=== PATIENT | female | born 1950 | race Caucasian/White ===

== ENCOUNTER 2020-03-17 10:26 | Outpatient (REF) | payer MEDICARE, OTHER, SELFPAY ==
[2020-03-17 11:21] LABS: Alanine Aminotransferase 45 U/L (0-31); Albumin Level 4.2 g/dL (3.5-5.0); Alkaline Phosphatase 81 U/L (39-117); Anion Gap 13 (12-20); Aspartate Amino Transferase 30 U/L (5-31); Bilirubin Total 0.6 mg/dL (0.0-1.0); Blood Urea Nitrogen 15 mg/dL (9-16); Calcium 9.2 mg/dL (8.4-10.2); Carbon Dioxide 28 mmol/L (22-29); Chloride 101 mmol/L (96-108); Cholesterol 160 mg/dL; Estimated Glomerular Filt Rate > 60; Glucose Fasting 143 mg/dL (60-99); HDL Cholesterol 52 mg/dL; LDL Cholesterol Calculated 80 mg/dl; Potassium 4.7 mmol/l (3.3-5.1); Sodium 137 mmol/L (135-145); Triglycerides 144 mg/dL
[2020-03-17 11:27] LABS: Estimated Average Glucose 163 mg/dL; Hemoglobin A1c % 7.3 %
[2020-03-17 11:41] LABS: Free T4 (Free Thyroxine) 1.23 ng/dL (0.71-1.85); Thyroid Stimulating Hormone 5.15 uIU/mL (0.32-4.0)
[2020-03-17 12:59] LABS: Microalbumin Urine < 5.0 mg/L
== END 2020-03-17 10:27 | disposition home or self-care (01) ==
LOC: HO.LAB 10:26
PROVIDERS: Absent Provider Internal Medicine Cardiovascular Disease; PCP Internal Medicine; Visit Provider Internal Medicine
DX: I10 Essential (primary) hypertension (principal); I51.7 Cardiomegaly; E78.5 Hyperlipidemia, unspecified; Z79.899 Other long term (current) drug therapy; E11.69 Type 2 diabetes mellitus with other specified complication; E78.2 Mixed hyperlipidemia; J45.21 Mild intermittent asthma with (acute) exacerbation; E89.0 Postprocedural hypothyroidism
CPT/HCPCS: 80053; 80061; 82043; 83036; 84439; 84443; 93005; 99212

== ENCOUNTER 2020-03-25 14:20 | Outpatient (REF) | payer MEDICARE, OTHER, SELFPAY | END 2020-03-25 14:21 | disposition home or self-care (01) | LOC: HO.LAB 14:20 | PROVIDERS: Visit Provider Nurse Practitioner Family | DX: Z20.828 Contact with and (suspected) exposure to other viral communicable diseases (principal) | CPT/HCPCS: U0003 ==

== ENCOUNTER 2020-03-25 14:23 | Outpatient (REF) | payer MEDICARE, OTHER, SELFPAY ==
--- NOTE | 2020-03-25 14:29 | XR_ITS ---
EXAMINATION: XR CHEST CLINICAL INFORMATION: Cough COMPARISON: July 10, 2018 and June 16, 2018 TECHNIQUE: 2 views of the chest were obtained. FINDINGS: No significant abnormality is noted involving the heart, lungs, mediastinum, bony thorax or soft tissues. XR/XR chest 2V IMPRESSION: No acute disease.
== END 2020-03-25 14:24 | disposition home or self-care (01) ==
LOC: HO.HMGCX 14:23
PROVIDERS: PCP Internal Medicine; Visit Provider Nurse Practitioner Family
DX: R05 Cough (principal); Z20.828 Contact with and (suspected) exposure to other viral communicable diseases
CPT/HCPCS: 71046; U0003

== ENCOUNTER 2020-05-11 13:11 | Outpatient (REF) | payer MEDICARE, OTHER, SELFPAY ==
[2020-05-11 13:47] LABS: MANUAL DIFF FLAG NO
[2020-05-11 13:50] LABS: Basophils Absolute Auto 0.2 X10*3/uL (0.0-0.2); Basophils Percent Auto 2.2 % (0-2); Eosinophils Absolute Auto 1.3 X10*3/uL (0.0-0.4); Eosinophils Percent Auto 13.4 % (0-4); Hematocrit 41.8 % (37-47); Hemoglobin 13.8 g/dl (12.0-16.0); Imm Gran Abs Auto 0.02 X10*3/uL (0.00-0.03); Imm Gran Pct Auto 0.2 % (0.0-0.4); Lymphocytes Absolute Auto 3.1 X10*3/uL (1.2-4.9); Lymphocytes Percent Auto 33.2 % (20-40); Mean Corpuscular Hemoglobin 29.4 pg (27.0-33.0); Mean Corpuscular Volume 89.1 fL (80-98); Mean Platelet Volume 10.1 fL (9.4-12.3); Monocytes Absolute Auto 0.9 X10*3/uL (0.1-1.2); Monocytes Percent Auto 9.5 % (2-11); Neutrophils Absolute Auto 3.9 X10*3/uL (2.0-8.3); Neutrophils Percent Auto 41.5 % (45-73); Platelet Count 389 X10*3/uL (160-400); Red Blood Count 4.69 X10*6/uL (4.20-5.50); Red Cell Distribution Width 12.6 % (11.0-16.0); White Blood Count 9.4 X10*3/uL (4.8-10.8)
[2020-05-11 14:12] LABS: D Dimer 2952 NG/ML
[2020-05-11 14:18] LABS: Anion Gap 13 (12-20); Blood Urea Nitrogen 14 mg/dL (9-16); Calcium 9.4 mg/dL (8.4-10.2); Carbon Dioxide 29 mmol/L (22-29); Chloride 105 mmol/L (96-108); Estimated Glomerular Filt Rate > 60; Glucose Random 92 mg/dL (60-115); Potassium 4.3 mmol/L (3.3-5.1); Sodium 143 mmol/L (135-145)
[2020-05-11 14:24] LABS: B Type Natriuretic Peptide 56 pg/mL (<100)
[2020-05-11 16:56] LABS: Influenza A PCR NEGATIVE (Negative); Influenza B PCR NEGATIVE (Negative); Resp Syncy Virus RNA Qual PCR NEGATIVE (Negative); SARS COV2 PCR INHOUSE NEGATIVE (Negative)
== END 2020-05-11 13:12 | disposition home or self-care (01) ==
LOC: HO.HMGCLDS 13:11
PROVIDERS: Visit Provider Nurse Practitioner Family
DX: R05 Cough (principal); Z20.822 Contact with and (suspected) exposure to COVID-19
CPT/HCPCS: 0241U; 36415; 80048; 83880; 85025; 85379

== ENCOUNTER 2020-05-12 15:44 | Outpatient (REF) | payer MEDICARE, OTHER, SELFPAY ==
--- NOTE | 2020-05-12 15:50 | CT_ITS ---
EXAMINATION: CT ANGIOGRAM OF THE CHEST WITH AND WITHOUT CONTRAST (CT PULMONARY ANGIOGRAM FOR PE) CLINICAL INFORMATION: Reason for Exam R79.89 - Other specified abnormal findings of blood chemistry. COMPARISON: CT chest 07/10/2018. TECHNIQUE: Prior to contrast administration, noncontrast localization images were obtained. Subsequently, multidetector volumetric imaging was performed from the thoracic inlet to below the diaphragms following the administration of 85 mL Omnipaque 350 intravenous contrast. No contrast reaction reported. Sagittal, coronal, and MIP oblique sagittal reformatted images were obtained on the CT workstation, uploaded to PACS, and reviewed. This CT examination was performed using dose optimization techniques as appropriate, variously including the following: *Automated exposure control. *Adjustment of mA and/or kV according to patient size (this includes techniques or standardized protocols for targeted exams where dose is matched to indication/reason for exam; i.e. extremities or head). *Use of iterative reconstruction technique. Total exam dose-length product 178 mGy-cm. FINDINGS: QUALITY OF STUDY/CONTRAST BOLUS: Satisfactory. PULMONARY ARTERIES: Slight heterogeneity opacification of the vasculature. No evidence of convincing filling defects to suggest central or segmental pulmonary emboli. THORACIC AORTA: No aneurysm or dissection. LUNG: Central airway are patent. Atelectasis/scarring in the peripheral inferior lingula. Stable 2 mm nodule right upper lobe image 183 series 6. No new nodules identified. No confluent airspace disease. PLEURA: No pleural effusion or pneumothorax. MEDIASTINUM: Normal heart size. No pericardial effusion. No hilar or mediastinal lymphadenopathy. No evidence of septal bowing or right heart strain. Previously seen thyroid nodules are not included in the [id number]. CHEST WALL/AXILLA: No axillary or internal mammary lymphadenopathy. OSSEOUS STRUCTURES: No acute or suspicious osseous abnormality. UPPER ABDOMEN: Unremarkable. No reflux of contrast into the hepatic veins to suggest elevated right heart pressures. CT/CT angio chest PE protocol IMPRESSION: 1. No evidence of filling defects to suggest central or segmental pulmonary embolus. 2. Stable 2 mm right upper lobe lung nodule. Atelectasis/scarring in the peripheral inferior lingula. No confluent airspace disease. VTE: negative
[2020-05-12] MEDS: iohexoL 350 MG/ML 100 ML INFUS..BTL IV (16:12)
== END 2020-05-12 15:45 | disposition home or self-care (01) ==
LOC: HO.CT 15:44
PROVIDERS: Absent Provider Surgery; PCP Internal Medicine; Visit Provider Nurse Practitioner Family
DX: R79.89 Other specified abnormal findings of blood chemistry (principal); R05 Cough; R06.02 Shortness of breath
CPT/HCPCS: 71275; Q9967

== ENCOUNTER 2020-06-08 14:25 | Outpatient (REF) | payer MEDICARE, OTHER, SELFPAY ==
[2020-06-08 17:01] LABS: Hematocrit 42.5 % (37-47); Hemoglobin 14.2 g/dl (12.0-16.0); Mean Corpuscular HGB Conc 33.4 g/dl (31.0-35.0); Mean Corpuscular Hemoglobin 29.8 pg (27.0-33.0); Mean Corpuscular Volume 89.1 fL (80-98); Mean Platelet Volume 10.6 fL (9.4-12.3); Platelet Count 420 X10*3/uL (160-400); Red Blood Count 4.77 X10*6/uL (4.20-5.50); Red Cell Distribution Width 12.5 % (11.0-16.0); White Blood Count 10.4 X10*3/uL (4.8-10.8)
[2020-06-08 17:11] LABS: Estimated Average Glucose 171 mg/dL; Hemoglobin A1c % 7.6 %
[2020-06-08 17:30] LABS: Creatinine Urine 93.51 mg/dL; Microalbum/Creatinine Ratio Ur 48.1 ug/mg cr
[2020-06-08 17:37] LABS: Alanine Aminotransferase 38 U/L (0-31); Albumin Level 4.4 g/dL (3.5-5.0); Alkaline Phosphatase 78 U/L (39-117); Anion Gap 17 (12-20); Aspartate Amino Transferase 31 U/L (5-31); Bilirubin Total 0.8 mg/dL (0.0-1.0); Blood Urea Nitrogen 13 mg/dL (9-16); Calcium 9.7 mg/dL (8.4-10.2); Carbon Dioxide 24 mmol/L (22-29); Chloride 103 mmol/L (96-108); Cholesterol 155 mg/dL; Estimated Glomerular Filt Rate 56; Glucose Fasting 117 mg/dL (60-99); HDL Cholesterol 52 mg/dL; LDL Cholesterol Calculated 71 mg/dl; Potassium 4.2 mmol/L (3.3-5.1); Sodium 140 mmol/L (135-145); Total Protein 7.1 g/dL (6.5-8.0); Triglycerides 161 mg/dL
[2020-06-08 17:47] LABS: Erythrocyte Sedimentation Rate 25 MM/HR (0-20)
[2020-06-08 18:00] LABS: TSH reflex Free T4 1.99 uIU/mL (0.32-4.0)
[2020-06-10 08:04] LABS: SARS COV2 IgG Negative (Negative)
== END 2020-06-08 14:26 | disposition home or self-care (01) ==
LOC: HO.LAB 14:25
PROVIDERS: PCP Internal Medicine; Visit Provider Hospitalist
DX: E78.5 Hyperlipidemia, unspecified (principal); I11.9 Hypertensive heart disease without heart failure; R05 Cough; E11.9 Type 2 diabetes mellitus without complications; E03.9 Hypothyroidism, unspecified; Z01.84 Encounter for antibody response examination; J45.51 Severe persistent asthma with (acute) exacerbation; R06.02 Shortness of breath; R91.8 Other nonspecific abnormal finding of lung field; D72.10 Eosinophilia, unspecified
CPT/HCPCS: 36415; 80053; 80061; 82043; 82785; 83036; 84443; 85027; 85652; 86003; 86769; 99202

== ENCOUNTER 2020-07-15 09:30 | Outpatient (REF) | payer MEDICARE, OTHER, SELFPAY ==
--- NOTE | 2020-07-15 10:22 | PFT_ITS ---
Forced vital capacity and FEV1 are slightly decreased. FEV1/FVC ratio is normal. [id number] is slightly decreased. MVV normal. After bronchodilator therapy, there is a significant improvement in FEV1 and [id number]. Total lung capacity and residual volume, normal. Diffusion capacity normal. CONCLUSION: Mild obstructive airway disorder with complete reversibility after bronchodilator therapy. This finding is consistent with mild bronchial asthma. Clinical correlation is recommended. MD GULSHAN Zambrano/RESHMA / [id number]
== END 2020-07-15 09:31 | disposition home or self-care (01) ==
LOC: HO.RESP 09:30
PROVIDERS: PCP Internal Medicine; Visit Provider Hospitalist
DX: J45.51 Severe persistent asthma with (acute) exacerbation (principal)
CPT/HCPCS: 94060; 94727; 94729; 99212

== ENCOUNTER 2020-07-16 13:56 | Outpatient (REF) | payer MEDICARE, OTHER, SELFPAY ==
--- NOTE | ~2020-07-16 | US_ITS ---
EXAMINATION: US VENOUS ULTRASOUND WITH DOPPLER LOWER EXTREMITY, RIGHT CLINICAL INFORMATION: Elevated d-dimer. Right lower extremity pain. Assess for occult DVT. COMPARISON: None TECHNIQUE: Ultrasound of the deep veins is performed from the hip to the calf with compression sonography and color and pulse Doppler assessment. Spectral analysis with color-flow imaging is performed. FINDINGS: There is normal venous compression and respiratory variation and augmented flow. The visualized common femoral vein, superficial femoral vein, profunda femoral vein, popliteal vein, and the trifurcation region shows no evidence of deep venous thrombosis. No popliteal fossa cyst. US/US venous duplex LE RT IMPRESSION: No DVT demonstrated in the right lower extremity.
== END 2020-07-16 13:57 | disposition home or self-care (01) ==
LOC: HO.US 13:56
PROVIDERS: PCP Internal Medicine; Visit Provider Hospitalist
DX: M79.601 Pain in right arm (principal); R22.43 Localized swelling, mass and lump, lower limb, bilateral; R79.1 Abnormal coagulation profile
CPT/HCPCS: 93971

== ENCOUNTER 2020-07-30 11:40 | Outpatient (REF) | payer MEDICARE, OTHER, SELFPAY ==
[2020-07-30 14:08] LABS: MANUAL DIFF FLAG NO
[2020-07-30 14:24] LABS: Basophils Absolute Auto 0.1 X10*3/uL (0.0-0.2); Basophils Percent Auto 1.8 % (0-2); Eosinophils Absolute Auto 0.8 X10*3/uL (0.0-0.4); Eosinophils Percent Auto 10.3 % (0-4); Hematocrit 42.4 % (37-47); Hemoglobin 13.8 g/dl (12.0-16.0); Imm Gran Abs Auto 0.02 X10*3/uL (0.00-0.03); Imm Gran Pct Auto 0.3 % (0.0-0.4); Lymphocytes Absolute Auto 2.2 X10*3/uL (1.2-4.9); Lymphocytes Percent Auto 30.3 % (20-40); Mean Corpuscular HGB Conc 32.5 g/dl (31.0-35.0); Mean Corpuscular Hemoglobin 29.5 pg (27.0-33.0); Mean Corpuscular Volume 90.6 fL (80-98); Mean Platelet Volume 10.3 fL (9.4-12.3); Monocytes Absolute Auto 0.7 X10*3/uL (0.1-1.2); Monocytes Percent Auto 9.5 % (2-11); Neutrophils Absolute Auto 3.5 X10*3/uL (2.0-8.3); Neutrophils Percent Auto 47.8 % (45-73); Platelet Count 392 X10*3/uL (160-400); Red Blood Count 4.68 X10*6/uL (4.20-5.50); Red Cell Distribution Width 12.5 % (11.0-16.0); White Blood Count 7.4 X10*3/uL (4.8-10.8)
[2020-07-30 14:36] LABS: B Type Natriuretic Peptide 55 pg/mL (<100)
[2020-07-30 14:39] LABS: D Dimer 2733 NG/ML
[2020-07-30 14:42] LABS: Anion Gap 13 (12-20); Blood Urea Nitrogen 13 mg/dL (9-16); Calcium 9.8 mg/dL (8.4-10.2); Carbon Dioxide 28 mmol/L (22-29); Chloride 104 mmol/L (96-108); Estimated Glomerular Filt Rate > 60; Glucose Random 127 mg/dL (60-115); Potassium 4.5 mmol/L (3.3-5.1); Sodium 140 mmol/L (135-145)
== END 2020-07-30 11:41 | disposition home or self-care (01) ==
LOC: HO.HMGCLDS 11:40
PROVIDERS: Hospitalist; PCP Internal Medicine; Visit Provider Internal Medicine
DX: J45.909 Unspecified asthma, uncomplicated (principal); J45.51 Severe persistent asthma with (acute) exacerbation; R79.89 Other specified abnormal findings of blood chemistry; E11.9 Type 2 diabetes mellitus without complications; I10 Essential (primary) hypertension
CPT/HCPCS: 36415; 80048; 83880; 85025; 85379

== ENCOUNTER 2020-08-19 11:22 | Outpatient (REF) | payer MEDICARE, OTHER, SELFPAY ==
[2020-08-19 13:55] LABS: MANUAL DIFF FLAG NO
[2020-08-19 14:01] LABS: Basophils Absolute Auto 0.1 X10*3/uL (0.0-0.2); Basophils Percent Auto 1.7 % (0-2); Eosinophils Absolute Auto 0.6 X10*3/uL (0.0-0.4); Eosinophils Percent Auto 7.8 % (0-4); Hematocrit 43.1 % (37-47); Hemoglobin 14.3 g/dl (12.0-16.0); Imm Gran Abs Auto 0.02 X10*3/uL (0.00-0.03); Imm Gran Pct Auto 0.3 % (0.0-0.4); Lymphocytes Absolute Auto 2.1 X10*3/uL (1.2-4.9); Mean Corpuscular HGB Conc 33.2 g/dl (31.0-35.0); Mean Corpuscular Hemoglobin 29.7 pg (27.0-33.0); Mean Corpuscular Volume 89.4 fL (80-98); Mean Platelet Volume 10.3 fL (9.4-12.3); Monocytes Absolute Auto 0.6 X10*3/uL (0.1-1.2); Monocytes Percent Auto 7.2 % (2-11); Neutrophils Absolute Auto 4.3 X10*3/uL (2.0-8.3); Platelet Count 391 X10*3/uL (160-400); Red Blood Count 4.82 X10*6/uL (4.20-5.50); Red Cell Distribution Width 12.5 % (11.0-16.0); White Blood Count 7.7 X10*3/uL (4.8-10.8)
[2020-08-19 14:08] LABS: Fibrinogen 615 MG/DL (259-690); Prothrombin Time 11.6 SEC (10.8-13.0)
[2020-08-19 14:19] LABS: D Dimer 3372 NG/ML; Partial Thromboplastin Time 42.4 SEC (24.1-38.0)
[2020-08-19 14:29] LABS: Rheumatoid Factor < 15.0 IU/mL (<15.0)
[2020-08-19 14:54] LABS: Erythrocyte Sedimentation Rate 19 MM/HR (0-20)
[2020-08-20 22:12] LABS: Prot Elec - Alpha1 0.3 g/dL (0.2-0.3); Prot Elec - Alpha2 0.9 g/dL (0.5-0.9); Prot Elec - Beta 1 0.4 g/dL (0.4-0.6); Prot Elec - Beta 2 0.4 g/dL (0.2-0.5); Prot Elec - Gamma 0.9 g/dL (0.8-1.7); Prot Elec - Total Protein 6.9 g/dL (6.1-8.1)
[2020-08-21 18:51] LABS: IgA 235 mg/dL (70-320); IgG 922 mg/dL (600-1540); IgM 115 mg/dL (50-300)
[2020-08-25 18:27] LABS: Cyclic Citrullinated Peptide <16 UNITS
== END 2020-08-19 11:23 | disposition home or self-care (01) ==
LOC: HO.HMGCLDS 11:22
PROVIDERS: Hospitalist; PCP Internal Medicine; Visit Provider Internal Medicine
DX: R06.02 Shortness of breath (principal); R06.2 Wheezing; R79.89 Other specified abnormal findings of blood chemistry; J45.51 Severe persistent asthma with (acute) exacerbation
CPT/HCPCS: 36415; 82784; 84155; 84165; 85025; 85379; 85384; 85610; 85652; 85730; 86140; 86200; 86334; 86431

== ENCOUNTER 2020-08-27 10:58 | Outpatient (REF) | payer MEDICARE, OTHER, SELFPAY ==
[2020-08-27 13:54] LABS: Hematocrit 43.3 % (37-47); Hemoglobin 14.2 g/dl (12.0-16.0); Mean Corpuscular HGB Conc 32.8 g/dl (31.0-35.0); Mean Corpuscular Hemoglobin 29.5 pg (27.0-33.0); Mean Platelet Volume 10.3 fL (9.4-12.3); Platelet Count 401 X10*3/uL (160-400); Red Blood Count 4.81 X10*6/uL (4.20-5.50); Red Cell Distribution Width 12.6 % (11.0-16.0); White Blood Count 8.5 X10*3/uL (4.8-10.8)
[2020-08-27 14:17] LABS: Estimated Average Glucose 151 mg/dL; Hemoglobin A1c % 6.9 %
[2020-08-27 14:24] LABS: Alanine Aminotransferase 37 U/L (0-31); Albumin Level 4.3 g/dL (3.5-5.0); Alkaline Phosphatase 82 U/L (39-117); Anion Gap 14 (12-20); Aspartate Amino Transferase 27 U/L (5-31); Bilirubin Total 0.6 mg/dL (0.0-1.0); Blood Urea Nitrogen 15 mg/dL (9-16); Calcium 9.4 mg/dL (8.4-10.2); Carbon Dioxide 24 mmol/L (22-29); Chloride 105 mmol/L (96-108); Cholesterol 151 mg/dL; Estimated Glomerular Filt Rate > 60; Glucose Fasting 120 mg/dL (60-99); HDL Cholesterol 51 mg/dL; LDL Cholesterol Calculated 72 mg/dl; Potassium 4.4 mmol/L (3.3-5.1); Sodium 139 mmol/L (135-145); Total Protein 6.9 g/dL (6.5-8.0); Triglycerides 142 mg/dL
[2020-08-27 14:25] LABS: Creatinine Urine 41.16 mg/dL; Microalbumin Urine < 5.0 mg/L
[2020-08-27 14:46] LABS: TSH reflex Free T4 0.81 uIU/mL (0.32-4.0)
== END 2020-08-27 10:59 | disposition home or self-care (01) ==
LOC: HO.HMGCLDS 10:58
PROVIDERS: PCP Internal Medicine; Visit Provider Internal Medicine
DX: J45.51 Severe persistent asthma with (acute) exacerbation (principal); D72.10 Eosinophilia, unspecified; E11.9 Type 2 diabetes mellitus without complications; E78.5 Hyperlipidemia, unspecified
CPT/HCPCS: 36415; 80053; 80061; 82043; 83036; 84443; 85027

== ENCOUNTER → 2020-08-31 11:21 | Outpatient (BNVA) | payer MEDICARE, OTHER, SELFPAY | PROVIDERS: PCP Internal Medicine; Visit Provider Hospitalist | DX: J45.40 Moderate persistent asthma, uncomplicated (principal); R91.8 Other nonspecific abnormal finding of lung field | CPT/HCPCS: 99212 ==

== ENCOUNTER 2020-10-09 11:52 | Outpatient (REF) | payer MEDICARE, OTHER, SELFPAY ==
[2020-10-14 21:06] LABS: HPV mRNA E6/E7 Not Detected (Not Detected)
== END 2020-10-09 11:53 | disposition home or self-care (01) ==
LOC: HO.LAB 11:52
PROVIDERS: Visit Provider Internal Medicine
DX: Z01.419 Encounter for gynecological examination (general) (routine) without abnormal findings (principal)
CPT/HCPCS: 87624; 88142

== ENCOUNTER 2020-12-07 09:55 | Outpatient (REF) | payer MEDICARE, OTHER, SELFPAY ==
[2020-12-07 11:45] LABS: Alanine Aminotransferase 34 U/L (0-31); Albumin Level 4.1 g/dL (3.5-5.0); Alkaline Phosphatase 86 U/L (39-117); Anion Gap 15 (12-20); Aspartate Amino Transferase 19 U/L (5-31); Bilirubin Total 0.6 mg/dL (0.0-1.0); Blood Urea Nitrogen 13 mg/dL (9-16); Calcium 9.6 mg/dL (8.4-10.2); Carbon Dioxide 24 mmol/L (22-29); Chloride 105 mmol/L (96-108); Cholesterol 151 mg/dL; Estimated Glomerular Filt Rate > 60; Glucose Fasting 126 mg/dL (60-99); HDL Cholesterol 55 mg/dL; LDL Cholesterol Calculated 72 mg/dl; Potassium 4.1 mmol/L (3.3-5.1); Sodium 140 mmol/L (135-145); Total Protein 6.8 g/dL (6.5-8.0); Triglycerides 123 mg/dL
[2020-12-07 11:57] LABS: TSH reflex Free T4 1.04 uIU/mL (0.32-4.0); Vitamin D 25-OH Total 38.2 ng/mL (>30)
[2020-12-07 12:14] LABS: Estimated Average Glucose 140 mg/dL; Hemoglobin A1c % 6.5 %
== END 2020-12-07 09:56 | disposition home or self-care (01) ==
LOC: HO.HMGCLDS 09:55
PROVIDERS: PCP Internal Medicine; Visit Provider Internal Medicine
DX: E03.9 Hypothyroidism, unspecified (principal); E11.9 Type 2 diabetes mellitus without complications; I10 Essential (primary) hypertension
CPT/HCPCS: 36415; 80053; 80061; 82306; 83036; 84443

== ENCOUNTER 2021-02-01 10:01 | Outpatient (REF) | payer MEDICARE, OTHER, SELFPAY ==
[2021-02-01 10:53] LABS: MANUAL DIFF FLAG NO
[2021-02-01 10:57] LABS: Basophils Absolute Auto 0.1 X10*3/uL (0.0-0.2); Basophils Percent Auto 1.6 % (0-2); Eosinophils Absolute Auto 0.4 X10*3/uL (0.0-0.4); Eosinophils Percent Auto 4.4 % (0-4); Hematocrit 42.4 % (37-47); Hemoglobin 14.1 g/dl (12.0-16.0); Imm Gran Abs Auto 0.02 X10*3/uL (0.00-0.03); Imm Gran Pct Auto 0.2 % (0.0-0.4); Lymphocytes Absolute Auto 2.4 X10*3/uL (1.2-4.9); Lymphocytes Percent Auto 27.9 % (20-40); Mean Corpuscular HGB Conc 33.3 g/dl (31.0-35.0); Mean Corpuscular Hemoglobin 29.2 pg (27.0-33.0); Mean Corpuscular Volume 87.8 fL (80-98); Mean Platelet Volume 9.5 fL (9.4-12.3); Monocytes Absolute Auto 0.9 X10*3/uL (0.1-1.2); Monocytes Percent Auto 9.9 % (2-11); Neutrophils Absolute Auto 4.9 X10*3/uL (2.0-8.3); Platelet Count 368 X10*3/uL (160-400); Red Blood Count 4.83 X10*6/uL (4.20-5.50); Red Cell Distribution Width 13.2 % (11.0-16.0); White Blood Count 8.7 X10*3/uL (4.8-10.8)
[2021-02-01 12:06] LABS: Erythrocyte Sedimentation Rate 16 MM/HR (0-20)
[2021-02-02 13:16] LABS: SARS-COV-2 IgG Spike, Semi-Qnt >20.00 index (<1.00)
[2021-02-02 18:22] LABS: Immunoglobulin E 40 kU/L (<OR=114)
== END 2021-02-01 10:02 | disposition home or self-care (01) ==
LOC: HO.LAB 10:01
PROVIDERS: PCP Internal Medicine; Visit Provider Hospitalist
DX: R91.8 Other nonspecific abnormal finding of lung field (principal); J45.40 Moderate persistent asthma, uncomplicated; Z79.899 Other long term (current) drug therapy; Z87.891 Personal history of nicotine dependence; Z01.84 Encounter for antibody response examination
CPT/HCPCS: 36415; 82785; 85025; 85652; 86769; 99212

== ENCOUNTER 2021-03-12 16:51 | Outpatient (REF) | payer MEDICARE, OTHER, SELFPAY ==
[2021-03-12 17:12] LABS: Hematocrit 44.5 % (37.0-47.0); Hemoglobin 14.7 g/dl (12.0-16.0); Mean Corpuscular Hemoglobin 28.9 pg (27.0-33.0); Mean Corpuscular Volume 87.6 fL (80.0-98.0); Mean Platelet Volume 9.5 fL (9.4-12.3); Platelet Count 416 X10*3/uL (160-400); Red Blood Count 5.08 X10*6/uL (4.20-5.50); Red Cell Distribution Width 13.1 % (11.0-16.0); White Blood Count 8.5 X10*3/uL (4.8-10.8)
[2021-03-12 17:34] LABS: Creatinine Urine 97.52 mg/dL; Microalbum/Creatinine Ratio Ur 22.5 ug/mg cr
[2021-03-12 17:41] LABS: Alanine Aminotransferase 38 U/L (0-31); Albumin Level 4.3 g/dL (3.5-5.0); Alkaline Phosphatase 95 U/L (39-117); Anion Gap 16 (12-20); Aspartate Amino Transferase 23 U/L (5-31); Bilirubin Total 0.5 mg/dL (0.0-1.0); Blood Urea Nitrogen 14 mg/dL (9-16); Calcium 9.9 mg/dL (8.4-10.2); Carbon Dioxide 22 mmol/L (22-29); Chloride 106 mmol/L (96-108); Cholesterol 156 mg/dL; Estimated Average Glucose 140 mg/dL; Estimated Glomerular Filt Rate 54; Glucose Fasting 104 mg/dL (60-99); HDL Cholesterol 56 mg/dL; Hemoglobin A1c % 6.5 %; LDL Cholesterol Calculated 79 mg/dl; Potassium 4.1 mmol/L (3.3-5.1); Sodium 140 mmol/L (135-145); Total Protein 7.3 g/dL (6.5-8.0); Triglycerides 109 mg/dL
== END 2021-03-12 16:52 | disposition home or self-care (01) ==
LOC: HO.LAB 16:51
PROVIDERS: PCP Internal Medicine; Visit Provider Internal Medicine
DX: E11.9 Type 2 diabetes mellitus without complications (principal); I10 Essential (primary) hypertension; E78.5 Hyperlipidemia, unspecified
CPT/HCPCS: 36415; 80053; 80061; 82043; 83036; 85027

== ENCOUNTER 2021-03-25 14:16 | Outpatient (REF) | payer MEDICARE, OTHER, SELFPAY ==
--- NOTE | ~2021-03-25 | MM_ITS ---
EXAMINATION: BONE DENSITOMETRY CLINICAL INDICATION: Asymptomatic menopausal state. COMPARISON: This is the patient's baseline examination. TECHNIQUE: Using a ACE DXA System (software version: 13.1) manufactured by [employer], dual-energy x-ray absorptiometry was performed of the lumbar spine and left hip. The images are of good technical quality. Summary results are attached. FINDINGS: AP SPINE L1-L4: BMD 1.228 g/cm2, Z-score 0.9, T-score 0.4, normal. LEFT FEMUR, NECK: BMD 0.794 g/cm2, Z-score -0.8, T-score -1.8, osteopenia. LEFT FEMUR, TOTAL: BMD 0.886 g/cm2, Z-score -0.4, T-score -1.0, normal. IDENTIFIED RISK FACTORS: Early menopause, secondary osteoporosis. HISTORY OF FRACTURE: None listed. MEDICATIONS: None listed. MM/XR DEXA axial skeleton IMPRESSION: 1. DIAGNOSIS: Osteopenia based on the lowest T-score value of -1.8 in the femoral neck applying World Health Organization criteria. 2. 10-YEAR FRACTURE RISK PREDICTION, FRAX: Major osteoporotic fracture (clinical spine, forearm, hip or shoulder) 9.3%. Hip fracture 1.4%. 3. Treatment Recommendations: NOF guidelines recommend consideration for treatment in postmenopausal women and men age 50 and older presenting with the following: -A hip or vertebral (clinical or morphometric) fracture. -T-score less than or equal to -2.5 at the femoral neck or spine after appropriate evaluation to exclude secondary causes. -Low bone mass at the hip or spine and a 10-year fracture probability by FRAX of greater than or equal to 3% for hip fracture or greater than or equal to 20% for major osteoporotic fracture based on the [place] adapted WHO algorithm. 4. Other Recommendations: All treatment decisions require clinical judgment and consideration of individual patient factors, including patient preferences, comorbidities, previous drug use, risk factors not captured in the FRAX model (e.g. frailty, falls, vitamin D deficiency, increased bone turnover, interval significant decline in bone density) and possible under or overestimation of fracture risk by FRAX. Additional medical evaluation for secondary cause of low bone mineral density may be appropriate. FUTURE SCAN RECOMMENDATION: People with diagnosed cases of osteoporosis or at high risk for fracture should have regular bone mineral density tests. For patients eligible for Medicare, routine testing is allowed once every 2 years. The testing frequency can be increased to one year for patients who have rapidly progressing disease, those who are receiving or discontinuing medical therapy to restore bone mass, or have additional risk factors.
== END 2021-03-25 14:17 | disposition home or self-care (01) ==
LOC: HO.MAMMO 14:16
PROVIDERS: Visit Provider Internal Medicine
DX: Z13.820 Encounter for screening for osteoporosis (principal); M85.80 Other specified disorders of bone density and structure, unspecified site; Z78.0 Asymptomatic menopausal state; Z79.899 Other long term (current) drug therapy
CPT/HCPCS: 77080

== ENCOUNTER 2021-06-15 08:27 | Outpatient (REF) | payer MEDICARE, OTHER, SELFPAY ==
[2021-06-15 09:30] LABS: Estimated Average Glucose 148 mg/dL; Hemoglobin A1c % 6.8 %
[2021-06-15 09:36] LABS: Alanine Aminotransferase 36 U/L (0-31); Alkaline Phosphatase 87 U/L (39-117); Anion Gap 13 (12-20); Aspartate Amino Transferase 23 U/L (5-31); Bilirubin Total 0.6 mg/dL (0.0-1.0); Blood Urea Nitrogen 10 mg/dL (9-16); Calcium 9.6 mg/dL (8.4-10.2); Carbon Dioxide 28 mmol/L (22-29); Chloride 104 mmol/L (96-108); Cholesterol 167 mg/dL; Estimated Glomerular Filt Rate 53; Glucose Fasting 151 mg/dL (60-99); HDL Cholesterol 55 mg/dL; LDL Cholesterol Calculated 86 mg/dl; Potassium 4.2 mmol/L (3.3-5.1); Sodium 141 mmol/L (135-145); Total Protein 6.8 g/dL (6.5-8.0); Triglycerides 133 mg/dL
[2021-06-15 10:01] LABS: TSH reflex Free T4 1.15 uIU/mL (0.32-4.0)
== END 2021-06-15 08:28 | disposition home or self-care (01) ==
LOC: HO.LAB 08:27
PROVIDERS: PCP Internal Medicine; Visit Provider Internal Medicine
DX: E11.9 Type 2 diabetes mellitus without complications (principal); E78.5 Hyperlipidemia, unspecified; E03.9 Hypothyroidism, unspecified; I10 Essential (primary) hypertension
CPT/HCPCS: 36415; 80053; 80061; 83036; 84443

== ENCOUNTER 2021-09-28 10:36 | Outpatient (REF) | payer MEDICARE, OTHER, SELFPAY ==
[2021-09-28 12:44] LABS: Thyroid Stimulating Hormone 1.51 uIU/mL (0.32-4.0)
[2021-09-28 13:37] LABS: Alanine Aminotransferase 32 U/L (0-31); Alkaline Phosphatase 88 U/L (39-117); Anion Gap 13 (12-20); Aspartate Amino Transferase 23 U/L (5-31); Bilirubin Total 0.4 mg/dL (0.0-1.0); Blood Urea Nitrogen 11 mg/dL (9-16); Calcium 8.9 mg/dL (8.4-10.2); Carbon Dioxide 24 mmol/L (22-29); Chloride 107 mmol/L (96-108); Cholesterol 155 mg/dL; Estimated Glomerular Filt Rate > 60; Glucose Fasting 134 mg/dL (60-99); HDL Cholesterol 57 mg/dL; LDL Cholesterol Calculated 78 mg/dl; Potassium 4.3 mmol/L (3.3-5.1); Sodium 140 mmol/L (135-145); Total Protein 6.7 g/dL (6.5-8.0); Triglycerides 104 mg/dL
[2021-09-28 13:47] LABS: Estimated Average Glucose 148 mg/dL; Hemoglobin A1c % 6.8 %
== END 2021-09-28 10:37 | disposition home or self-care (01) ==
LOC: HO.HMGCLDS 10:36
PROVIDERS: PCP Internal Medicine; Visit Provider Internal Medicine
DX: Z00.00 Encounter for general adult medical examination without abnormal findings (principal); E11.9 Type 2 diabetes mellitus without complications; I10 Essential (primary) hypertension; E03.9 Hypothyroidism, unspecified; E78.5 Hyperlipidemia, unspecified
CPT/HCPCS: 36415; 80053; 80061; 83036; 84443

== ENCOUNTER 2021-10-13 12:12 | Outpatient (REF) | payer MEDICARE, OTHER, SELFPAY ==
--- NOTE | ~2021-10-13 | XR_ITS ---
EXAMINATION: XR HAND, RIGHT XR HAND, LEFT XR SHOULDER, LEFT CLINICAL INFORMATION: Pain. COMPARISON: None TECHNIQUE: Three views of each hand. Left shoulder 4 views. FINDINGS: RIGHT HAND: There is loss of the PIP and DIP joint spaces without any periarticular spurring or loose bodies. No abnormal joint effusion is seen. The MCP joint spaces are preserved. LEFT HAND: There is mild loss of the PIP and DIP joint spaces with mild periarticular spurring at the DIP joint of the 2nd digit. No bony erosive changes or soft tissue swelling is seen. The MCP joint spaces are preserved. The visualized intercarpal joints are unremarkable. LEFT SHOULDER: There is mild loss of the left AC joint space with periarticular spurring. No visible acute fracture, dislocation or subluxation is seen. The soft tissues are normal. XR/XR hand RT min 3V IMPRESSION: Mild degenerative changes of the bilateral PIP and DIP joints with periarticular spurring at the DIP joint of the 2nd digit of the left hand. No acute fracture is seen. No visible acute fracture or dislocation of the left shoulder. Mild degenerative changes of the left AC joint.
--- NOTE | ~2021-10-13 | XR_ITS ---
EXAMINATION: XR HAND, RIGHT XR HAND, LEFT XR SHOULDER, LEFT CLINICAL INFORMATION: Pain. COMPARISON: None TECHNIQUE: Three views of each hand. Left shoulder 4 views. FINDINGS: RIGHT HAND: There is loss of the PIP and DIP joint spaces without any periarticular spurring or loose bodies. No abnormal joint effusion is seen. The MCP joint spaces are preserved. LEFT HAND: There is mild loss of the PIP and DIP joint spaces with mild periarticular spurring at the DIP joint of the 2nd digit. No bony erosive changes or soft tissue swelling is seen. The MCP joint spaces are preserved. The visualized intercarpal joints are unremarkable. LEFT SHOULDER: There is mild loss of the left AC joint space with periarticular spurring. No visible acute fracture, dislocation or subluxation is seen. The soft tissues are normal. XR/XR hand LT min 3V IMPRESSION: Mild degenerative changes of the bilateral PIP and DIP joints with periarticular spurring at the DIP joint of the 2nd digit of the left hand. No acute fracture is seen. No visible acute fracture or dislocation of the left shoulder. Mild degenerative changes of the left AC joint.
--- NOTE | ~2021-10-13 | XR_ITS ---
EXAMINATION: XR HAND, RIGHT XR HAND, LEFT XR SHOULDER, LEFT CLINICAL INFORMATION: Pain. COMPARISON: None TECHNIQUE: Three views of each hand. Left shoulder 4 views. FINDINGS: RIGHT HAND: There is loss of the PIP and DIP joint spaces without any periarticular spurring or loose bodies. No abnormal joint effusion is seen. The MCP joint spaces are preserved. LEFT HAND: There is mild loss of the PIP and DIP joint spaces with mild periarticular spurring at the DIP joint of the 2nd digit. No bony erosive changes or soft tissue swelling is seen. The MCP joint spaces are preserved. The visualized intercarpal joints are unremarkable. LEFT SHOULDER: There is mild loss of the left AC joint space with periarticular spurring. No visible acute fracture, dislocation or subluxation is seen. The soft tissues are normal. XR/XR shoulder LT min 2V IMPRESSION: Mild degenerative changes of the bilateral PIP and DIP joints with periarticular spurring at the DIP joint of the 2nd digit of the left hand. No acute fracture is seen. No visible acute fracture or dislocation of the left shoulder. Mild degenerative changes of the left AC joint.
[2021-10-13 14:21] LABS: Rheumatoid Factor < 15.0 IU/mL (<15.0)
[2021-10-13 14:52] LABS: Erythrocyte Sedimentation Rate 20 MM/HR (0-20)
[2021-10-15 14:26] LABS: Anti Nuclear Antibody Screen NEGATIVE (NEGATIVE)
[2021-10-15 14:37] LABS: CRP High Sensitivity 8.8 mg/L
[2021-10-18 18:06] LABS: Cyclic Citrullinated Peptide <16 UNITS
== END 2021-10-13 12:13 | disposition home or self-care (01) ==
LOC: HO.HMGCLDS 12:12
PROVIDERS: PCP Internal Medicine; Visit Provider Internal Medicine
DX: M25.50 Pain in unspecified joint (principal)
CPT/HCPCS: 36415; 73030; 73130; 85652; 86038; 86039; 86141; 86200; 86431

== ENCOUNTER 2021-10-21 11:46 | Outpatient (REF) | payer MEDICARE, OTHER, SELFPAY ==
[2021-10-22 07:11] LABS: HBS Num1 0.91 mIU/mL (0-7.99); HBc Num1 0.09 S/CO (0.00-0.79); HBsAGNum1 0.16 S/CO (0.00-0.99); Hepatitis A Antibody IgM 0.18 Index (0-0.79); Hepatitis B Core Antibody Nonreactive (Nonreactive); Hepatitis B Surface Antigen Negative (Negative); ~HepC Num1 0.13 S/CO (0.00-0.79); ~Hepatitis A Antibody IgM Nonreactive (Nonreactive); ~Hepatitis B Surface Antibody NONREACTIVE (Nonreactive); ~Hepatitis C Antibody Nonreactive (Nonreactive)
[2021-10-24 01:07] LABS: TS Negative Control Passed; TS Panel A 1; TS Panel B 0; TS Positive Control Passed; TSpotTB Negative (Negative)
== END 2021-10-21 11:47 | disposition home or self-care (01) ==
LOC: HO.10HDL 11:46
PROVIDERS: Visit Provider Internal Medicine Rheumatology
DX: L40.50 Arthropathic psoriasis, unspecified (principal); M19.041 Primary osteoarthritis, right hand; M19.042 Primary osteoarthritis, left hand; Z79.899 Other long term (current) drug therapy
CPT/HCPCS: 36415; 86481; 86704; 86706; 86709; 86803; 87340; 99202

== ENCOUNTER 2021-11-19 13:00 | Outpatient (RCR) | payer MEDICARE, OTHER, SELFPAY ==
--- NOTE | 2021-10-20 14:27 | MHC.PT.EP ---
[facility] [place] Office [place] Office [place] Office [address] Nadia Crabtree [address] [phone] F: [phone] F: [phone] F: [phone] F: [phone] Physical Therapy Plan of Care Date of Evaluation: Date of Surgery: n/a Diagnosis: pain in the L shoulder Assessment: Patient is a 71 year old female presenting to PT with complaints of pain in her B shoulder. Pt reports onset of pain began 3 weeks ago due to insidious onset but doctors are checking to see if she has psoriatic arthritis. She presents today with impairments in pain, ROM, strength, posture. Pt's current occupation is retired, with baseline physical activities including reaching, ADLs, sleep. 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 Clinical presentation today is most consistent with signs and sx associated with L shoulder pain with question of autoimmune connection and pt will benefit from skilled PT to address the following problems and impairments noted upon evaluation: pain, ROM, strength, posture. These problems limit the patient with the following functional activities: reaching, ADLs, sleeping. The prescribed treatment plan of care is medically necessary. Co-morbidities of T2DM, HTN, L ventricular hypertrophy were identified and taken into considerations of plan of care. Pt was educated on HEP, role of PT, prognosis, POC. Frequency and Duration: The patient will be seen 2 x week x 4 weeks Short Term Goals: Pt will demonstrate improved shoulder flex and abd by 20 degrees each in 2 weeks. Pt will demonstrate improved shoulder strength B by 1/3 MMT in 2 weeks. Pt will demonstrate improved postural awareness by sitting with biomechanically correct posture without cues throughout session to improve overall postural function in 2 weeks. 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 Pt will demonstrate ability to sleep through the night with disruption < 3 times in 4 weeks for improved QOL. Pt will demonstrate ability to reach with min to no pain in 4 weeks for improved tolerance to ADLs. Treatment Plan: Modalities to reduce pain, spasms and effusion. Manual therapy to restore motion and function. Therapeutic exercise to improve strength and flexibility. Neuromuscular re-education for posture and balance. Therapeutic activities to return to functional activities of daily living. Electronically signed by: Joanne Novak, PT, DPT, ATC Please sign and return to therapist. Thank you for your referral.
--- NOTE | 2021-12-22 12:56 | MHC.PT.DC ---
[facility] [place] Office [place] Office [place] Office [address] Nadia Crabtree [address] [phone] F: [phone] F: [phone] F: [phone] F: [phone] Physical Therapy Discharge Report Diagnosis: pain in the L shoulder Date of Surgery: n/a Date of Evaluation: 10/20/21 Date of Discharge: 12/22/21 Treatments to Date: 5 Cancellations to Date: 3 No Shows to Date: 0 Discharge Status: Discharge Summary: Pt has not been seen in skilled PT in >30 days. Pt to be d/c per our policy. Electronically signed by: Joanne Novak, PT, DPT, ATC Please sign and return to therapist. Thank you for your referral.
== END 2021-12-22 12:56 | disposition home or self-care (01) ==
LOC: HO.PTCHIC 13:00
PROVIDERS: PCP Internal Medicine; Visit Provider Internal Medicine
DX: M25.512 Pain in left shoulder (principal)
CPT/HCPCS: 97110; 97161

== ENCOUNTER → 2021-11-22 14:04 | Outpatient (BNVA) | payer MEDICARE, OTHER, SELFPAY | PROVIDERS: PCP Internal Medicine; Visit Provider Internal Medicine Rheumatology | DX: M19.041 Primary osteoarthritis, right hand (principal); M19.042 Primary osteoarthritis, left hand; R20.0 Anesthesia of skin; L40.50 Arthropathic psoriasis, unspecified; R74.01 Elevation of levels of liver transaminase levels; Z79.899 Other long term (current) drug therapy | CPT/HCPCS: 99212 ==

== ENCOUNTER 2021-12-24 11:04 | Outpatient (REF) | payer MEDICARE, OTHER, SELFPAY ==
[2021-12-24 13:40] LABS: MANUAL DIFF FLAG NO
[2021-12-24 13:44] LABS: Basophils Absolute Auto 0.1 X10*3/uL (0.0-0.2); Basophils Percent Auto 1.2 % (0-2); Eosinophils Absolute Auto 0.3 X10*3/uL (0.0-0.4); Eosinophils Percent Auto 3.1 % (0-4); Hematocrit 41.7 % (37.0-47.0); Hemoglobin 13.9 g/dl (12.0-16.0); Imm Gran Abs Auto 0.02 X10*3/uL (0.00-0.03); Imm Gran Pct Auto 0.2 % (0.0-0.4); Lymphocytes Absolute Auto 1.8 X10*3/uL (1.2-4.9); Lymphocytes Percent Auto 22.4 % (20-40); Mean Corpuscular HGB Conc 33.3 g/dl (31.0-35.0); Mean Corpuscular Hemoglobin 28.9 pg (27.0-33.0); Mean Corpuscular Volume 86.7 fL (80.0-98.0); Mean Platelet Volume 9.5 fL (9.4-12.3); Monocytes Absolute Auto 0.7 X10*3/uL (0.1-1.2); Monocytes Percent Auto 8.2 % (2-11); Neutrophils Absolute Auto 5.3 x10*3/uL (2.0-8.3); Neutrophils Percent Auto 64.9 % (45-73); Platelet Count 504 X10*3/uL (160-400); Red Blood Count 4.81 X10*6/uL (4.20-5.50); Red Cell Distribution Width 12.4 % (11.0-16.0); White Blood Count 8.2 X10*3/uL (4.8-10.8)
[2021-12-24 13:56] LABS: Estimated Average Glucose 137 mg/dL; Hemoglobin A1c % 6.4 %
[2021-12-24 13:58] LABS: Alanine Aminotransferase 31 U/L (0-31); Albumin Level 4.1 g/dL (3.5-5.0); Alkaline Phosphatase 85 U/L (39-117); Anion Gap 17 (12-20); Aspartate Amino Transferase 20 U/L (5-31); Bilirubin Total 0.6 mg/dL (0.0-1.0); Blood Urea Nitrogen 11 mg/dL (9-16); Calcium 9.5 mg/dL (8.4-10.2); Carbon Dioxide 23 mmol/L (22-29); Chloride 104 mmol/L (96-108); Cholesterol 136 mg/dL; Estimated Glomerular Filt Rate > 60; Glucose Fasting 126 mg/dL (60-99); HDL Cholesterol 49 mg/dL; LDL Cholesterol Calculated 70 mg/dl; Potassium 3.8 mmol/L (3.3-5.1); Sodium 140 mmol/L (135-145); Total Protein 6.9 g/dL (6.5-8.0); Triglycerides 87 mg/dL
[2021-12-24 14:16] LABS: TSH reflex Free T4 2.72 uIU/mL (0.32-4.0)
[2021-12-24 14:37] LABS: Microalbum/Creatinine Ratio Ur 52.1 ug/mg cr
== END 2021-12-24 11:05 | disposition home or self-care (01) ==
LOC: HO.10HDL 11:04
PROVIDERS: Visit Provider Internal Medicine
DX: E11.9 Type 2 diabetes mellitus without complications (principal); E78.5 Hyperlipidemia, unspecified; I10 Essential (primary) hypertension; E03.9 Hypothyroidism, unspecified; Z78.0 Asymptomatic menopausal state
CPT/HCPCS: 36415; 80053; 80061; 82043; 83036; 84443; 85025

== ENCOUNTER → 2022-02-08 11:22 | Outpatient (BNVA) | payer MEDICARE, OTHER, SELFPAY | PROVIDERS: PCP Internal Medicine; Visit Provider Internal Medicine Rheumatology | DX: L40.50 Arthropathic psoriasis, unspecified (principal); M19.041 Primary osteoarthritis, right hand; M19.042 Primary osteoarthritis, left hand; R20.0 Anesthesia of skin; M75.82 Other shoulder lesions, left shoulder; Z79.899 Other long term (current) drug therapy | CPT/HCPCS: 99212 ==

== ENCOUNTER → 2022-03-01 08:28 | Outpatient (BNVA) | payer MEDICARE, OTHER, SELFPAY | PROVIDERS: PCP Internal Medicine; Referring Provider Internal Medicine; Visit Provider Internal Medicine Cardiovascular Disease | DX: R94.31 Abnormal electrocardiogram [ECG] [EKG] (principal); I10 Essential (primary) hypertension | CPT/HCPCS: 93005; 99212 ==

== ENCOUNTER → 2022-03-09 08:33 | Outpatient (REF) | payer MEDICARE, OTHER, SELFPAY ==
--- NOTE | 2022-03-09 08:37 | CA_ITS ---
Transthoracic Echocardiogram Patient (Last, First, Middle): Randa Sanabria A Gender: Female Date of : 1950 Age: 71 Procedure Date: 03/09/2022 Procedure Type: Transthoracic Echocardiogram Location: OP Height: 165.1 cm Weight: 102.06 kg BSA: 2.08 m2 Heart Rate: 98 bpm BP: 120 / 80 mmHg Pulverizer Tender: LUIS ANGEL Referring MD: Tom Romero MD Survey Operations Director: Tom Romero MD Symptoms: R94.31 - Abnormal electrocardiogram [ECG] [EKG] Study Quality: Adequate w contrast ECG Rhythm: Sinus Conclusions: - 1. Normal LV systolic function with mild asymmetric septal hypertrophy with impaired relaxation filling pattern 2. Normal cardiac valvular Doppler 3. No gross pericardial effusion Findings Procedure Information Contrast agent, definity, is being given per protocol without apparent complications. Left Ventricle Normal left ventricular size, thickness, and systolic function. The visually estimated ejection fraction is between 60-65%. Spectral Doppler is indicative of an impaired relaxation filling pattern. E/E prime ratio is between 8 and 15 consistent with indeterminate filling pressures. There is mild septal asymmetric hypertrophy. Right Ventricle Normal right ventricular cavity size and systolic function. Atria The left atrium is normal in size. Interatrial shunt cannot be excluded. Aortic Valve There is mild calcification of the aortic valve. There is no aortic valve stenosis. There is no aortic valve regurgitation. Mitral Valve There is mild anterior mitral leaflet thickening. There is trace mitral valve regurgitation. There is no mitral valve stenosis. Pulmonic Valve The pulmonic valve was not well visualized. Tricuspid Valve Likely normal tricuspid valve structure and function. Tricuspid regurgitation envelope is inadequate for calculation of right ventricular systolic pressure. Normal right atrial pressure. Great Vessels All visible segments of the aorta are normal in size. The pulmonary artery was not well visualized. Venous The inferior vena cava is normal in size and collapses greater than 50% with inspiration. Pericardium/Pleural There is no evidence of pericardial effusion. Measurements 2D Linear Measurements IVSd: 1.32 0.6-0.9/0.6-1.0 cm LVIDd: 4.07 3.9-5.3/4.2-5.9 cm LVIDd Index: 1.96 2.4-3.2/2.2-3.1 cm/m2 LVIDs: 2.08 2.0-3.6 cm LVPWd: 0.90 0.7-1.1 cm LA Diam: 3.30 2.7-3.8/3.0-4.0 cm LAIDs Index: 1.59 1.5-2.3 cm/m2 LV Mass: 188.20 67-162/88-224 g LV Mass Index: 90.48 43-95/49-115 g/m2 LVOT Diam: 2.00 3.0+(-)1.3 cm 2D Systolic Function EF 4C: 60.10 >55% EF 2C: 59.60 >55% EF BiP: 59.50 >55% Mitral Valve MV Pk E: 0.70 MV PK A: 1.12 MV Decel Time: 117.00 E/A: 0.60 E'Lateral: 4.46 E'Medial: 6.53 E/E' Med: 10.70 E/E' Lat: 15.70 PHT: 34.00 MVA PHT: 6.47 Decel [place]: 5.97 Aortic Valve AoV Pk : 1.62 AoV Mn : 1.15 AoV VTI: 0.33 AoV Pk Grad: 10.00 Aov Mn Grad: 6.00 JUAN Cont.VTI: 2.47 LVOT LVOT Pk : 1.28 LVOT Mn : 0.82 LVOT VTI: 0.26 LVOT Pk Grad: 7.00 LVOT Mn Grad: 3.00 LVOT Diam: 2.00 LVOT Area: 3.14 Diastolic Function MV Pk E: 0.70 MV Pk A: 1.12 E/A: 0.60 E'Medial: 6.53 E/E' Med: 10.70 E' Laterial: 4.46 E/E' Lat: 15.70 Right Ventricle TAPSE (mm): 28.10 TVS' : 16.00 Tricuspid Valve RA Press: 8.00 Great Vessels Aorta Sinus of Valsalva: 2.70 2.0-3.5 cm Ao Asc: 3.20 2.1-3.4 cm Pulmonary Veins Pulm Vein S/D 1.90 Pulmonary Valve PV Pk : 1.13 Peak PV Grad: 5.00 Updated in Other Vendor System with Status of Final Tom Romero MD electronically signed on 03/09/2022 4:13:14 PM with status of Final
== END ==
LOC: HO.CARD 08:33
PROVIDERS: PCP Internal Medicine; Visit Provider Internal Medicine Cardiovascular Disease
DX: R94.31 Abnormal electrocardiogram [ECG] [EKG] (principal); I10 Essential (primary) hypertension
CPT/HCPCS: 93306; Q9957

== ENCOUNTER → 2022-03-22 09:03 | Outpatient (REF) | payer MEDICARE, OTHER, SELFPAY ==
--- NOTE | ~2022-03-22 | NM_ITS ---
Exercise Myocardial perfusion study Indication: Chest pain to evaluate for myocardial ischemia Technique: The patient was brought in for an exercise perfusion study on 03/22/2022. Patient performed exercise as per Jw protocol and was injected 28 mCi of sestamibi was given intravenously one target HR was achieved. Images were obtained using the SPECT gamma camera interlaced with the gating device. Images were obtained in supine position. Resting perfusion study was performed on 03/24/2022. Patient was administered 28 mCi of sestamibi intravenously at rest. Images were then obtained in supine position. Images obtained with and without CT attenuation. Total DLP 156 mGy-cm. Images were processed with the software and compared side to side in short axis, horizontal long axis and vertical long axis views. Findings: The stress perfusion study showed normal uptake of radiotracer in all segments of LV myocardium both on attenuated as well as non attenuated images. There is suggestion of left ventricle hypertrophy. The gated study shows normal LV systolic function with calculated LVEF of 66%. LV cavity is normal in size. The gated study shows normal systolic wall thickening and contraction of all segments. There is no transient ischemic dilation. Resting study shows no change in perfusion pattern compared to stress perfusion study. Gating at rest reveals normal systolic wall motion with ejection fraction at 68%. The findings are consistent with normal myocardial perfusion. NM/NM catherine perf SPECT rest & str Impression: 1. Normal myocardial perfusion 2. Gated LVEF is 66% 3. Transient ischemic dilatation not present Stress EKG is negative for ischemia
--- NOTE | 2022-03-22 09:09 | CA_ITS ---
Acquisition Time: 2022-03-22 09:25:18 Total Exercise Time: 00:05:01 Test Indications: CP Medications: ALBUTEROL AMLODIPINE ATORVASTATIN CELRECOXIB TRULICITY LEVOTHYROXINE LOSARTAN Protocol: MINAL Max HR: 157 BPM 104% of Pred: 150 BPM Max BP: 182/070 mmHG Max Work Load: 4.6 METS Exercise stress test with exercise 5 min 1 sec of Minal stage 1 ( stage held due to HR 96% MPHR at end of 3 min and mod sob) achieving 104% MPHR, with moderate sob, no chest discomfort, without arrythmia, with normotensive response to exercise, without EKG changes meeting criteria for ischemia. In recovery her breathing and heart rate normalized. Nuclear images pending. Test reviewed with Dr Nguyen Referred By: Tom Romero Overread By: ELKIN WADE
== END ==
LOC: HO.CARD 09:03
PROVIDERS: PCP Internal Medicine; Visit Provider Internal Medicine Cardiovascular Disease
DX: I10 Essential (primary) hypertension (principal); R94.31 Abnormal electrocardiogram [ECG] [EKG]; E11.9 Type 2 diabetes mellitus without complications
CPT/HCPCS: 78452; 93017; A9500; J0280; J2785

== ENCOUNTER 2022-04-14 09:09 | Outpatient (REF) | payer MEDICARE, OTHER, SELFPAY ==
[2022-04-14 10:25] LABS: Estimated Average Glucose 123 mg/dL; Hemoglobin A1c % 5.9 %
[2022-04-14 10:38] LABS: Alanine Aminotransferase 27 U/L (0-31); Alkaline Phosphatase 74 U/L (39-117); Anion Gap 13 (12-20); Aspartate Amino Transferase 21 U/L (5-31); Bilirubin Total 0.7 mg/dL (0.0-1.0); Blood Urea Nitrogen 15 mg/dL (9-16); Calcium 9.3 mg/dL (8.4-10.2); Carbon Dioxide 23 mmol/L (22-29); Chloride 107 mmol/L (96-108); Cholesterol 157 mg/dL; Estimated Glomerular Filt Rate > 60; Glucose Fasting 120 mg/dL (60-99); HDL Cholesterol 61 mg/dL; LDL Cholesterol Calculated 77 mg/dl; Potassium 4.2 mmol/L (3.3-5.1); Sodium 139 mmol/L (135-145); Total Protein 6.4 g/dL (6.5-8.0); Triglycerides 97 mg/dL
[2022-04-14 11:01] LABS: Creatinine Urine 230.73 mg/dL; Microalbum/Creatinine Ratio Ur 9.5 ug/mg cr
[2022-04-14 11:05] LABS: TSH reflex Free T4 0.65 uIU/mL (0.32-4.0)
== END 2022-04-14 09:10 | disposition home or self-care (01) ==
LOC: HO.LAB 09:09
PROVIDERS: PCP Internal Medicine; Visit Provider Internal Medicine
DX: E11.9 Type 2 diabetes mellitus without complications (principal); E78.5 Hyperlipidemia, unspecified; I10 Essential (primary) hypertension
CPT/HCPCS: 36415; 80053; 80061; 82043; 83036; 84443

== ENCOUNTER → 2022-06-15 11:07 | Outpatient (BNVA) | payer MEDICARE, OTHER, SELFPAY | PROVIDERS: PCP Internal Medicine; Visit Provider Internal Medicine Rheumatology | DX: L40.50 Arthropathic psoriasis, unspecified (principal); M19.041 Primary osteoarthritis, right hand; M19.042 Primary osteoarthritis, left hand; Z79.899 Other long term (current) drug therapy | CPT/HCPCS: 36415; 85652; 86140; 99212 ==

== ENCOUNTER 2022-06-15 12:24 | Outpatient (REF) | payer MEDICARE, OTHER, SELFPAY ==
[2022-06-15 14:16] LABS: C Reactive Protein 0.43 mg/dL (< or = 0.50)
[2022-06-15 14:36] LABS: Erythrocyte Sedimentation Rate 16 MM/HR (0-20)
== END 2022-06-15 12:25 | disposition home or self-care (01) ==
LOC: HO.10HDL 12:24
PROVIDERS: Visit Provider Internal Medicine Rheumatology
DX: Z13.89 Encounter for screening for other disorder (principal)
CPT/HCPCS: 36415; 85652; 86140

== ENCOUNTER 2022-10-07 10:32 | Outpatient (REF) | payer MEDICARE, OTHER, SELFPAY ==
[2022-10-07 13:52] LABS: Alanine Aminotransferase 24 U/L (0-31); Albumin Level 3.9 g/dL (3.5-5.0); Alkaline Phosphatase 81 U/L (39-117); Anion Gap 15 (12-20); Aspartate Amino Transferase 19 U/L (5-31); Bilirubin Total 0.7 mg/dL (0.0-1.0); Blood Urea Nitrogen 15 mg/dL (9-16); Calcium 9.4 mg/dL (8.4-10.2); Carbon Dioxide 20 mmol/L (22-29); Chloride 109 mmol/L (96-108); Cholesterol 151 mg/dL; Estimated Glomerular Filt Rate > 60; Glucose Fasting 118 mg/dL (60-99); HDL Cholesterol 58 mg/dL; LDL Cholesterol Calculated 76 mg/dl; Potassium 3.7 mmol/L (3.3-5.1); Sodium 140 mmol/L (135-145); Total Protein 6.9 g/dL (6.5-8.0); Triglycerides 86 mg/dL
[2022-10-07 14:00] LABS: Estimated Average Glucose 120 mg/dL; Hemoglobin A1c % 5.8 %
[2022-10-07 14:10] LABS: TSH reflex Free T4 0.13 uIU/mL (0.32-4.0)
[2022-10-07 14:22] LABS: Creatinine Urine 282.69 mg/dL; Microalbum/Creatinine Ratio Ur 14.8 ug/mg cr
[2022-10-07 14:41] LABS: Free T4 (Free Thyroxine) 1.36 ng/dL (0.71-1.85)
== END 2022-10-07 10:33 | disposition home or self-care (01) ==
LOC: HO.10HDL 10:32
PROVIDERS: Visit Provider Internal Medicine
DX: E03.9 Hypothyroidism, unspecified (principal); E11.9 Type 2 diabetes mellitus without complications; E78.5 Hyperlipidemia, unspecified
CPT/HCPCS: 36415; 80053; 80061; 82043; 83036; 84439; 84443

== ENCOUNTER 2022-10-20 10:22 | Outpatient (AMB) | payer MEDICARE, OTHER, SELFPAY ==
[2022-10-20 10:24] VITALS: BP 126/74; PULSE 94; TEMP 36.3; O2SAT 97; BMI 39.6
--- NOTE | 2022-10-20 10:24 | A.OFFVIS_ITS ---
Intake Vital Signs 10/20/22 10:24 Height 5 ft 5 in Weight 238 lb 1.588 oz BMI 39.6 BP 126/74 Blood Pressure Location Rt brachial Position Sitting Pulse 94 Pulse Source Pulse Oximeter Temp 97.3 F Temp Source Skin Pulse Oximetry (%) 97 Intake Visit Reasons: PSA Intake Note: * Pt seen today for PsA follow up. * Denies new or increased joint pain. * Reports stomach irritation for about 2-3 months, sees PCP next week. * Also reports thinning of skin, bumps herself and bleeds. * Vascular surgery scheduled 11/[address] Jae Major. 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: No Accompanied by: Self / Same As Patient Allergies metformin Allergy (Severe, Verified 10/20/22 10:27) diarrhea, empagliflozin [From Jardiance] Adverse Reaction (Intermediate, Verified 10/20/22 10:27) yeast infection glipizide Adverse Reaction (Intermediate, Verified 10/20/22 10:27) body aches sitagliptin [From Januvia] Adverse Reaction (Intermediate, Verified 10/20/22 10:27) Diarrhea Medication List - Last Reconciled 10/20/22 by Gary Sinha MD amlodipine 2.5 mg PO DAILY apremilast 30 mg PO BID atorvastatin 20 mg PO QPM blood sugar diagnostic (OneTouch Ultra Test strips) test blood sugar once a day blood-glucose meter (OneTouch Ultra2 Meter) As directed celecoxib 200 mg PO BID dulaglutide (Trulicity) 0.75 mg (0.5 mL) subcut QWEEK levothyroxine 125 mcg PO DAILY losartan 100 mg PO DAILY HPI HPI Comments History of Present Illness Details The patient presents for evaluation of her psoriasis and psoriatic arthritis. She remains on Celebrex 200 mg twice a day and apremilast 30 mg twice a day. She has again noted no psoriasis recently. The joint stiffness in her hands has improved over the past few months as well. However in the past few weeks she has been experiencing some loose stools, usually after taking her apremilast. There has been no abdominal pain, hematochezia or melena. She was recently told that her thyroid hormone needed be decreased and that was done in the past week. [facility] Medical History Annual physical exam Asthma Atrophic vaginitis DM type 2 (diabetes mellitus, type 2) Eosinophilia HTN (hypertension) Hyperlipidemia Hypothyroid Limb pain LVH (left ventricular hypertrophy) Obesity Postmenopausal Psoriasis Pulmonary nodules Surgical History History of back surgery History of thyroidectomy (2017) Hx of colonoscopy Family History Father Carotid stenosis Mother CHF (congestive heart failure) Social History Housing: House Alcohol intake: never Patient Tobacco Use Status: Former Tobacco user Years Smoked: 40 years ago e-Cigarette/Vaping Use: Never Used service: No Current occupational status: retired Cognitive needs: No Hearing needs: No Vision needs: Yes Review of Systems Const Details: Negative for appetite change, weight change, fever, chills, malaise and fatigue Eyes Details: Negative for vision change, dry eyes,headaches and dizziness GI Details: Occasional loose stools as noted above. Negative indigestion/heartburn, nausea, abdominal pain, bowel changes, constipation and bloody stool. Skin/Breast Details: Negative for itching, rash, hives, Raynaud's symptoms, sun sensitivity, and skin cancer Endo Details: Negative for polyuria and polydypsia Demetrio/Lymph Details: Negative for excessive bruising or bleeding. Physical Exam Vital Signs: Last Vital Signs Temp 97.3 F 10/20/22 10:24 Pulse 94 10/20/22 10:24 BP 126/74 10/20/22 10:24 Pulse Ox 97 10/20/22 10:24 BMI result Body Mass Index 39.6 APPEARANCE: Patient in no acute distress EYES no redness, pupils equal and reactive to light, eyelids normal ABD: Normal bowel sounds, no organomegaly, masses or tenderness. EXTREMITIES: No edema, no calf tenderness, normal peripheral pulses. SKIN: No inflammatory or neoplastic lesions. Normal color and turgor JOINT EXAM: ?? Cervical Spine:.? Full range of motion without pain; no tenderness. Thoracic Spine:.? No scoliosis.? No tenderness on palpation. Lumbar Spine:.? Alignment normal.? Full range of motion with slight discomfort at the extremes.? No tenderness. Chest Wall:.? No tenderness, swelling, increased warmth or erythema. Hands:.? Right:? There is no swelling or tenderness in the MCP joints.? There is? no flexor tendon tenderness or triggering.? There is slight nontender bony enlargement at the? Thumb IP and 2nd PIP joint.? There is mild swelling and tenderness at the 3rd PIP joint.? She has no thenar atrophy or sensory loss.? Left:? No swelling or tenderness in the MCP joints.? ? There is some slight flexor tendon tenderness at the 2nd and 3rd flexor tendons.? There is? slight tenderness without swelling at the 3rd and 4th PIP but not the other PIP joints.? There is no thenar atrophy or sensory loss.? Wrists:? Right:? no pain with flexion extension at 75 degrees.? Slight dorsal tenderness with no swelling.? Left:? no swelling and mild tenderness.? Mild discomfort with flexion or extension at 75 degrees. ? Elbows:. Normal pain-free range of motion without tenderness, swelling, increased warmth or erythema. Shoulders:? Right:? ? Normal pain-free range of motion with some slight anterior tenderness with no swelling, adenopathy or abductor weakness.? Left:? Mild discomfort with abduction 150 degrees or with extremes of internal or external rotation.? There is minimal anterior tenderness without adenopathy, swelling or weakness.?? Hips:.? Full range of motion without pain. Hip bursa:.? No tenderness. Knees:.?? Right:? Mild discomfort with extremes? of extension.? There is some mild medial tenderness but no anterior or posterior swelling or effusion.? No redness or warmth.? There is some patellofemoral crepitus.? Left:? Normal pain- free range of motion with mild patellofemoral crepitus and some slight medial compartment tenderness but no effusion, soft tissue swelling, increased warmth or erythema.? There is no effusion or crepitation Ankles:.? Normal pain-free range of motion without tenderness, swelling, increased warmth or erythema. Feet:.? Right:? Mild 1st MTP bony enlargement and tenderness across the? 1st MTP joint.? I do not appreciate any? other soft tissue swelling, redness or warmth.? There is no dactylitis.? Left:? There is a bit more 1st MTP bony enlargement in this foot then there is on the right.? There is mild tenderness in the 1st 2 MTP joints.? No soft tissue swelling, dactylitis, redness or warmth. Tender points:? No tenderness to digital palpation at the occiput, trapezius, second rib, lateral epicondyle, knees, greater trochanter and gluteal area bilaterally. ? 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 However she is having some loose stools. This is probably more likely due to the apremilast than the Celebrex. We will check a CBC and inflammatory markers. It is also possible that she is getting loose stools because she was on too much levothyroxine. However I would expect that to gradually subside in the next week or 2. For now we will keep with the same medications. If symptoms continue she should call us and I would probably instructor to see how she would do with reducing the Celebrex and/or the apremilast. Follow-up at 4-5 months seems reasonable. Orders: Orders C Reactive Protein Today L40.50 - Arthropathic psoriasis, unspecified, Z79.899 - Other long term acute care registered nurse (current) drug therapy Complete Blood Count Auto Diff Today L40.50 - Arthropathic psoriasis, unspecified, Z79.899 - Other long term acute care registered nurse (current) drug therapy Erythrocyte Sedimentation Rate Today L40.50 - Arthropathic psoriasis, unspecified, Z79.899 - Other long term acute care registered nurse (current) drug therapy Coding Level of Care Code Est Pt Level 3 (00281) Diagnoses termite technician use of drug Z79.899 Psoriasis L40.9 Hypothyroid E03.9 Psoriatic arthritis L40.50
== END 2022-10-20 11:22 | disposition home or self-care (01) ==
PROVIDERS: PCP Internal Medicine; Visit Provider Internal Medicine Rheumatology
DX: Z79.899 Other long term (current) drug therapy (principal); L40.9 Psoriasis, unspecified; E03.9 Hypothyroidism, unspecified; L40.50 Arthropathic psoriasis, unspecified
CPT/HCPCS: 99213

== ENCOUNTER → 2022-10-20 10:22 | Outpatient (BNVA) | payer MEDICARE, OTHER, SELFPAY | PROVIDERS: PCP Internal Medicine; Visit Provider Internal Medicine Rheumatology ==

== ENCOUNTER 2022-10-20 11:38 | Outpatient (REF) | payer MEDICARE, OTHER, SELFPAY ==
[2022-10-20 13:28] LABS: MANUAL DIFF FLAG NO
[2022-10-20 13:57] LABS: Basophils Absolute Auto 0.2 X10*3/uL (0.0-0.2); Eosinophils Absolute Auto 0.3 X10*3/uL (0.0-0.4); Eosinophils Percent Auto 3.4 % (0-4); Hematocrit 38.7 % (37.0-47.0); Hemoglobin 13.1 g/dl (12.0-16.0); Imm Gran Abs Auto 0.02 X10*3/uL (0.00-0.03); Imm Gran Pct Auto 0.3 % (0.0-0.4); Lymphocytes Absolute Auto 2.3 X10*3/uL (1.2-4.9); Lymphocytes Percent Auto 30.7 % (20-40); Mean Corpuscular HGB Conc 33.9 g/dl (31.0-35.0); Mean Corpuscular Hemoglobin 29.6 pg (27.0-33.0); Mean Corpuscular Volume 87.4 fL (80.0-98.0); Mean Platelet Volume 10.2 fL (9.4-12.3); Monocytes Absolute Auto 0.7 X10*3/uL (0.1-1.2); Monocytes Percent Auto 9.5 % (2-11); Neutrophils Absolute Auto 4.1 x10*3/uL (2.0-8.3); Neutrophils Percent Auto 54.1 % (45-73); Platelet Count 370 X10*3/uL (160-400); Red Blood Count 4.43 X10*6/uL (4.20-5.50); Red Cell Distribution Width 12.3 % (11.0-16.0); White Blood Count 7.6 X10*3/uL (4.8-10.8)
[2022-10-20 13:58] LABS: C Reactive Protein 0.34 mg/dL (< or = 0.50)
[2022-10-20 14:43] LABS: Erythrocyte Sedimentation Rate 18 MM/HR (0-20)
== END 2022-10-20 11:39 | disposition home or self-care (01) ==
LOC: HO.10HDL 11:38
PROVIDERS: Visit Provider Internal Medicine Rheumatology
DX: L40.50 Arthropathic psoriasis, unspecified (principal); E03.9 Hypothyroidism, unspecified; Z79.899 Other long term (current) drug therapy
CPT/HCPCS: 36415; 85025; 85652; 86140; 99212

== ENCOUNTER 2022-10-24 10:34 | Outpatient (AMB) | payer MEDICARE, OTHER, SELFPAY ==
[2022-10-24 10:35] VITALS: BP 130/80; PULSE 78; O2SAT 97; BMI 39.8
--- NOTE | 2022-10-24 10:35 | MHC.PC.OV ---
Vital Signs 10/24/22 10:35 Height 5 ft 5 in Weight 239 lb BMI 39.8 BP 130/80 Blood Pressure Location Lt brachial Position Sitting Pulse 78 Pulse Source Pulse Oximeter Pulse Oximetry (%) 97 Oxygen Delivery Method Room Air Intake Visit Reasons: PE Intake Note: Pt is here today for PE. Allergies metformin Allergy (Severe, Verified 10/24/22 10:36) diarrhea, empagliflozin [From Jardiance] Adverse Reaction (Intermediate, Verified 10/24/22 10:36) yeast infection glipizide Adverse Reaction (Intermediate, Verified 10/24/22 10:36) body aches sitagliptin [From Januvia] Adverse Reaction (Intermediate, Verified 10/24/22 10:36) Diarrhea Medication List - Last Reconciled 10/24/22 by Dania Wright MD amlodipine 2.5 mg PO DAILY apremilast 30 mg PO BID atorvastatin 20 mg PO QPM blood sugar diagnostic (Great TechnologyTouch Ultra Test strips) test blood sugar once a day blood-glucose meter (ContentRealtimeuch Ultra2 Meter) As directed celecoxib 200 mg PO BID dulaglutide (Trulicity) 0.75 mg (0.5 mL) subcut QWEEK levothyroxine 125 mcg PO DAILY losartan 100 mg PO DAILY Tobacco use date assessed: 10/24/22 Fall risk assessment: No Falls in past year Last assessed Fall Risk: 10/24/22 Dental Screening Dental Screen Date: 10/24/22 Did you have a dental visit in the last 12 months?: Yes Did you have a dental problem in the last 6 months where you did not have access to dental care?: No Was dental information given to patient?: Patient has dentist HPI PE HPI Details Pt presents for PE. She will have right lower extremity venous insufficiency surgery next month. [facility] Medical History (Updated 10/24/22 @ 11:27 by Dania Wright MD) Annual physical exam Asthma Atrophic vaginitis DM type 2 (diabetes mellitus, type 2) Eosinophilia HTN (hypertension) Hyperlipidemia Hypothyroid Limb pain LVH (left ventricular hypertrophy) Obesity Postmenopausal Psoriasis Pulmonary nodules Surgical History History of back surgery History of thyroidectomy (2017) Hx of colonoscopy Family History Father Carotid stenosis Mother CHF (congestive heart failure) Social History Housing: House Alcohol intake: never Patient Tobacco Use Status: Former Tobacco user Years Smoked: 40 years ago e-Cigarette/Vaping Use: Never Used service: No Current occupational status: retired Cognitive needs: No Hearing needs: No Vision needs: Yes Questionnaire PHQ-9 Over the last 2 weeks, how often have you been bothered by any of the following problems? 1. Little interest or pleasure in doing things: not at all 2. Feeling down, depressed, or hopeless: not at all 3. Trouble falling or staying asleep, or sleeping too much: not at all 4. Feeling tired or having little energy: not at all 5. Poor appetite or overeating: not at all 6. Feeling bad about yourself - or that you are a failure or have let yourself or your family down: not at all 7. Trouble concentrating on things, such as reading the newspaper or watching television: not at all 8. Moving or speaking so slowly that other people could have noticed. Or the opposite - being so fidgety or restless that you have been moving around a lot more than usual: not at all 9. Thoughts that you would be better off or of hurting yourself in some way: not at all Total score: 0 Depression Screening Interpretation: Negative Source: Developed by Drs. Yoni Pina, Kirti Bernal, Michael Medina and colleagues, with an educational selvin from [employer]. Thrive Questionnaire Date Thrive assessed: 10/24/22 I am a: Patient What is your living situation today?: I have a steady place to live Within the past 12 months, did the food you bought not last and you didn't have the money to get more?: Never true Within the past 12 months, did you worry whether your food would run out before you got money to buy more?: Never true Do you have trouble paying for medicines?: No Do you have trouble getting transportation to medical appointments?: No Do you have trouble paying your heating and electricity bill?: No Do you have trouble taking care of your child, family member or friend?: No Do you have trouble with day-to-day activities such as bathing, preparing meals, shopping, managing finances, etc.?: No Are you currently unemployed and looking for a job?: No Are you interested in more education?: No Please select the resources that you would like help with: None Currently or been in a relationship where the following occur: no concerns reported AUDIT C Alcohol Use Questionnaire (AUDIT-C) 1. How often do you have a drink containing alcohol?: Never 3. How often do you have six or more drinks on one occasion?: Never Total Score: 0 JORDANA-7 AMB Questionnaire JORDANA-7 Date JORDANA - 7 assessed: 10/24/22 Feeling nervous, anxious, or on edge: 0 = Not at all Not being able to stop or control worryin = Not at all Worrying too much about different things: 0 = Not at all Trouble relaxin = Not at all Being so restless that it is hard to sit still: 0 = Not at all Becoming easily annoyed or irritable: 0 = Not at all Feeling afraid as if something awful might happen: 0 = Not at all Total JORDANA-7 score (0-4 normal; 5-9 mild; 10-14 moderate; 15-21 severe): 0 Source: Developed by Drs. Yoni Pina, Kirti Bernal, Michael Medina and colleagues, with an educational selvin from [employer]. Review of Systems Const All systems reviewed & are unremarkable except as noted in HPI and below Reports no additional complaints Eyes Reports no additional complaints ENT Reports no additional complaints Card Reports no additional complaints Physical exam (Primary Care) Vital Signs: Last Vital Signs Pulse 78 10/24/22 10:35 BP 130/80 10/24/22 10:35 Pulse Ox 97 10/24/22 10:35 Oxygen Delivery Method Room Air 10/24/22 10:35 BMI result Body Mass Index 39.8 Tobacco/Smoking Status: Tobacco use Status Tobacco use date assessed 10/24/22 10/24/22 10:41 Patient Tobacco Use Status Former Tobacco user 10/24/22 10:41 e-Cigarette/Vaping Use Never Used 10/24/22 10:41 PHQ-9: PHQ-9 Score PHQ-9: Total score 0 10/24/22 10:41 Depression Screening Interpretation: Negative Thrive Assessment: Date of Thrive Assessment Date Thrive assessed 10/24/22 10/24/22 10:41 Currently or been in a relationship where the following occur: no concerns reported Const General: no acute distress HENMT Head: Yes normal to inspection Ears: hearing grossly normal bilaterally Face and sinus: Yes normal facial exam Throat: Yes posterior oropharynx normal Eyes General: appearance normal, both eyes and all related structures Neck Neck: Yes no lymphadenopathy and Yes supple Resp Effort & Inspection: normal respiratory effort Auscultation: clear to auscultation bilaterally Cardio Rhythm: regular rhythm Heart sounds: S1 normal heart sound present and S2 normal heart sound present GI Inspection: Yes normal to inspection Palpation (GI): Soft to palpation Auscultation: normal bowel sounds Assessment and Plan Assessment & Plan (1) Hypothyroid: Code(s): E03.9 - Hypothyroidism, unspecified Plan: Levothyroxine dose was changed from 137-125 mcg 3 weeks ago. Check TSH in 1 MONTH (2) DM type 2 (diabetes mellitus, type 2): Comment: Intolerant to Jardiance, Januvia, Metformin (diarrhea), Glipizide Code(s): E11.9 - Type 2 diabetes mellitus without complications Plan: A1C IS 5.8 CONTINUE TRULICITY ADA DIET AND REGULAR EXERCISE (3) HTN (hypertension): Code(s): I10 - Essential (primary) hypertension Plan: CONT MEDS (4) Hyperlipidemia: Code(s): E78.5 - Hyperlipidemia, unspecified Plan: CONT STATIN (5) Annual physical exam: Code(s): Z00.00 - Encounter for general adult medical examination without abnormal findings Plan: PATIENT IS UP-TO-DATE WITH THE MAMMOGRAM COLONOSCOPY. WELL-BALANCED DIET REGULAR EXERCISE WEIGHT LOSS DISCUSSED WITH THE PATIENT Orders: Orders TSH reflex Free T4 1 Month E03.9 - Hypothyroidism, unspecified Comprehensive [place]. Panel Fast 6 Months E03.9 - Hypothyroidism, unspecified, E11.9 - Type 2 diabetes mellitus without complications, E78.5 - Hyperlipidemia, unspecified, I10 - Essential (primary) hypertension Hemoglobin A1c 6 Months E03.9 - Hypothyroidism, unspecified, E11.9 - Type 2 diabetes mellitus without complications, E78.5 - Hyperlipidemia, unspecified, I10 - Essential (primary) hypertension TSH reflex Free T4 6 Months E03.9 - Hypothyroidism, unspecified, E11.9 - Type 2 diabetes mellitus without complications, E78.5 - Hyperlipidemia, unspecified, I10 - Essential (primary) hypertension Microalbumin, Random (w Creat) 6 Months E03.9 - Hypothyroidism, unspecified, E11.9 - Type 2 diabetes mellitus without complications, E78.5 - Hyperlipidemia, unspecified, I10 - Essential (primary) hypertension Complete Blood Count Auto Diff 6 Months E03.9 - Hypothyroidism, unspecified, E11.9 - Type 2 diabetes mellitus without complications, E78.5 - Hyperlipidemia, unspecified, I10 - Essential (primary) hypertension Coding Level of Care Code Est Pt Prev Care >65y(15526) Diagnoses Hypothyroid E03.9 DM type 2 (diabetes mellitus, type 2) E11.9 HTN (hypertension) I10 Hyperlipidemia E78.5 Annual physical exam Z00.00
== END 2022-10-24 11:27 | disposition home or self-care (01) ==
PROVIDERS: Visit Provider Internal Medicine
DX: E03.9 Hypothyroidism, unspecified (principal); E11.9 Type 2 diabetes mellitus without complications; I10 Essential (primary) hypertension; E78.5 Hyperlipidemia, unspecified
CPT/HCPCS: 99213

== ENCOUNTER 2022-11-16 13:01 | Outpatient (REF) | payer MEDICARE, OTHER, SELFPAY ==
[2022-11-16 13:24] LABS: MANUAL DIFF FLAG NO
[2022-11-16 13:49] LABS: Basophils Absolute Auto 0.1 X10*3/uL (0.0-0.2); Basophils Percent Auto 1.8 % (0-2); Eosinophils Absolute Auto 0.3 X10*3/uL (0.0-0.4); Eosinophils Percent Auto 4.3 % (0-4); Hematocrit 40.2 % (37.0-47.0); Hemoglobin 13.7 g/dl (12.0-16.0); Imm Gran Abs Auto 0.02 X10*3/uL (0.00-0.03); Imm Gran Pct Auto 0.3 % (0.0-0.4); Lymphocytes Absolute Auto 2.6 X10*3/uL (1.2-4.9); Lymphocytes Percent Auto 32.6 % (20-40); Mean Corpuscular HGB Conc 34.1 g/dl (31.0-35.0); Mean Corpuscular Hemoglobin 29.9 pg (27.0-33.0); Mean Corpuscular Volume 87.8 fL (80.0-98.0); Mean Platelet Volume 9.8 fL (9.4-12.3); Monocytes Absolute Auto 0.8 X10*3/uL (0.1-1.2); Monocytes Percent Auto 10.1 % (2-11); Neutrophils Percent Auto 50.9 % (45-73); Platelet Count 376 X10*3/uL (160-400); Red Blood Count 4.58 X10*6/uL (4.20-5.50); Red Cell Distribution Width 12.4 % (11.0-16.0); White Blood Count 7.9 X10*3/uL (4.8-10.8)
[2022-11-16 14:08] LABS: Estimated Average Glucose 126 mg/dL; Hemoglobin A1C 148.9821 umol/L
[2022-11-16 15:09] LABS: TSH reflex Free T4 0.16 uIU/mL (0.32-4.0)
[2022-11-16 17:14] LABS: Creatinine Urine 32.02 mg/dL; Microalbumin Urine < 5.0 mg/L
[2022-11-16 18:38] LABS: Free T4 (Free Thyroxine) 1.34 ng/dL (0.71-1.85)
== END 2022-11-16 13:02 | disposition home or self-care (01) ==
LOC: HO.LAB 13:01
PROVIDERS: PCP Internal Medicine; Visit Provider Internal Medicine
DX: I10 Essential (primary) hypertension (principal); E03.9 Hypothyroidism, unspecified; E11.9 Type 2 diabetes mellitus without complications; E78.5 Hyperlipidemia, unspecified
CPT/HCPCS: 36415; 82043; 83036; 84439; 84443; 85025

== ENCOUNTER 2022-11-17 10:16 | Outpatient (REF) | payer MEDICARE, OTHER, SELFPAY ==
[2022-11-17 11:26] LABS: Alanine Aminotransferase 29 U/L (0-31); Alkaline Phosphatase 83 U/L (39-117); Anion Gap 13 (12-20); Aspartate Amino Transferase 20 U/L (5-31); Bilirubin Total 0.6 mg/dL (0.0-1.0); Blood Urea Nitrogen 12 mg/dL (9-16); Calcium 9.6 mg/dL (8.4-10.2); Carbon Dioxide 23 mmol/L (22-29); Chloride 109 mmol/L (96-108); Estimated Glomerular Filt Rate 55; Glucose Fasting 124 mg/dL (60-99); Potassium 3.9 mmol/L (3.3-5.1); Sodium 141 mmol/L (135-145); Total Protein 7.1 g/dL (6.5-8.0)
[2022-11-17 11:30] LABS: TSH reflex Free T4 0.24 uIU/mL (0.32-4.0)
== END 2022-11-17 10:17 | disposition home or self-care (01) ==
LOC: HO.10HDL 10:16
PROVIDERS: Visit Provider Internal Medicine
DX: E03.9 Hypothyroidism, unspecified (principal); E11.9 Type 2 diabetes mellitus without complications; I10 Essential (primary) hypertension; E78.5 Hyperlipidemia, unspecified
CPT/HCPCS: 36415; 80053; 84443

== ENCOUNTER 2022-12-16 12:06 | Outpatient (REF) | payer MEDICARE, OTHER, SELFPAY ==
[2022-12-16 14:06] LABS: TSH reflex Free T4 0.63 uIU/mL (0.32-4.0)
== END 2022-12-16 12:07 | disposition home or self-care (01) ==
LOC: HO.10HDL 12:06
PROVIDERS: Visit Provider Internal Medicine
DX: E03.9 Hypothyroidism, unspecified (principal)
CPT/HCPCS: 36415; 84443

== ENCOUNTER 2023-01-24 11:07 | Outpatient (AMB) | payer MEDICARE, OTHER, SELFPAY ==
--- NOTE | 2023-01-24 11:13 | MHC.OFFVIS ---
Intake Vital Signs 01/24/23 11:15 Height 5 ft 5 in Weight 239 lb 13.807 oz BMI 39.9 BP 122/74 Blood Pressure Location Lt brachial Position Sitting Pulse 79 Pulse Source Pulse Oximeter Temp 98 F Temp Source Skin Pulse Oximetry (%) 98 Oxygen Delivery Method Room Air Intake Visit Reasons: psa Intake Note: Patient presents today to follow up on PsA. Dry Man Required: No Accompanied by: Self / Same As Patient Allergies metformin Allergy (Severe, Verified 01/24/23 11:14) diarrhea, empagliflozin [From Jardiance] Adverse Reaction (Intermediate, Verified 01/24/23 11:14) yeast infection glipizide Adverse Reaction (Intermediate, Verified 01/24/23 11:14) body aches sitagliptin [From Januvia] Adverse Reaction (Intermediate, Verified 01/24/23 11:14) Diarrhea Medication List - Last Reconciled 01/24/23 by Gary Sinha MD amlodipine 2.5 mg PO DAILY apremilast 30 mg PO BID atorvastatin 20 mg PO QPM blood sugar diagnostic ([email or web address] Ultra Test strips) test blood sugar once a day blood-glucose meter ([email or web address] Ultra2 Meter) As directed celecoxib 200 mg PO BID dulaglutide (Trulicity) 0.75 mg (0.5 mL) subcut QWEEK levothyroxine 112 mcg PO DAILY losartan 100 mg PO DAILY HPI HPI Comments History of Present Illness Details The patient presents for evaluation of her psoriasis and psoriatic arthritis. She says she feels good with respect to joint pain with her current regimen that includes celecoxib 200 mg twice a day and Otezla 30 mg twice a day. She wonders if she needs to stay on all of these medications for now. There has been no psoriasis noted. She seems to be tolerating the medicines without any GI side effects. She did have some loose stools at her last visit but those subsided once her thyroid dose was adjusted. She is on meds for diabetes with a reasonable glycohemoglobin in the last few months. [facility] Medical History (Updated 10/24/22 @ 11:27 by Dania Wright MD) Postmenopausal Atrophic vaginitis Annual physical exam Psoriasis Limb pain Eosinophilia Pulmonary nodules Asthma Hypothyroid DM type 2 (diabetes mellitus, type 2) HTN (hypertension) LVH (left ventricular hypertrophy) Hyperlipidemia Obesity Surgical History (Updated 01/24/23 @ 11:27 by VALERIA Vargas) History of surgery History of thyroidectomy (2017) Hx of colonoscopy History of back surgery Family History Father Carotid stenosis Mother CHF (congestive heart failure) Social History Housing: House Alcohol intake: never Patient Tobacco Use Status: Former Tobacco user Years Smoked: 40 years ago e-Cigarette/Vaping Use: Never Used service: No Current occupational status: retired Cognitive needs: No Hearing needs: No Vision needs: Yes Review of Systems Const Details: Negative for appetite change, weight change, fever, chills, malaise and fatigue Eyes Details: Negative for vision change, dry eyes,headaches and dizziness ENT Details: Negative for hearing change, tinnitus, oral ulcer, nose bleeds and oral dryness. Card Details: Negative chest pain, edema and syncope Resp Details: Negative for SOB, cough and wheezing GI Details: Negative indigestion/heartburn, nausea, abdominal pain, bowel changes, diarrhea, constipation and bloody stool. Skin/Breast Details: Negative for itching, rash, hives, Raynaud's symptoms, sun sensitivity, and skin cancer Endo Details: Negative for polyuria and polydypsia Demetrio/Lymph Details: Negative for excessive bruising or bleeding. Physical Exam Vital Signs: Last Vital Signs Temp 98 F 01/24/23 11:15 Pulse 79 01/24/23 11:15 BP 122/74 01/24/23 11:15 Pulse Ox 98 01/24/23 11:15 Oxygen Delivery Method Room Air 01/24/23 11:15 BMI result Body Mass Index 39.9 APPEARANCE: Patient in no acute distress EYES no redness, pupils equal and reactive to light, eyelids normal EXTREMITIES: No edema, no calf tenderness, normal peripheral pulses. SKIN: No inflammatory or neoplastic lesions. Normal color and turgor JOINT EXAM: ?? Cervical Spine:.? Full range of motion without pain; no tenderness. Thoracic Spine:.? No scoliosis.? No tenderness on palpation. Lumbar Spine:.? Alignment normal.? Full range of motion with slight discomfort at the extremes.? No tenderness. Chest Wall:.? No tenderness, swelling, increased warmth or erythema. Hands:.? Right:? There is no swelling or tenderness in the MCP joints.? There is? no flexor tendon tenderness or triggering.? There is slight nontender bony enlargement at the thumb IP and 2nd PIP joint.? There is mild thickening without tenderness at the 3rd PIP joint.? She has no thenar atrophy or sensory loss.? Left:? No swelling or tenderness in the MCP joints.? ? There is no flexor tendon tenderness or triggering.? There is? slight bony enlargement without tenderness at the 3rd and 4th PIP joints.? There is no thenar atrophy or sensory loss.? Wrists:? Right:? no pain with flexion extension at 75 degrees.? No dorsal tenderness with no swelling.? Left:? no swelling and no tenderness.? No discomfort with flexion or extension at 75 degrees. ? Elbows:. Normal pain-free range of motion without tenderness, swelling, increased warmth or erythema. Shoulders:? Right:? ? Normal pain-free range of motion with some slight anterior tenderness with no swelling, adenopathy or abductor weakness.? Left:? Slight discomfort at the extremes of normal internal or external rotation.? There is minimal anterior tenderness without adenopathy, swelling or weakness.?? Hips:.? Full range of motion without pain. Hip bursa:.? No tenderness. Knees:.?? Right:? Mild discomfort with extremes? of extension.? There is some mild medial tenderness but no anterior or posterior swelling or effusion.? No redness or warmth.? There is some patellofemoral crepitus.? Left:? Normal pain-free range of motion with mild patellofemoral crepitus and some slight medial compartment tenderness but no effusion, soft tissue swelling, increased warmth or erythema.? There is no effusion or crepitation Ankles:.? Normal pain-free range of motion without tenderness, swelling, increased warmth or erythema. Feet:.? Right:? Mild 1st MTP bony enlargement and tenderness across the? 1st MTP joint.? I do not appreciate any? other soft tissue swelling, redness or warmth.? There is no dactylitis.? Left:? There is a bit more 1st MTP bony enlargement in this foot then there is on the right.? There is mild tenderness in the 1st MTP joint.? No soft tissue swelling, dactylitis, redness or warmth. Tender points:? No tenderness to digital palpation at the occiput, trapezius, second rib, lateral epicondyle, knees, greater trochanter and gluteal area bilaterally. ?? 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 There is a question whether she needs to remain on the celecoxib which she presumably is taking now just for the osteoarthritis symptoms in her hands and feet. She will see if she can cut out the evening dose and just take the celecoxib 200 mg in the morning. She could also take it once a day with a possible 2nd dose later in the day if she is having more symptoms. The blood work looked good so I do not think she is having any side effects right now from the celecoxib. I think she should stay with the Otezla since that has made a big difference in her psoriasis and psoriatic arthritis symptoms. Follow-up in 6 months is reasonable. Coding Level of Care Code Est Pt Level 3 (90018) Diagnoses Psoriasis L40.9 bed bug exterminator use of drug Z79.899 Osteoarthritis of hands, bilateral M19.041; M19.042 Psoriatic arthritis L40.50
[2023-01-24 11:15] VITALS: BP 122/74; PULSE 79; TEMP 36.6; O2SAT 98; BMI 39.9
== END 2023-01-24 12:00 | disposition home or self-care (01) ==
PROVIDERS: PCP Internal Medicine; Visit Provider Internal Medicine Rheumatology
DX: L40.9 Psoriasis, unspecified (principal); Z79.899 Other long term (current) drug therapy; M19.041 Primary osteoarthritis, right hand; M19.042 Primary osteoarthritis, left hand; L40.50 Arthropathic psoriasis, unspecified
CPT/HCPCS: 99213

== ENCOUNTER → 2023-01-24 11:07 | Outpatient (BNVA) | payer MEDICARE, OTHER, SELFPAY | PROVIDERS: PCP Internal Medicine; Visit Provider Internal Medicine Rheumatology | DX: L40.50 Arthropathic psoriasis, unspecified (principal); L40.9 Psoriasis, unspecified; M19.042 Primary osteoarthritis, left hand; M19.041 Primary osteoarthritis, right hand; Z79.899 Other long term (current) drug therapy | CPT/HCPCS: 99212 ==

== ENCOUNTER 2023-02-14 11:57 | Outpatient (REF) | payer MEDICARE, OTHER, SELFPAY ==
[2023-02-14 14:20] LABS: TSH reflex Free T4 1.97 uIU/mL (0.32-4.0)
== END 2023-02-14 11:58 | disposition home or self-care (01) ==
LOC: HO.10HDL 11:57
PROVIDERS: Visit Provider Internal Medicine
DX: E03.9 Hypothyroidism, unspecified (principal)
CPT/HCPCS: 36415; 84443

== ENCOUNTER 2023-03-07 12:12 | Outpatient (AMB) | payer MEDICARE, OTHER, SELFPAY ==
--- NOTE | 2023-03-07 12:30 | A.OFFVIS_ITS ---
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 Required: No Allergies metformin Allergy (Severe, Verified 01/24/23 11:14) diarrhea, empagliflozin [From Jardiance] Adverse Reaction (Intermediate, Verified 01/24/23 11:14) yeast infection glipizide Adverse Reaction (Intermediate, Verified 01/24/23 11:14) body aches sitagliptin [From Januvia] Adverse Reaction (Intermediate, Verified 01/24/23 11:14) Diarrhea Medication List - Last Reconciled 03/07/23 by Tom Romero MD amlodipine 2.5 mg PO DAILY apremilast 30 mg PO BID atorvastatin 20 mg PO QPM blood sugar diagnostic ([employer] Ultra Test strips) test blood sugar once a day blood-glucose meter ([employer] Ultra2 Meter) As directed celecoxib 200 mg PO DAILY dulaglutide (Trulicity) 0.75 mg (0.5 mL) subcut QWEEK levothyroxine 112 mcg PO DAILY losartan 100 mg PO DAILY HPI HPI Comments History of Present Illness Details Randa comes for follow-up. She has been doing well from cardiac perspective. She suffered from psoriasis and psoriatic arthritis last year. Finally doing better on immunomodulator. Denies any cardiac symptoms. No worsening exertional shortness of breath. No orthopnea, PND. No exertional chest pain. No lightheadedness, syncope. No symptoms of palpitations. She has been taking all her medications. [facility] Medical History Postmenopausal Atrophic vaginitis Annual physical exam Psoriasis Limb pain Eosinophilia Pulmonary nodules Asthma Hypothyroid DM type 2 (diabetes mellitus, type 2) HTN (hypertension) LVH (left ventricular hypertrophy) Hyperlipidemia Obesity Surgical History History of surgery History of thyroidectomy (2017) Hx of colonoscopy History of back surgery Family History Father Carotid stenosis Mother CHF (congestive heart failure) Social History Housing: House Alcohol intake: never Patient Tobacco Use Status: Former Tobacco user Years Smoked: 40 years ago e-Cigarette/Vaping Use: Never Used service: No Current occupational status: retired Cognitive needs: No Hearing needs: No Vision needs: Yes Review of Systems Const Denies chills, Denies fatigue, Denies fever(s), Denies frequent falls, Denies weakness, Denies weight gain and Denies weight loss ENT Denies dizziness Card Denies chest pain, Denies leg edema, Denies lightheadedness, Denies palpitations, Denies dyspnea, Denies dyspnea on exertion, Denies orthopnea and Denies other (loss of consciousness) Resp Denies cough, Denies dyspnea and Denies dyspnea on exertion GI Denies hematochezia and Denies change in stool character Musc Denies abnormal gait, Denies muscle weakness, Denies numbness, Denies radiating pain into limb and Denies tingling Neuro Denies abnormal gait, Denies dizziness, Denies frequent falls, Denies numbness, Denies tingling and Denies weakness Endo Denies fatigue and Denies palpitations Physical Exam Vital Signs: Last Vital Signs Pulse 73 03/07/23 12:31 BP 120/74 03/07/23 12:31 BMI result Body Mass Index 40.0 Const General: cooperative, comfortable, no acute distress, alert, awake and well groomed Nutritional Appearance: obese morbidly obese Orientation/consciousness: patient oriented x3 Limitations: no limitations HEENT Head: Yes normal to inspection, Yes normocephalic and Yes atraumatic Eyes General: appearance normal, both eyes and all related structures Neck Neck: Yes trachea midline, Yes supple and Yes no JVD Carotids: no bruits Chest Chest palpation & inspection: normal inspection of the chest Resp Effort & Inspection: normal respiratory effort Auscultation: clear to auscultation bilaterally Cardio Palpation: normal PMI Rate: regular rate Rhythm: abnormal rhythm with ectopic beats Heart sounds: S1 normal heart sound present and S2 normal heart sound present GI Inspection: Yes obesity Auscultation: normal bowel sounds Skin General skin exam: no rashes or lesions noted Neuro General: patient oriented x3 and no focal motor deficits Extrem General: Yes no clubbing, cyanosis or edema Psych Appearance: grossly normal Office Procedures EKG Details: Sinus rhythm with PACs with low-voltage QRS with possible inferior anterior infarct most likely due to body habitus and lead position. The QRS morphology is not changed in the last year. [id number], Complete Assessment & Plan Assessment & Plan (1) HTN (hypertension): Code(s): I10 - Essential (primary) hypertension Plan: Hypertension with hypertensive heart disease other risk factors of diabetes as well as obesity. She has no current concerning symptoms for myocardial ischemia. Advised to call me with any new symptoms. Continue aggressive risk factor modification with aggressive control blood pressure is advised. Blood pressure is currently well optimized. Also a aggressive control of diabetes goal hemoglobin A1c less than 7%. Continue participate in lifestyle modification with regular physical activity and weight loss program. Goal LDL should be less than 70 mg/dL being pursue 3 our office. (2) PAC (premature atrial contraction): Code(s): I49.1 - Atrial premature depolarization Plan: Noted PACs on today's EKG. She has no symptoms related to it. Pathophysiology of PACs were discussed with her. Potential development of atrial fibrillation is known inpatient with PACs. She has had risk given her risk factors of hypertension, diabetes as well as obesity. Discussed with her about avoidance of stimulants. No pharmacotherapy is recommended for the same. Will follow up in the clinic in 1 year's time, sooner p.r.n.. Thank you for allowing me to partake in her care Medications: Changed From celecoxib 200 mg PO BID 60 caps 5RF L40.50 - Arthropathic psoriasis, unspecified, M19.041 - Primary osteoarthritis, right hand, M19.042 - Primary osteoarthritis, left hand To celecoxib 200 mg PO DAILY L40.50 - Arthropathic psoriasis, unspecified, M19.041 - Primary osteoarthritis, right hand, M19.042 - Primary osteoarthritis, left hand Coding Level of Care Code Est Pt Level 4 (21536) Diagnoses HTN (hypertension) I10 PAC (premature atrial contraction) I49.1 CPT Codes EKG - CPT: 84792-[id number], Complete ([id number])
[2023-03-07 12:31] VITALS: BP 120/74; PULSE 73; BMI 40.0
== END 2023-03-07 13:12 | disposition home or self-care (01) ==
PROVIDERS: Visit Provider Internal Medicine Cardiovascular Disease
DX: I10 Essential (primary) hypertension (principal); I49.1 Atrial premature depolarization
CPT/HCPCS: 93010; 99214

== ENCOUNTER → 2023-03-07 12:12 | Outpatient (BNVA) | payer MEDICARE, OTHER, SELFPAY | PROVIDERS: Visit Provider Internal Medicine Cardiovascular Disease | DX: I49.1 Atrial premature depolarization (principal); I11.0 Hypertensive heart disease with heart failure; I50.1 Left ventricular failure, unspecified | CPT/HCPCS: 93005; 99212 ==

== ENCOUNTER 2023-04-26 10:33 | Outpatient (REF) | payer MEDICARE, OTHER, SELFPAY ==
[2023-04-26 10:54] LABS: MANUAL DIFF FLAG NO
[2023-04-26 11:35] LABS: Basophils Absolute Auto 0.1 X10*3/uL (0.0-0.2); Basophils Percent Auto 1.8 % (0-2); Eosinophils Absolute Auto 0.4 X10*3/uL (0.0-0.4); Eosinophils Percent Auto 6.2 % (0-4); Hematocrit 40.2 % (37.0-47.0); Hemoglobin 13.7 g/dl (12.0-16.0); Imm Gran Abs Auto 0.02 X10*3/uL (0.00-0.03); Imm Gran Pct Auto 0.3 % (0.0-0.4); Lymphocytes Percent Auto 28.7 % (20-40); Mean Corpuscular HGB Conc 34.1 g/dl (31.0-35.0); Mean Corpuscular Hemoglobin 29.6 pg (27.0-33.0); Mean Corpuscular Volume 86.8 fL (80.0-98.0); Mean Platelet Volume 9.3 fL (9.4-12.3); Monocytes Absolute Auto 0.7 X10*3/uL (0.1-1.2); Monocytes Percent Auto 9.8 % (2-11); Neutrophils Absolute Auto 3.8 x10*3/uL (2.0-8.3); Neutrophils Percent Auto 53.2 % (45-73); Platelet Count 378 X10*3/uL (160-400); Red Blood Count 4.63 X10*6/uL (4.20-5.50); Red Cell Distribution Width 12.6 % (11.0-16.0); White Blood Count 7.1 X10*3/uL (4.8-10.8)
[2023-04-26 11:42] LABS: Estimated Average Glucose 128 mg/dL; Hemoglobin A1c % 6.1 % (<6.0)
[2023-04-26 12:16] LABS: Microalbum/Creatinine Ratio Ur 11.6 ug/mg cr (<30)
[2023-04-26 12:18] LABS: Alanine Aminotransferase 35 U/L (0-31); Albumin Level 4.1 g/dL (3.5-5.0); Alkaline Phosphatase 84 U/L (39-117); Anion Gap 10 (12-20); Aspartate Amino Transferase 22 U/L (5-31); Bilirubin Total 0.5 mg/dL (0.0-1.0); Blood Urea Nitrogen 11 mg/dL (9-16); Calcium 9.5 mg/dL (8.4-10.2); Carbon Dioxide 28 mmol/L (22-29); Chloride 105 mmol/L (96-108); Cholesterol 153 mg/dL (<200); Estimated Glomerular Filt Rate 59; Glucose Fasting 110 mg/dL (60-99); HDL Cholesterol 60 mg/dL (>40); LDL Cholesterol Calculated 73 mg/dL (<100); Potassium 3.8 mmol/L (3.3-5.1); Sodium 139 mmol/L (135-145); Total Protein 7.1 g/dL (6.5-8.0); Triglycerides 103 mg/dL (<150)
[2023-04-26 12:36] LABS: Vitamin D 25-OH Total 21.4 ng/mL (>30)
== END 2023-04-26 10:34 | disposition home or self-care (01) ==
LOC: HO.LAB 10:33
PROVIDERS: PCP Internal Medicine; Visit Provider Internal Medicine
DX: E03.9 Hypothyroidism, unspecified (principal); E11.9 Type 2 diabetes mellitus without complications; I10 Essential (primary) hypertension; E78.5 Hyperlipidemia, unspecified; E55.9 Vitamin D deficiency, unspecified
CPT/HCPCS: 36415; 80053; 80061; 82043; 82306; 82570; 83036; 84443; 85025

== ENCOUNTER 2023-05-01 11:18 | Outpatient (AMB) | payer MEDICARE, OTHER, SELFPAY ==
[2023-05-01 11:20] VITALS: BP 128/76; PULSE 73; O2SAT 98; BMI 39.8
--- NOTE | 2023-05-01 11:20 | A.OFFPC_ITS ---
Vital Signs 05/01/23 11:20 Height 5 ft 5 in Weight 239 lb BMI 39.8 BP 128/76 Blood Pressure Location Lt brachial Position Sitting Pulse 73 Pulse Source Pulse Oximeter Pulse Oximetry (%) 98 Oxygen Delivery Method Room Air Intake Visit Reasons: 6m follow up Intake Note: Pt is here today for 6 months follow up visit. Allergies metformin Allergy (Severe, Verified 05/01/23 11:26) diarrhea, empagliflozin [From Jardiance] Adverse Reaction (Intermediate, Verified 05/01/23 11:26) yeast infection glipizide Adverse Reaction (Intermediate, Verified 05/01/23 11:26) body aches sitagliptin [From Januvia] Adverse Reaction (Intermediate, Verified 05/01/23 11:26) Diarrhea Medication List - Last Reconciled 05/01/23 by Dania Wright MD albuterol sulfate 90 mcg/actuation 2 puffs inhalation Q6H PRN amlodipine 2.5 mg PO DAILY apremilast 30 mg PO BID atorvastatin 20 mg PO QPM blood sugar diagnostic ([employer] Ultra Test strips) test blood sugar once a day blood-glucose meter ([employer] Ultra2 Meter) As directed celecoxib 200 mg PO DAILY dulaglutide (Trulicity) 1.5 mg (0.5 mL) subcut QWEEK levothyroxine 112 mcg PO DAILY losartan 100 mg PO DAILY Tobacco use date assessed: 05/01/23 Fall risk assessment: No Falls in past year Last assessed Fall Risk: 05/01/23 Dental Screening Dental Screen Date: 05/01/23 Did you have a dental visit in the last 12 months?: Yes Did you have a dental problem in the last 6 months where you did not have access to dental care?: No Was dental information given to patient?: Patient has dentist HPI 6m follow up HPI Details Patient presents for the follow-up of hypertension hyperlipidemia type 2 diabetes. [facility] Medical History Postmenopausal Atrophic vaginitis Annual physical exam Psoriasis Limb pain Eosinophilia Pulmonary nodules Asthma Hypothyroid DM type 2 (diabetes mellitus, type 2) HTN (hypertension) LVH (left ventricular hypertrophy) Hyperlipidemia Obesity Surgical History History of surgery History of thyroidectomy (2016) Hx of colonoscopy History of back surgery Family History Father Carotid stenosis Mother CHF (congestive heart failure) Social History Housing: House Alcohol intake: never Patient Tobacco Use Status: Former Tobacco user Years Smoked: 40 years ago e-Cigarette/Vaping Use: Never Used service: No Current occupational status: retired Cognitive needs: No Hearing needs: No Vision needs: Yes Questionnaire Thrive Questionnaire Date Thrive assessed: 10/24/22 AUDIT C Alcohol Use Questionnaire (AUDIT-C) 1. How often do you have a drink containing alcohol?: Never 3. How often do you have six or more drinks on one occasion?: Never Total Score: 0 JORDANA-7 AMB Questionnaire JORDANA-7 Date JORDANA - 7 assessed: 10/24/22 Feeling nervous, anxious, or on edge: 0 = Not at all Not being able to stop or control worryin = Not at all Worrying too much about different things: 0 = Not at all Trouble relaxin = Not at all Being so restless that it is hard to sit still: 0 = Not at all Becoming easily annoyed or irritable: 0 = Not at all Feeling afraid as if something awful might happen: 0 = Not at all Total JORDANA-7 score (0-4 normal; 5-9 mild; 10-14 moderate; 15-21 severe): 0 Source: Developed by Drs. Yoni Pina, Kirti Bernal, Michael Medina and colleagues, with an educational selvin from [employer]. Review of Systems Const All systems reviewed & are unremarkable except as noted in HPI and below Eyes Reports no additional complaints ENT Reports no additional complaints Card Reports no additional complaints Resp Reports no additional complaints Physical exam (Primary Care) Vital Signs: Last Vital Signs Pulse 73 05/01/23 11:20 BP 128/76 05/01/23 11:20 Pulse Ox 98 05/01/23 11:20 Oxygen Delivery Method Room Air 05/01/23 11:20 BMI result Body Mass Index 39.8 Tobacco/Smoking Status: Tobacco use Status Tobacco use date assessed 05/01/23 05/01/23 11:28 Patient Tobacco Use Status Former Tobacco user 05/01/23 11:20 e-Cigarette/Vaping Use Never Used 05/01/23 11:20 Thrive Assessment: Date of Thrive Assessment Date Thrive assessed 10/24/22 05/01/23 11:20 Const General: no acute distress Resp Effort & Inspection: normal respiratory effort Auscultation: clear to auscultation bilaterally Cardio Rhythm: regular rhythm Heart sounds: S1 normal heart sound present and S2 normal heart sound present GI Inspection: Yes normal to inspection Palpation (GI): Soft to palpation Percussion: Yes normal to percussion Assessment and Plan Assessment & Plan (1) Hypothyroid: Code(s): E03.9 - Hypothyroidism, unspecified Plan: Continue Levothyroxine (2) DM type 2 (diabetes mellitus, type 2): Comment: Intolerant to Jardiance, Januvia, Metformin (diarrhea), Glipizide Code(s): E11.9 - Type 2 diabetes mellitus without complications Plan: A1c is up to 6.1, ADA diet increase exercise weight loss discussed with the patient increase Trulicity to 1.5 mg weekly follow-up in 4 months with a fasting labs before (3) HTN (hypertension): Code(s): I10 - Essential (primary) hypertension Plan: Continue current medications (4) Hyperlipidemia: Code(s): E78.5 - Hyperlipidemia, unspecified Plan: Continue statin Orders: Orders Comprehensive [place]. Panel Fast 4 Months E03.9 - Hypothyroidism, unspecified, E11.9 - Type 2 diabetes mellitus without complications, E78.5 - Hyperlipidemia, unspecified, I10 - Essential (primary) hypertension Hemoglobin A1c 4 Months E03.9 - Hypothyroidism, unspecified, E11.9 - Type 2 diabetes mellitus without complications, E78.5 - Hyperlipidemia, unspecified, I10 - Essential (primary) hypertension Complete Blood Count Auto Diff 4 Months E03.9 - Hypothyroidism, unspecified, E11.9 - Type 2 diabetes mellitus without complications, E78.5 - Hyperlipidemia, unspecified, I10 - Essential (primary) hypertension Lipid Panel 4 Months E03.9 - Hypothyroidism, unspecified, E11.9 - Type 2 diabetes mellitus without complications, E78.5 - Hyperlipidemia, unspecified, I10 - Essential (primary) hypertension Microalbumin 24 hr Urine 4 Months E03.9 - Hypothyroidism, unspecified, E11.9 - Type 2 diabetes mellitus without complications, E78.5 - Hyperlipidemia, unspecified, I10 - Essential (primary) hypertension TSH reflex Free T4 4 Months E03.9 - Hypothyroidism, unspecified, E11.9 - Type 2 diabetes mellitus without complications, E78.5 - Hyperlipidemia, unspecified, I10 - Essential (primary) hypertension Medications: New dulaglutide (Trulicity) 1.5 mg (0.5 mL) subcut QWEEK 6 mL 2RF albuterol sulfate 90 mcg/actuation 2 puffs inhalation Q6H PRN 8.5 grams 3RF shortness of breath or wheezing Discontinued dulaglutide (Trulicity) Discontinued Reason: Change Referral Type 0.75 mg (0.5 mL) subcut QWEEK 6 mL 2RF Coding Level of Care Code Est Pt Level 4 (28599) Diagnoses Hypothyroid E03.9 DM type 2 (diabetes mellitus, type 2) E11.9 HTN (hypertension) I10 Hyperlipidemia E78.5
== END 2023-05-01 12:25 | disposition home or self-care (01) ==
PROVIDERS: PCP Internal Medicine; Visit Provider Internal Medicine
DX: E03.9 Hypothyroidism, unspecified (principal); E11.69 Type 2 diabetes mellitus with other specified complication; I10 Essential (primary) hypertension; E78.5 Hyperlipidemia, unspecified
CPT/HCPCS: 99214

== ENCOUNTER → 2023-05-11 15:32 | Outpatient (BNVA) | payer MEDICARE, OTHER, SELFPAY | PROVIDERS: PCP Internal Medicine; Visit Provider Hospitalist ==

== ENCOUNTER 2023-06-13 12:50 | Outpatient (REF) | payer MEDICARE, OTHER, SELFPAY ==
--- NOTE | ~2023-06-13 | XR_ITS ---
EXAMINATION: XR CHEST CLINICAL INFORMATION: Dyspnea. COMPARISON: CTA chest to 05/30/2020. Chest radiograph 03/25/2020. TECHNIQUE: 2 views of the chest were obtained. FINDINGS: Slightly increased diffuse interstitial prominence. No focal consolidation, pleural effusion or pulmonary edema. Slightly increased platelike opacities projecting over the right mid to lower lung. Stable prominence of the cardiomediastinal silhouette. Thoracic spondylosis. No acute osseous findings. Visualized upper abdomen is within normal limits. XR/XR chest 2V IMPRESSION: 1. Slightly increased interstitial prominence which is nonspecific and could be associated with asthma, bronchitis, reactive airways disease or atypical infections. 2. Increased platelike opacities in the right mid to lower lung, likely subsegmental atelectasis.
== END 2023-06-13 12:51 | disposition home or self-care (01) ==
LOC: HO.XRAY 12:50
PROVIDERS: PCP Internal Medicine; Visit Provider Hospitalist
DX: Z23 Encounter for immunization (principal); R06.00 Dyspnea, unspecified
CPT/HCPCS: 71046; 90471; 90677; 99212

== ENCOUNTER 2023-06-13 12:50 | Outpatient (AMB) | payer MEDICARE, OTHER, SELFPAY ==
[2023-06-13 12:59] VITALS: PULSE 77; O2SAT 96; BMI 39.7
--- NOTE | 2023-06-13 12:59 | A.OFFVIS_ITS ---
Intake Vital Signs 06/13/23 12:59 Height 5 ft 5 in Weight 238 lb 5.115 oz BMI 39.7 Pulse 77 Pulse Source Pulse Oximeter Pulse Oximetry (%) 96 Oxygen Delivery Method Room Air Intake Visit Reasons: Cough Production Cell Leader Required: No Allergies metformin Allergy (Severe, Verified 06/13/23 13:00) diarrhea, empagliflozin [From Jardiance] Adverse Reaction (Intermediate, Verified 06/13/23 13:00) yeast infection glipizide Adverse Reaction (Intermediate, Verified 06/13/23 13:00) body aches sitagliptin [From Januvia] Adverse Reaction (Intermediate, Verified 06/13/23 13:00) Diarrhea HPI HPI Comments History of Present Illness Details The patient is a 72-year-old woman previously healthy until the summer when she started developing some shortness of breath. Subsequent to that she started having worsening cough with productive in nature and also increasing shortness of breath and chest tightness. She has been evaluated multiple times with significant wheezing requiring prednisone. She also required a course of doxycycline more recently. She has been using a nebulizer which belongs to her granddaughter. She feels that the nebulizer treatments have been effective helping her as well. The patient has been getting significant shortness of breath to the point that she has a hard time doing simple activities of daily living. She is very concerned. She has a short-acting beta agonist that she uses as needed multiple times a day with some partial resolution of the symptoms. She states that she does not have known allergies or have been tested for allergies in many years. She does not have any pets at home is not exposed to any mold. 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 In addition to that she did have a elevated D-dimer in the thousands and a CT scan of the chest done pre protocol that was negative for any PE. The patient did not have any significant findings except some small pulmonary nodule. We did do that are being so elevated need to consider underlying exposure to COVID-19 and therefore will go ahead and check her antibiotics. The patient had been tested with PCR swab symptoms were all negative. In the office she was found to have significant wheezing. She was given 2 treatments with DuoNeb with good resolution of the wheezing. The patient has been having a productive cough with brownish sputum. Therefore will treat her again with doxycycline. The patient also was taught how to use a spacer room and 1 was provided for her. She is going to start Symbicort along with a spacer twice a day. Hopeful that does going to be enough in improving her respiratory status and that she will not need prednisone. Currently she is scheduled to undergo her COVID-19 vaccine this Monday. Therefore, she will have her antibiotics checked and will discuss the results and decide how to move for. 07/15/2020 the patient is here for pultiffany corrigan follow-up visit. Overall the patient has been doing okay until recently when she started again wheezing after being outside in a . She had to use her rescue inhaler. Meantime she does continue to use Symbicort. She is wondering about the singular because she does not feel like it is helping much. I did recommend that she can add Zyrtec in the morning and continue singular at nighttime. Explained that the singular is sees steroid sparing agent and may minimize how much steroid she needs to take. In the meantime and concerned about the elevations in the D-dimer. Her CT scan was reassuring without any thromboembolic disease. Although, she does complaint of issues with very close veins and she does have some pain of her right lower extremity. Therefore is reasonable to request a lower extremity Doppler of the right extremity. Patient also should have a recheck D-dimer since is still elevated. In addition to that the patient does have significant eosinophilia stated above. Her allergy testing was not so significant and her IgE level was within normal limits. The patient may be a good candidate for biologic therapy if her symptoms continue to persist requiring additional rescue therapy in additional steroids. I will have a repeat her IgE level next month and also recheck her D-dimer next month prior to the next visit. If the patient has any difficulties prior to that she is to call for an appointment. y 08/31/2020 the patient is here for pultiffany corrigan follow-up visit. Overall she is feeling a lot better. She is responding well to her current respiratory regimen. She continues uses Symbicort 2 puffs twice a day. However, she is getting hoarseness. Usually the end of the day. [id number] severity. She is using a spacer with the Symbicort. She is also using her allergy medication. She did have blood work done by her primary care doctor again still demonstrating that elevation in the D-dimer. Her workup was reassuring with normal lower extremity Dopplers in a normal CT a without any evidence of thrombotic disease. At this time she is thinking about traveling to see her son in [place]. I did encourage to get compression stockings for her trip to minimize risk of DVT. Also she can consider using a baby aspirin. Also to note she has been dealing with any rash. She did follow-up with Dermatology in biopsy proved it to be psoriasis. 02/01/2021 the patient is here for pulmonary follow-up visit. Since we last spoke the patient has been feeling a lot better. Her respiratory status has significantly improved. She still using her respiratory therapy with good effect. During the last visit she did undergo a CT scan of the chest demonstrating stable small pulmonary nodules. No evidence of any blood clots. [place] trip to [place] was canceled due to the fact that her son was sick. However she is going to be going this February. She will take all her respiratory medications with her just in case. in the meantime the patient was diagnosed with psoriasis from her biopsy. Seems like she got the psoriasis right after getting vaccinated for COVID-19. She is not sure that could have precipitated it. In the meantime she is concerned about getting any blisters in view of her significant rash. Therefore I will get blood work to check her allergy levels her eosinophils in the meantime also checking her COVID-19 spike protein titers to see if she can hold off on the booster. 06/13/2023 the patient is here for a pulmonary follow-up visit. The patient overall is feeling better now. Although, several weeks ago she started developing worsening shortness of breath chest tightness and wheezing. She does carry a diagnosis of asthma. She is also taking immunosuppressant therapy because of her psoriatic arthritis. The patient was trying to make an appointment which she could not get an appointment until now. In the meantime she has been using her rescue inhaler on a daily basis. At least now her symptoms have improved. Overall she feels like back to her baseline. Her respiratory exam is reassuring. I do not appreciate any wheezing at this time. We did talk about considering optimizing her maintenance therapy. But, this point I believe that she is fine just with short-acting beta agonist. in nt lower respiratory infection I do believe that she should receive the Prevnar 20. She will receive today before she goes home. in view of her ongoing symptoms of shortness of breath the patient should have a chest x-ray for baseline. If her symptoms worsen she will call for additional recommendations otherwise will follow-up in a year's time. [facility] Medical History (Updated 06/13/23 @ 23:03 by Juan Bergeron MD) Dyspnea Postmenopausal Atrophic vaginitis Annual physical exam Psoriasis Limb pain Eosinophilia Pulmonary nodules Asthma Hypothyroid DM type 2 (diabetes mellitus, type 2) HTN (hypertension) LVH (left ventricular hypertrophy) Hyperlipidemia Obesity Surgical History History of surgery History of thyroidectomy (2017) Hx of colonoscopy History of back surgery Family History Father Carotid stenosis Mother CHF (congestive heart failure) Social History Housing: House Alcohol intake: never Patient Tobacco Use Status: Former Tobacco user Years Smoked: 40 years ago e-Cigarette/Vaping Use: Never Used service: No Current occupational status: retired Cognitive needs: No Hearing needs: No Vision needs: Yes Review of Systems Const Denies night sweats ENT Denies change in voice, Denies lip swelling, Denies mouth pain, Denies nasal congestion, Denies nasal discharge and Denies tongue swelling Card Denies chest pain and Reports dyspnea on exertion Resp Denies chest congestion, Reports cough, Denies hemoptysis, Denies excessive phlegm production, Reports dyspnea on exertion and Reports wheezing GI Denies abdominal pain Musc Reports as per HPI, Reports arthralgias and Reports joint swelling Skin/Breast Reports as per HPI and Reports rash Neuro Denies Neuro-related abnormal movements Psych Denies no additional complaints Demetrio/Lymph Denies easy bleeding and Denies lymphadenopathy Aller/Immun Denies lip swelling, Denies tongue swelling and Reports wheezing Physical Exam Vital Signs: Last Vital Signs Pulse 77 06/13/23 12:59 Pulse Ox 96 06/13/23 12:59 Oxygen Delivery Method Room Air 06/13/23 12:59 BMI result Body Mass Index 39.7 Const General: alert Neck Neck: Yes normal visual inspection, Yes full ROM and Yes no lymphadenopathy Chest Chest palpation & inspection: normal inspection of the chest Resp Auscultation: clear to auscultation bilaterally and no wheezes Cardio Rate: regular rate Rhythm: regular rhythm Heart sounds: S1 normal heart sound present and S2 normal heart sound present GI Palpation (GI): Soft to palpation and nontender Auscultation: normal bowel sounds Immunizations pneumoc 20-nico conj-dip cr(PF) 0.5 mL IM syringe Performing Provider: Juan Bergeron MD Performing Location: [facility] [place] [facility] Administered by: Nicole Quintero LPN on 06/13/23 13:29 Dose Route Admin Location Dispensed Lot Number Expiration Date NDC Safety Person 0.5 mL IM Left Deltoid 0.5 mL [id number] 06/07/24 5219-3592-62 [employer] [facility] [employer] VIS Given Date VIS Provided VIS Publication Date 06/13/23 Single Vaccine 21 Eligibility Eligibility Date Funding Source Not [facility] Eligible 06/13/23 Private Assessment & Plan Assessment & Plan (1) Pulmonary nodules: Comment: 2mm nodule, stable when compared CT 2018 to 2020 Code(s): R91.8 - Other nonspecific abnormal finding of lung field Plan: Decrease Symbicort 1 puff BID with spacer NICKO as needed Continue Singulair, zyrtec as needed F/U 6 months (2) Asthma: Comment: Eosinophilic asthma Code(s): J45.909 - Unspecified asthma, uncomplicated Qualifiers: Asthma complication type: uncomplicated Asthma persistence: persistent Asthma severity: moderate Qualified Code(s): J45.40 - Moderate persistent asthma, uncomplicated (3) Dyspnea: Code(s): R06.00 - Dyspnea, unspecified Qualifiers: Dyspnea type: dyspnea on exertion Qualified Code(s): R06.09 - Other forms of dyspnea Plan CXR stopped Symbicort continue short-acting beta agonist as needed follow-up in 10-12 months Orders: Orders XR chest 2V Today R06.00 - Dyspnea, unspecified Pneumococcal 20 Immunization Today Z23 - Encounter for immunization Medications: Refilled albuterol sulfate 90 mcg/actuation 2 puffs inhalation Q6H PRN 8.5 grams 11RF shortness of breath or wheezing Coding Level of Care Code Est Pt Level 4 (19641) Diagnoses Pulmonary nodules R91.8 Moderate persistent asthma without complication J45.40 Asthma complication type: uncomplicated Asthma persistence: persistent Asthma severity: moderate Dyspnea on exertion R06.09 Dyspnea type: dyspnea on exertion Time Spent (min) 18
== END 2023-06-13 13:25 | disposition home or self-care (01) ==
PROVIDERS: PCP Internal Medicine; Visit Provider Hospitalist
DX: R91.8 Other nonspecific abnormal finding of lung field (principal); J45.40 Moderate persistent asthma, uncomplicated; R06.09 Other forms of dyspnea
CPT/HCPCS: 99214

== ENCOUNTER 2023-07-27 10:40 | Outpatient (AMB) | payer MEDICARE, OTHER, SELFPAY ==
--- NOTE | 2023-07-27 10:45 | A.OFFVIS_ITS ---
Intake Vital Signs 07/27/23 10:46 Height 5 ft 5 in Weight 240 lb 1.334 oz BMI 39.9 BP 152/76 H Blood Pressure Location Rt brachial Position Sitting Pulse 84 Pulse Source Pulse Oximeter Pulse Oximetry (%) 97 Oxygen Delivery Method Room Air Intake Visit Reasons: psa with md Intake Note: Patient last seen by Dr Sinha on 01/24/23 presents today for follow up. States she is doing very well in terms of joint pain, however has red spots on arms which she states are new. Neonatal Icu Coordinator Required: No Accompanied by: Self / Same As Patient Allergies metformin Allergy (Severe, Verified 07/27/23 10:47) diarrhea, empagliflozin [From Jardiance] Adverse Reaction (Intermediate, Verified 07/27/23 10:47) yeast infection glipizide Adverse Reaction (Intermediate, Verified 07/27/23 10:47) body aches sitagliptin [From Januvia] Adverse Reaction (Intermediate, Verified 07/27/23 10:47) Diarrhea Medication List - Last Reconciled 07/27/23 by Shyla Mckinney MD albuterol sulfate 90 mcg/actuation 2 puffs inhalation Q6H PRN amlodipine 2.5 mg PO DAILY apremilast 30 mg PO BID atorvastatin 20 mg PO QPM blood sugar diagnostic (OneTouch Ultra Test strips) test blood sugar once a day blood-glucose meter (Sense PlatformTouch Ultra2 Meter) As directed celecoxib 200 mg PO DAILY dulaglutide (Trulicity) 1.5 mg (0.5 mL) subcut QWEEK levothyroxine 112 mcg PO DAILY losartan 100 mg PO DAILY HPI HPI Comments History of Present Illness Details 72-year-old female with psoriasis and ps oriatic arthritis returns for follow-up. She remains on Otezla 30 mg Twice daily and Celebrex 200 mg daily. States that she is doing quite well in terms of her psoriasis and her inflammatory arthritis. She has 1 small itchy spot on the outer aspect of her right leg. Most recent history by Dr. Sinha: The patient presents for evaluation of her psoriasis and psoriatic arthritis. She says she feels good with respect to joint pain with her current regimen that includes celecoxib 200 mg twice a day and Otezla 30 mg twice a day. She wonders if she needs to stay on all of these medications for now. There has been no psoriasis noted. She seems to be tolerating the medicines without any GI side effects. She did have some loose stools at her last visit but those subsided once her thyroid dose was adjusted. She is on meds for diabetes with a reasonable glycohemoglobin in the last few months. [facility] Medical History Dyspnea Postmenopausal Atrophic vaginitis Annual physical exam Psoriasis Limb pain Eosinophilia Pulmonary nodules Asthma Hypothyroid DM type 2 (diabetes mellitus, type 2) HTN (hypertension) LVH (left ventricular hypertrophy) Hyperlipidemia Obesity Surgical History History of surgery History of thyroidectomy (2017) Hx of colonoscopy History of back surgery Family History Father Carotid stenosis Mother CHF (congestive heart failure) Social History Housing: House Alcohol intake: never Patient Tobacco Use Status: Former Tobacco user Years Smoked: 40 years ago e-Cigarette/Vaping Use: Never Used service: No Current occupational status: retired Cognitive needs: No Hearing needs: No Vision needs: Yes Review of Systems Musc Denies arthralgias and Denies joint swelling Skin/Breast Reports pruritus and Reports lesions Physical Exam Vital Signs: Last Vital Signs Pulse 84 07/27/23 10:46 BP 152/76 H 07/27/23 10:46 Pulse Ox 97 07/27/23 10:46 Oxygen Delivery Method Room Air 07/27/23 10:46 BMI result Body Mass Index 39.9 Const General: cooperative, healthy appearing and comfortable Nutritional Appearance: obese morbidly obese Orientation/consciousness: patient oriented x3 Limitations: no limitations HEENT Head: Yes normocephalic and Yes atraumatic Mouth: moist mucous membranes Resp Effort & Inspection: normal respiratory effort and able to speak in complete sentences Auscultation: clear to auscultation bilaterally Cardio Rate: regular rate Rhythm: regular rhythm Skin Other: A couple of superficial bruises on right forearm Circular psoriasis patch on outer aspect of right leg Neuro General: patient oriented x3 Extrem Other: No active synovitis Normal nailfold capillaroscopy Jamey test 10-13 cm negative PETER test bilaterally Negative straight leg raise test bilaterally Assessment & Plan Assessment & Plan (1) Psoriatic arthritis: Comment: dx 10/2021 Otezla 2021 effective Code(s): L40.50 - Arthropathic psoriasis, unspecified Plan: This is a 72-year-old female with psoriasis and psoriatic arthritis who presents for follow-up. This is her 1st visit with me. She used to follow-up with Dr. Sinha. Doing well overall only 1 psoriasis patch and no active synovitis. Continue with Otezla 30 mg Twice daily Discussed potential side effects of long-term use of NSAIDs. Will reduce Celebrex from 200 mg daily to 100 mg daily and monitor patient Labs today and before next visit in 4 months (2) [facility] use of drug: Code(s): Z79.899 - Other termite control service representative (current) drug therapy Plan: Given long-term use of NSAIDs. Needs periodic lab work (3) Psoriasis: Code(s): L40.9 - Psoriasis, unspecified Plan: Very well controlled with Otezla. Will prescribe clobetasol cream for current psoriasis patch. Plan I spent 30 minutes reviewing patient's chart, evaluating patient, ordering diagnostic workup, counseling patient and documenting in the chart Orders: Orders Complete Blood Count Auto Diff 4 Months L40.50 - Arthropathic psoriasis, unspecified, Z79.899 - Other penitentiary (current) drug therapy C Reactive Protein 4 Months L40.50 - Arthropathic psoriasis, unspecified, Z79.899 - Other penitentiary (current) drug therapy Erythrocyte Sedimentation Rate 4 Months L40.50 - Arthropathic psoriasis, unspecified, Z79.899 - Other termite control service representative (current) drug therapy Comprehensive Met. Panel Today L40.50 - Arthropathic psoriasis, unspecified, Z79.899 - Other penitentiary (current) drug therapy Erythrocyte Sedimentation Rate Today L40.50 - Arthropathic psoriasis, unspecified, Z79.899 - Other termite control service representative (current) drug therapy HLA B27 Today M45.9 - Ankylosing spondylitis of unspecified sites in spine Comprehensive Met. Panel 4 Months L40.50 - Arthropathic psoriasis, unspecified, Z79.899 - Other termite control service representative (current) drug therapy Complete Blood Count Auto Diff Today L40.50 - Arthropathic psoriasis, unspecified, Z79.899 - Other penitentiary (current) drug therapy C Reactive Protein Today L40.50 - Arthropathic psoriasis, unspecified, Z79.899 - Other termite control service representative (current) drug therapy Medications: New celecoxib (Celebrex) 100 mg PO DAILY 90 caps 1RF clobetasol 0.05% 1 appl topical BID PRN 15 grams 1RF psoriasis Refilled apremilast 30 mg PO BID 60 tabs 4RF L40.50 - Arthropathic psoriasis, unspecified Coding Level of Care Code Est Pt Level 4 (70611) Diagnoses Psoriatic arthritis L40.50 [facility] use of drug Z79.899 Psoriasis L40.9
[2023-07-27 10:46] VITALS: BP 152/76; PULSE 84; O2SAT 97; BMI 39.9
== END 2023-07-27 11:11 | disposition home or self-care (01) ==
PROVIDERS: PCP Internal Medicine; Visit Provider Student in an Organized Health Care Education/Training Program
DX: L40.50 Arthropathic psoriasis, unspecified (principal); Z79.899 Other long term (current) drug therapy; L40.9 Psoriasis, unspecified
CPT/HCPCS: 99214

== ENCOUNTER → 2023-07-27 10:40 | Outpatient (BNVA) | payer MEDICARE, OTHER, SELFPAY | PROVIDERS: PCP Internal Medicine; Visit Provider Student in an Organized Health Care Education/Training Program | DX: L40.50 Arthropathic psoriasis, unspecified (principal); L40.9 Psoriasis, unspecified; Z79.899 Other long term (current) drug therapy | CPT/HCPCS: 36415; 80053; 85025; 85652; 86140; 86812; 99212 ==

== ENCOUNTER 2023-07-27 11:21 | Outpatient (REF) | payer MEDICARE, OTHER, SELFPAY ==
[2023-07-27 12:52] LABS: MANUAL DIFF FLAG NO
[2023-07-27 12:58] LABS: Basophils Absolute Auto 0.1 X10*3/uL (0.0-0.2); Basophils Percent Auto 1.5 % (0-2); Eosinophils Absolute Auto 0.2 X10*3/uL (0.0-0.4); Eosinophils Percent Auto 3.3 % (0-4); Hematocrit 38.5 % (37.0-47.0); Hemoglobin 13.4 g/dl (12.0-16.0); Imm Gran Abs Auto 0.02 X10*3/uL (0.00-0.03); Imm Gran Pct Auto 0.3 % (0.0-0.4); Lymphocytes Absolute Auto 2.2 X10*3/uL (1.2-4.9); Lymphocytes Percent Auto 30.1 % (20-40); Mean Corpuscular HGB Conc 34.8 g/dl (31.0-35.0); Mean Corpuscular Hemoglobin 30.5 pg (27.0-33.0); Mean Corpuscular Volume 87.5 fL (80.0-98.0); Mean Platelet Volume 9.7 fL (9.4-12.3); Monocytes Absolute Auto 0.7 X10*3/uL (0.1-1.2); Monocytes Percent Auto 9.6 % (2-11); Neutrophils Percent Auto 55.2 % (45-73); Platelet Count 358 X10*3/uL (160-400); Red Cell Distribution Width 12.6 % (11.0-16.0); White Blood Count 7.2 X10*3/uL (4.8-10.8)
[2023-07-27 13:28] LABS: Alanine Aminotransferase 31 U/L (0-31); Albumin Level 3.9 g/dL (3.5-5.0); Alkaline Phosphatase 80 U/L (39-117); Anion Gap 8 (12-20); Aspartate Amino Transferase 21 U/L (5-31); Bilirubin Total 0.4 mg/dL (0.0-1.0); Blood Urea Nitrogen 14 mg/dL (9-16); C Reactive Protein 0.31 mg/dL (< or = 0.50); Calcium 9.2 mg/dL (8.4-10.2); Carbon Dioxide 27 mmol/L (22-29); Chloride 106 mmol/L (96-108); Estimated Glomerular Filt Rate 59; Glucose Random 125 mg/dL (60-115); Potassium 3.8 mmol/L (3.3-5.1); Sodium 137 mmol/L (135-145); Total Protein 6.7 g/dL (6.5-8.0)
[2023-07-27 13:44] LABS: Erythrocyte Sedimentation Rate 11 MM/HR (0-20)
[2023-08-01 22:14] LABS: HLA B27 Negative (Negative)
== END 2023-07-27 11:22 | disposition home or self-care (01) ==
LOC: HO.10HDL 11:21
PROVIDERS: Visit Provider Student in an Organized Health Care Education/Training Program
DX: Z13.89 Encounter for screening for other disorder (principal)
CPT/HCPCS: 36415; 80053; 85025; 85652; 86140; 86812

== ENCOUNTER 2023-08-23 09:25 | Outpatient (REF) | payer MEDICARE, OTHER, SELFPAY ==
[2023-08-23 10:53] LABS: MANUAL DIFF FLAG NO
[2023-08-23 11:01] LABS: Basophils Absolute Auto 0.2 X10*3/uL (0.0-0.2); Basophils Percent Auto 2.4 % (0-2); Eosinophils Absolute Auto 0.3 X10*3/uL (0.0-0.4); Eosinophils Percent Auto 3.5 % (0-4); Hematocrit 40.5 % (37.0-47.0); Hemoglobin 14.1 g/dl (12.0-16.0); Imm Gran Abs Auto 0.01 X10*3/uL (0.00-0.03); Imm Gran Pct Auto 0.1 % (0.0-0.4); Lymphocytes Absolute Auto 2.6 X10*3/uL (1.2-4.9); Lymphocytes Percent Auto 34.1 % (20-40); Mean Corpuscular HGB Conc 34.8 g/dl (31.0-35.0); Mean Corpuscular Hemoglobin 30.5 pg (27.0-33.0); Mean Corpuscular Volume 87.7 fL (80.0-98.0); Mean Platelet Volume 9.4 fL (9.4-12.3); Monocytes Absolute Auto 0.7 X10*3/uL (0.1-1.2); Monocytes Percent Auto 9.2 % (2-11); Neutrophils Absolute Auto 3.9 x10*3/uL (2.0-8.3); Neutrophils Percent Auto 50.7 % (45-73); Platelet Count 412 X10*3/uL (160-400); Red Blood Count 4.62 X10*6/uL (4.20-5.50); Red Cell Distribution Width 12.7 % (11.0-16.0); White Blood Count 7.6 X10*3/uL (4.8-10.8)
[2023-08-23 11:18] LABS: Estimated Average Glucose 134 mg/dL; Hemoglobin A1c % 6.3 % (<6.0)
[2023-08-23 11:34] LABS: Alanine Aminotransferase 28 U/L (0-31); Alkaline Phosphatase 82 U/L (39-117); Anion Gap 13 (12-20); Aspartate Amino Transferase 18 U/L (5-31); Bilirubin Total 0.5 mg/dL (0.0-1.0); Blood Urea Nitrogen 11 mg/dL (9-16); Calcium 9.2 mg/dL (8.4-10.2); Carbon Dioxide 23 mmol/L (22-29); Chloride 107 mmol/L (96-108); Cholesterol 156 mg/dL (<200); Estimated Glomerular Filt Rate 57; Glucose Fasting 122 mg/dL (60-99); HDL Cholesterol 64 mg/dL (>40); LDL Cholesterol Calculated 70 mg/dL (<100); Sodium 139 mmol/L (135-145); Triglycerides 111 mg/dL (<150)
[2023-08-23 11:51] LABS: TSH reflex Free T4 3.47 uIU/mL (0.32-4.0)
== END 2023-08-23 09:26 | disposition home or self-care (01) ==
LOC: HO.10HDL 09:25
PROVIDERS: Visit Provider Internal Medicine
DX: E03.9 Hypothyroidism, unspecified (principal); E11.9 Type 2 diabetes mellitus without complications; I10 Essential (primary) hypertension; E78.5 Hyperlipidemia, unspecified
CPT/HCPCS: 36415; 80053; 80061; 83036; 84443; 85025

== ENCOUNTER 2023-10-25 11:37 | Outpatient (AMB) | payer MEDICARE, OTHER, SELFPAY ==
--- NOTE | 2023-10-25 11:40 | MHC.PC.OV ---
Vital Signs 10/25/23 11:41 Height 5 ft 5 in Weight 239 lb BMI 39.8 BP 110/64 Blood Pressure Location Lt brachial Position Sitting Pulse 85 Pulse Source Pulse Oximeter Pulse Oximetry (%) 97 Oxygen Delivery Method Room Air Intake Visit Reasons: Annual PE Intake Note: Pt is here today for PE. Allergies metformin Allergy (Severe, Verified 10/25/23 11:52) diarrhea, empagliflozin [From Jardiance] Adverse Reaction (Intermediate, Verified 10/25/23 11:52) yeast infection glipizide Adverse Reaction (Intermediate, Verified 10/25/23 11:52) body aches sitagliptin [From Januvia] Adverse Reaction (Intermediate, Verified 10/25/23 11:52) Diarrhea Medication List - Last Reconciled 10/25/23 by Dania Wright MD albuterol sulfate 90 mcg/actuation 2 puffs inhalation Q6H PRN amlodipine 2.5 mg PO DAILY apremilast 30 mg PO BID atorvastatin 20 mg PO QPM blood sugar diagnostic ([employer] Ultra Test strips) test blood sugar once a day blood-glucose meter ([employer] Ultra2 Meter) As directed dulaglutide (Trulicity) 1.5 mg (0.5 mL) subcut QWEEK levothyroxine 112 mcg PO DAILY losartan 100 mg PO DAILY Tobacco use date assessed: 10/25/23 Fall risk assessment: No Falls in past year Last assessed Fall Risk: 10/25/23 Dental Screening Dental Screen Date: 10/25/23 Did you have a dental visit in the last 12 months?: Yes Did you have a dental problem in the last 6 months where you did not have access to dental care?: No Was dental information given to patient?: Patient has dentist HPI Annual PE HPI Details Pt presents for PE. Pt c/o diarrhea on and off for 4 months worse since started Trulicity. PFSH Medical History Dyspnea Postmenopausal Atrophic vaginitis Annual physical exam Psoriasis Limb pain Eosinophilia Pulmonary nodules Asthma Hypothyroid DM type 2 (diabetes mellitus, type 2) HTN (hypertension) LVH (left ventricular hypertrophy) Hyperlipidemia Obesity Surgical History History of surgery History of thyroidectomy (2017) Hx of colonoscopy History of back surgery Family History Father Carotid stenosis Mother CHF (congestive heart failure) Social History Housing: House Alcohol intake: never Patient Tobacco Use Status: Former Tobacco user Years Smoked: 40 years ago e-Cigarette/Vaping Use: Never Used service: No Current occupational status: retired Cognitive needs: No Hearing needs: No Vision needs: Yes Questionnaire PHQ-9 Over the last 2 weeks, how often have you been bothered by any of the following problems? 1. Little interest or pleasure in doing things: not at all 2. Feeling down, depressed, or hopeless: not at all 3. Trouble falling or staying asleep, or sleeping too much: not at all 4. Feeling tired or having little energy: not at all 5. Poor appetite or overeating: not at all 6. Feeling bad about yourself - or that you are a failure or have let yourself or your family down: not at all 7. Trouble concentrating on things, such as reading the newspaper or watching television: not at all 8. Moving or speaking so slowly that other people could have noticed. Or the opposite - being so fidgety or restless that you have been moving around a lot more than usual: not at all 9. Thoughts that you would be better off or of hurting yourself in some way: not at all Total score: 0 Depression Screening Interpretation: Negative Depression Screening Done: Yes Source: Developed by Drs. Yoni Pina, Kirti Bernal, Mihcael Medina and colleagues, with an educational selvin from [employer]. Thrive Questionnaire Date Thrive assessed: 10/25/23 I am a: Patient What is your living situation today?: I have a steady place to live Within the past 12 months, did the food you bought not last and you didn't have the money to get more?: Never true Within the past 12 months, did you worry whether your food would run out before you got money to buy more?: Never true Do you have trouble paying for medicines?: No Do you have trouble getting transportation to medical appointments?: No Do you have trouble paying your heating and electricity bill?: No Do you have trouble taking care of your child, family member or friend?: No Do you have trouble with day-to-day activities such as bathing, preparing meals, shopping, managing finances, etc.?: No Are you currently unemployed and looking for a job?: No Are you interested in more education?: No Please select the resources that you would like help with: Housing/[facility] Currently or been in a relationship where the following occur: No concerns reported THRIVE Score: 0 AUDIT C Alcohol Use Questionnaire (AUDIT-C) 1. How often do you have a drink containing alcohol?: Never 3. How often do you have six or more drinks on one occasion?: Never Total Score: 0 JORDANA-7 AMB Questionnaire JORDANA-7 Date JORDANA - 7 assessed: 10/25/23 Feeling nervous, anxious, or on edge: 0 = Not at all Not being able to stop or control worryin = Not at all Worrying too much about different things: 0 = Not at all Trouble relaxin = Not at all Being so restless that it is hard to sit still: 0 = Not at all Becoming easily annoyed or irritable: 0 = Not at all Feeling afraid as if something awful might happen: 0 = Not at all Total JORDANA-7 score (0-4 normal; 5-9 mild; 10-14 moderate; 15-21 severe): 0 Source: Developed by Drs. Yoin Pina, Kirti Bernal, Michael Medina and colleagues, with an educational selvin from [employer]. Review of Systems Const All systems reviewed & are unremarkable except as noted in HPI and below Reports no additional complaints Eyes Reports no additional complaints ENT Reports no additional complaints Card Reports no additional complaints Resp Reports no additional complaints GI Reports no additional complaints Reports no additional complaints Physical exam (Primary Care) Vital Signs: Last Vital Signs Pulse 85 10/25/23 11:41 BP 110/64 10/25/23 11:41 Pulse Ox 97 10/25/23 11:41 Oxygen Delivery Method Room Air 10/25/23 11:41 BMI result Body Mass Index 39.8 Tobacco/Smoking Status: Tobacco use Status Tobacco use date assessed 10/25/23 10/25/23 11:55 Patient Tobacco Use Status Former Tobacco user 10/25/23 11:41 e-Cigarette/Vaping Use Never Used 10/25/23 11:41 PHQ-9: PHQ-9 Score PHQ-9: Total score 0 10/25/23 12:18 Depression Screening Interpretation: Negative Thrive Assessment: Date of Thrive Assessment Date Thrive assessed 10/25/23 10/25/23 11:55 Currently or been in a relationship where the following occur: No concerns reported Const General: no acute distress HENMT Head: Yes normal to inspection Face and sinus: Yes normal facial exam Throat: Yes posterior oropharynx normal Eyes General: appearance normal, both eyes and all related structures Neck Neck: Yes supple Resp Effort & Inspection: normal respiratory effort Auscultation: clear to auscultation bilaterally Cardio Rhythm: regular rhythm Heart sounds: S1 normal heart sound present and S2 normal heart sound present GI Inspection: Yes normal to inspection Palpation (GI): Soft to palpation Percussion: Yes normal to percussion Auscultation: normal bowel sounds Assessment and Plan Assessment & Plan (1) DM type 2 (diabetes mellitus, type 2): Comment: Intolerant to Jardiance, Januvia, Metformin (diarrhea), Glipizide Code(s): E11.9 - Type 2 diabetes mellitus without complications Plan: a1c was 6.3, stop Trulicity because of diarrhea, cont ADA diet, exercise, weight loss (2) HTN (hypertension): Code(s): I10 - Essential (primary) hypertension Plan: cont meds (3) Hyperlipidemia: Code(s): E78.5 - Hyperlipidemia, unspecified Plan: cont statin (4) Obesity: Code(s): E66.9 - Obesity, unspecified Plan: weight loss discussed (5) Annual physical exam: Code(s): Z00.00 - Encounter for general adult medical examination without abnormal findings Plan: well balanced diet, regular exercise, weight loss discussed, f/u 6 months Coding Level of Care Code Est Pt Prev Care >65y(57536) Diagnoses DM type 2 (diabetes mellitus, type 2) E11.9 HTN (hypertension) I10 Hyperlipidemia E78.5 Obesity E66.9 Annual physical exam Z00.00
[2023-10-25 11:41] VITALS: BP 110/64; PULSE 85; O2SAT 97; BMI 39.8
== END 2023-10-25 12:29 | disposition home or self-care (01) ==
PROVIDERS: PCP Internal Medicine; Visit Provider Internal Medicine
DX: Z00.00 Encounter for general adult medical examination without abnormal findings (principal); E11.69 Type 2 diabetes mellitus with other specified complication; E66.9 Obesity, unspecified; Z68.39 Body mass index [BMI] 39.0-39.9, adult; I10 Essential (primary) hypertension; E78.5 Hyperlipidemia, unspecified
CPT/HCPCS: 99397

== ENCOUNTER 2023-11-21 10:16 | Outpatient (AMB) | payer MEDICARE, OTHER, SELFPAY ==
--- NOTE | 2023-11-21 10:31 | MHC.OFFVIS ---
Vital Signs 11/21/23 10:39 Height 5 ft 5 in Weight 239 lb 6.752 oz BMI 39.8 BP 120/80 Blood Pressure Location Rt brachial Position Sitting Pulse 78 Pulse Source Pulse Oximeter Pulse Oximetry (%) 98 Oxygen Delivery Method Room Air Intake Visit Reasons: PsA/CM Intake Note: Patient presents for PsA. Allergies metformin Allergy (Severe, Verified 11/21/23 10:35) diarrhea, dulaglutide [From Trulicity] Adverse Reaction (Intermediate, Verified 11/21/23 10:35) Diarrhea empagliflozin [From Jardiance] Adverse Reaction (Intermediate, Verified 11/21/23 10:35) yeast infection glipizide Adverse Reaction (Intermediate, Verified 11/21/23 10:35) body aches sitagliptin [From Januvia] Adverse Reaction (Intermediate, Verified 11/21/23 10:35) Diarrhea Medication List - Last Reconciled 11/21/23 by Shyla Mckinney MD albuterol sulfate 90 mcg/actuation 2 puffs inhalation Q6H PRN amlodipine 2.5 mg PO DAILY apremilast 30 mg PO DAILY atorvastatin 20 mg PO QPM blood sugar diagnostic (OneTouch Ultra Test strips) test blood sugar once a day blood-glucose meter (OneTouch Ultra2 Meter) As directed levothyroxine 112 mcg PO DAILY losartan 100 mg PO DAILY Trulicity (dulaglutide) 1.5 mg (0.5 mL) subcut QWEEK NS HPI Comments Details: 73-year-old female with psoriasis and psoriatic arthritis returns for follow-up. She stated that after her last visit with me 4 months ago she lowered her Celebrex from 200 mg daily to 100 mg daily then she lowered it to 100 mg every other day then stopped it altogether. She also lowered her Otezla to 1 tab daily about a month ago due to diarrhea. She states that she is doing well overall, her skin is clear of psoriasis. Denies any significant joint pain. No complaints today Most recent history by Dr. Sinha: The patient presents for evaluation of her psoriasis and psoriatic arthritis. She says she feels good with respect to joint pain with her current regimen that includes celecoxib 200 mg twice a day and Otezla 30 mg twice a day. She wonders if she needs to stay on all of these medications for now. There has been no psoriasis noted. She seems to be tolerating the medicines without any GI side effects. She did have some loose stools at her last visit but those subsided once her thyroid dose was adjusted. She is on meds for diabetes with a reasonable glycohemoglobin in the last few months. [facility] Medical History Dyspnea Postmenopausal Atrophic vaginitis Annual physical exam Psoriasis Limb pain Eosinophilia Pulmonary nodules Asthma Hypothyroid DM type 2 (diabetes mellitus, type 2) HTN (hypertension) LVH (left ventricular hypertrophy) Hyperlipidemia Obesity Surgical History History of surgery History of thyroidectomy (2017) Hx of colonoscopy History of back surgery Family History Father Carotid stenosis Mother Hypertension Social History Housing: House Alcohol intake: never Patient Tobacco Use Status: Former Tobacco user Years Smoked: 40 years ago e-Cigarette/Vaping Use: Never Used service: No Current occupational status: retired Cognitive needs: No Hearing needs: No Vision needs: Yes Review of Systems Musc Denies arthralgias, Denies joint swelling and Denies stiffness Skin/Breast Reports pruritus and Reports rash Physical Exam Vital Signs: Last Vital Signs Pulse 78 11/21/23 10:39 BP 120/80 11/21/23 10:39 Pulse Ox 98 11/21/23 10:39 Oxygen Delivery Method Room Air 11/21/23 10:39 BMI result Body Mass Index 39.8 Const General: cooperative, healthy appearing and comfortable Nutritional Appearance: obese morbidly obese Orientation/consciousness: patient oriented x3 Limitations: no limitations HEENT Head: Yes normocephalic and Yes atraumatic Mouth: moist mucous membranes Resp Effort & Inspection: normal respiratory effort and able to speak in complete sentences Auscultation: clear to auscultation bilaterally Cardio Rate: regular rate Rhythm: regular rhythm Skin Other: One superficial bruises on right forearm No psoriasis patches noted today Neuro General: patient oriented x3 Extrem Other: No active synovitis Normal nailfold capillaroscopy negative PETER test bilaterally Negative straight leg raise test bilaterally Assessment & Plan Assessment & Plan (1) Psoriatic arthritis: Comment: dx 10/2021 Otmary 2021 effective Code(s): L40.50 - Arthropathic psoriasis, unspecified Category: Medical Plan: This is a 73-year-old female with psoriasis and psoriatic arthritis who presents for follow-up. She self discontinued her Celebrex and lowered her Otezla to 1 tab daily gout worsening of her psoriasis. There is no active psoriatic arthritis on exam Continue Otezla 30 mg daily Labs before next visit in 6 months (2) Psoriasis: Code(s): L40.9 - Psoriasis, unspecified Category: Medical Plan: Very well controlled on Otezla 1 tab daily Plan I spent 24 minutes reviewing patient's chart, evaluating patient, ordering diagnostic workup, counseling patient and documenting in the chart Orders: Orders Comprehensive Met. Panel 6 Months L40.50 - Arthropathic psoriasis, unspecified, L40.9 - Psoriasis, unspecified C Reactive Protein 6 Months L40.50 - Arthropathic psoriasis, unspecified, L40.9 - Psoriasis, unspecified Erythrocyte Sedimentation Rate 6 Months L40.50 - Arthropathic psoriasis, unspecified, L40.9 - Psoriasis, unspecified Complete Blood Count Auto Diff 6 Months L40.50 - Arthropathic psoriasis, unspecified, L40.9 - Psoriasis, unspecified Coding Level of Care Code Est Pt Level 4 (24796) Diagnoses Psoriatic arthritis L40.50 Psoriasis L40.9
[2023-11-21 10:39] VITALS: BP 120/80; PULSE 78; O2SAT 98; BMI 39.8
== END 2023-11-21 10:55 | disposition home or self-care (01) ==
PROVIDERS: PCP Internal Medicine; Visit Provider Student in an Organized Health Care Education/Training Program
DX: L40.50 Arthropathic psoriasis, unspecified (principal); L40.9 Psoriasis, unspecified
CPT/HCPCS: 99214

== ENCOUNTER → 2023-11-21 10:16 | Outpatient (BNVA) | payer MEDICARE, OTHER, SELFPAY | PROVIDERS: PCP Internal Medicine; Visit Provider Student in an Organized Health Care Education/Training Program | DX: L40.50 Arthropathic psoriasis, unspecified (principal); L40.9 Psoriasis, unspecified | CPT/HCPCS: 99212 ==

== ENCOUNTER 2024-02-15 14:20 | Outpatient (REF) | payer MEDICARE, OTHER, SELFPAY ==
[2024-02-15 16:02] LABS: Appearance Urine Clear; Color Urine Yellow; Glucose Urine UA Negative (Negative); Leukocyte Esterase Urine Negative (Negative); Nitrite Urine Negative (Negative); PH 6.5 (5.0-9.0); Specific Gravity - Urine <= 1.005 (1.005-1.025); Urine Blood Negative (Negative); Urine Ketones Negative (Negative); Urine Protein Negative (Neg-Trace)
[2024-02-15 16:04] LABS: Bacteria Urine None Seen (None Seen); Hyaline Casts Urine 0-2 /LPF (0-2); RBC Urine 0-2 /HPF (0-2); Squamous Epithelial Cell Urine 0-2 /HPF (0-2); WBC Urine 0-5 /HPF (0-5)
== END 2024-02-15 14:21 | disposition home or self-care (01) ==
LOC: HO.HMGCLDS 14:20
PROVIDERS: PCP Internal Medicine; Visit Provider Internal Medicine
DX: R30.0 Dysuria (principal)
CPT/HCPCS: 81001; 87086

== ENCOUNTER 2024-02-23 09:49 | Outpatient (AMB) | payer MEDICARE, OTHER, SELFPAY ==
[2024-02-23 09:52] VITALS: BP 128/82; PULSE 90; BMI 40.0
--- NOTE | 2024-02-23 09:52 | MHC.OFFVIS ---
Vital Signs 02/23/24 09:52 Height 5 ft 5 in Weight 240 lb 4.862 oz BMI 40.0 BP 128/82 Blood Pressure Location Lt brachial Position Sitting Pulse 90 Intake Visit Reasons: 1 year fu Intake Note: 1 year follow-up with ekg [employer] Required: No Allergies metformin Allergy (Severe, Verified 11/21/23 10:35) diarrhea, dulaglutide [From Trulicity] Adverse Reaction (Intermediate, Verified 11/21/23 10:35) Diarrhea empagliflozin [From Jardiance] Adverse Reaction (Intermediate, Verified 11/21/23 10:35) yeast infection glipizide Adverse Reaction (Intermediate, Verified 11/21/23 10:35) body aches sitagliptin [From Januvia] Adverse Reaction (Intermediate, Verified 11/21/23 10:35) Diarrhea Medication List - Last Reconciled 02/23/24 by Tom Romero MD albuterol sulfate 90 mcg/actuation 2 puffs inhalation Q6H PRN amlodipine 2.5 mg PO DAILY apremilast (Otezla) 30 mg PO BID atorvastatin 20 mg PO QPM blood sugar diagnostic (OneTouch Ultra Test strips) test blood sugar once a day blood-glucose meter ([facility] Ultra2 Meter) As directed levothyroxine 112 mcg PO DAILY losartan 100 mg PO DAILY Trulicity (dulaglutide) 1.5 mg (0.5 mL) subcut QWEEK NS HPI Comments Details: Randa comes for follow-up. She denies any new cardiac symptoms. She has been still having trouble losing weight. She is currently on Trulicity but has not had much weight losses. She has not tolerated other medications. Diabetes under good control. LDL is well optimized at 70. Blood pressure is well controlled. She is walking without any exertional symptoms of chest pain or shortness of breath. Denies any lightheadedness, syncope. Denies any heart failure symptoms. Taking all her medications. [facility] Medical History Dyspnea Postmenopausal Atrophic vaginitis Annual physical exam Psoriasis Limb pain Eosinophilia Pulmonary nodules Asthma Hypothyroid DM type 2 (diabetes mellitus, type 2) HTN (hypertension) LVH (left ventricular hypertrophy) Hyperlipidemia Obesity Surgical History History of surgery History of thyroidectomy (2017) Hx of colonoscopy History of back surgery Family History Father Carotid stenosis Mother Hypertension Social History Housing: House Alcohol intake: never Patient Tobacco Use Status: Former Tobacco user Years Smoked: 40 years ago e-Cigarette/Vaping Use: Never Used service: No Current occupational status: retired Cognitive needs: No Hearing needs: No Vision needs: Yes Review of Systems Const Denies chills, Denies fatigue, Denies fever(s), Denies frequent falls, Denies weakness, Denies weight gain and Denies weight loss ENT Denies dizziness Card Denies chest pain, Denies leg edema, Denies lightheadedness, Denies palpitations, Denies dyspnea, Denies dyspnea on exertion, Denies orthopnea and Denies other (loss of consciousness) Resp Denies cough, Denies dyspnea and Denies dyspnea on exertion GI Denies hematochezia and Denies change in stool character Musc Denies abnormal gait, Denies muscle weakness, Denies numbness, Denies radiating pain into limb and Denies tingling Neuro Denies abnormal gait, Denies dizziness, Denies frequent falls, Denies numbness, Denies tingling and Denies weakness Endo Denies fatigue and Denies palpitations Physical Exam Vital Signs: Last Vital Signs Pulse 90 02/23/24 09:52 BP 128/82 02/23/24 09:52 BMI result Body Mass Index 40.0 Const General: cooperative, comfortable, no acute distress, alert, awake and well groomed Nutritional Appearance: obese morbidly obese Orientation/consciousness: patient oriented x3 Limitations: no limitations HEENT Head: Yes normal to inspection, Yes normocephalic and Yes atraumatic Eyes General: appearance normal, both eyes and all related structures Neck Neck: Yes trachea midline, Yes supple and Yes no JVD Carotids: no bruits Chest Chest palpation & inspection: normal inspection of the chest Resp Effort & Inspection: normal respiratory effort Auscultation: clear to auscultation bilaterally Cardio Palpation: normal PMI Rate: regular rate Rhythm: abnormal rhythm with ectopic beats Heart sounds: S1 normal heart sound present and S2 normal heart sound present GI Inspection: Yes obesity Auscultation: normal bowel sounds Skin General skin exam: no rashes or lesions noted Neuro General: patient oriented x3 and no focal motor deficits Extrem General: Yes no clubbing, cyanosis or edema Psych Appearance: grossly normal Office Procedures EKG Details: EKG shows normal sinus rhythm with 90 beats per minute with low-voltage QRS with isolated Q in lead 3 as well as poor R-wave progression most likely due to body habitus and lead placement [id number], Complete Assessment & Plan Assessment & Plan (1) HTN (hypertension): Code(s): I10 - Essential (primary) hypertension Category: Medical Plan: Hypertensive heart disease with no signs or symptoms of congestive heart failure. Blood pressure is currently well optimized. Encouraged to continue aggressive blood pressure control and continue current therapy. Her other risk factors are also significant risk factors for vascular disease. He has not been able to tolerate multiple other medications which have significant benefit from cardiovascular perspective including SGLT2 inhibitor and other GLP 1 inhibitor therapy. Recommend to continue aggressively to participate in weight loss program. This is going to be most important for long-term. Continue aggressive lipid modification with goal LDL at goal. Encouraged to maintain activity level which he is currently trying to do. Advised to call me with any new symptoms. (2) PAC (premature atrial contraction): Code(s): I49.1 - Atrial premature depolarization Category: Medical Plan: Prior cardiac arrhythmias with frequent PACs although symptoms have been remaining suppressed. She has no prolonged palpitation irregular heartbeat suggestive of AFib. Continue aggressive risk factor modification including aggressive blood pressure control weight loss which will reduce her risk of developing atrial fibrillation. Discussed with her in details. Avoidance of stimulants was discussed. No other pharmacotherapy is recommended. Follow up in the clinic in 1 year's time, sooner p.r.n.. Thank you for allowing me to partake in her care Coding Level of Care Code Est Pt Level 4 (82954) Complex EM visit Add On G2211 Diagnoses HTN (hypertension) I10 PAC (premature atrial contraction) I49.1 CPT Codes EKG - CPT: 81569-[id number], Complete ([id number])
== END 2024-02-23 10:17 | disposition home or self-care (01) ==
PROVIDERS: PCP Internal Medicine; Visit Provider Internal Medicine Cardiovascular Disease
DX: I10 Essential (primary) hypertension (principal); I49.1 Atrial premature depolarization
CPT/HCPCS: 93010; 99214; G2211

== ENCOUNTER → 2024-02-23 09:49 | Outpatient (BNVA) | payer MEDICARE, OTHER, SELFPAY | PROVIDERS: PCP Internal Medicine; Visit Provider Internal Medicine Cardiovascular Disease | DX: I10 Essential (primary) hypertension (principal); I49.1 Atrial premature depolarization; R94.31 Abnormal electrocardiogram [ECG] [EKG] | CPT/HCPCS: 93005; 99212 ==

== ENCOUNTER 2024-04-15 13:04 | Outpatient (REF) | payer MEDICARE, OTHER, SELFPAY ==
[2024-04-15 14:04] LABS: Basophils Absolute Auto 0.1 X10*3/uL (0.0-0.2); Basophils Percent Auto 1.3 % (0-2); Eosinophils Absolute Auto 0.4 X10*3/uL (0.0-0.4); Eosinophils Percent Auto 3.3 % (0-4); Hematocrit 41.2 % (37.0-47.0); Hemoglobin 13.8 g/dl (12.0-16.0); Imm Gran Abs Auto 0.03 X10*3/uL (0.00-0.03); Imm Gran Pct Auto 0.3 % (0.0-0.4); Lymphocytes Absolute Auto 3.5 X10*3/uL (1.2-4.9); Lymphocytes Percent Auto 33.5 % (20-40); MANUAL DIFF FLAG NO; Mean Corpuscular HGB Conc 33.5 g/dl (31.0-35.0); Mean Corpuscular Hemoglobin 29.7 pg (27.0-33.0); Mean Corpuscular Volume 88.8 fL (80.0-98.0); Mean Platelet Volume 9.6 fL (9.4-12.3); Monocytes Absolute Auto 1.1 X10*3/uL (0.1-1.2); Monocytes Percent Auto 10.9 % (2-11); Neutrophils Absolute Auto 5.3 x10*3/uL (2.0-8.3); Neutrophils Percent Auto 50.7 % (45-73); Platelet Count 394 X10*3/uL (160-400); Red Blood Count 4.64 X10*6/uL (4.20-5.50); Red Cell Distribution Width 12.8 % (11.0-16.0); White Blood Count 10.5 X10*3/uL (4.8-10.8)
[2024-04-15 14:33] LABS: Estimated Average Glucose 137 mg/dL; Hemoglobin A1C 167.7343 umol/L; Hemoglobin A1c % 6.4 % (<6.0); Total Hemoglobin (HGBA1C) 3616.5695 umol/L
[2024-04-15 14:39] LABS: Erythrocyte Sedimentation Rate 14 MM/HR (0-20)
[2024-04-15 15:14] LABS: Creatinine Urine 48.37 mg/dL; Microalbum/Creatinine Ratio Ur 24.8 ug/mg cr (<30)
[2024-04-15 17:31] LABS: Anion Gap 16 (12-20)
[2024-04-15 18:14] LABS: Alanine Aminotransferase 41 U/L (0-31); Alkaline Phosphatase 75 U/L (39-117); Aspartate Amino Transferase 50 U/L (5-31); Bilirubin Total 0.4 mg/dL (0.0-1.0); Blood Urea Nitrogen 12 mg/dL (9-16); Calcium 9.4 mg/dL (8.4-10.2); Carbon Dioxide 20 mmol/L (22-29); Chloride 107 mmol/L (96-108); Cholesterol 162 mg/dL (<200); Estimated Glomerular Filt Rate > 60; Glucose Fasting 71 mg/dL (60-99); HDL Cholesterol 62 mg/dL (>40); LDL Cholesterol Calculated 72 mg/dL (<100); Potassium 4.1 mmol/L (3.3-5.1); Sodium 139 mmol/L (135-145); TSH reflex Free T4 1.84 uIU/mL (0.32-4.0); Total Protein 7.7 g/dL (6.5-8.0); Triglycerides 141 mg/dL (<150)
[2024-04-15 19:01] LABS: C Reactive Protein 0.39 mg/dL (< or = 0.50)
== END 2024-04-15 13:05 | disposition home or self-care (01) ==
LOC: HO.LAB 13:04
PROVIDERS: PCP Internal Medicine; Referring Provider Student in an Organized Health Care Education/Training Program; Visit Provider Internal Medicine
DX: Z00.00 Encounter for general adult medical examination without abnormal findings (principal); L40.9 Psoriasis, unspecified; L40.50 Arthropathic psoriasis, unspecified; E78.5 Hyperlipidemia, unspecified; I10 Essential (primary) hypertension; E11.9 Type 2 diabetes mellitus without complications
CPT/HCPCS: 36415; 80053; 80061; 82043; 82570; 83036; 84443; 85025; 85652; 86140

== ENCOUNTER 2024-04-18 14:32 | Outpatient (AMB) | payer MEDICARE, OTHER, SELFPAY ==
[2024-04-18 14:36] VITALS: BP 170/80; PULSE 100; BMI 40.5
--- NOTE | 2024-04-18 14:36 | A.OFFVIS_ITS ---
Vital Signs 04/18/24 14:36 Height 5 ft 5 in Weight 243 lb 2.718 oz BMI 40.5 BP 170/80 H Blood Pressure Location Rt brachial Position Sitting Pulse 100 Pulse Source Pulse Oximeter Intake Visit Reasons: PsA Intake Note: Patient last seen by Doctor Shyla Mckinney on 11/21/23. Presents today for PsA follow up and test results. [employer] Required: No Accompanied by: Self / Same As Patient Allergies metformin Allergy (Severe, Verified 04/18/24 14:41) diarrhea, dulaglutide [From Trulicity] Adverse Reaction (Intermediate, Verified 04/18/24 14:41) Diarrhea empagliflozin [From Jardiance] Adverse Reaction (Intermediate, Verified 04/18/24 14:41) yeast infection glipizide Adverse Reaction (Intermediate, Verified 04/18/24 14:41) body aches sitagliptin [From Januvia] Adverse Reaction (Intermediate, Verified 04/18/24 14:41) Diarrhea Medication List - Last Reconciled 04/18/24 by Shyla Mckinney MD albuterol sulfate 90 mcg/actuation 2 puffs inhalation Q6H PRN amlodipine 2.5 mg PO DAILY apremilast (Otezla) 30 mg PO BID atorvastatin 20 mg PO QPM blood sugar diagnostic (OneTouch Ultra Test strips) test blood sugar once a day blood-glucose meter (OneTouch Ultra2 Meter) As directed levothyroxine 112 mcg PO DAILY losartan 100 mg PO DAILY Trulicity (dulaglutide) 1.5 mg (0.5 mL) subcut QWEEK NS HPI Comments Details: 73-year-old female with psoriasis and psoriatic arthritis returns for follow-up. She states that she is doing quite well overall. She remains on Otezla 30 mg daily. Denies any joint pain, swelling or stiffness. She has weaned herself off of the Celebrex. She states that she has very rare psoriasis patches. She received a letter from her insurance company stating that they would not cover Otezla anymore. She is quite concerned about it Most recent history by Dr. Sinha: The patient presents for evaluation of her psoriasis and psoriatic arthritis. She says she feels good with respect to joint pain with her current regimen that includes celecoxib 200 mg twice a day and Otezla 30 mg twice a day. She wonders if she needs to stay on all of these medications for now. There has been no psoriasis noted. She seems to be tolerating the medicines without any GI side effects. She did have some loose stools at her last visit but those subsided once her thyroid dose was adjusted. She is on meds for diabetes with a reasonable glycohemoglobin in the last few months. [facility] Medical History Dyspnea Postmenopausal Atrophic vaginitis Annual physical exam Psoriasis Limb pain Eosinophilia Pulmonary nodules Asthma Hypothyroid DM type 2 (diabetes mellitus, type 2) HTN (hypertension) LVH (left ventricular hypertrophy) Hyperlipidemia Obesity Surgical History History of surgery History of thyroidectomy (2017) Hx of colonoscopy History of back surgery Family History Father Carotid stenosis Mother Hypertension Social History Housing: House Alcohol intake: never Patient Tobacco Use Status: Former Tobacco user Years Smoked: 40 years ago e-Cigarette/Vaping Use: Never Used service: No Current occupational status: retired Cognitive needs: No Hearing needs: No Vision needs: Yes Review of Systems Musc Denies arthralgias, Denies joint swelling and Denies stiffness Skin/Breast Denies rash Physical Exam Vital Signs: Last Vital Signs Pulse 100 04/18/24 14:36 BP 170/80 H 04/18/24 14:36 BMI result Body Mass Index 40.5 Const General: cooperative, healthy appearing and comfortable Nutritional Appearance: obese morbidly obese Orientation/consciousness: patient oriented x3 Limitations: no limitations HEENT Head: Yes normocephalic and Yes atraumatic Mouth: moist mucous membranes Resp Effort & Inspection: normal respiratory effort and able to speak in complete sentences Skin Other: No psoriasis patches noted today Neuro General: patient oriented x3 Extrem Other: No active synovitis Normal nailfold capillaroscopy Results Reviewed Results Reviewed: Laboratory Tests 04/15/24 13:08 AST 50 H ALT 41 H Assessment & Plan Assessment & Plan (1) Psoriatic arthritis: Comment: dx 10/2021 Otezla 2021 effective Code(s): L40.50 - Arthropathic psoriasis, unspecified Category: Medical Plan: This is a 73-year-old female with psoriasis and psoriatic arthritis who presents for follow-up. She remains on Otezla 30 mg daily. Patient has done substantially well on Otezla. She has weaned herself off of the Celebrex. She states that she received a letter from her insurance company that Otezla would not be covered. I do not have this letter. Patient has done very well on Otezla. It has substantially improved her psoriatic arthritis and psoriasis. This is the best DMARDs for her. CsDMARDs such as methotrexate, leflunomide and sulfasalazine are contraindicated due to her elevated liver enzymes. Biologic DMARDs such as TNF inhibitors including Humira and adalimumab bio similars, including Enbrel, Cimzia, Simponi are all relatively contraindicated due to higher risk of infection especially in this 73-year-old lady with morbid obesity, diabetes mellitus and asthma all which add to her risk of infection SADE inhibitors such as Rinvoq, Xeljanz, autoimmune all carry a black box warning of increased risk of cardiovascular events. This patient is at relatively high risk due to the above-mentioned comorbidities The same applies for interleukin 17 inhibitors such as Taltz and Cosentyx, as well as Il 23 nd IL 12/ 23 inhibitors such as Skyrizi, Tremfya, Stelara In short, patient should stay on Otezla, it is an effective and safe medication for her Labs before next visit in 6 months (2) Psoriasis: Code(s): L40.9 - Psoriasis, unspecified Category: Medical Plan: Very well controlled on Otezla 1 tab daily Plan I spent 24 minutes reviewing patient's chart, evaluating patient, ordering diagnostic workup, counseling patient and documenting in the chart Coding Level of Care Code Est Pt Level 4 (07983) Complex EM visit Add On G2211 Diagnoses Psoriatic arthritis L40.50 Psoriasis L40.9
--- OUTSIDE RECORDS SUMMARY | 2024-04-18 16:37 | XMS_ITS | Continuity of Care Document ---
Author Organization [facility] Address [address] [place] [address] Phone Care Team Providers Care It Applications Analyst Name Role Phone Jae VAN FACS RVT [...] E&M Established 15 Mins Wei Altman Vein Jew MD WRIGHT, [address] [place] [address] Dr [address], [id number], [place] tel:[phone] CV[facility] - [facility] Chronic venous hypertension (idiopathic) with other complications of bilateral lower extremity Oct-3 [address] Jae Thomas. [address] [place] [address], [place], [address], [place]. tel:[phone] Referring Provider: Dania Wright MD S, [address] [place] [address], [place], [address]. tel:[phone] [facility] For [facility] MD WRIGHT, [address] [place] [address] Dr [address], [id number], [place] tel:[phone] [facility] Encntr for f/u exam aft trtmt for cond oth than malig neoplmVaricos e veins of left lower extremities with pain Sep- 3 Jae Thomas. [address] [place] [address], [place], [address], [place]. tel:[phone] Referring Provider: Dania Wright MD S, [address] [place] [address], [place], [address]. tel:[phone] Wei Altman Vein Jew MD WRIGHT, [address] [place] [address] [address], [id number], [place] tel:[phone] CVR - [facility] Varicose veins of left lower extremity with inflammation Sep- 3 Jae Thomas. [address], [place] [address], [place], [address], [place]. tel:[phone] Referring Provider: Dania Wright MD S, [address] [place] [address], [place], [address]. tel:[phone] [facility], [address] [place] [address] Dr [address], [id number], [place] tel:[phone] [facility] - [place] [facility] Encntr for f/u exam aft trtmt for cond oth than malig neoplmVaricos e veins of right lower extremities with pain 3 Jae VAN FACS T BALBIR Thomas. [address] [address], [place], [address], [place]. tel:[phone] Referring Provider: Dania Wright MD S, [address] [place] [address], [place], [address]. tel:[phone] [facility], [address] [place] [address] [address], [id number], [place] tel:[phone] [facility] - [place] [facility] Varicose veins of right low extrm w oth complications 3 Johanna Osman. [address] [place] [address], [address], [facility] [place], [id number], [place]. tel:[phone] Referring Provider: Dania Wright MD S, [address] [place] [address], [place], [address]. tel:[phone] [facility], [address] [place] [address] [address], [place], [id number], [place] tel:[phone] [facility] [place] [facility] Varicose veins of right low extrm w oth complications 3 Jae VAN FACS T BALBIR Thomas. [address] [place] [address] [address], [place], [address], [place]. tel:[phone] Referring Provider: Dania Wright MD S, [address] [place] [address], [place], [address]. tel:[phone] Offic/outpt E&m Estab 5 Min Trial - [facility] MD WRIGHT, [address] [place] [address] [address], [id number], [place] tel:[phone] [facility] [place] [facility] Venous insufficiency (chronic) (peripheral) Jul-2 3 aJe Thomas. [address] [address], [place], [address], [place]. tel:[phone] Referring Provider: Dania Wright MD S, [address] [place] [address], [address]. tel:[phone] Office/Outpt E&M Established 15 Mins [facility] For [facility] Jew MD WRIGHT, [address] [place] [address] Dr [address], [id number], [place] tel:[phone] [facility] [place] [facility] Body mass index (BMI) 39.0-39.9, adultVenous insufficiency (chronic) (peripheral) Jul-0 3 Jae Thomas. [address] [place] [address], [place], [address], [place]. tel:[phone] Referring Provider: Dania Wright MD S, [address] [place] [address], [place], [address]. tel:[phone] [facility] MD WRIGHT, [address] [place] [address] Dr [address], [id number], [place] tel:[phone] [facility] [place] [facility] No Information Jul-0 3 Jae Thomas. [facility] [address], [place], [address], [place]. tel:[phone] Referring Provider: Dania Wright MD S, [address] [place] [address], [place], [address]. tel:[phone] Wei For Vein Jew MD WRIGHT, [address] [place] [address] Dr [address], [id number], [place] tel:[phone] [facility] [place] [facility] Venous insufficiency (chronic) (peripheral) 3 Jae Thomas. [address] [facility], [address], [place], [address], [place]. tel:[phone] Referring Provider: Dania Wright MD S, [address] [place] [address], [place], [address]. tel:[phone] Office/Oupt E&M New Pt 30 Mins [facility], [address], [place], [id number], [place] tel:[phone] CVR - [facility] Venous insufficiency (chronic) (peripheral)L ocalized edemaType 2 diabetes mellitus without complications Essential (primary) hypertensionF breann joint, unspecified joint 3 Jae VAN FACS [facility] BALBIR Johnny Thomas. [address] [facility], [address] [facility], [place], [address], [place]. tel:[phone] Referring Provider: Dania Wright MD S, [address] [place] [address], [place], [address]. tel:[phone] Family History Family Member Type Diagnosis Age At Onset No Information Payers Payer name Insurance type Covered alliance party ID Authoriza tion(s) Medicare HARRY ATKINSON [id number] [facility] [id number] Social History Type Description Quantity Date Captured [...]
== END 2024-04-18 14:58 | disposition home or self-care (01) ==
PROVIDERS: PCP Internal Medicine; Visit Provider Student in an Organized Health Care Education/Training Program
DX: L40.50 Arthropathic psoriasis, unspecified (principal); L40.9 Psoriasis, unspecified
CPT/HCPCS: 99214; G2211

== ENCOUNTER → 2024-04-18 14:32 | Outpatient (BNVA) | payer MEDICARE, OTHER, SELFPAY | PROVIDERS: PCP Internal Medicine; Visit Provider Student in an Organized Health Care Education/Training Program | DX: L40.50 Arthropathic psoriasis, unspecified (principal) | CPT/HCPCS: 99212 ==

== ENCOUNTER 2024-04-30 11:12 | Outpatient (AMB) | payer MEDICARE, OTHER, SELFPAY ==
--- NOTE | 2024-04-30 11:16 | MHC.OFFVIS ---
Vital Signs 04/30/24 11:17 Height 5 ft 5 in Weight 242 lb 8.136 oz BMI 40.4 BP 144/82 H Blood Pressure Location Lt brachial Position Sitting Pulse 89 Pulse Source Pulse Oximeter Pulse Oximetry (%) 96 Oxygen Delivery Method Room Air Intake Visit Reasons: Asthma Allergies metformin Allergy (Severe, Verified 04/30/24 11:19) diarrhea, dulaglutide [From Trulicity] Adverse Reaction (Intermediate, Verified 04/30/24 11:19) Diarrhea empagliflozin [From Jardiance] Adverse Reaction (Intermediate, Verified 04/30/24 11:19) yeast infection glipizide Adverse Reaction (Intermediate, Verified 04/30/24 11:19) body aches sitagliptin [From Januvia] Adverse Reaction (Intermediate, Verified 04/30/24 11:19) Diarrhea HPI Comments Details: The patient is a 73-year-old woman previously healthy until the summer when she started developing some shortness of breath. Subsequent to that she started having worsening cough with productive in nature and also increasing shortness of breath and chest tightness. She has been evaluated multiple times with significant wheezing requiring prednisone. She also required a course of doxycycline more recently. She has been using a nebulizer which belongs to her granddaughter. She feels that the nebulizer treatments have been effective helping her as well. The patient has been getting significant shortness of breath to the point that she has a hard time doing simple activities of daily living. She is very concerned. She has a short-acting beta agonist that she uses as needed multiple times a day with some partial resolution of the symptoms. She states that she does not have known allergies or have been tested for allergies in many years. She does not have any pets at home is not exposed to any mold. 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 In addition to that she did have a elevated D-dimer in the thousands and a CT scan of the chest done pre protocol that was negative for any PE. The patient did not have any significant findings except some small pulmonary nodule. We did do that are being so elevated need to consider underlying exposure to COVID-19 and therefore will go ahead and check her antibiotics. The patient had been tested with PCR swab symptoms were all negative. In the office she was found to have significant wheezing. She was given 2 treatments with DuoNeb with good resolution of the wheezing. The patient has been having a productive cough with brownish sputum. Therefore will treat her again with doxycycline. The patient also was taught how to use a spacer room and 1 was provided for her. She is going to start Symbicort along with a spacer twice a day. Hopeful that does going to be enough in improving her respiratory status and that she will not need prednisone. Currently she is scheduled to undergo her COVID-19 vaccine this Monday. Therefore, she will have her antibiotics checked and will discuss the results and decide how to move for. 07/15/2020 the patient is here for pulmonary follow-up visit. Overall the patient has been doing okay until recently when she started again wheezing after being outside in a . She had to use her rescue inhaler. Meantime she does continue to use Symbicort. She is wondering about the singular because she does not feel like it is helping much. I did recommend that she can add Zyrtec in the morning and continue singular at nighttime. Explained that the singular is sees steroid sparing agent and may minimize how much steroid she needs to take. In the meantime and concerned about the elevations in the D-dimer. Her CT scan was reassuring without any thromboembolic disease. Although, she does complaint of issues with very close veins and she does have some pain of her right lower extremity. Therefore is reasonable to request a lower extremity Doppler of the right extremity. Patient also should have a recheck D-dimer since is still elevated. In addition to that the patient does have significant eosinophilia stated above. Her allergy testing was not so significant and her IgE level was within normal limits. The patient may be a good candidate for biologic therapy if her symptoms continue to persist requiring additional rescue therapy in additional steroids. I will have a repeat her IgE level next month and also recheck her D-dimer next month prior to the next visit. If the patient has any difficulties prior to that she is to call for an appointment. y 08/31/2020 the patient is here for pulmonary follow-up visit. Overall she is feeling a lot better. She is responding well to her current respiratory regimen. She continues uses Symbicort 2 puffs twice a day. However, she is getting hoarseness. Usually the end of the day. Ahvr-vm-uvpninfk severity. She is using a spacer with the Symbicort. She is also using her allergy medication. She did have blood work done by her primary care doctor again still demonstrating that elevation in the D-dimer. Her workup was reassuring with normal lower extremity Dopplers in a normal CT a without any evidence of thrombotic disease. At this time she is thinking about traveling to see her son in [place]. I did encourage to get compression stockings for her trip to minimize risk of DVT. Also she can consider using a baby aspirin. Also to note she has been dealing with any rash. She did follow-up with Dermatology in biopsy proved it to be psoriasis. 02/01/2021 the patient is here for pulmonary follow-up visit. Since we last spoke the patient has been feeling a lot better. Her respiratory status has significantly improved. She still using her respiratory therapy with good effect. During the last visit she did undergo a CT scan of the chest demonstrating stable small pulmonary nodules. No evidence of any blood clots. [place] trip to [place] was canceled due to the fact that her son was sick. However she is going to be going this February. She will take all her respiratory medications with her just in case. in the meantime the patient was diagnosed with psoriasis from her biopsy. Seems like she got the psoriasis right after getting vaccinated for COVID-19. She is not sure that could have precipitated it. In the meantime she is concerned about getting any blisters in view of her significant rash. Therefore I will get blood work to check her allergy levels her eosinophils in the meantime also checking her COVID-19 spike protein titers to see if she can hold off on the booster. 06/13/2023 the patient is here for a pulmonary follow-up visit. The patient overall is feeling better now. Although, several weeks ago she started developing worsening shortness of breath chest tightness and wheezing. She does carry a diagnosis of asthma. She is also taking immunosuppressant therapy because of her psoriatic arthritis. The patient was trying to make an appointment which she could not get an appointment until now. In the meantime she has been using her rescue inhaler on a daily basis. At least now her symptoms have improved. Overall she feels like back to her baseline. Her respiratory exam is reassuring. I do not appreciate any wheezing at this time. We did talk about considering optimizing her maintenance therapy. But, this point I believe that she is fine just with short-acting beta agonist. in nt lower respiratory infection I do believe that she should receive the Prevnar 20. She will receive today before she goes home. in view of her ongoing symptoms of shortness of breath the patient should have a chest x-ray for baseline. If her symptoms worsen she will call for additional recommendations otherwise will follow-up in a year's time. 04/30/2024 the patient is here for a pulmonary follow-up visit. The patient overall has been doing well from a respiratory status. She does have a rescue inhaler when she does use it at times. Typically less than twice a month. Over the summer she used a few times because of the heat and humidity. In that she needed some of the times as well. But overall she is doing well. She is also on Trulicity she is losing a little weight. Denies any significant apnea symptoms. She does feel congested in the morning likely postnasal drip. But otherwise she clears her secretions in the morning she feels well. She did have a chest x-ray back in 06/28/2023 which we personally reviewed. Also increased markings at that x-ray. Although she feels well will go ahead and repeat the x-ray at this time. She does have a history of psoriatic arthritis we have to make sure she does not have any pulmonary manifestations of that. Her psoriatic arthritis has been stable on the Otezla. Although she recently cut down because of her side effects. [facility] Medical History Dyspnea Postmenopausal Atrophic vaginitis Annual physical exam Psoriasis Limb pain Eosinophilia Pulmonary nodules Asthma Hypothyroid DM type 2 (diabetes mellitus, type 2) HTN (hypertension) LVH (left ventricular hypertrophy) Hyperlipidemia Obesity Surgical History History of surgery History of thyroidectomy (2017) Hx of colonoscopy History of back surgery Family History Father Carotid stenosis Mother Hypertension Social History Housing: House Alcohol intake: never Patient Tobacco Use Status: Former Tobacco user Years Smoked: 40 years ago e-Cigarette/Vaping Use: Never Used service: No Current occupational status: retired Cognitive needs: No Hearing needs: No Vision needs: Yes Review of Systems Const Denies night sweats and Reports weight loss ENT Denies change in voice, Denies lip swelling, Denies mouth pain, Denies nasal congestion, Denies nasal discharge and Denies tongue swelling Card Denies chest pain and Reports dyspnea on exertion Resp Denies chest congestion, Reports cough, Denies hemoptysis, Denies excessive phlegm production, Reports dyspnea on exertion and Reports wheezing GI Denies abdominal pain Musc Reports as per HPI, Reports arthralgias and Reports joint swelling Skin/Breast Reports as per HPI and Reports rash Neuro Denies Neuro-related abnormal movements Psych Denies no additional complaints Demetrio/Lymph Denies easy bleeding and Denies lymphadenopathy Aller/Immun Denies lip swelling, Denies tongue swelling and Reports wheezing Physical Exam Vital Signs: Last Vital Signs Pulse 89 04/30/24 11:17 BP 144/82 H 04/30/24 11:17 Pulse Ox 96 04/30/24 11:17 Oxygen Delivery Method Room Air 04/30/24 11:17 BMI result Body Mass Index 40.4 Const General: alert Neck Neck: Yes normal visual inspection, Yes full ROM and Yes no lymphadenopathy Chest Chest palpation & inspection: normal inspection of the chest Resp Effort & Inspection: normal respiratory effort Auscultation: clear to auscultation bilaterally and no wheezes Cardio Rate: regular rate Rhythm: regular rhythm Heart sounds: S1 normal heart sound present and S2 normal heart sound present GI Palpation (GI): Soft to palpation and nontender Auscultation: normal bowel sounds Assessment & Plan Assessment & Plan (1) Pulmonary nodules: Comment: 2mm nodule, stable when compared CT 2018 to 2020 Code(s): R91.8 - Other nonspecific abnormal finding of lung field Category: Medical Plan: Decrease Symbicort 1 puff BID with spacer NICKO as needed Continue Singulair, zyrtec as needed F/U 6 months (2) Asthma: Comment: Eosinophilic asthma Code(s): J45.909 - Unspecified asthma, uncomplicated Category: Medical Qualifiers: Asthma complication type: uncomplicated Asthma persistence: persistent Asthma severity: moderate Qualified Code(s): J45.40 - Moderate persistent asthma, uncomplicated (3) Dyspnea: Code(s): R06.00 - Dyspnea, unspecified Category: Medical Qualifiers: Dyspnea type: dyspnea on exertion Qualified Code(s): R06.09 - Other forms of dyspnea Plan CXR, normal continue short-acting beta agonist as needed follow-up in 12 months Orders: Orders XR chest 2V Today R06.09 - Other forms of dyspnea Medications: Refilled albuterol sulfate 90 mcg/actuation 2 puffs inhalation Q6H PRN 8.5 grams 11RF shortness of breath or wheezing Coding Level of Care Code Est Pt Level 4 (96426) Diagnoses Pulmonary nodules R91.8 Moderate persistent asthma without complication J45.40 Asthma complication type: uncomplicated Asthma persistence: persistent Asthma severity: moderate Dyspnea on exertion R06.09 Dyspnea type: dyspnea on exertion Time Spent (min) 16
[2024-04-30 11:17] VITALS: BP 144/82; PULSE 89; O2SAT 96; BMI 40.4
--- OUTSIDE RECORDS SUMMARY | 2024-04-30 12:56 | XMS_ITS | Continuity of Care Document ---
Author Organization [facility] Address [address] [place] [address] Phone Care Team Providers Care City Bailiff Name Role Phone Jae VAN FACS RVT [...] E&M Established 15 Mins [facility] MD WRIGHT, [address] [place] [address] Dr [address], [id number], [place] tel:[phone] CVR - [facility] Chronic venous hypertension (idiopathic) with other complications of bilateral lower extremity Oct-3 3 Jae Thomas. [address] [place] [address], [place], [address], [place]. tel:[phone] Referring Provider: Dania Wright MD S, [address] [place] [address], [place], [address]. tel:[phone] [facility] MD WRIGHT, [address] [place] [address] Dr [address], [id number], [place] tel:[phone] [facility] En[facility]tr for f/u exam aft trtmt for cond oth than malig neoplmVaricos e veins of left lower extremities with pain Sep- 3 Jae Thomas. [address] [place] [address], [place], [address], [place]. tel:[phone] Referring Provider: Dania Wright MD S, [address] [place] [address], [place], [address]. tel:[phone] Wei Altman Vein Uatsdin MD WRIGHT, [address] [place] [address] Dr [address], [id number], [place] tel:[phone] CVR - [facility] Varicose veins of left lower extremity with inflammation Sep- 3 Jae Thomas. [address] [place], [place] [address], [place], [address], [place]. tel:[phone] Referring Provider: Dania Wright MD S, [address] [place] [address], [place], [address]. tel:[phone] [place] [facility], [address] [place] [address] Dr [address], [id number], [place] tel:[phone] CVR - [place] [facility] Encntr for f/u exam aft trtmt for cond oth than malig neoplmVaricos e veins of right lower extremities with pain 3 Jae VAN FACS T BALBIR Thomas. [address] [place] [address], [place], [address], [place]. tel:[phone] Referring Provider: Dania Wright MD S, [address] [place] [address], [place], [address]. tel:[phone] [place] [facility], [address] [place] [address] Dr [address], [id number], [place] tel:[phone] [facility] - [place] [facility] Varicose veins of right low extrm w oth complications 3 Johanna Osman. [address] [place] [address], [address], [facility] [place], [id number], [place]. tel:[phone] Referring Provider: Dania Wright MD S, [address] [place] [address], [place], [address]. tel:[phone] [place] [facility], [address] [place] [address] [address], [place], [id number], [place] tel:[phone] [facility] - [place] [facility] Varicose veins of right low extrm w oth complications 3 Jae VAN FACS T BALBIR Thomas. [address] [place] [address] [address], [place], [address], [place]. tel:[phone] Referring Provider: Dania Wright MD S, [address] [place] [address], [place], [address]. tel:[phone] Offic/outpt E&m Estab 5 Min Trial - [facility] MD WRIGHT, [address] [place] [address] Dr [address], [id number], [place] tel:[phone] [facility] - [place] [facility] Venous insufficiency (chronic) (peripheral) Jul-2 3 Jae Thomas. [address] [place] [address], [place], [address], [place]. tel:[phone] Referring Provider: Dania Wright MD S, [address] [place] [address], [address]. tel:[phone] Office/Outpt E&M Established 15 Mins [facility] [facility] MD WRIGHT, [address] [place] [address] Dr [address], [id number], [place] tel:[phone] [facility] [place] [facility] Body mass index (BMI) 39.0-39.9, adultVenous insufficiency (chronic) (peripheral) Jul-0 3 Jae Thomas. [address] [place] [address], [place], [address], [place]. tel:[phone] Referring Provider: Dania Wright MD S, [address] [place] [address], [place], [address]. tel:[phone] [facility] MD WRIGHT, [address] [place] [address] Dr [address], [id number], [place] tel:[phone] [facility] - [place] [facility] No Information Jul-0 3 Jae Thomas. [facility] [place] [address], [place], [address], [place]. tel:[phone] Referring Provider: Dania Wright MD S, [address] [place] [address], [place], [address]. tel:[phone] [facility] MD WRIGHT, [address] [place] [address] Dr [address], [id number], [place] tel:[phone] [facility] - [place] [facility] [place] Venous insufficiency (chronic) (peripheral) 3 Jae Thomas. [address] [place], [address], [place], [address], [place]. tel:[phone] Referring Provider: Dania Wright MD S, [address] [place] [address], [place], [address]. tel:[phone] Office/Oupt E&M New Pt 30 Mins [facility], [address], [place], [id number], [place] tel:[phone] CVR - [facility] Venous insufficiency (chronic) (peripheral)L ocalized edemaType 2 diabetes mellitus without complications Essential (primary) hypertensionF breann joint, unspecified joint 3 Jae VAN FACS [facility] BALBIR Johnny Thomas. [address] [place], [address] [facility], [place], [address], [place]. tel:[phone] Referring Provider: Dania Wright MD S, [address] [place] [address], [place], [address]. tel:[phone] Family History Family Member Type Diagnosis Age At Onset No Information Payers Payer name Insurance type Covered alliance party ID Authoriza tion(s) Medicare HARRY ATKINSON [id number] [facility] [id number] Social History Type Description Quantity Date Captured [...]
--- OUTSIDE RECORDS SUMMARY | 2024-04-30 12:56 | XMS_ITS | Clinical Summary ---
Author Organization [facility] Address [address] [place] [address] Care Team Providers Care Laser Specialist Name Role Phone VangieRachelle DO Primary Care Provider Allergies No known active allergies Medications Medication Sig Dispensed Refills Start Date End Date Status atorvastatin (LIPITOR) tablet 20 mg TAKE 1 TABLET BY MOUTH EVERY DAY NIGHTLY 3 08/04/2017 Active atenolol (TENORMIN) tablet 50 mg TAKE 2 TABLETS (100 MG) BY MOUTH EVERY DAY 3 10/11/2017 Active amLODIPine (NORVASC) tablet 2.5 mg Take 2.5 mg by mouth daily. 2 09/16/2017 Active Multiple Vitamins-Minerals (MULTIVITAMIN ADULT PO) Take by mouth. 0 Active Active Problems Problem Noted Date Diagnosed Date BMI 40.0-44.9, adult 10/26/2017 History of shingles 02/08/2017 Morbid obesity with body mas s index (BMI) of 40.0 to 44.9 in adult Hypertension Hyperlipidemia Osteoarthritis Overview: Lt knee: 01/2017 MRI deg tear lat meniscus/horz tear med meniscus Screening for osteoporosis Overview: DEXA 01/2003 Normal, 10/2017: Normal Screening for colon cancer Overview: Colonoscopy 2013 TIC, Hyperplastic polyp, Int hemm Screening for breast cancer Overview: 10/2017 Benign Elevated fasting blood sugar Immunizations Name Administration Dates Next Due Pneumococcal Conjugate PCV13 10/26/2017 Pneumococcal Conjugate PCV7 04/21/2016 Tdap 01/12/2016 Zostavax (Zoster Live) 01/12/2016 Family History Medical History Relation Name Comments Atrial fibrillation Father prostate cancer Cancer Father prostate cancer Breast cancer Maternal Grandmother Cancer Maternal Grandmother Hypertension Mother Cancer Paternal Grandmother Cervical cancer Paternal Grandmother Relation Name Status Comments Brother Alive Father prostate cancer Maternal Grandmother Mother Alive Paternal Grandmother Sister Alive Social History Tobacco Use Types Packs/Day Years Used Date Smoking Tobacco: Former Smokeless Tobacco: Never Alcohol Use Standard Drinks/Week Comments No 0 (1 standard drink = 0.6 oz pur e alcohol) Sex and Gender Information Value Date Recorded Sex Assigned at Not on file Gender Identity Not on file Sexual Orientation Not on file Job Start Date Occupation Industry Not on file Not on file Not on file Last Filed Vital Signs Vital Sign Reading Time Taken Comments Blood Pressure 128/72 10/26/2017 2:17 PM EDT Pulse 56 10/26/2017 2:17 PM EDT Temperature 36.5 ??C (97.7 ??F) 10/26/2017 2:17 PM ED T Respiratory Rate - - Oxygen Saturation 98% 10/26/2017 2:17 PM EDT Inhaled Oxygen Concentration - - Weight 113.9 kg (251 lb) 10/26/2017 2:17 PM EDT Height 166.4 cm (5' 5.5 ) 10/26/2017 2:17 PM EDT Body Mass Index 41.13 10/26/2017 2:17 PM EDT Plan of Treatment Health Maintenance Due Date Last Done Comments Hepatitis C Screening 1950 COVID-19 Vaccine (#1) 03/09/1951 Shingrix-Zoster Vaccine (2 o f 2) 02/14/2018 12/20/2017 Depression Screening 10/26/2018 10/26/2017, 10/26/2017, 10/26/2017 Fall Risk Assessment 10/26/2018 10/26/2017, 10/26/2017, 10/26/2017 Pneumococcal Vaccine (2 of 2 - PPSV23 or PCV20) 10/26/2018 10/26/2017, 04/21/2016 Preventative Health Evaluation 10/26/2018 10/26/2017 Breast Cancer Screening (Mammogram) 10/21/2019 10/20/2017 Osteoporosis Screening (DEXA Scan) 10/21/2019 10/20/2017 Colon Cancer Screening (Colonoscopy) 05/11/2023 05/11/2013 Influenza Vaccine (#1) 2023 DTap / Tdap / Td (2 - Td or Tdap) 01/11/2026 01/12/2016 RSV Adult > 60+ Yrs or (1 - 1-dose 75+ series) 09/07/2026 Hepatitis B Vaccines Aged Out No long er eligible based on patient's age to complete this topic RSV Ped < 20 months Aged Out No longe r eligible based on patient's age to complete this topic Care Teams Laser Specialist Relationship Specialty Start Date End Date Rachelle Vences DO PCP - General Family Medicine 07/14/17
== END 2024-04-30 11:48 | disposition home or self-care (01) ==
PROVIDERS: PCP Internal Medicine; Visit Provider Hospitalist
DX: R91.8 Other nonspecific abnormal finding of lung field (principal); J45.40 Moderate persistent asthma, uncomplicated; R06.09 Other forms of dyspnea
CPT/HCPCS: 99214

== ENCOUNTER 2024-04-30 11:12 | Outpatient (REF) | payer MEDICARE, OTHER, SELFPAY ==
--- NOTE | ~2024-04-30 | XR_ITS ---
EXAMINATION: XR CHEST 2 VIEWS HISTORY: R06.09 - Other forms of dyspnea COMPARISON: Comparison is made with the prior examination dated 06/13/2023. FINDINGS: PA and lateral views of the chest are submitted. The lungs are expanded and clear. There is no pleural effusion, pneumothorax, or pulmonary vascular congestion. The heart is normal in size. The bones are intact. XR/XR chest 2V IMPRESSION: No acute cardiopulmonary abnormality. Electronically signed by: Yoni Daniel MD 04/30/2024 01:20 PM DEE
== END 2024-04-30 11:13 | disposition home or self-care (01) ==
LOC: HO.XRAY 11:12
PROVIDERS: PCP Internal Medicine; Visit Provider Hospitalist
DX: J45.40 Moderate persistent asthma, uncomplicated (principal); R91.8 Other nonspecific abnormal finding of lung field; R06.09 Other forms of dyspnea
CPT/HCPCS: 71046; 99212

== ENCOUNTER → 2024-04-30 11:55 | Outpatient (BNV) | payer MEDICARE, OTHER, SELFPAY | PROVIDERS: PCP Internal Medicine; Visit Provider Radiology Diagnostic Radiology | DX: R06.09 Other forms of dyspnea (principal) | CPT/HCPCS: 71046 ==

== ENCOUNTER → 2024-05-03 13:43 | Outpatient (BNVA) | payer MEDICARE, OTHER, SELFPAY | PROVIDERS: PCP Internal Medicine; Visit Provider Internal Medicine | DX: E78.5 Hyperlipidemia, unspecified (principal); E11.9 Type 2 diabetes mellitus without complications; I10 Essential (primary) hypertension; E03.9 Hypothyroidism, unspecified; Z78.0 Asymptomatic menopausal state | CPT/HCPCS: 96127; 99212 ==

== ENCOUNTER 2024-05-21 11:27 | Outpatient (AMB) | payer MEDICARE, OTHER, SELFPAY ==
[2024-05-21 12:44] VITALS: BP 120/80; PULSE 94; TEMP 36.8; O2SAT 98
--- NOTE | 2024-05-21 12:44 | MHC.OFFWIV ---
Intake Vital Signs 05/21/24 12:44 Weight 244 lb BP 120/80 Blood Pressure Location Rt brachial Position Sitting Pulse 94 Pulse Source Pulse Oximeter Temp 98.2 F Temp Source Oral Pulse Oximetry (%) 98 Oxygen Delivery Method Room Air Intake Visit Reasons: EP pain in ears, sore throat, chest congestion Intake Note: Patient here for cough, bilat ear pain, chest congestion and throat pain that has been present for a couple of days. Patient Tobacco Use Status: Former Tobacco user Allergies metformin Allergy (Severe, Verified 05/21/24 12:48) diarrhea, dulaglutide [From Trulicity] Adverse Reaction (Intermediate, Verified 05/21/24 12:48) Diarrhea empagliflozin [From Jardiance] Adverse Reaction (Intermediate, Verified 05/21/24 12:48) yeast infection glipizide Adverse Reaction (Intermediate, Verified 05/21/24 12:48) body aches sitagliptin [From Januvia] Adverse Reaction (Intermediate, Verified 05/21/24 12:48) Diarrhea Do you need a note to return to daycare/school/sports/work: No HPI HPI Comments History of Present Illness Details History - The patient is a 73-year-old female presenting with upper respiratory symptoms and earache. - Symptom onset was over a week ago, characterized by ear pain, cough and significant sinus congestion. - The patient indicated prior fever, noted once with a temperature of 101?F, and persistent chest heaviness. - There is a background of asthma that required use of an inhaler following COVID-19, with recent use providing symptomatic relief. - Patient's family member had a mild cold and is feeling better, she is feeling worse. - She reports increased wheezing and difficulty lying flat due to respiratory discomfort. - patient describes ears as feeling clogged. - Limited response to [id number] Coricidin. - Denied current flu vaccination due to an adverse reaction the previous year. - Swollen neck glands reported, Physical Exam General: Cooperative, healthy appearing, comfortable and no acute distress Orientation/consciousness: Patient oriented x3 Limitations: No limitations Head: Normal to inspection Ears: Hearing grossly normal bilaterally, external ears normal and TM's slightly erythematous bilaterally Nose: Normal external nose present, Normal nares present and No nasal discharge present Face and sinus: Normal facial exam and Yes sinuses tender Mouth: Normal oral and palatal mucosa present and moist mucous membranes Throat: Yes tonsils normal, Yes uvula midline. Posterior oropharynx erythema Eyes: Appearance normal, both eyes and all related structures Neck: Normal visual inspection, glands swollen and tender Respiratory: Clear to auscultation bilaterally. Normal respiratory effort, able to speak in complete sentences, Actively coughing, no respiratory distress, not tachypneic, no tripod positioning and no use of accessory muscles Cardiovascular: Regular rate and rhythm. Normal S1 and S2 Skin: No rashes or lesions noted Neuro: Patient oriented x3 Extremities: Normal to inspection and Yes no clubbing, cyanosis or edema PFSH Medical History Dyspnea Postmenopausal Atrophic vaginitis Annual physical exam Psoriasis Limb pain Eosinophilia Pulmonary nodules Asthma Hypothyroid DM type 2 (diabetes mellitus, type 2) HTN (hypertension) LVH (left ventricular hypertrophy) Hyperlipidemia Obesity Surgical History History of surgery History of thyroidectomy (2017) Hx of colonoscopy History of back surgery Family History Father Carotid stenosis Mother Hypertension Social History Housing: House Alcohol intake: never Patient Tobacco Use Status: Former Tobacco user Years Smoked: 40 years ago e-Cigarette/Vaping Use: Never Used service: No Current occupational status: retired Cognitive needs: No Hearing needs: No Vision needs: Yes Review of Systems Const All systems reviewed & are unremarkable except as noted in HPI and below Physical Exam Vital Signs: Last Vital Signs Temp 98.2 F 05/21/24 12:44 Pulse 94 05/21/24 12:44 BP 120/80 05/21/24 12:44 Pulse Ox 98 05/21/24 12:44 Oxygen Delivery Method Room Air 05/21/24 12:44 Assessment & Plan Assessment & Plan (1) URI, acute: Code(s): J06.9 - Acute upper respiratory infection, unspecified Plan: During the evaluation for persistent upper respiratory symptoms and earache, we administered nasal swabs to exclude common viral pathogens including influenza, COVID-19, and RSV as potential causes. Treatment for acute viral upper respiratory infection would primarily focus on symptomatic management; however, if viral tests are negative, Azithromycin may be warranted assuming an atypical pna diagnosis. The patient was instructed to continue regular asthma inhaler use for wheezing control. Fluticasone nasal spray is recommended to alleviate sinus congestion. Tessalon Perles were provided for nightly cough management. Efforts at increasing hydration and employing nasal saline rinses were advised to assist sinus drainage. The prescription details for Fluticasone were sent to the designated pharmacy, and the patient will be notified regarding results and subsequent management steps upon completion of diagnostic testing. Patient was informed and verbally consented to the use of an ambient scribe for clinic note documentation during this visit Orders: Orders SARS-CoV2/FLU/RSV Today J06.9 - Acute upper respiratory infection, unspecified Medications: New fluticasone propionate 50 mcg/actuation administer into each nostril 1 spray intranasal Q12H 16 grams 0RF benzonatate 200 mg PO TID PRN 10 caps 0RF cough Coding Level of Care Code Est Pt Level 3 (80929) Diagnoses URI, acute J06.9
== END 2024-05-21 13:17 | disposition home or self-care (01) ==
PROVIDERS: PCP Internal Medicine; Visit Provider Physician Assistant
DX: J06.9 Acute upper respiratory infection, unspecified (principal)

== ENCOUNTER 2024-05-21 11:27 | Outpatient (REF) | payer MEDICARE, OTHER, SELFPAY ==
--- OUTSIDE RECORDS SUMMARY | 2024-05-21 14:08 | XMS_ITS | Clinical Summary ---
Author Organization [facility] Address [address] [place] [address] Care Team Providers Care Industrial Relations Analyst Name Role Phone VangieRachelle DO Primary Care [...] age to complete this topic Care Teams Industrial Relations Analyst Relationship Specialty Start Date End Date Rachelle Vences DO PCP - General Family Medicine 07/14/17
--- OUTSIDE RECORDS SUMMARY | 2024-05-21 14:08 | XMS_ITS | Continuity of Care Document ---
Author Organization [facility] Address [address] [place] [address] Phone Care Team Providers Care Graphic Manager Name Role Phone Jae VAN FACS RVT [...] E&M Established 15 Mins [facility] MD WRIGHT, [address] [place] [address] Dr Soto [address], [id number], [place] tel:[phone] CVR - [facility] Chronic venous hypertension (idiopathic) with other complications of bilateral lower extremity Oct-3 3 Jae Thomas. [address] [place] [address], [place], [address], [place]. tel:[phone] Referring Provider: Dania Wright MD S, [address] [place] [address], [place], [address]. tel:[phone] [facility] MD WRIGHT, [address] [place] [address] Dr Soto [address], [id number], [place] tel:[phone] [facility] Encntr for f/u exam aft trtmt for cond oth than malig neoplmVaricos e veins of left lower extremities with pain Sep- 3 Jae Thomas. [address] [place] [address], [place], [address], [place]. tel:[phone] Referring Provider: Dania Wright MD S, [address] [place] [address], [place], [address]. tel:[phone] Wei Altman Vein Sabianist MD WRIGHT, [address] [place] [address] Dr Soto [address], [id number], [place] tel:[phone] CVR - [facility] Varicose veins of left lower extremity with inflammation Sep- 3 Jae Thomas. [address] [facility], [place] [address], [place], [address], [place]. tel:[phone] Referring Provider: Dania Wright MD S, [address] [place] [address], [place], [address]. tel:[phone] [facility], [address] [place] [address] Dr Soto [address], [id number], [place] tel:[phone] [facility] - [place] [facility] Encntr for f/u exam aft trtmt for cond oth than malig neoplmVaricos e veins of right lower extremities with pain 3 Jae VAN FACS T BALBIR Thomas. [address] [place] [address], [place], [address], [place]. tel:[phone] Referring Provider: Dania Wright MD S, [address] [place] [address], [place], [address]. tel:[phone] [facility], [address] [place] [address] Dr Soto [address], [id number], [place] tel:[phone] [facility] - [place] [facility] Varicose veins of right low extrm w oth complications 3 Johanna Osman. [address] [place] [address], [address], [facility] [place], [id number], [place]. tel:[phone] Referring Provider: Dania Wright MD S, [address] [place] [address], [place], [address]. tel:[phone] [facility], [address] [place] [address] [address], [place], [id number], [place] tel:[phone] [facility] [place] [facility] Varicose veins of right low extrm w oth complications 3 Jae VAN FACS T BALBIR Tohmas. [address] [place] [address] [address], [facility] [place], [address], [place]. tel:[phone] Referring Provider: Dania Wright MD S, [address] [place] [address], [place], [address]. tel:[phone] Offic/outpt E&m Estab 5 Min Trial - [facility] MD WRIGHT, [address] [place] [address] Dr [address]oto [address], [id number], [place] tel:[phone] [facility] [place] [facility] Venous insufficiency (chronic) (peripheral) Jul-2 3 Jae Thomas. [address] [address], [place], [address], [place]. tel:[phone] Referring Provider: Dania Wright MD S, [address] [place] [address], [address]. tel:[phone] Office/Outpt E&M Established 15 Mins [facility] MD WRIGHT, [address] [place] [address] Dr Soto [address], [id number], [place] tel:[phone] [facility] [place] [facility] Body mass index (BMI) 39.0-39.9, adultVenous insufficiency (chronic) (peripheral) Jul-0 3 Jae Thomas. [address] [place] [address], [place], [address], [place]. tel:[phone] Referring Provider: Dania Wright MD S, [address] [place] [address], [place], [address]. tel:[phone] [facility] MD WRIGHT, [address] [place] [address] Dr Soto [address], [id number], [place] tel:[phone] [facility] [place] [facility] No Information Jul-0 3 Jae Thomas. [facility] [place] [address], [place], [address], [place]. tel:[phone] Referring Provider: Dania Wright MD S, [address] [place] [address], [place], [address]. tel:[phone] [facility] MD WRIGHT, [address] [place] [address] Dr Soto [address], [id number], [place] tel:[phone] [facility] [place] [facility] Venous insufficiency (chronic) (peripheral) 3 Jae Thomas. [address] [facility], [address], [place], [address], [place]. tel:[phone] Referring Provider: Dania Wright MD S, [address] [place] [address], [place], [address]. tel:[phone] Office/Oupt E&M New Pt 30 Mins [facility], [address], [place], [id number], [place] tel:[phone] CVR - [facility] Venous insufficiency (chronic) (peripheral)L ocalized edemaType 2 diabetes mellitus without complications Essential (primary) hypertensionF breann joint, unspecified joint 3 Jae VAN FACS [facility] BAL[facility] Johnny Thomas. [address] [facility], [address] [facility], [place], [address], [place]. tel:[phone] Referring Provider: Dania Wright MD S, [address] [place] [address], [place], [address]. tel:[phone] Family History Family Member Type Diagnosis Age At Onset No Information Payers Payer name Insurance type Covered republican ID Authoriza tion(s) Medicare HARRY ATKINSON [id number] [facility] [id number] Social History Type Description Quantity Date Captured [...]
[2024-05-21 17:58] LABS: Influenza A PCR NEGATIVE (Negative); Influenza B PCR NEGATIVE (Negative); Resp Syncy Virus RNA Qual PCR NEGATIVE (Negative); SARS COV2 PCR INHOUSE NEGATIVE (Negative)
== END 2024-05-21 11:28 | disposition home or self-care (01) ==
LOC: HO.LAB 11:27
PROVIDERS: PCP Internal Medicine; Visit Provider Physician Assistant
DX: J06.9 Acute upper respiratory infection, unspecified (principal)
CPT/HCPCS: 0241U; 99212

== ENCOUNTER 2024-06-14 10:54 | Outpatient (REF) | payer MEDICARE, OTHER, SELFPAY ==
--- NOTE | ~2024-06-14 | MM_ITS ---
EXAMINATION: DXA BONE DENSITY AXIAL HISTORY: Estrogen deficiency TECHNIQUE: Noemalife Dual energy absorptiometry (DEXA) of the lumbar spine, total left hip, and femoral neck was performed. COMPARISON: Comparison is made with the prior examination dated 03/25/2021. FINDINGS: The bone mineral density of the lumbar spine is 1.223 with a T-score of 0.4, and a Z-score of 0.9. This represents a BMD change of -0.4% compared to the prior exam. This is not statistically significant. The bone mineral density of the left total hip is 0.905 with a T-score of -0.8, and a Z-score of 0.0. This represents BMD change of 2.1% compared to the prior exam. This is not statistically significant. The bone mineral density of the left femoral neck is 0.856 with a T-score of -1.3, and a Z-score of -0.3. This represents BMD change of 7.8% compared to the prior exam. FRACTURE RISK: The FRAX index suggests a ten year probability of major osteoporotic fracture of 8.9%, and of hip fracture 1.2%. MM/XR DEXA axial skeleton IMPRESSION: Based on bone mineral density, and according to World Health Organization (WHO) criteria, the diagnosis is consistent with osteopenia. All bone density values are in grams per centimeter squared (g/cm2). Statistically, 68% of repeat scans fall within 1 SD (+/- 0.010 g/cm2 for AP spine L1-L4) and 1 SD (+/- 0.012 g/cm2 for femur total) FRAX is a trademark of the [employer]'s [place] for Metabolic Bone Disease, a World Health Organization (WHO) Collaborating Center. Electronically signed by: Yoni Daniel MD 06/14/2024 01:39 PM [facility]
--- OUTSIDE RECORDS SUMMARY | 2024-06-14 12:31 | XMS_ITS | Clinical Summary ---
Author Organization [facility] Address [address] [place] [address] Care Team Providers Care Metal Finish Inspector Name Role Phone VangieRachelle DO Primary Care [...] age to complete this topic Care Teams Metal Finish Inspector Relationship Specialty Start Date End Date Rachelle Vences DO PCP - General Family Medicine 07/14/17
== END 2024-06-14 10:55 | disposition home or self-care (01) ==
LOC: HO.MAMMO 10:54
PROVIDERS: PCP Internal Medicine; Visit Provider Internal Medicine
DX: Z13.820 Encounter for screening for osteoporosis (principal); Z78.0 Asymptomatic menopausal state
CPT/HCPCS: 77080

== ENCOUNTER → 2024-06-14 11:00 | Outpatient (BNV) | payer MEDICARE, OTHER, SELFPAY | PROVIDERS: PCP Internal Medicine; Visit Provider Radiology Diagnostic Radiology | DX: E28.39 Other primary ovarian failure (principal) | CPT/HCPCS: 77080 ==

== ENCOUNTER 2024-08-20 09:01 | Outpatient (REF) | payer MEDICARE, OTHER, SELFPAY ==
--- OUTSIDE RECORDS SUMMARY | 2024-08-20 09:25 | XMS_ITS | Continuity of Care Document ---
Author Organization [facility] Address [address] [place] [address] Phone Care Team Providers Care Feed Miller Name Role Phone Jae VAN FACS RVT [...] E&M Established 15 Mins Wei Altman Vein Confucianism MD WRIGHT, [address] [place] [address] Dr Soto [address], [id number], [place] tel:[phone] CVR - [facility] Chronic venous hypertension (idiopathic) with other complications of bilateral lower extremity Oct-3 3 Jae Thomas. [address] [place] [address], [place], [address], [place]. tel:[phone] Referring Provider: Dania Wright MD S, [address] [place] [address], [place], [address]. tel:[phone] [facility] MD WRIGHT, [address] [place] [address] Dr Soto [address] 1000[place], [id number], [place] tel:[phone] [facility] Encntr for f/u exam aft trtmt for cond oth than malig neoplmVaricos e veins of left lower extremities with pain Sep- 3 Jae Thomas. [address] [place] [address], [place], [address], [place]. tel:[phone] Referring Provider: Dania Wright MD S, [address] [place] [address], [place], [address]. tel:[phone] Wei Altman Vein Confucianism MD WRIGHT, [address] [place] [address] Dr Soto [address] 1000[place], [id number], [place] tel:[phone] CVR - [facility] Varicose veins of left lower extremity with inflammation Sep- 3 Jae Thomas. [address] [facility], [place] [address], [place], [address], [place]. tel:[phone] Referring Provider: Dania Wright MD S, [address] [place] [address], [place], [address]. tel:[phone] [place] [facility], [address] [place] [address] Dr Soto [address] 1000[place], [id number], [place] tel:[phone] [facility] - [place] [facility] Encntr for f/u exam aft trtmt for cond oth than malig neoplmVaricos e veins of right lower extremities with pain 3 Jae VAN FACS T BALBIR Thomas. [address] [address], [place], [address], [place]. tel:[phone] Referring Provider: Dania Wright MD S, [address] [place] [address], [place], [address]. tel:[phone] [place] [facility], [address] [place] [address] Dr Soto [address], [id number], [place] tel:[phone] [facility] [place] [facility] Varicose veins of right low extrm w oth complications 3 Johanna Osman. [address] [place] [address], [address], [facility] [place], [id number], [place]. tel:[phone] Referring Provider: Dania Wright MD S, [address] [place] [address], [place], [address]. tel:[phone] [place], [address] [place] [address] [address], [place], [id number], [place] tel:[phone] [facility] [place] [facility] Varicose veins of right low extrm w oth complications 3 Jae VAN FACS T BALBIR Thomas. [address] [place] [address] [address], [facility], [address], [place]. tel:[phone] Referring Provider: Dania Wright MD S, [address] [place] [address], [place], [address]. tel:[phone] Offic/outpt E&m Estab 5 Min Trial - [facility] MD WRIGHT, [address] [place] [address] Dr Soto [address] 1000[place], [id number], [place] tel:[phone] [facility] [place] [facility] Venous insufficiency (chronic) (peripheral) Jul-2 3 Jae Thomas. [address] [address], [place], [address], [place]. tel:[phone] Referring Provider: Dania Wright MD S, [address] [place] [address], [address]. tel:[phone] Office/Outpt E&M Established 15 Mins [place] MD WRIGHT, [address] [place] [address] Dr Soto [address] 1000[place], [id number], [place] tel:[phone] [facility] [place] [facility] Body mass index (BMI) 39.0-39.9, adultVenous insufficiency (chronic) (peripheral) Jul-0 3 Jae Thomas. [address] [place] [address], [place], [address], [place]. tel:[phone] Referring Provider: Dania Wright MD S, [address] [place] [address], [place], [address]. tel:[phone] [place] MD WRIGHT, [address] [place] [address] Dr Soto [address] 1000[place], [id number], [place] tel:[phone] [facility] [place] [facility] No Information Jul-0 3 Jae Thomas. [facility] [place] [address], [place], [address], [place]. tel:[phone] Referring Provider: Dania Wright MD S, [address] [place] [address], [place], [address]. tel:[phone] [facility] MD WRIGHT, [address] [place] [address] Dr Soto [address] 1000[place], [id number], [place] tel:[phone] [facility] [place] [facility] Venous insufficiency (chronic) (peripheral) 3 Jae Thomas. [address] [facility], [address], [place], [address], [place]. tel:[phone] Referring Provider: Dania Wright MD S, [address] [place] [address], [place], [address]. tel:[phone] Office/Oupt E&M New Pt 30 Mins [facility], [address], [place], [id number], [place] tel:[phone] CVR - [facility] Venous insufficiency (chronic) (peripheral)L ocalized edemaType 2 diabetes mellitus without complications Essential (primary) hypertensionF breann joint, unspecified joint 3 Jae VAN FACS [facility] Johnny Thomas. [address] [facility], [address] [facility], [place], [address], [place]. tel:[phone] Referring Provider: Dania Wright MD S, [address] [place] [address], [place], [address]. tel:[phone] Family History Family Member Type Diagnosis Age At Onset No Information Payers Payer name Insurance type Covered green party ID Authoriza tion(s) Medicare HARRY ATKINSON [id number] [facility] [id number] Social History Type Description Quantity Date Captured [...]
--- OUTSIDE RECORDS SUMMARY | 2024-08-20 09:26 | XMS_ITS | Patient Health Record ---
Author Organization [facility] Address [address] [place] [address] Care Team Providers Care Consulting Hr Professional Name Role Phone Lizbeth Velasquez Unavailable [phone] Allergies No Known Allergies Results Component Value Reference Range Notes PDF Report Reviewed date:08/05/2024 12:17:59 PM Interpretation: Performing Lab:[facility], [address], [address], [employer], Phone - [phone], Director - [facility] Notes/Report: Clinical Information:Vaginal/Cervical, LMP: Men o [id number] Dates / Results....01/13/23 NIL, Neg HPV Other..............Post Menopausal No. of containers..01 ThinPrep Vial [id number] IGP No Culture 30 Plus Reviewed date:08/05/2024 12:18:27 PM Interpretation: Performing Lab:[facility], [address], [address], [place], Phone - [phone], Director - [facility] Notes/Report: Clinical Information:Vaginal/Cervical, LMP: Men o [id number] Dates / Results....01/13/23 NIL, Neg HPV Other..............Post Menopausal No. of containers..01 ThinPrep Vial DIAGNOSIS: NEGATIVE FOR INTRAEPITHELIAL LESION OR MALIGNANCY. CELLULAR CHANGES ASSOCIATED WITH ATROPHY ARE PRESENT. THIS SPECIMEN WAS RESCREENED PART OF OUR CASING GRADER PROGRAM. Specimen adequacy: Satisfactory for evaluation. Endocervical component may not be distinguished in cases of atrophy. Clinician provided ICD10: Z0 1.419 Performed by: Nahomi hameed, Work Measurement Engineer (ASCP) QC reviewed by: Urbano padilla, Work Measurement Engineer (ASCP) . . Note: The Pap smear is a screening test designed to aid in the detection of premalignant and malignant conditions of the uterine cervix. It is not a diagnostic procedure and should not be used as the sole means of detecting cervical cancer. Both false-positive and false-negative reports do occur. . Test Methodology: This liquid based ThinPrep(R) pap test was screened with the use of an image guided system. HPV Aptima Negative Negative This nucleic acid amplification test detects fourteen high-risk HPV types (16,18,31,33,35,39,45,51,52,56,5 8,59,66,68) without differentiation. HPV Genotype Reflex Criteria not met, HPV Genotype not performed. Reason For Referral No Information Medications Medication SIG (Take, Route, Frequency, Duration) Notes Start Date End Date Status Losartan Potassium 100 MG 1 tablet Orall y Once a day for 30 day(s) 07/31/2024 Active Otezla 30 MG Oral for 30 Days Active Terconazole 0.8 % 1 applicatorful at b edtime Vaginal EVERY NIGHT X 3 for 3 days 07/31/2024 Active Levothyroxine Sodium 112 MCG Oral for 90 Days Active amLODIPine Besylate 2.5 MG Oral for 90 Days Active Atorvastatin Calcium 20 MG 1 tablet Oral ly Once a day for 30 day(s) 07/31/2024 Active Trulicity 1.5 MG/0.5ML INJECT 0.5 ML (1. 5 MG) SUBCUTANEOUSLY ONE TIME PER WEEK Subcutaneous for 84 Days Active Social History Tobacco Use: Social History Observation Description Date Details (start date - stop date) Former Smoker NA - NA Sexual History Question Answer Notes Had sex in the past 12 months (vaginal, oral, or anal)? No Have you ever had a Sexually transmitted disease ? No AUDIT-C (Standard) Question Answer Notes Did you have a drink containing alcohol in the p ast year? No Points 0 Interpretation Negative Tobacco Control (Standard) Question Answer Notes Tobacco use: Former smoker How long has it been since you last smoked? Grea ter than 10 years Problems Problem Type SNOMED Code ICD Code Onset Dates Problem Status W/U Status Risk Notes Problem Essential hypertension (66094036) Essential (primary) hypertension (I10) Active confirmed Problem Morbid (severe) obesity due to excess calories (E66.01) Active confirmed Problem Osteoarthritis (479362887) Unspecified osteoarthritis, unspecified site (M19.90) Active confirmed Problem History of dysplasia of cervix (869527679) Personal history of cervical dysplasia (Z87.410) Active confirmed Vital Signs Temperature 97.5 degrees Fahrenheit 07/31/2024 Blood pressure diastolic 78 mm Hg 07/31/2024 Height 65 in 07/31/2024 Blood pressure systolic 142 mm Hg 07/31/2024 Weight 243 lbs 07/31/2024 BMI 40.43 kg/m2 07/31/2024 Encounters Encounter Location Date Provider Diagnosis [address] [place] [address] 07/31/2024 Lizbeth Velasquez Encounter for gynecological examination (general) (routine) without abnormal findings Z01.419 ; Encounter for screening mammogram for malignant neoplasm of breast Z12.31 ; Personal history of cervical dysplasia Z87.410 ; Acute candidiasis of vulva and vagina B37.31 and Morbid (severe) obesity due to excess calories E66.01 Assessments Encounter Date Diagnosis (ICD Code) Assessment Notes Treatment Notes Treatment Clinical Notes Section Notes 07/31/2024 Encounter for screening mammogram for malignant neoplasm of breast (ICD-10 - Z12.31) REGULAR MAMMOGRAMS AND SBE'S WERE RECOMMENDED. 07/31/2024 Encounter for gynecological examination (general) (routine) without abnormal findings (ICD-10 - Z01.419) PAP TEST WITH HPV TYPING WAS OBTAINED. 07/31/2024 Personal history of cervical dysplasia (ICD-10 - Z87.410) DISCUSSED PREVIOUS HX OF CHITO AND PREVIOUS CRYOTHERAPY. REASSURED PAT THAT HER LAST PAP TEST IN 2022 WAS NEGATIVE AND HPV NEGATIVE. 07/31/2024 Acute candidiasis of vulva and vagina (ICD-10 - B37.31) DISCUSSED PREVIOUS HX OF VULVAR AND VAGINAL YEAST. KEEP AREA CLEN AND DRY. AVOIDL LEGGINBS. LOOSE COTTON UNDERWEAR. RX FOR LOCAL ANTIFUNGAL CREAM AND INSTRUCTIONS WERE SENT. 07/31/2024 Morbid (severe) obesity due to excess calories (ICD-10 - E66.01) DISCUSSED IMPORTANCE OF STAYING AT ONE'S IDEAL BODY WEIGHT. ENCOURAGED PAT TO LOSE WEIGHT. Plan Of Treatment Pending Test Test Name Order Date MAMMOGRAM, SCREENING 07/31/2024 MM Digital Mammo Screening 07/31/2024 Next Appt Details Provider Name:Lizbeth vasquez, 08/23/2024 11:00:00 AM, [address], [address], [place], [address], Provider Name:Lizbeth vasquez, 08/07/2025 11:00:00 AM, [address], [address], [place], [address], Insurance Providers Payer Name Payer Address Payer Phone Subscriber Number Group Number Insured Name Patient Relationship to Insured Coverage Start Date Coverage End Date MEDICARE [address] [place], [place] [id number] [phone] [id number] KIRT VELAZCO Self - patient is the insured [employer] [address] [place] [address] [id number] KIRT VELAZCO Self - patient is the insured Medical (General) History Medical History History ICD Code Other asthma J45.998 Essential (primary) hypertension I10 Type 2 diabetes mellitus with unspecifie d complications E11.8 Unspecified osteoarthritis, unspecified site M19.90 Surgical History Surgery Date(Month/Year) Back Surgery x 1 Colonoscopy Thryoidectomy Hospitalization History Reason Date(Month/Year) See Surgical Hx 1 Vaginal Delivery
[2024-08-20 09:48] LABS: MANUAL DIFF FLAG NO
[2024-08-20 10:30] LABS: Basophils Absolute Auto 0.1 X10*3/uL (0.0-0.2); Basophils Percent Auto 1.8 % (0-2); Eosinophils Absolute Auto 0.4 X10*3/uL (0.0-0.4); Eosinophils Percent Auto 4.9 % (0-4); Hematocrit 40.6 % (37.0-47.0); Hemoglobin 13.6 g/dl (12.0-16.0); Imm Gran Abs Auto 0.03 X10*3/uL (0.00-0.03); Imm Gran Pct Auto 0.4 % (0.0-0.4); Lymphocytes Absolute Auto 2.3 X10*3/uL (1.2-4.9); Lymphocytes Percent Auto 29.8 % (20-40); Mean Corpuscular HGB Conc 33.5 g/dl (31.0-35.0); Mean Corpuscular Hemoglobin 29.2 pg (27.0-33.0); Mean Corpuscular Volume 87.3 fL (80.0-98.0); Mean Platelet Volume 9.9 fL (9.4-12.3); Monocytes Absolute Auto 0.7 X10*3/uL (0.1-1.2); Neutrophils Absolute Auto 4.2 x10*3/uL (2.0-8.3); Neutrophils Percent Auto 54.1 % (45-73); Platelet Count 406 X10*3/uL (160-400); Red Blood Count 4.65 X10*6/uL (4.20-5.50); Red Cell Distribution Width 12.9 % (11.0-16.0); White Blood Count 7.8 X10*3/uL (4.8-10.8)
[2024-08-20 10:34] LABS: Estimated Average Glucose 143 mg/dL; Hemoglobin A1C 173.0811 umol/L; Hemoglobin A1c % 6.6 % (<6.0)
[2024-08-20 11:04] LABS: Vitamin D 25-OH Total 49.3 ng/mL (>30)
[2024-08-20 11:21] LABS: Microalbum/Creatinine Ratio Ur 23.4 ug/mg cr (<30)
[2024-08-20 11:22] LABS: Alanine Aminotransferase 42 U/L (0-31); Anion Gap 15 (12-20); Aspartate Amino Transferase 31 U/L (5-31); Bilirubin Total 0.5 mg/dL (0.0-1.0); Blood Urea Nitrogen 13 mg/dL (9-16); Calcium 9.3 mg/dL (8.4-10.2); Carbon Dioxide 22 mmol/L (22-29); Chloride 107 mmol/L (96-108); Cholesterol 157 mg/dL (<200); Estimated Glomerular Filt Rate 56; Glucose Fasting 153 mg/dL (60-99); HDL Cholesterol 60 mg/dL (>40); LDL Cholesterol Calculated 76 mg/dL (<100); Potassium 4.1 mmol/L (3.3-5.1); Sodium 140 mmol/L (135-145); Total Protein 6.9 g/dL (6.5-8.0); Triglycerides 106 mg/dL (<150)
[2024-08-20 12:51] LABS: Alkaline Phosphatase 83 U/L (39-117)
== END 2024-08-20 09:02 | disposition home or self-care (01) ==
LOC: HO.10HDL 09:01
PROVIDERS: Visit Provider Internal Medicine
DX: E11.9 Type 2 diabetes mellitus without complications (principal); E03.9 Hypothyroidism, unspecified; I10 Essential (primary) hypertension; E78.5 Hyperlipidemia, unspecified; E55.9 Vitamin D deficiency, unspecified
CPT/HCPCS: 36415; 80053; 80061; 82043; 82306; 82570; 83036; 85025

== ENCOUNTER 2024-08-30 12:31 | Outpatient (AMB) | payer MEDICARE, OTHER, SELFPAY ==
--- OUTSIDE RECORDS SUMMARY | 2024-08-30 12:34 | XMS_ITS ---
Author Organization Total [facility] Address [address] [facility] [address] [place] [address] Care Team Providers Care Integrated Logistics Operations Manager Name Role Phone Lizbeth Velasquez Unavailable [phone] REASON FOR VISIT ULTRA - CK OVARIES TAW Encounters Encounter Location Date Provider Diagnosis [facility] [employer] T[employer] [facility] [address] [place] [address] 08/23/2024 Lizbeth Velasquez Plan Of Treatment Next Appt Details Provider Name:Lizbeth vasquez, 09/27/2024 01:00:00 PM, [address], [address], [place], [address], Provider Name:Lizbeth vasquez, 09/27/2024 01:10:00 PM, [address] [facility] [address], [place], [address], Provider Name:Lizbeth vasquez, 08/07/2025 11:00:00 AM, [address], [facility] [address], [place], [address], Progress Notes * KIRT VELAZCODOB: [birth year] (73 yo F)Acc No.[id number]:08/23/2024 PROGRESS NOTES Patient:?KIRT VELAZCO Appointment Provider:?Lizbeth vasquez M.D. :1950???Age:73 Y???Sex:Female D ate:08/23/2024 Address: [place] [place] Subjective: * Chief Complaints: * ???1. ULTRA - CK OVARIES TAW . * Medical History:? Objective: * Vitals:? Assessment: Plan: * Treatment: * Images: Billing Information: * Visit Code:? * Procedure Codes:? * Electronic signature of Aida Velasquez MD on 08/30/2024 at 12:34 PM EDT Sign off status: Pending * Appointment Provider:?Lizbeth Velasquez M.D. Date:?08/23/2024 Generated for Irlanda bills/Eden/eTransmitting on:?08/30/2024 12:34 PM EDT
[2024-08-30 12:40] VITALS: BP 122/80; PULSE 90; O2SAT 97; BMI 40.9
--- NOTE | 2024-08-30 12:40 | MHC.PC.OV ---
Vital Signs 08/30/24 12:40 Height 5 ft 5 in Weight 246 lb BMI 40.9 BP 122/80 Blood Pressure Location Lt brachial Position Sitting Pulse 90 Pulse Source Pulse Oximeter Pulse Oximetry (%) 97 Oxygen Delivery Method Room Air Intake Visit Reasons: 4m follow up Denial Resolution Specialist Required: No Accompanied by: Self / Same As Patient Allergies metformin Allergy (Severe, Verified 08/30/24 12:40) diarrhea, dulaglutide [From Trulicity] Adverse Reaction (Intermediate, Verified 08/30/24 12:40) Diarrhea empagliflozin [From Jardiance] Adverse Reaction (Intermediate, Verified 08/30/24 12:40) yeast infection glipizide Adverse Reaction (Intermediate, Verified 08/30/24 12:40) body aches sitagliptin [From Januvia] Adverse Reaction (Intermediate, Verified 08/30/24 12:40) Diarrhea Medication List - Last Reconciled 08/30/24 by Dania Wright MD albuterol sulfate 90 mcg/actuation 2 puffs inhalation Q6H PRN amlodipine 2.5 mg PO DAILY apremilast (Otezla) 30 mg PO BID atorvastatin 20 mg PO QPM blood sugar diagnostic (CloudCarTouch Ultra Test strips) test blood sugar once a day blood-glucose meter (CloudCarTouch Ultra2 Meter) As directed fluticasone propionate 50 mcg/actuation 1 spray intranasal Q12H levothyroxine 112 mcg PO DAILY losartan 100 mg PO DAILY Trulicity (dulaglutide) 3 mg (0.5 mL) subcut QWEEK NS Tobacco use date assessed: 05/03/24 Fall risk assessment: No Falls in past year Last assessed Fall Risk: 08/30/24 Dental Screening Dental Screen Date: 05/03/24 HPI 4m follow up HPI Details Patient presents for the follow-up on hypertension hyperlipidemia type 2 diabetes and hypothyroidism. [facility] Medical History Dyspnea Postmenopausal Atrophic vaginitis Annual physical exam Psoriasis Limb pain Eosinophilia Pulmonary nodules Asthma Hypothyroid DM type 2 (diabetes mellitus, type 2) HTN (hypertension) LVH (left ventricular hypertrophy) Hyperlipidemia Obesity Surgical History History of surgery History of thyroidectomy (2017) Hx of colonoscopy History of back surgery Family History Father Carotid stenosis Mother Hypertension Social History Housing: House Alcohol intake: never Patient Tobacco Use Status: Former Tobacco user Years Smoked: 40 years ago e-Cigarette/Vaping Use: Never Used service: No Current occupational status: retired Cognitive needs: No Hearing needs: No Vision needs: Yes Questionnaire Thrive Questionnaire Date Thrive assessed: 08/30/24 I am a: Patient What is your living situation today?: I have a steady place to live Within the past 12 months, did the food you bought not last and you didn't have the money to get more?: Never true Within the past 12 months, did you worry whether your food would run out before you got money to buy more?: Never true Do you have trouble paying for medicines?: No Do you have trouble getting transportation to medical appointments?: No Do you have trouble paying your heating and electricity bill?: No Do you have trouble taking care of your child, family member or friend?: No Do you have trouble with day-to-day activities such as bathing, preparing meals, shopping, managing finances, etc.?: No Are you currently unemployed and looking for a job?: No Please select the resources that you would like help with: None THRIVE Score: 0 AUDIT C Alcohol Use Questionnaire (AUDIT-C) 1. How often do you have a drink containing alcohol?: Never 3. How often do you have six or more drinks on one occasion?: Never Total Score: 0 Score Reviewed/Action Taken: Yes JORDANA-7 AMB Questionnaire JORDANA-7 Date JORDANA - 7 assessed: 05/03/24 Source: Developed by Drs. Yoni Pina, Kirti Bernal, Michael Medina and colleagues, with an educational selvin from [employer]. Review of Systems Const All systems reviewed & are unremarkable except as noted in HPI and below Eyes Reports no additional complaints ENT Reports no additional complaints Card Reports no additional complaints Resp Reports no additional complaints GI Reports no additional complaints Reports no additional complaints Physical exam (Primary Care) Vital Signs: Last Vital Signs Pulse 90 08/30/24 12:40 BP 122/80 08/30/24 12:40 Pulse Ox 97 08/30/24 12:40 Oxygen Delivery Method Room Air 08/30/24 12:40 BMI result Body Mass Index 40.9 Tobacco/Smoking Status: Tobacco use Status Tobacco use date assessed 05/03/24 08/30/24 12:40 Patient Tobacco Use Status Former Tobacco user 08/30/24 12:40 e-Cigarette/Vaping Use Never Used 08/30/24 12:40 Thrive Assessment: Date of Thrive Assessment Date Thrive assessed 08/30/24 08/30/24 12:41 Const General: no acute distress HENMT Head: Yes normal to inspection Face and sinus: Yes normal facial exam Neck Neck: Yes supple Resp Effort & Inspection: normal respiratory effort Auscultation: clear to auscultation bilaterally Cardio Rhythm: regular rhythm Heart sounds: S1 normal heart sound present and S2 normal heart sound present GI Inspection: Yes normal to inspection Palpation (GI): Soft to palpation Percussion: Yes normal to percussion Coding Level of Care Code Est Pt Level 4 (84745) Diagnoses Hypothyroid E03.9 Hyperlipidemia E78.5 DM type 2 (diabetes mellitus, type 2) E11.9 HTN (hypertension) I10 Assessment & Plan Assessment & Plan (1) Hypothyroid: Code(s): E03.9 - Hypothyroidism, unspecified Category: Medical Plan: Continue levothyroxine (2) Hyperlipidemia: Code(s): E78.5 - Hyperlipidemia, unspecified Category: Medical Plan: Continue statin (3) DM type 2 (diabetes mellitus, type 2): Comment: Intolerant to Jardiance, Januvia, Metformin (diarrhea), Glipizide Code(s): E11.9 - Type 2 diabetes mellitus without complications Category: Medical Plan: A1c is 6.6. Continue ADA diet increase exercise weight loss discussed with the patient increase Trulicity to 3 mg weekly follow-up in 4 months with a fasting labs before (4) HTN (hypertension): Code(s): I10 - Essential (primary) hypertension Category: Medical Plan: Continue current medications Orders: Orders Comprehensive [place]. Panel Fast 4 Months E03.9 - Hypothyroidism, unspecified, E11.9 - Type 2 diabetes mellitus without complications, E78.5 - Hyperlipidemia, unspecified Hemoglobin A1c 4 Months E03.9 - Hypothyroidism, unspecified, E11.9 - Type 2 diabetes mellitus without complications, E78.5 - Hyperlipidemia, unspecified TSH reflex Free T4 Today E03.9 - Hypothyroidism, unspecified TSH reflex Free T4 4 Months E03.9 - Hypothyroidism, unspecified, E11.9 - Type 2 diabetes mellitus without complications, E78.5 - Hyperlipidemia, unspecified Complete Blood Count Auto Diff 4 Months E03.9 - Hypothyroidism, unspecified, E11.9 - Type 2 diabetes mellitus without complications, E78.5 - Hyperlipidemia, unspecified Lipid Panel 4 Months E03.9 - Hypothyroidism, unspecified, E11.9 - Type 2 diabetes mellitus without complications, E78.5 - Hyperlipidemia, unspecified Microalbumin, Random (w Creat) 4 Months E03.9 - Hypothyroidism, unspecified, E11.9 - Type 2 diabetes mellitus without complications, E78.5 - Hyperlipidemia, unspecified Medications: New Trulicity (dulaglutide) 3 mg (0.5 mL) subcut QWEEK 6 mL 2RF NS Refilled amlodipine 2.5 mg PO DAILY 90 tabs 3RF atorvastatin 20 mg PO QPM 90 tabs 3RF Discontinued Trulicity (dulaglutide) Discontinued Reason: Doctor's Order 1.5 mg (0.5 mL) subcut QWEEK 6 mL 3RF NS
== END 2024-08-30 13:46 | disposition home or self-care (01) ==
LOC: HO.HMCC 12:32
PROVIDERS: PCP Internal Medicine; Visit Provider Internal Medicine
DX: E03.9 Hypothyroidism, unspecified (principal); E78.5 Hyperlipidemia, unspecified; E11.9 Type 2 diabetes mellitus without complications; I10 Essential (primary) hypertension

== ENCOUNTER 2024-08-30 12:31 | Outpatient (REF) | payer MEDICARE, OTHER, SELFPAY ==
[2024-08-30 17:18] LABS: TSH reflex Free T4 3.56 uIU/mL (0.32-4.0)
== END 2024-08-30 12:32 | disposition home or self-care (01) ==
LOC: HO.HMGCLDS 12:31
PROVIDERS: PCP Internal Medicine; Visit Provider Internal Medicine
DX: E03.9 Hypothyroidism, unspecified (principal); I10 Essential (primary) hypertension; E78.5 Hyperlipidemia, unspecified; E11.9 Type 2 diabetes mellitus without complications
CPT/HCPCS: 36415; 84443; 99212

== ENCOUNTER 2024-10-17 13:03 | Outpatient (AMB) | payer MEDICARE, OTHER, SELFPAY ==
--- OUTSIDE RECORDS SUMMARY | 2023-02-06 07:00 | XMS_ITS | Continuity of Care Document ---
Author Organization [facility] Address [address] [place] [address] Phone Care Team Providers Care Flour Broker Name Role Phone Jae VAN FACS RVT [...] 20 Inj Scleros Solut; Mx Veins 1 Endovenous Laser, 1st Vein Endovenous laser vein [...] E&M Established 15 Mins Wei [facility]man [facility] Catholic MD WRIGHT, [address] [place] [address] Dr Soto [address] 1000[place], [id number], [place] tel:[phone] CVR - [facility] Chronic venous hypertension (idiopathic) with other complications of bilateral lower extremity Oct-3 3 Jae Thomas. [address] [place] [address], [place], [address], [place]. tel:[phone] Referring Provider: Dania Wright MD S, [address] [place] [address], [place], [address]. tel:[phone] [facility] MD WRIGHT, [address] [place] [address] Dr Soto [address] 1000[place], [id number], [place] tel:[phone] [facility] Encntr for f/u exam aft trtmt for cond oth than malig neoplmVaricos e veins of left lower extremities with pain Sep- 3 Jae Thomas. [address] [place] [address], [place], [address], [place]. tel:[phone] Referring Provider: Dania Wright MD S, [address] [place] [address], [place], [address]. tel:[phone] [facility] Catholic MD WRIGHT, [address] [place] [address] Dr Soto [address], [id number], [place] tel:[phone] CVR - [facility] Varicose veins of left lower extremity with inflammation Sep- 3 Jae Thomas. [address] [facility], [place] [address], [place], [address], [place]. tel:[phone] Referring Provider: Dania Wright MD S, [address] [place] [address], [place], [address]. tel:[phone] [facility], [address] [place] [address] Dr Soto [address] 1000[place], [id number], [place] tel:[phone] CVR - [place] [facility] Encntr for f/u exam aft trtmt for cond oth than malig neoplmVaricos e veins of right lower extremities with pain 3 Jae VAN FACS T BALBIR Thomas. [address] [place] [address], [place], [address], [place]. tel:[phone] Referring Provider: Dania Wright MD S, [address] [place] [address], [place], [address]. tel:[phone] [facility], [address] [place] [address] Dr Soto [address] 1000[place], [id number], [place] tel:[phone] CVR - [place] [facility] Varicose veins of right low extrm w oth complications 3 Johanna Osman. [address] [place] [address], [address], [facility] [place], [id number], [place]. tel:[phone] Referring Provider: Dania Wright MD S, [address] [place] [address], [place], [address]. tel:[phone] [facility], [address] [place] [address] [address], [place], [id number], [place] tel:[phone] CVR - [place] [facility] Varicose veins of right low extrm w oth complications 3 Jae VAN FACS T BALBIR Thomas. [address] [place] [address] [address], [facility], [address], [place]. tel:[phone] Referring Provider: Dania Wright MD S, [address] [place] [address], [place], [address]. tel:[phone] Offic/outpt E&m Estab 5 Min Trial - [facility] MD WR[facility], [address] [place] [address] Dr Soto [address] 1000[place], [id number], [place] tel:[phone] CVR - [facility] Venous insufficiency (chronic) (peripheral) Jul-2 3 Jae Thomas. [address] [place] [place] [address], [place], [address], [place]. tel:[phone] Referring Provider: Dania Wright MD S, [address] [place] [address], [address]. tel:[phone] Office/Outpt E&M Established 15 Mins [facility] MD WRIGHT, [address] [place] [address] Dr Soto [address] 1000[place], [id number], [place] tel:[phone] CVR - [place] [facility] Body mass index (BMI) 39.0-39.9, adultVenous insufficiency (chronic) (peripheral) Jul-0 3 Jae Thomas. [address] [place] [address], [place], [address], [place]. tel:[phone] Referring Provider: Dania Wright MD S, [address] [place] [address], [place], [address]. tel:[phone] [facility] MD WRIGHT, [address] [place] [address] Dr Soto [address] 1000[place], [id number], [place] tel:[phone] CVR - [place] [facility] No Information Jul-0 3 Jae Thomas. [facility] [place] [place] [address], [place], [address], [place]. tel:[phone] Referring Provider: Dania Wright MD S, [address] [place] [address], [place], [address]. tel:[phone] [facility] MD WRIGHT, [address] [place] [address] Dr Soto [address] 1000[place], [id number], [place] tel:[phone] CVR - [facility] Venous insufficiency (chronic) (peripheral) 3 Jae Thomas. [address] [facility], [address], [place], [address], [place]. tel:[phone] Referring Provider: Dania Wright MD S, [address] [place] [address], [place], [address]. tel:[phone] Office/Oupt E&M New Pt 30 Mins [facility], [address], [place], [id number], [place] tel:[phone] CVR - [facility] Venous insufficiency (chronic) (peripheral)L ocalized edemaType 2 diabetes mellitus without complications Essential (primary) hypertensionF breann joint, unspecified joint 3 Jae VAN FACS [facility] BALBIR Johnny Thomas. [address] [facility], [address] [facility], [place], [address], [place]. tel:[phone] Referring Provider: Dania Wright MD S, [address] [place] [address], [place], [address]. tel:[phone] Family History Family Member Type Diagnosis Age At Onset No Information Payers Payer name Insurance type Covered constitution party ID Authoriza tion(s) Medicare HARRY ATKINSON [id number] [facility] [id number] Social History Type Description Quantity Date Captured [...]
--- OUTSIDE RECORDS SUMMARY | 2024-08-23 07:00 | XMS_ITS ---
Author Organization Total [facility] Address [address] [place] [address] Care Team Providers Care Mold Press Operator Name Role Phone Lizbeth Velasquez Unavailable [phone] REASON FOR VISIT ULTRA - CK OVARIES TAW Encounters Encounter Location Date Provider Diagnosis [facility] [place] [address] 08/23/2024 Lizbeth Velasquez Plan Of Treatment Next Appt Details Provider Name:Lizbeth vasquez, 08/07/2025 11:00:00 AM, [address] [facility], [address], [place], [address], Progress Notes * MORA GIACOMOCHRISTENDOB: [birth year] (74 yo F)Acc No.[id number]:08/23/2024 PROGRESS NOTES Patient: KIRT POOLE Appointment Provider: Jordan Velasquez M.D. :1950 A ge:73 Y S ex:Female Date:08/23/2024 Address: [address] [facility] Subjective: * Chief Complaints: * 1 . ULTRA - CK OVARIES TAW. * Medical History: Objective: * Vitals: Assessment: Plan: * Treatment: * Images: Billing Information: * Visit Code: * Procedure Codes: * Electronic signature of Aida Velasquez MD on 10/17/2024 at 01:07 PM EDT Sign off status: Pending * Appointment Provider: Jordan Velasquez M.D. Date: 0 08/23/2024 Generated for Irlanda bills/Eden/Karen on: 0 10/17/2024 01:07 PM EDT
[2024-10-17 13:05] VITALS: BP 130/78; PULSE 71; O2SAT 97; BMI 40.7
--- NOTE | 2024-10-17 13:05 | A.OFFVIS_ITS ---
Vital Signs 10/17/24 13:05 Height 5 ft 5 in Weight 244 lb 11.41 oz BMI 40.7 BP 130/78 Blood Pressure Location Lt brachial Position Sitting Pulse 71 Pulse Source Pulse Oximeter Pulse Oximetry (%) 97 Oxygen Delivery Method Room Air Intake Visit Reasons: PsA Intake Note: Patient presents for PSA and lab review follow up today. Allergies metformin Allergy (Severe, Verified 10/17/24 13:13) diarrhea, dulaglutide (From Trulicity) Adverse Reaction (Intermediate, Verified 10/17/24 13:13) Diarrhea empagliflozin (From Jardiance) Adverse Reaction (Intermediate, Verified 10/17/24 13:13) yeast infection glipizide Adverse Reaction (Intermediate, Verified 10/17/24 13:13) body aches sitagliptin (From Januvia) Adverse Reaction (Intermediate, Verified 10/17/24 13:13) Diarrhea Medication List - Last Reconciled 10/17/24 by Carolina Barnard MD albuterol sulfate 90 mcg/actuation 2 puffs inhalation Q6H PRN amlodipine 2.5 mg PO DAILY apremilast (Otezla) 30 mg PO BID atorvastatin 20 mg PO QPM blood sugar diagnostic (ElasticDotTouch Ultra Test strips) test blood sugar once a day blood-glucose meter (ElasticDotTouch Ultra2 Meter) As directed fluticasone propionate 50 mcg/actuation 1 spray intranasal Q12H levothyroxine 112 mcg PO DAILY losartan 100 mg PO DAILY Trulicity (dulaglutide) 3 mg (0.5 mL) subcut QWEEK NS HPI Comments Details: Patient is a 74 y.o. female with asthma, HTN, HLD, DM, Hypothyroidism, PsO c/b PsA here today for follow up Interval History: Patient last seen 04/18/24 - Doing well - Few PsO patches - concerned that her insurance company was not going to pay for medication anymore Today, - Currently only on 30mg OD - Doing well - Has some small PsO patches Rheumatologic History: PsO/PsA dx 10/2021 Methotrexate/Leflunomide contraindicated due to elevated enzymes and liver disease Otezla 2021 effective Initial history: The patient presents for evaluation of joint pains. The symptoms started about 4 or 5 weeks ago. Areas of pain include the shoulders, wrists, hands, and knees. She notes some swelling in the hands. Most problematic seems to be the shoulders which have pain over the deltoids radiating distally. These are particularly bothersome with lifting the arm overhead or with lying on the shoulders at night. She was diagnosed with psoriasis this fall, a few weeks after receiving the COVID-19 vaccination. She was on some Otezla for while but that seemed to cause some GI upset and did not help her skin rash. She eventually stopped it and currently uses shows some a topical moisturizers on the skin. The skin for the most part has improved. She does not recall a prior history of inflammatory arthritis or psoriasis. She wonders if she could have psoriatic arthritis. Current Rheumatology Medication(s): Otezla 30mg bid (takes OD) [facility] Medical History Dyspnea Postmenopausal Atrophic vaginitis Annual physical exam Psoriasis Limb pain Eosinophilia Pulmonary nodules Asthma Hypothyroid DM type 2 (diabetes mellitus, type 2) HTN (hypertension) LVH (left ventricular hypertrophy) Hyperlipidemia Obesity Surgical History History of surgery History of thyroidectomy (2017) Hx of colonoscopy History of back surgery Family History Father Carotid stenosis Mother Hypertension Social History Housing: House Alcohol intake: never Patient Tobacco Use Status: Former Tobacco user Years Smoked: 40 years ago e-Cigarette/Vaping Use: Never Used service: No Current occupational status: retired Cognitive needs: No Hearing needs: No Vision needs: Yes Review of Systems Const Details: Review of Systems Constitutional: Denies fever, chills, weight loss ENT: Denies vision changes, eye pain or eye redness, dental caries, dry mouth GI: Denies nausea, vomiting, diarrhea, abdominal pain, change in BM Pulm: Denies SOB, ARAYA, hemoptysis, wheezing Cards: Denies chest pain, palpitations Skin: Denies Raynaud's, rash, nail changes, photosensitivity, VISCOSE CELLAR CHARGE HAND: Denies headaches, weakness, paresthesias, recurrent falls MSK: as per HPI All other systems reviewed and are unremarkable except noted above Physical Exam Vital Signs: BMI result Body Mass Index 40.7 Vital signs reviewed Physical Examination CONSTITUITIONAL Patient alert and cooperative. Well appearing and in no apparent painful distress HEENT Conjunctiva and sclera clear. No lymphadenopathy. CHEST/RESPIRATORY SYSTEM Normal respiratory effort and able to speak in complete sentences. Clear to auscultation bilaterally. No crackles, rales, rhonchi, wheezes heard. CARDIAC SYSTEM Regular rate and rhythm. S1 and S2 heard no murmurs. Radial pulses intact bilaterally MSK Hands * Right Hand: Able to make a fist. No swelling or tenderness to palpation of these joints. No deformities noted. * Left Hand: Able to make a fist. No swelling or tenderness to palpation of th lizzeth joints. No deformities noted. Wrists * Right Wrist: Full ROM. 70 degrees of wrist flexion, 80 degrees of wrist extension. No swelling or TTP * Left Wrist: Full ROM. 70 degrees of wrist flexion, 80 degrees of wrist extension. No swelling or TTP Elbows * Right Elbow: Full ROM. No swelling or TTP. No TTP of the medial and lateral epicondyles * Left Elbow: Full ROM. No swelling or TTP. No TTP of the medial and lateral epicondyles Shoulders * Right shoulder: Full ROM. No swelling noted. No TTP of the AC joint, subacromial bursa or posterior shoulder * Left shoulder: Full ROM. No swelling noted. No TTP of the AC joint, subacromial bursa or posterior shoulder Hips * Right hip: Good ROM. No pain elicited with hip flexion/internal rotation/external rotation * Left hip: Good ROM. No pain elicited with hip flexion/internal rotation/external rotation Hip bursa: No tenderness to palpation bilaterally Knees * Right knee: Full ROM. No swelling noted. No TTP of the knee joint lie or pes anserine bursa * Left knee: Full ROM. No swelling noted. No TTP of the knee joint lie or pes anserine bursa. Ankles * Right ankle: Good ankle dorsiflexion and plantar flexion. No swelling. No TTP of the ankle joint * Left ankle: Good ankle dorsiflexion and plantar flexion. No swelling. No TTP of the ankle joint Feet * Right foot: Negative squeeze test * Left foot: Negative squeeze test Tender points? * No tenderness to palpation of the bilateral trapezius, supraspinatus, anterior costochondral junctions, bilateral suboccipital muscle insertions SKIN No rashes Results Reviewed Results Reviewed: Laboratory Tests 04/15/24 04/15/24 08/20/24 13:08 13:44 09:06 WBC 7.8 RBC 4.65 Hgb 13.6 Hct 40.6 Plt Count 406 H ESR 14 Sodium 140 Potassium 4.1 Chloride 107 Carbon Dioxide 22 BUN 13 Creatinine 0.97 AST 31 ALT 42 H Alkaline Phosphatase 83 C-Reactive Protein 0.39 25-OH Vitamin D Total 49.3 Rheumatology Labs 10/13/21 07/27/23 12:20 11:26 Rheumatoid Factor < 15.0 Cycl Citrul Peptide IgG <16 ADDIE Screen NEGATIVE HLA-B27 Negative DEXA 06/2024 FINDINGS: The bone mineral density of the lumbar spine is 1.223 with a T-score of 0.4, and a Z-score of 0.9. This represents a BMD change of -0.4% compared to the prior exam. This is not statistically significant. The bone mineral density of the left total hip is 0.905 with a T-score of -0.8, and a Z-score of 0.0. This represents BMD change of 2.1% compared to the prior exam. This is not statistically significant. The bone mineral density of the left femoral neck is 0.856 with a T-score of -1.3, and a Z-score of -0.3. This represents BMD change of 7.8% compared to the prior exam. FRACTURE RISK: The FRAX index suggests a ten year probability of major osteoporotic fracture of 8.9%, and of hip fracture 1.2%. Assessment & Plan Assessment & Plan (1) Psoriatic arthritis: Comment: dx 10/2021 Methotrexate/Leflunomide contraindicated due to elevated enzymes and liver disease Otezla 2021 effective. Decrease to once a day due to diarrhea Code(s): L40.50 - Arthropathic psoriasis, unspecified Category: Medical Plan: #PsO/PsA Patient is a 74 y.o. female with PsO/PsA here today for follow up. Currently in remission Has a few PsO patches Patient would like to try stopping the medication. I am okay with that. Told her that if she has return of symptoms or worsening psoriasis she should restart her Otezla at twice a day. Plan - Hold otezla - RTC 4 months - Labs before visit: CBC, CMP, ESR, CRP (2) Long-term current use of apremilast: Code(s): Z79.61 - terminal make up operator (current) use of immunomodulator Plan: #Long-term Current Use of Apremilast Risks and benefits of Apremilast in the management of psoriatic arthritis and psoriasis discussed with the patient. Benefits include decreased joint pain and morbidity Risks include GI upset including diarrhea, hypersensitivity reactions, significant weight loss, symptoms of depression Plan I spent 30 minutes reviewing the record and labs, taking a history, examining the patient, discussing the treatment plan, ordering diagnostic work up and d ocumenting in the medical record Orders: Orders Complete Blood Count Auto Diff 4 Months L40.50 - Arthropathic psoriasis, unspecified Comprehensive Met. Panel 4 Months L40.50 - Arthropathic psoriasis, unspecified C Reactive Protein 4 Months L40.50 - Arthropathic psoriasis, unspecified Erythrocyte Sedimentation Rate 4 Months L40.50 - Arthropathic psoriasis, unspecified Coding Level of Care Code Est Pt Level 4 (48237) Complex EM visit Add On G2211 Diagnoses Psoriatic arthritis L40.50 Long-term current use of apremilast Z79.61
--- OUTSIDE RECORDS SUMMARY | 2024-10-17 13:08 | XMS_ITS | Patient Health Record ---
[facility] Address [address] [place] [address] Care Team Providers Care Development Coach Name Role Phone Dania Wright MD Primary Care Provider Unavaila ble Black, Sharita Unavailable [phone] Allergies Allergen (clinical drug ingredient) Drug/Non Drug Allergy documented on EMR Reaction Allergy Type Onset Date Status sitagliptin Januvia diarrhea Drug Allergy Activ e empagliflozin Jardiance diarrhea Drug Allergy Act bushra Results Component Value Reference Range Notes HEMOGLOBIN A1C (GLYCOHEMOGLO BIN) Reviewed date:09/30/2024 01:03:41 PM Interpretation: Performing Lab: Notes/Report: HEMOGLOBIN A1C % (HH) 6.1 Reason For Referral No Information Medications Medication SIG (Take, Route, Frequency, Duration) Notes Start Date End Date Status Ammonium Lactate 12 % 1 application Exte rnally to affected areas of dry skin to feet except for between the toes Twice a day; Duration: 30 days Active amLODIPine Besylate 2.5 MG 1 tablet Oral ly Once a day Active Otezla 30 MG 1 tablet Orally Twic e a day Active Losartan Potassium 100 MG 1 tablet Orall y Once a day Active Urea 45 % 1 application as nee ded Externally Once a day 09/30/2024 Active Atorvastatin Calcium 20 MG 1 tablet Oral ly Once a day Active Trulicity 1.5 MG/0.5ML as directed Subcutaneous Active Levothyroxine Sodium 112 MCG 1 capsule in the morning on an empty stomach Orally Once a day Active Ciclopirox 0.77 % 1 application Taxation Consultant ally Twice a day; Duration: 30 days 09/30/2024 Active Immunizations Vaccine Route Administration Date Status Comme nts Influenza Unknown 09/30/2024 Refused Social History Tobacco Use: Social History Observation Description Date Details (start date - stop date) Never Smoker NA - NA Tobacco use other than smoking: Question Answer Notes Are you an other tobacco user? No Tobacco Control (Standard) Question Answer Notes Tobacco use: Nonsmoker AUDIT-C (Standard) Question Answer Notes Did you have a drink containing alcohol in the p ast year? No Points 0 Interpretation Negative Problems Problem Type SNOMED Code ICD Code Onset Dates Problem Status W/U Status Risk Notes Problem Acquired hammer toe of right foot (105698853390396 5) Other hammer toe(s) (acquired), right foot (M20.41) Active confirmed Problem Acquired hammer toe of left foot (287028637732607 3) Other hammer toe(s) (acquired), left foot (M20.42) Active confirmed Problem Plantar wart (00702538) Plantar wart (B07.0) Active confirmed Problem Type II diabetes mellitus without complication (915289692) Type 2 diabetes mellitus without complication, unspecified whether rat exterminator insulin use (E11.9) Active confirmed Vital Signs Blood pressure diastolic 76 mm Hg 09/30/2024 Height 5 ft 5 in in 09/30/2024 Blood pressure systolic 120 mm Hg 09/30/2024 Weight 240 lbs lbs 09/30/2024 BMI 39.93 kg/m2 09/30/2024 Procedures Procedure Date Ordered Date Performed Result Body Sit e 88627-Mwve Destruction, 1-14 09/30/2024 N/A Encounters Encounter Location Date Provider Diagnosis [facility] [place] [address] [place] [address] 09/30/2024 Sharita Black Pain in right toe(s) M79.674 ; Onychomycosis B35.1 ; Pain in left toe(s) M79.675 ; Right foot pain M79.671 ; Plantar wart B07.0 ; Other hammer toe(s) (acquired), right foot M20.41 ; Other hammer toe(s) (acquired), left foot M20.42 ; Xerosis of skin L85.3 and Type 2 diabetes mellitus without complication, unspecified whether rat exterminator insulin use E11.9 Assessments Encounter Date Diagnosis (ICD Code) Assessment Notes Treatment Notes Treatment Clinical Notes Section Notes 09/30/2024 Pain in right toe(s) (ICD-10 - M79.674) 09/30/2024 Onychomycosis (ICD-10 - B35.1) 09/30/2024 Pain in left toe(s) (ICD-10 - M79.675) 09/30/2024 Right foot pain (ICD-10 - M79.671) 09/30/2024 Plantar wart (ICD-10 - B07.0) 09/30/2024 Other hammer toe(s) (acquired), right foot (ICD-10 - M20.41) Patient Educated with: DIABETIC FOOT CARE INSTRUCTIONS.p df (DIABETIC FOOT CARE INSTRUCTIONS.p df) 09/30/2024 Other hammer toe(s) (acquired), left foot (ICD-10 - M20.42) 09/30/2024 Xerosis of skin (ICD-10 - L85.3) 09/30/2024 Type 2 diabetes mellitus without complication, unspecified whether chcf insulin use (ICD-10 - E11.9) Plan Of Treatment Pending Test Test Name Order Date [id number] Destruction, 1-14 09/30/2024 Next Appt Details Provider Name:Sharita Sweeney , 04/21/2025 11:15:00 AM, [address] [place], [address], Insurance Providers Payer Name Payer Address Payer Phone Subscriber Number Group Number Insured Name Patient Relationship to Insured Coverage Start Date Coverage End Date Medicare National [employer]t [employer] [address] [place] [address] [id number] Randa Sanabria Self - patient is the insured [employer] [facility] [address] [place] [address] [id number] Randa Sanabria Self - patient is the insured Medical (General) History Medical History History ICD Code Arthritis covid-19 type II diabetes Psoriasis/eczema thyroid Measles Mumps Chicken pox Surgical History Surgery Date(Month/Year) back surgery Thyroid 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
--- OUTSIDE RECORDS SUMMARY | 2024-10-17 13:08 | XMS_ITS | Patient Health Record ---
Author Organization [facility] Address [address] [place] [id number] Care Team Providers Care Specification Consultant Name Role Phone Rachelle Vences DO Primary Care Provider Yoni Mari Unavailable [phone] Reason For Referral No Information Medications Medication SIG (Take, Route, Frequency, Duration) Notes Start Date End Date Status MoviPrep 100 GM as directed Orally o nce for 1 dose 05/06/2011 Active Atenolol-Chlorthalidone 100/10mg Active Multi Vitamin/Minerals 04/10/20242024 Active Problems Problem Type SNOMED Code ICD Code Onset Dates Problem Status W/U Status Risk Notes Problem Diverticulosis of colon (finding) (369696455) Diverticulosis of colon (without mention of hemorrhage) (562.10) Active confirmed Problem Irritable bowel syndrome (69808886) Irritable bowel syndrome (564.1) Active confirmed Problem Screening for malignant neoplasm of colon (721239365) Special screening for malignant neoplasms, colon (V76.51) Active confirmed Plan Of Treatment Future Test Test Name Order Date COLONOSCOPY 04/27/2011 Insurance Providers Payer Name Payer Address Payer Phone Subscriber Number Group Number Insured Name Patient Relationship to Insured Coverage Start Date Coverage End Date [facility] [employer] [address] [place] [address] [id number] KIRT VELAZCO Self - patient is the insured Medical (General) History Medical History History ICD Code hypertension irritable bowel syndrome diverticulosis Denies NV,DM,CVA,Lung disease,renal dise ase Surgical History Surgery Date(Month/Year) back surgery 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
--- OUTSIDE RECORDS SUMMARY | 2024-10-17 13:08 | XMS_ITS | Clinical Summary ---
Author Organization [facility] Address [address] [place] [address] Care Team Providers Care Steward/Stewardess Name Role Phone VangieRachelle DO Primary Care Provider [phone] Allergies No known active allergies Medications Medication [...] 56 10/26/2017 2:17 PM EDT Temperature 36.5 C (97.7 F) 10/26/2017 2:17 PM EDT Respiratory Rate - - Oxygen Saturation 98% [...] Screening (Colonoscopy) 05/11/2023 05/11/2013 Influenza Vaccine (#1) 2024 DTap / Tdap / Td (2 - Td or Tdap) 01/11/2026 01/12/2016 RSV Adult > 60+ Yrs or (1 - 1-dose 75+ series) 09/07/2026 Hepatitis B Vaccines Aged Out No long er eligible based on patient's age to complete this topic RSV Ped < 20 months Aged Out No longe r eligible based on patient's age to complete this topic Care Teams Steward/Stewardess Relationship Specialty Start Date End Date Rachelle Vences DO PCP - General Family Medicine 07/14/17
== END 2024-10-17 13:39 | disposition home or self-care (01) ==
LOC: HO.RHE 13:04
PROVIDERS: PCP Internal Medicine; Visit Provider Student in an Organized Health Care Education/Training Program
DX: L40.50 Arthropathic psoriasis, unspecified (principal); Z79.61 Long term (current) use of immunomodulator
CPT/HCPCS: 99214; G2211

== ENCOUNTER → 2024-10-17 13:03 | Outpatient (BNVA) | payer MEDICARE, OTHER, SELFPAY | PROVIDERS: PCP Internal Medicine; Visit Provider Student in an Organized Health Care Education/Training Program | DX: L40.50 Arthropathic psoriasis, unspecified (principal); Z79.61 Long term (current) use of immunomodulator; Z79.85 Long-term (current) use of injectable non-insulin antidiabetic drugs | CPT/HCPCS: 99212 ==

== ENCOUNTER 2024-10-21 11:26 | Outpatient (AMB) | payer MEDICARE, OTHER, SELFPAY ==
--- OUTSIDE RECORDS SUMMARY | 2023-02-06 07:00 | XMS_ITS | Continuity of Care Document ---
Author Organization [facility] Address [address] [place] [address] Phone Care Team Providers Care Mirror Polisher Name Role Phone Jae VAN FACS RVT Johnny MCGREGOR Unavailable Unavailable Allergies, Adverse Reactions, Alerts Substance Reaction Status Criticality metformin Active No Information empagliflozin Active No Information SITAGLIPTIN PHOSPHATE Active No Inf ormation Medications Medication Instructions Dosage Effective Dates (start - stop) Status Comments celecoxib 200 mg capsule - A ctive Otezla 30 mg tablet - Active amlodipine 2.5 mg tablet - A ctive atorvastatin 20 mg tablet - Active losartan 100 mg tablet - Act bushra levothyroxine 137 mcg capsule - Active Trulicity 0.75 mg/0.5 mL subcutaneous pen injector - Active Procedures Procedure Date Office/Outpt E&M Established 15 Mins Jan Duplex Scan-extrem Veins; Uni/ Endovenous Laser, 1st Vein Endovenous laser vein addon Duplex Scan-extrem Veins; Uni/ 23 Phleb Veins - Extrem - To 20 Inj Scleros Solut; Mx Veins 1 3 Endovenous Laser, 1st Vein Endovenous laser vein addon Offic/outpt E&m Estab 5 Min Trial - Tele medicine Office/Outpt E&M Established 15 Mins Jul Duplex Scan-extrem Veins; Comp Office/Oupt E&M New Pt 30 Mins Advance Directives Directive Yes / No Effective Date File Name No Information Encounters Encounter Description Practice Location Reason(s) For Visit Diagnoses Date Provider Providers Copied on Encounter Office/Outpt E&M Established 15 Mins [facility] MD WRIGHT, [address] [place] [address] Dr Soto [address], [id number], [place] tel:[phone] CVR - [facility] Chronic venous hypertension (idiopathic) with other complications of bilateral lower extremity Oct-3 3 Jae Thomas. [address] [place] [address], [place], [address], [place]. tel:[phone] Referring Provider: Dania Wright MD S, [address] [place] [address], [place], [address]. tel:[phone] [facility] MD WRIGHT, [address] [place] [address] Dr Soto [address], [id number], [place] tel:[phone] [facility] Encntr for f/u exam aft trtmt for cond oth than malig neoplmVaricos e veins of left lower extremities with pain Sep- 3 Jae Thomas. [address] [place] [address], [place], [address], [place]. tel:[phone] Referring Provider: Dania Wright MD S, [address] [place] [address], [place], [address]. tel:[phone] [facility] MD WRIGHT, [address] [place] [address] Dr Soto [address], [id number], [place] tel:[phone] CVR - [facility] Varicose veins of left lower extremity with inflammation Sep- 3 Jae Thomas. [address] [facility], [place] [address], [place], [address], [place]. tel:[phone] Referring Provider: Dania Wright MD S, [address] [place] [address], [place], [address]. tel:[phone] [facility], [address] [place] [address] Dr Soto [address], [id number], [place] tel:[phone] CVR - [facility] Encntr for f/u exam aft trtmt for cond oth than malig neoplmVaricos e veins of right lower extremities with pain 3 Jae VAN FACS T BALBIR Thomas. [address] [place] [address], [place], [address], [place]. tel:[phone] Referring Provider: Danai Wright MD S, [address] [place] [address], [place], [address]. tel:[phone] [facility], [address] [place] [address] Dr Soto [address], [id number], [place] tel:[phone] CVR - [facility] Varicose veins of right low extrm w oth complications 3 Johanna Osman. [address] [place] [address], [address], [facility] [place], [id number], [place]. tel:[phone] Referring Provider: Dania Wright MD S, [address] [place] [address], [place], [address]. tel:[phone] [facility], [address] [place] [address] [address], [place], [id number], [place] tel:[phone] CVR - [facility] Varicose veins of right low extrm w oth complications 3 Jae VAN FACS T BALBIR Thomas. [address] [place] [address] [address], [place] [address], [place]. tel:[phone] Referring Provider: Dania Wright MD S, [address] [place] [address], [place], [address]. tel:[phone] Offic/outpt E&m Estab 5 Min Trial - [facility] MD WRIGHT, [address] [place] [address] Dr Soto [address], [id number], [place] tel:[phone] CVR - [facility] Venous insufficiency (chronic) (peripheral) Jul-2 3 Jae Thomas. [address] [place] [address], [place], [address], [place]. tel:[phone] Referring Provider: Dania Wright MD S, [address] [place] [address], [address]. tel:[phone] Office/Outpt E&M Established 15 Mins [facility] MD WRIGHT, [address] [place] [address] Dr Soto [address], [id number], [place] tel:[phone] CV[facility] - [facility] Body mass index (BMI) 39.0-39.9, adultVenous insufficiency (chronic) (peripheral) Jul-0 3 Jae Thomas. [address] [place] [address], [place], [address], [place]. tel:[phone] Referring Provider: Dania Wright MD S, [address] [place] [address], [place], [address]. tel:[phone] [facility] MD WRIGHT, [address] [place] [address] Dr Soto [address], [id number], [place] tel:[phone] CV[facility] - [facility] No Information Jul-0 3 Jae Thomas. [facility] [place] [address], [place], [address], [place]. tel:[phone] Referring Provider: Dania Wright MD S, [address] [place] [address], [place], [address]. tel:[phone] [facility] MD WRIGHT, [address] [place] [address] Dr Soto [address], [id number], [place] tel:[phone] CVR - [facility] Venous insufficiency (chronic) (peripheral) 3 Jae Thomas. [address] [facility], [address], [place], [address], [place]. tel:[phone] Referring Provider: Dania Wright MD S, [address] [place] [address], [place], [address]. tel:[phone] Office/Oupt E&M New Pt 30 Mins [facility], [address], [place], [id number], [place] tel:[phone] CVR - [facility] Venous insufficiency (chronic) (peripheral)L ocalized edemaType 2 diabetes mellitus without complications Essential (primary) hypertensionF breann joint, unspecified joint 3 Jae VAN FACS [facility] BALBIR Johnny Thomas. [address] [facility], [address] [facility], [place], [address], [place]. tel:[phone] Referring Provider: Dania Wright MD S, [address] [place] [address], [place], [address]. tel:[phone] Family History Family Member Type Diagnosis Age At Onset No Information Payers Payer name Insurance type Covered green party ID Authoriza tion(s) Medicare HARRY ATKINSON [id number] [facility] [id number] Social History Type Description Quantity Date Captured Comments Alcohol Use Details No Caffeine Use Details Unknown Tobacco Use Status Smoking Status Smoker, current stat us unknown Non-Smoking Tobacco Use Details : No Details Available : No Details Available Sex Female Vital Signs Date / Time: Height Weight BMI Pulse Rate Blood Pressure Temperature Respiratory Rate Body Surface Area Head Circumference Head Circ. Percentile Wt./Sergio. Percentile BMI percentile Pulse Ox Inhaled Ox 11:18 AM 65.00 in Chief Complaint And Reason For Visit No Information Reason For Referral Reason For Referral No Information Plan Of Treatment Date Type Action Status Goal Tobacco cessation counseling completed Goal Tobacco cessation counseling completed Goal Diet education completed Goal Tobacco cessation counseling completed Referral Ordered: Weight management: Referral to physician timeframe: 3 Months (related to Body mass index (BMI) 39.0-39.9, adult) ordered History Of Present Illness Encounter Date Complaint History Of Prese nt Illness No Information Functional Status Date Functional Assessmen t No Information Instructions Date Instruction Additional Infor torsten Patient education booklet given Related to Chrn Vns Hyprtnsn w/Compl (Pain Edema Swelling); BILAT Continue compression stocking us e Related to Chrn Vns Hyprtnsn w/Compl (Pain Edema Swelling); BILAT Patient education booklet given Related to Venous Insufficiency (Chronic / Peripheral) Dietary needs education Related to Body mass index [BMI] 39.0-39.9, adult Diet education Related to Body mass index (BMI) 39.0-39.9, adult Giving Encouragement to exercise Related to Body mass index (BMI) 39.0-39.9, adult Lifestyle education Related to B dustin mass index (BMI) 39.0-39.9, adult Patient education booklet given Related to Venous insufficiency (chronic) (peripheral) Compression stocking usage as conservative measure Related to Venous insufficiency (chronic) (peripheral) Assessments Type Assessment Date assessment Chronic venous hyper tension (idiopathic) with other complications of bilateral lower extremity Patient Care Teams Name Effective Dates (start - stop) Status Members No Information
--- OUTSIDE RECORDS SUMMARY | 2024-08-23 07:00 | XMS_ITS ---
Author Organization Total [facility] Address [address] [place] [address] Care Team Providers Care Skilled Laborer Name Role Phone Lizbeth Velasquez Unavailable [phone] REASON FOR VISIT ULTRA - CK OVARIES TAW Encounters Encounter Location Date Provider Diagnosis [facility] [employer] [place] [address] 08/23/2024 Lizbeth Velasquez Plan Of Treatment Next Appt Details Provider Name:Lizbeth vasquez, 08/07/2025 11:00:00 AM, [address] [facility] [address], [address], [place], [address], Progress Notes * MORA GIACOMOCHRISTENDOB: [birth year] (74 yo F)Acc No.[id number]:08/23/2024 PROGRESS NOTES Patient: KIRT POOLE Appointment Provider: Jordan Velasquez M.D. :1950 A ge:73 Y S ex:Female Date:08/23/2024 Address: [address] [facility] Subjective: * Chief Complaints: * 1 . ULTRA - CK OVARIES TAW. * Medical History: Objective: * Vitals: Assessment: Plan: * Treatment: * Images: Billing Information: * Visit Code: * Procedure Codes: * Electronic signature of Aida Velasquez MD on 10/21/2024 at 12:35 PM EDT Sign off status: Pending * Appointment Provider: Jordan Velasquez M.D. Date: 0 08/23/2024 Generated for Irlanda bills/Eden/Karen on: 0 10/21/2024 12:35 PM EDT
[2024-10-21 12:20] VITALS: BP 134/76; PULSE 99; TEMP 36.7; O2SAT 96; BMI 40.5
--- NOTE | 2024-10-21 12:20 | AM.OFFWIN_ITS ---
Intake Vital Signs 10/21/24 12:20 Height 5 ft 5 in Weight 243 lb 2 oz BMI 40.5 BP 134/76 Blood Pressure Location Rt brachial Position Sitting Pulse 99 Pulse Source Pulse Oximeter Temp 98.0 F Temp Source Oral Pulse Oximetry (%) 96 Oxygen Delivery Method Room Air Intake Visit Reasons: EP Bad chest cough Patient Tobacco Use Status: Former Tobacco user Teletype Operator Required: No Is last menstrual period known: No Post menopausal: Yes Patient : No Allergies metformin Allergy (Severe, Verified 10/21/24 12:26) diarrhea, empagliflozin (From Jardiance) Adverse Reaction (Intermediate, Verified 10/21/24 12:26) yeast infection glipizide Adverse Reaction (Intermediate, Verified 10/21/24 12:26) body aches sitagliptin (From Januvia) Adverse Reaction (Intermediate, Verified 10/21/24 12:26) Diarrhea Do you need a note to return to daycare/school/sports/work: No HPI HPI Comments History of Present Illness Details History - The patient is a 74-year-old female wi th past med hx of asthma, T2DM, HTN and obesity presenting with a persistent cough and congestion lasting over a week. Also has fatigue and some maxillary sinus tenderness/pressure. - The cough is associated with wheezing and shortness of breath, particularly due to her history of asthma. - She has been using her rescue inhaler and Flonase, which provide some relief. Also has been using Coriceden. - Denies ear pain, headaches. - The patient reports side pain, possibl y from coughing, and denies fever but experiences hot and cold sensations. - COVID-19 test 3 days ago was negative. Physical Exam General: Cooperative, healthy appearing, comfortable and no acute distress Orientation/consciousness: Patient oriented x3 Limitations: No limitations Head: Normal to inspection Ears: Hearing grossly normal bilaterally, external ears normal and TM's normal bilaterally Nose: Normal external nose present, Normal nares present and No nasal discharge present Face and sinus: Normal facial exam and Yes sinuses nontender Mouth: Normal oral and palatal mucosa present and moist mucous membranes Throat: Yes tonsils normal, Yes uvula midline. Posterior oropharynx erythema, no exudates Eyes: Appearance normal, both eyes and all related structures Neck: Normal visual inspection, full ROM Respiratory: slight exp wheeze and slight rhonchi bilaterally. Normal respiratory effort, able to speak in complete sentences, Actively coughing, no respiratory distress, not tachypneic, no tripod positioning and no use of accessory muscles. Cardiovascular: Regular rate and rhythm. Normal S1 and S2 Skin: No rashes or lesions noted Neuro: Patient oriented x3 Extremities: Normal to inspection and Yes no clubbing, cyanosis or edema PFSH Medical History Dyspnea Postmenopausal Atrophic vaginitis Annual physical exam Psoriasis Limb pain Eosinophilia Pulmonary nodules Asthma Hypothyroid DM type 2 (diabetes mellitus, type 2) HTN (hypertension) LVH (left ventricular hypertrophy) Hyperlipidemia Obesity Surgical History History of surgery History of thyroidectomy (2017) Hx of colonoscopy History of back surgery Family History Father Carotid stenosis Mother Hypertension Social History Housing: House Alcohol intake: never Patient Tobacco Use Status: Former Tobacco user Years Smoked: 40 years ago e-Cigarette/Vaping Use: Never Used Patient : No service: No Current occupational status: retired Cognitive needs: No Hearing needs: No Vision needs: Yes Review of Systems Const All systems reviewed & are unremarkable except as noted in HPI and below Physical Exam Vital Signs: Last Vital Signs Temp 98.0 F 10/21/24 12:20 Pulse 99 10/21/24 12:20 BP 134/76 10/21/24 12:20 Pulse Ox 96 10/21/24 12:20 Oxygen Delivery Method Room Air 10/21/24 12:20 BMI result Body Mass Index 40.5 Assessment & Plan Assessment & Plan (1) Lower respiratory infection (e.g., bronchitis, pneumonia, pneumonitis, pulmonitis): Code(s): J22 - Unspecified acute lower respiratory infection Plan: Plan - VSS, pt well appearing and PE remarkable for slight exp wheeze. Likely bronchitis vs CAP. - Rapid strep negative. - A chest x-ray is recommended to rule out pneumonia. - Prescribe a low dose of prednisone 20 mg to manage wheezing, with instructions to use only if symptoms worsen. - Tessalon Perles prescribed for cough suppression, to be used Q8H as needed, es pecially before bedtime. - COVID-19 and RSV testing to be conducted for thorough evaluation. - Follow-up call to discuss x-ray and test results, with potential antibiotic treatment if pneumonia is confirmed. Patient was informed and verbally consented to the use of an ambient scribe for clinic note documentation during this visit Orders: Orders XR chest 2V Today R05.9 - Cough, unspecified AMB Rapid Strep Screen Today Z13.9 - Encounter for screening, unspecified SARS-CoV2/FLU/RSV Today R09.89 - Other specified symptoms and signs involving the circulatory and respiratory systems Medications: New benzonatate 200 mg PO BEDTIME PRN 10 caps 0RF cough prednisone 20 mg PO QAM 5 tabs 0RF Coding Level of Care Code Est Pt Level 4 (25401) Diagnoses Lower respiratory infection (e.g., bronchitis, pneumonia, pneumonitis, pulmonitis) J22
--- OUTSIDE RECORDS SUMMARY | 2024-10-21 12:35 | XMS_ITS | Patient Health Record ---
[facility] Address [address] [place] [address] Care Team Providers Care Ergonomics Technician Name Role Phone Dania Wright MD Primary Care Provider Unavaila ble Black, Sharita Unavailable [phone] Allergies Allergen (clinical drug ingredient) Drug/Non Drug [...] day Active Ciclopirox 0.77 % 1 application Knitter Machine ally Twice a day; Duration: 30 days [...] Problem Acquired hammer toe of right foot (594455548848552 5) Other hammer toe(s) (acquired), right foot (M20.41) Active confirmed Problem Acquired hammer toe of left foot (859558585943864 3) Other hammer toe(s) (acquired), left foot (M20.42) Active confirmed Problem Plantar wart (33327512) Plantar wart (B07.0) Active confirmed Problem Type II diabetes mellitus without complication (386524751) Type 2 diabetes mellitus without complication, unspecified whether line mover insulin use (E11.9) Active confirmed Vital Signs Blood pressure diastolic 76 mm Hg 09/30/2024 Height 5 ft 5 in in 09/30/2024 Blood pressure systolic 120 mm Hg 09/30/2024 Weight 240 lbs lbs 09/30/2024 BMI 39.93 kg/m2 09/30/2024 Procedures Procedure Date Ordered Date Performed Result Body Sit e 11765-Mvll Destruction, 1-14 09/30/2024 N/A Encounters Encounter Location Date Provider Diagnosis [facility] [address] [place] [address] 09/30/2024 Sharita Black Pain in right toe(s) M79.674 ; Onychomycosis B35.1 ; Pain in left toe(s) M79.675 ; Right foot pain M79.671 ; Plantar wart B07.0 ; Other hammer toe(s) (acquired), right foot M20.41 ; Other hammer toe(s) (acquired), left foot M20.42 ; Xerosis of skin L85.3 and Type 2 diabetes mellitus without complication, unspecified whether line mover insulin use E11.9 Assessments Encounter Date Diagnosis [...] 2 diabetes mellitus without complication, unspecified whether custodial insulin use (ICD-10 - E11.9) Plan Of Treatment Pending Test Test Name Order Date [id number] Destruction, 1-14 09/30/2024 Next Appt Details Provider Name:Sharita Sweeney , 04/21/2025 11:15:00 AM, [address] [place], [address], Insurance Providers Payer Name Payer Address Payer Phone Subscriber Number Group Number Insured Name Patient Relationship to Insured Coverage Start Date Coverage End Date Medicare National [employer] [address] [place] [address] [id number] Randa Sanabria Self - patient is the insured [employer] [address] [place] [address] [id number] Randa Sanabria Self - patient is the insured Medical (General) History Medical History History ICD Code Arthritis covid-19 type II diabetes Psoriasis/eczema thyroid Measles Mumps Chicken pox Surgical History Surgery Date(Month/Year) back surgery Thyroid 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
--- OUTSIDE RECORDS SUMMARY | 2024-10-21 12:35 | XMS_ITS | Clinical Summary ---
Author Organization [facility] Address [address] [place] [address] Care Team Providers Care National Account Representative Name Role Phone VangieRachelle DO Primary Care Provider [phone] Allergies No known active allergies Medications Medication [...] age to complete this topic Care Teams National Account Representative Relationship Specialty Start Date End Date Rachelle Vences DO PCP - General Family Medicine 07/14/17
== END 2024-10-21 13:26 | disposition home or self-care (01) ==
PROVIDERS: PCP Internal Medicine; Visit Provider Physician Assistant
DX: J22 Unspecified acute lower respiratory infection (principal); Z13.9 Encounter for screening, unspecified

== ENCOUNTER 2024-10-21 11:26 | Outpatient (REF) | payer MEDICARE, OTHER, SELFPAY ==
--- NOTE | ~2024-10-21 | XR_ITS ---
EXAMINATION: XR CHEST 2 VIEWS HISTORY: R05.9 - Cough, unspecified COMPARISON: Comparison is made with the prior examination dated 04/30/2024. FINDINGS: PA and lateral views of the chest are submitted. The lungs are expanded and clear. There is no pleural effusion, pneumothorax, or pulmonary vascular congestion. The heart is normal in size. There is degenerative disc disease of the spine. XR/XR chest 2V IMPRESSION: No acute cardiopulmonary abnormality. Electronically signed by: Yoni Daniel MD 10/21/2024 01:41 PM EDT
[2024-10-21 18:16] LABS: Resp Syncy Virus RNA Qual PCR NEGATIVE (Negative); SARS COV2 PCR INHOUSE NEGATIVE (Negative)
== END 2024-10-21 11:27 | disposition home or self-care (01) ==
LOC: HO.LAB 11:26
PROVIDERS: PCP Internal Medicine; Visit Provider Physician Assistant
DX: R05.9 Cough, unspecified (principal); R09.89 Other specified symptoms and signs involving the circulatory and respiratory systems; Z13.9 Encounter for screening, unspecified; J22 Unspecified acute lower respiratory infection
CPT/HCPCS: 71046; 87637; 87880; 99212

== ENCOUNTER → 2024-10-21 13:22 | Outpatient (BNV) | payer MEDICARE, OTHER, SELFPAY | PROVIDERS: PCP Internal Medicine; Visit Provider Radiology Diagnostic Radiology | DX: R05.9 Cough, unspecified (principal) | CPT/HCPCS: 71046 ==

== ENCOUNTER 2024-11-07 13:31 | Outpatient (AMB) | payer MEDICARE, OTHER, SELFPAY ==
--- OUTSIDE RECORDS SUMMARY | 2024-08-23 07:00 | XMS_ITS ---
Author Organization Total [facility] Address [address] [place] [address] Care Team Providers Care Director Mobile Name Role Phone Lizbeth Velasquez Unavailable [phone] REASON FOR VISIT ULTRA - CK OVARIES TAW Encounters Encounter Location Date Provider Diagnosis [facility] [place] [address] 08/23/2024 Lizbeth Velasquez Plan Of Treatment Next Appt Details Provider Name:Lizbeth vasquez, 08/07/2025 11:00:00 AM, [address], [address], [place], [address], Progress Notes * MORA GIACOMOCHRISTENDOB: [birth year] (74 yo F)Acc No.[id number]:08/23/2024 PROGRESS NOTES Patient: KIRT POOLE Appointment Provider: Jordan Velasquez M.D. :1950 A ge:73 Y S ex:Female Date:08/23/2024 Address: [address] [facility] Subjective: * Chief Complaints: * 1 . ULTRA - CK OVARIES TAW. * Medical History: Objective: * Vitals: Assessment: Plan: * Treatment: * Images: Billing Information: * Visit Code: * Procedure Codes: * Electronic signature of Aida Velasquez MD on 11/07/2024 at 01:43 PM EDT Sign off status: Pending * Appointment Provider: Jordan Velasquez M.D. Date: 0 08/23/2024 Generated for Irlanda bills/Eden/Karen on: 0 11/07/2024 01:43 PM EDT
[2024-11-07 13:33] VITALS: BP 148/80; PULSE 82; O2SAT 96; BMI 40.5
--- NOTE | 2024-11-07 13:33 | MHC.OFFVIS ---
Vital Signs 11/07/24 13:33 Height 5 ft 5 in Weight 243 lb 9.773 oz BMI 40.5 BP 148/80 H Blood Pressure Location Lt brachial Position Sitting Pulse 82 Pulse Source Pulse Oximeter Pulse Oximetry (%) 96 Oxygen Delivery Method Room Air Intake Visit Reasons: Asthma Produce Clerk Required: No Accompanied by: Self / Same As Patient Allergies metformin Allergy (Severe, Verified 11/07/24 13:36) diarrhea, empagliflozin (From Jardiance) Adverse Reaction (Intermediate, Verified 11/07/24 13:36) yeast infection glipizide Adverse Reaction (Intermediate, Verified 11/07/24 13:36) body aches sitagliptin (From Januvia) Adverse Reaction (Intermediate, Verified 11/07/24 13:36) Diarrhea HPI Comments Details: The patient is a 74-year-old woman previously healthy until the summer when she started developing some shortness of breath. Subsequent to that she started having worsening cough with productive in nature and also increasing shortness of breath and chest tightness. She has been evaluated multiple times with significant wheezing requiring prednisone. She also required a course of doxycycline more recently. She has been using a nebulizer which belongs to her granddaughter. She feels that the nebulizer treatments have been effective helping her as well. The patient has been getting significant shortness of breath to the point that she has a hard time doing simple activities of daily living. She is very concerned. She has a short-acting beta agonist that she uses as needed multiple times a day with some partial resolution of the symptoms. She states that she does not have known allergies or have been tested for allergies in many years. She does not have any pets at home is not exposed to any mold. 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 In addition to that she did have a elevated D-dimer in the thousands and a CT scan of the chest done pre protocol that was negative for any PE. The patient did not have any significant findings except some small pulmonary nodule. We did do that are being so elevated need to consider underlying exposure to COVID-19 and therefore will go ahead and check her antibiotics. The patient had been tested with PCR swab symptoms were all negative. In the office she was found to have significant wheezing. She was given 2 treatments with DuoNeb with good resolution of the wheezing. The patient has been having a productive cough with brownish sputum. Therefore will treat her again with doxycycline. The patient also was taught how to use a spacer room and 1 was provided for her. She is going to start Symbicort along with a spacer twice a day. Hopeful that does going to be enough in improving her respiratory status and that she will not need prednisone. Currently she is scheduled to undergo her COVID-19 vaccine this Monday. Therefore, she will have her antibiotics checked and will discuss the results and decide how to move for. 07/15/2020 the patient is here for pulmonary follow-up visit. Overall the patient has been doing okay until recently when she started again wheezing after being outside in a . She had to use her rescue inhaler. Meantime she does continue to use Symbicort. She is wondering about the singular because she does not feel like it is helping much. I did recommend that she can add Zyrtec in the morning and continue singular at nighttime. Explained that the singular is sees steroid sparing agent and may minimize how much steroid she needs to take. In the meantime and concerned about the elevations in the D-dimer. Her CT scan was reassuring without any thromboembolic disease. Although, she does complaint of issues with very close veins and she does have some pain of her right lower extremity. Therefore is reasonable to request a lower extremity Doppler of the right extremity. Patient also should have a recheck D-dimer since is still elevated. In addition to that the patient does have significant eosinophilia stated above. Her allergy testing was not so significant and her IgE level was within normal limits. The patient may be a good candidate for biologic therapy if her symptoms continue to persist requiring additional rescue therapy in additional steroids. I will have a repeat her IgE level next month and also recheck her D-dimer next month prior to the next visit. If the patient has any difficulties prior to that she is to call for an appointment. y 08/31/2020 the patient is here for pulmonary follow-up visit. Overall she is feeling a lot better. She is responding well to her current respiratory regimen. She continues uses Symbicort 2 puffs twice a day. However, she is getting hoarseness. Usually the end of the day. Kmnq-vp-humhknhe severity. She is using a spacer with the Symbicort. She is also using her allergy medication. She did have blood work done by her primary care doctor again still demonstrating that elevation in the D-dimer. Her workup was reassuring with normal lower extremity Dopplers in a normal CT a without any evidence of thrombotic disease. At this time she is thinking about traveling to see her son in [place]. I did encourage to get compression stockings for her trip to minimize risk of DVT. Also she can consider using a baby aspirin. Also to note she has been dealing with any rash. She did follow-up with Dermatology in biopsy proved it to be psoriasis. 02/01/2021 the patient is here for pulmonary follow-up visit. Since we last spoke the patient has been feeling a lot better. Her respiratory status has significantly improved. She still using her respiratory therapy with good effect. During the last visit she did undergo a CT scan of the chest demonstrating stable small pulmonary nodules. No evidence of any blood clots. Swift trip to [place] was canceled due to the fact that her son was sick. However she is going to be going this February. She will take all her respiratory medications with her just in case. in the meantime the patient was diagnosed with psoriasis from her biopsy. Seems like she got the psoriasis right after getting vaccinated for COVID-19. She is not sure that could have precipitated it. In the meantime she is concerned about getting any blisters in view of her significant rash. Therefore I will get blood work to check her allergy levels her eosinophils in the meantime also checking her COVID-19 spike protein titers to see if she can hold off on the booster. 06/13/2023 the patient is here for a pulmonary follow-up visit. The patient overall is feeling better now. Although, several weeks ago she started developing worsening shortness of breath chest tightness and wheezing. She does carry a diagnosis of asthma. She is also taking immunosuppressant therapy because of her psoriatic arthritis. The patient was trying to make an appointment which she could not get an appointment until now. In the meantime she has been using her rescue inhaler on a daily basis. At least now her symptoms have improved. Overall she feels like back to her baseline. Her respiratory exam is reassuring. I do not appreciate any wheezing at this time. We did talk about considering optimizing her maintenance therapy. But, this point I believe that she is fine just with short-acting beta agonist. in nt lower respiratory infection I do believe that she should receive the Prevnar 20. She will receive today before she goes home. in view of her ongoing symptoms of shortness of breath the patient should have a chest x-ray for baseline. If her symptoms worsen she will call for additional recommendations otherwise will follow-up in a year's time. 04/30/2024 the patient is here for a pulmonary follow-up visit. The patient overall has been doing well from a respiratory status. She does have a rescue inhaler when she does use it at times. Typically less than twice a month. Over the summer she used a few times because of the heat and humidity. In that she needed some of the times as well. But overall she is doing well. She is also on Trulicity she is losing a little weight. Denies any significant apnea symptoms. She does feel congested in the morning likely postnasal drip. But otherwise she clears her secretions in the morning she feels well. She did have a chest x-ray back in 06/28/2023 which we personally reviewed. Also increased markings at that x-ray. Although she feels well will go ahead and repeat the x-ray at this time. She does have a history of psoriatic arthritis we have to make sure she does not have any pulmonary manifestations of that. Her psoriatic arthritis has been stable on the Otezla. Although she recently cut down because of her side effects. 11/07/2024 the patient is here for sick visit. Apparently she had been doing well until the last few weeks when she started developing worsening cough. Shortness of breath. She did go to urgent care. She did have a chest x-ray which was personally by me without any acute disease. 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 In the meantime the patient states that her cough is improved after using albuterol and she started using NyQuil p.m. and that also helped her symptoms as well drying up her secretions. Overall she is doing better. We did look at some blood work that she had back in August demonstrating some degree of eosinophilia bringing up the question of allergies. In addition to that she has significant nasal congestion postnasal drip that is causing her to have a persistent cough. She has been using the fluticasone nasal spray and also ocean spray. Will go ahead and start her on Afrin that she can use for 5 days to open up her nasal passages and to dry up her nasal passages as well as a decongestant. In addition to that she can use some Mucinex DM to help with the cough and she can continue with the Bentson is also as needed. At this point she does better her respiratory exam is well so she can continue with the albuterol as needed no additional inhalers warranted. [facility] Medical History Dyspnea Postmenopausal Atrophic vaginitis Annual physical exam Psoriasis Limb pain Eosinophilia Pulmonary nodules Asthma Hypothyroid DM type 2 (diabetes mellitus, type 2) HTN (hypertension) LVH (left ventricular hypertrophy) Hyperlipidemia Obesity Surgical History History of surgery History of thyroidectomy (2017) Hx of colonoscopy History of back surgery Family History Father Carotid stenosis Mother Hypertension Social History Housing: House Alcohol intake: never Patient Tobacco Use Status: Former Tobacco user Years Smoked: 40 years ago e-Cigarette/Vaping Use: Never Used service: No Current occupational status: retired Cognitive needs: No Hearing needs: No Vision needs: Yes Review of Systems Const Denies night sweats and Reports weight loss ENT Denies change in voice, Denies lip swelling, Denies mouth pain, Reports nasal congestion, Reports nasal discharge, Reports post nasal drip and Denies tongue swelling Card Denies chest pain and Reports dyspnea on exertion Resp Denies chest congestion, Reports cough, Denies hemoptysis, Denies excessive phlegm production, Reports dyspnea on exertion and Reports wheezing GI Denies abdominal pain Musc Reports as per HPI, Reports arthralgias and Reports joint swelling Skin/Breast Reports as per HPI and Reports rash Neuro Denies Neuro-related abnormal movements Psych Denies no additional complaints Demetrio/Lymph Denies easy bleeding and Denies lymphadenopathy Aller/Immun Denies lip swelling, Denies tongue swelling and Reports wheezing Physical Exam Vital Signs: Last Vital Signs Pulse 82 11/07/24 13:33 BP 148/80 H 11/07/24 13:33 Pulse Ox 96 11/07/24 13:33 Oxygen Delivery Method Room Air 11/07/24 13:33 BMI result Body Mass Index 40.5 Const General: alert HEENT Ears: TM abnormal with fluid behind the TM General nose exam: Abnormal mucous membranes and turbinates present boggy and erythematous Neck Neck: Yes normal visual inspection, Yes full ROM and Yes no lymphadenopathy Chest Chest palpation & inspection: normal inspection of the chest Resp Effort & Inspection: normal respiratory effort Auscultation: clear to auscultation bilaterally and no wheezes Cardio Rate: regular rate Rhythm: regular rhythm Heart sounds: S1 normal heart sound present and S2 normal heart sound present GI Palpation (GI): Soft to palpation and nontender Auscultation: normal bowel sounds Assessment & Plan Assessment & Plan (1) Pulmonary nodules: Comment: 2mm nodule, stable when compared CT 2018 to 2020 Code(s): R91.8 - Other nonspecific abnormal finding of lung field Category: Medical Plan: Decrease Symbicort 1 puff BID with spacer NICKO as needed Continue Singulair, zyrtec as needed F/U 6 months (2) Asthma: Comment: Eosinophilic asthma Code(s): J45.909 - Unspecified asthma, uncomplicated Category: Medical Qualifiers: Asthma complication type: uncomplicated Asthma persistence: persistent Asthma severity: moderate Qualified Code(s): J45.40 - Moderate persistent asthma, uncomplicated (3) Dyspnea: Code(s): R06.00 - Dyspnea, unspecified Category: Medical Qualifiers: Dyspnea type: dyspnea on exertion Qualified Code(s): R06.09 - Other forms of dyspnea (4) Sinusitis: Code(s): J32.9 - Chronic sinusitis, unspecified Category: Medical Qualifiers: Sinusitis location: unspecified location Chronicity: subacute Qualified Code(s): J01.90 - Acute sinusitis, unspecified Plan CXR, normal continue short-acting beta agonist as needed start Afrin Increase Zyrtec BID nasal rinsing follow-up in 4-6 months Medications: New oxymetazoline 0.05% (Afrin (oxymetazoline)) 2 sprays intranasal Q12H PRN 22 mL 0RF nasal congestion 5 days cetirizine (Zyrtec) 10 mg PO BID 60 tabs 1RF 30 days Coding Level of Care Code Est Pt Level 4 (57220) Complex EM visit Add On G2211 Diagnoses Pulmonary nodules R91.8 Moderate persistent asthma without complication J45.40 Asthma complication type: uncomplicated Asthma persistence: persistent Asthma severity: moderate Dyspnea on exertion R06.09 Dyspnea type: dyspnea on exertion Subacute sinusitis, unspecified location J01.90 Sinusitis location: unspecified location Chronicity: subacute Time Spent (min) 17
--- OUTSIDE RECORDS SUMMARY | 2024-11-07 13:43 | XMS_ITS | Clinical Summary ---
Author Organization [facility] Address [address] [place] [address] Care Team Providers Care Car Unloader Name Role Phone VangieRachelle DO Primary Care [...] age to complete this topic Care Teams Car Unloader Relationship Specialty Start Date End Date Rachelle Vences DO PCP - General Family Medicine 07/14/17
--- OUTSIDE RECORDS SUMMARY | 2024-11-07 13:44 | XMS_ITS | Patient Health Record ---
[facility] Address [address] [place] [address] Care Team Providers Care Secondary Teacher Name Role Phone Dania Wright MD Primary Care Provider Unavaila ble Black, Sharita Unavailable [phone] Allergies Allergen (clinical drug ingredient) Drug/Non Drug [...] day Active Ciclopirox 0.77 % 1 application Archival Records Clerk ally Twice a day; Duration: 30 days [...] Problem Acquired hammer toe of right foot (747517348975597 5) Other hammer toe(s) (acquired), right foot (M20.41) Active confirmed Problem Acquired hammer toe of left foot (957418889301633 3) Other hammer toe(s) (acquired), left foot (M20.42) Active confirmed Problem Plantar wart (53138558) Plantar wart (B07.0) Active confirmed Problem Type II diabetes mellitus without complication (564246343) Type 2 diabetes mellitus without complication, unspecified whether terminal press operator insulin use (E11.9) Active confirmed Vital Signs Blood pressure diastolic 76 mm Hg 09/30/2024 Height 5 ft 5 in in 09/30/2024 Blood pressure systolic 120 mm Hg 09/30/2024 Weight 240 lbs lbs 09/30/2024 BMI 39.93 kg/m2 09/30/2024 Procedures Procedure Date Ordered Date Performed Result Body Sit e 71803-Fxms Destruction, 1-14 09/30/2024 N/A Encounters Encounter Location Date Provider Diagnosis [facility] [place] [address] [place] [address] 09/30/2024 Sharita Black Pain in right toe(s) M79.674 ; Onychomycosis B35.1 ; Pain in left toe(s) M79.675 ; Right foot pain M79.671 ; Plantar wart B07.0 ; Other hammer toe(s) (acquired), right foot M20.41 ; Other hammer toe(s) (acquired), left foot M20.42 ; Xerosis of skin L85.3 and Type 2 diabetes mellitus without complication, unspecified whether terminal press operator insulin use E11.9 Assessments Encounter Date Diagnosis [...] 2 diabetes mellitus without complication, unspecified whether halfway insulin use (ICD-10 - E11.9) Plan Of Treatment Pending Test Test Name Order Date 00036-Ibhe Destruction, 1-14 09/30/2024 Next Appt Details Provider Name:Sharita Sweeney , 04/21/2025 11:15:00 AM, [address] [place], [address], Insurance Providers Payer Name Payer Address Payer Phone Subscriber Number Group Number Insured Name Patient Relationship to Insured Coverage Start Date Coverage End Date Medicare National Govt Svcs Inc [address] [facility] [address] [id number] Randa Sanabria Self - patient is the insured [employer] [address] [place] [address] [id number] Randa Sanabria Self - patient is the insured Medical (General) History Medical History History ICD Code Arthritis covid-19 type II diabetes Psoriasis/eczema thyroid Measles Mumps Chicken pox Surgical History Surgery Date(Month/Year) back surgery Thyroid 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
--- OUTSIDE RECORDS SUMMARY | 2024-11-07 13:44 | XMS_ITS | Patient Health Record ---
Author Organization [facility] Address [address] [place] [address] Care Team Providers Care Boarding Room Fixer Name Role Phone Rachelle Vences DO Primary Care Provider Yoni Mari Unavailable [phone] Reason For Referral No Information Medications Medication SIG (Take, Route, Frequency, Duration) Notes Start Date End Date Status MoviPrep 100 GM as directed Orally o nce for 1 dose 05/06/2011 Active Atenolol-Chlorthalidone 100/10mg Active Multi Vitamin/Minerals 04/10/20242024 Active Problems Problem Type SNOMED Code ICD Code Onset Dates Problem Status W/U Status Risk Notes Problem Diverticulosis of colon (finding) (849273923) Diverticulosis of colon (without mention of hemorrhage) (562.10) Active confirmed Problem Irritable bowel syndrome (38046356) Irritable bowel syndrome (564.1) Active confirmed Problem Screening for malignant neoplasm of colon (014846686) Special screening for malignant neoplasms, colon (V76.51) Active confirmed Plan Of Treatment Future Test Test Name Order Date COLONOSCOPY 04/27/2011 Insurance Providers Payer Name Payer Address Payer Phone Subscriber Number Group Number Insured Name Patient Relationship to Insured Coverage Start Date Coverage End Date [facility] [employer] [address] [place] [address] [id number] KIRT VELAZCO Self - patient is the insured Medical (General) History Medical History History ICD Code hypertension irritable bowel syndrome diverticulosis Denies FL,DM,CVA,Lung disease,renal dise ase Surgical History Surgery Date(Month/Year) back surgery 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
== END 2024-11-07 14:02 | disposition home or self-care (01) ==
LOC: HO.HPS 13:32
PROVIDERS: PCP Internal Medicine; Visit Provider Hospitalist
DX: R91.8 Other nonspecific abnormal finding of lung field (principal); J45.40 Moderate persistent asthma, uncomplicated; R06.09 Other forms of dyspnea; J01.90 Acute sinusitis, unspecified
CPT/HCPCS: 99214; G2211

== ENCOUNTER → 2024-11-07 13:31 | Outpatient (BNVA) | payer MEDICARE, OTHER, SELFPAY | PROVIDERS: PCP Internal Medicine; Visit Provider Hospitalist | DX: R06.09 Other forms of dyspnea (principal); J45.40 Moderate persistent asthma, uncomplicated; J01.90 Acute sinusitis, unspecified; R09.3 Abnormal sputum; R91.8 Other nonspecific abnormal finding of lung field; Z79.2 Long term (current) use of antibiotics | CPT/HCPCS: 99212 ==

== ENCOUNTER 2025-01-01 10:26 | Outpatient (REF) | payer MEDICARE, OTHER, SELFPAY ==
--- OUTSIDE RECORDS SUMMARY | 2024-08-23 07:00 | XMS_ITS ---
Author Organization Total [facility] Address [address] [place] [address] Care Team Providers Care Business Continuity Manager Name Role Phone Lizbeth Velasquez Unavailable [phone] REASON FOR VISIT ULTRA - CK OVARIES TAW Encounters Encounter Location Date Provider Diagnosis [facility] [employer] [place] [address] 08/23/2024 Lizbeth Velasquez Plan Of Treatment Next Appt Details Provider Name:Lizbeth vasquez, 08/07/2025 11:00:00 AM, [address], [address], [place], [address], Progress Notes * MORA GIACOMOCHRISTENDOB: [birth year] (74 yo F)Acc No.[id number]:08/23/2024 PROGRESS NOTES Patient: KIRT POOLE Appointment Provider: Jordan Velasquez M.D. :1950 A ge:73 Y S ex:Female Date:08/23/2024 Address: [address] [facility] Subjective: * Chief Complaints: * 1 . ULTRA - CK OVARIES TAW. * Medical History: Objective: * Vitals: Assessment: Plan: * Treatment: * Images: Billing Information: * Visit Code: * Procedure Codes: * Electronic signature of Aida Velasquez MD on 01/01/2025 at 01:04 PM EDT Sign off status: Pending * Appointment Provider: Jordan Velasquez M.D. Date: 0 08/23/2024 Generated for Irlanda bills/Eden/Karen on: 0 01/01/2025 01:04 PM EDT
[2025-01-01 11:16] LABS: MANUAL DIFF FLAG NO
[2025-01-01 11:45] LABS: Hematocrit 40.9 % (37.0-47.0); Hemoglobin 13.8 g/dl (12.0-16.0); Imm Gran Abs Auto 0.02 X10*3/uL (0.00-0.03); Imm Gran Pct Auto 0.2 % (0.0-0.4); Lymphocytes Absolute Auto 2.3 X10*3/uL (1.2-4.9); Mean Corpuscular HGB Conc 33.7 g/dl (31.0-35.0); Mean Corpuscular Hemoglobin 29.2 pg (27.0-33.0); Mean Corpuscular Volume 86.5 fL (80.0-98.0); NRBC Abs Auto 0.000 X10*3/uL (0.0-0.012); NRBC Pct Auto 0.0 /100WBC (0.0-0.2); Platelet Count 380 X10*3/uL (160-400); Red Blood Count 4.73 X10*6/uL (4.20-5.50); White Blood Count 8.1 X10*3/uL (4.8-10.8)
[2025-01-01 11:58] LABS: Alanine Aminotransferase 32 U/L (0-31); Albumin Level 4.1 g/dL (3.5-5.0); Alkaline Phosphatase 83 U/L (39-117); Anion Gap 14 (12-20); Aspartate Amino Transferase 31 U/L (5-31); Blood Urea Nitrogen 9 mg/dL (9-16); Calcium 9.2 mg/dL (8.4-10.2); Carbon Dioxide 24 mmol/L (22-29); Chloride 106 mmol/L (96-108); Cholesterol 145 mg/dL (<200); Estimated Glomerular Filt Rate 59; HDL Cholesterol 50 mg/dL (>40); Potassium 4.1 mmol/L (3.3-5.1); Sodium 140 mmol/L (135-145); Total Protein 7.2 g/dL (6.5-8.0); Triglycerides 112 mg/dL (<150)
[2025-01-01 12:31] LABS: Hemoglobin A1C 296.8972 umol/L; Total Hemoglobin (HGBA1C) 5972.0808 umol/L
--- OUTSIDE RECORDS SUMMARY | 2025-01-01 13:04 | XMS_ITS | Clinical Summary ---
Author Organization [facility] Address [address] [place] [address] Care Team Providers Care Bar Helper Name Role Phone VangieRachelle DO Primary Care Provider [phone] Allergies No known active allergies Medications Medication [...] age to complete this topic Care Teams Bar Helper Relationship Specialty Start Date End Date Rachelle Vences DO PCP - General Family Medicine 07/14/17
--- OUTSIDE RECORDS SUMMARY | 2025-01-01 13:05 | XMS_ITS | Patient Health Record ---
Author Organization [facility] Address [address] [place] [address] Care Team Providers Care Support Specialist Name Role Phone Dania Wright MD Primary Care Provider Unavaila ble Black, Sharita Unavailable [phone] Allergies Allergen (clinical drug ingredient) Drug/Non Drug [...] day Active Ciclopirox 0.77 % 1 application Corporate Safety Coordinator ally Twice a day; Duration: 30 days [...] Problem Acquired hammer toe of right foot (927301549609706 5) Other hammer toe(s) (acquired), right foot (M20.41) Active confirmed Problem Acquired hammer toe of left foot (171057158058777 3) Other hammer toe(s) (acquired), left foot (M20.42) Active confirmed Problem Plantar wart (19715703) Plantar wart (B07.0) Active confirmed Problem Type II diabetes mellitus without complication (454832757) Type 2 diabetes mellitus without complication, unspecified whether predatory animal exterminator insulin use (E11.9) Active confirmed Vital Signs Blood pressure diastolic 76 mm Hg 09/30/2024 Height 5 ft 5 in in 09/30/2024 Blood pressure systolic 120 mm Hg 09/30/2024 Weight 240 lbs lbs 09/30/2024 BMI 39.93 kg/m2 09/30/2024 Procedures Procedure Date Ordered Date Performed Result Body Sit e 07702-Ezpe Destruction, 1-14 09/30/2024 N/A Encounters Encounter Location Date Provider Diagnosis [facility] [place] [address] [place] [address] 09/30/2024 Sharita Black Pain in right toe(s) M79.674 ; Onychomycosis B35.1 ; Pain in left toe(s) M79.675 ; Right foot pain M79.671 ; Plantar wart B07.0 ; Other hammer toe(s) (acquired), right foot M20.41 ; Other hammer toe(s) (acquired), left foot M20.42 ; Xerosis of skin L85.3 and Type 2 diabetes mellitus without complication, unspecified whether predatory animal exterminator insulin use E11.9 Assessments Encounter Date [...] 2 diabetes mellitus without complication, unspecified whether penitentiary insulin use (ICD-10 - E11.9) Plan Of Treatment Pending Test Test Name Order Date 36786-Rzuq Destruction, 1-14 09/30/2024 Next Appt Details Provider Name:Sharita Sweeney , 04/21/2025 11:15:00 AM, [address] [place], [address], Insurance Providers Payer Name Payer Address Payer Phone Subscriber Number Group Number Insured Name Patient Relationship to Insured Coverage Start Date Coverage End Date Medicare National Govt Svcs Inc [address] [place] [address] [id number] Randa Sanabria Self - patient is the insured [employer] [address] [place] [address] [id number] Randa Sanabria Self - patient is the insured Medical (General) History Medical History History ICD Code Arthritis covid-19 type II diabetes Psoriasis/eczema thyroid Measles Mumps Chicken pox Surgical History Surgery Date(Month/Year) back surgery Thyroid 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
--- OUTSIDE RECORDS SUMMARY | 2025-01-01 13:05 | XMS_ITS | Patient Health Record ---
Author Organization [facility] Address [address] [place] [address] Care Team Providers Care Compensation Intern Name Role Phone Rachelle Vences DO Primary Care Provider Yoni Mari Unavailable [phone] Reason For Referral No Information Medications Medication SIG (Take, Route, Frequency, Duration) Notes Start Date End Date Status MoviPrep 100 GM as directed Orally o nce for 1 dose 05/06/2011 Active Atenolol-Chlorthalidone 100/10mg Active Multi Vitamin/Minerals 04/10/20242024 Active Problems Problem Type SNOMED Code ICD Code Onset Dates Problem Status W/U Status Risk Notes Problem Diverticulosis of colon (finding) (865017422) Diverticulosis of colon (without mention of hemorrhage) (562.10) Active confirmed Problem Irritable bowel syndrome (11067117) Irritable bowel syndrome (564.1) Active confirmed Problem Screening for malignant neoplasm of colon (369624480) Special screening for malignant neoplasms, colon (V76.51) Active confirmed Plan Of Treatment Future Test Test Name Order Date COLONOSCOPY 04/27/2011 Insurance Providers Payer Name Payer Address Payer Phone Subscriber Number Group Number Insured Name Patient Relationship to Insured Coverage Start Date Coverage End Date [facility] [employer] INDEMNITY [address] [place] [address] [id number] KITR VELAZCO Self - patient is the insured Medical (General) History Medical History History ICD Code hypertension irritable bowel syndrome diverticulosis Denies MT,DM,CVA,Lung disease,renal dise ase Surgical History Surgery Date(Month/Year) back surgery 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
--- OUTSIDE RECORDS SUMMARY | 2025-01-01 13:05 | XMS_ITS | Patient Health Record ---
Author Organization [facility] Address [address] [place] [address] Care Team Providers Care Mailroom Messenger Name Role Phone Lizbeth Velasquez Unavailable [phone] Allergies No Known Allergies Results Component Value Reference Range Notes [id number] IGP No Culture 30 Plus Reviewed date:08/05/2024 12:18:27 PM Interpretation: Performing Lab:[facility], [address], [address], [place], Phone - [phone], Director - [facility] Notes/Report: Clinical Information:Vaginal/Cervical, LMP: Men o [id number] Dates / Results....01/13/23 NIL, Neg HPV Other..............Post Menopausal No. of containers..01 ThinPrep Vial DIAGNOSIS: NEGATIVE FOR INTRAEPITHELIAL LESION OR MALIGNANCY. CELLULAR CHANGES ASSOCIATED WITH ATROPHY ARE PRESENT. 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 Specimen adequacy: Satisfactory for evaluation. Endocervical component may not be distinguished in cases of atrophy. Clinician provided ICD10: Z0 1.419 Performed by: Nahomi hameed, Clinical Operations Manager (ASCP) QC reviewed by: Urbano padilla, Clinical Operations Manager (ASCP) . . Note: The Pap smear [...] Criteria not met, HPV Genotype not performed. PDF Report Reviewed date:08/05/2024 12:17:59 PM Interpretation: Performing Lab:[facility] [place], [address], [address], [place], Phone - [phone], Director - [facility] Notes/Report: Clinical Information:Vaginal/Cervical, LMP: Men o [id number] Dates / Results....01/13/23 NIL, Neg HPV Other..............Post Menopausal No. of containers..01 ThinPrep Vial Reason For Referral No Information Medications Medication SIG (Take, Route, Frequency, Duration) Notes Start Date End Date Status Trulicity 1.5 MG/0.5ML INJECT 0.5 ML (1. 5 MG) SUBCUTANEOUSLY ONE TIME PER WEEK Subcutaneous; Duration: 84 Days Active Levothyroxine Sodium 112 MCG Oral; Duration: 90 Days Acti ve amLODIPine Besylate 2.5 MG Oral; Duration: 90 Days Active Losartan Potassium 100 MG 1 tablet Orall y Once a day; Duration: 30 day(s) 07/31/2024 Active Otezla 30 MG Oral; Duration: 30 Days Active miSOPROStol 200 MCG 2 Orally night befor e procedure; Duration: 1 days 08/28/2024 Active Terconazole 0.8 % 1 applicatorful at b edtime Vaginal EVERY NIGHT X 3; Duration: 3 days 07/31/2024 Active Atorvastatin Calcium 20 MG 1 tablet Oral ly Once a day; Duration: 30 day(s) 07/31/2024 Active Social History Tobacco Use: Social History [...] has it been since you last smoked? Agathaa ter than 10 years Problems Problem Type SNOMED Code ICD Code Onset Dates Problem Status W/U Status Risk Notes Problem Mucous polyp of cervix (66716413) Polyp of cervix uteri (N84.1) Active confirmed Problem Essential hypertension (35059972) Essential (primary) hypertension (I10) Active confirmed Problem Morbid obesity (disorder) (051348304) Morbid (severe) obesity due to excess calories (E66.01) Active confirmed Problem Osteoarthritis (981928773) Unspecified osteoarthritis, unspecified site (M19.90) Active confirmed Problem Polyp of corpus uteri (60019384) Polyp of corpus uteri (N84.0) Active confirmed Problem History of dysplasia of cervix (599013526) Personal history of cervical dysplasia (Z87.410) Active confirmed Problem Imaging result abnormal (878837858) Abnormal findings on diagnostic imaging of other specified body structures (R93.89) Active confirmed Vital Signs Temperature 97.5 degrees Fahrenheit 07/31/2024 Blood pressure diastolic 78 mm Hg 07/31/2024 Height 65 in 07/31/2024 Blood pressure systolic 142 mm Hg 07/31/2024 Weight 243 lbs 07/31/2024 BMI 40.43 kg/m2 07/31/2024 Encounters Encounter Location Date Provider Diagnosis [facility] [place] [address] [address] 08/23/2024 Lizbeth Velasquez [place] [address] [address] 07/31/2024 Lizbeth Velasquez Encounter for gynecological examination (general) (routine) without abnormal findings Z01.419 ; Encounter for screening mammogram for malignant neoplasm of breast Z12.31 ; Personal history of cervical dysplasia Z87.410 ; Acute candidiasis of vulva and vagina B37.31 and Morbid (severe) obesity due to excess calories E66.01 [place] [address] [address] 09/27/2024 Lizbeth Velasquez Abnormal findings on diagnostic imaging of other specified body structures R93.89 ; Polyp of corpus uteri N84.0 and Polyp of cervix uteri N84.1 [place] [address] [address] 09/27/2024 Lizbeth Velasquez Total [facility] [address] [place] [address] 08/28/2024 Lizbeth Velasquez [facility] [address] [place] [address] 08/28/2024 Lizbeth Velasquez Assessments Encounter Date Diagnosis (ICD Code) Assessment Notes Treatment Notes Treatment Clinical Notes Section Notes 07/31/2024 Encounter for screening mammogram for malignant neoplasm of breast (ICD-10 - Z12.31) REGULAR MAMMOGRAMS AND SBE'S WERE RECOMMENDED. 07/31/2024 Encounter for gynecological examination (general) (routine) without abnormal findings (ICD-10 - Z01.419) PAP TEST WITH HPV TYPING WAS OBTAINED. 09/27/2024 Polyp of corpus uteri (ICD-10 - N84.0) DISCUSSED FINDINGS ON HSONO, AN ENDOMETRIAL POLYP AND A SMALL CERVICAL POLYP PEEPING OUT OF THE OS. RECOMMENDED PROCEEDING WITH HYSTEROSCOPY, POLYPECTOMY AND D&C. PROCEDURES WERE DISCUSSED AT LENGTH. WILL REFER TO DR SWAN. 09/27/2024 Abnormal findings on diagnostic imaging of other specified body structures (ICD-10 - R93.89) DISCUSSED THICK ENDOMERTRIUM NOTED ON PELVIC ULTRASOUND AND NEED FOR FURTHER EVALUATION THROUGH HSONO. 09/27/2024 Polyp of cervix uteri (ICD-10 - N84.1) DISCUSSED SMALL CERVICAL POLYP THAT CAN BE REMOVED WHEN HYSTEROSCOPY AND D&C ARE PERFORMED. 07/31/2024 Personal history of cervical dysplasia (ICD-10 [...] 07/31/2024 Next Appt Details Provider Name:Lizbeth vasquez, 08/07/2025 11:00:00 AM, [address], [address], [place], [address], Insurance Providers Payer Name Payer Address Payer Phone Subscriber Number Group Number Insured Name Patient Relationship to Insured Coverage Start Date Coverage End Date MEDICARE [address] [place], [place] [id number] KIRT VELAZCO Self - patient is the insured [employer] [address] [place] [address] [id number] KIRT VELAZCO Self - patient is the insured Medical (General) History Medical History History ICD Code Other asthma J45.998 Essential (primary) hypertension I10 Type 2 diabetes mellitus with unspecifie d complications E11.8 Unspecified osteoarthritis, unspecified site M19.90 Morbid (severe) obesity due to excess ca lories E66.01 Other specified noninflammatory disorder s of uterus N85.8 Surgical History Surgery Date(Month/Year) Back Surgery x 1 Colonoscopy Thryoidectomy Hospitalization History Reason Date(Month/Year) See Surgical Hx 1 Vaginal Delivery
[2025-01-01 13:18] LABS: Microalbum/Creatinine Ratio Ur 99.0 ug/mg cr (<30)
== END 2025-01-01 10:27 | disposition home or self-care (01) ==
LOC: HO.LAB 10:26
PROVIDERS: PCP Internal Medicine; Visit Provider Internal Medicine
DX: E11.9 Type 2 diabetes mellitus without complications (principal); E03.9 Hypothyroidism, unspecified; E78.5 Hyperlipidemia, unspecified
CPT/HCPCS: 36415; 80053; 80061; 82043; 82570; 83036; 84443; 85025

== ENCOUNTER 2025-01-07 09:41 | Outpatient (AMB) | payer MEDICARE, OTHER, SELFPAY ==
--- OUTSIDE RECORDS SUMMARY | 2024-08-23 07:00 | XMS_ITS ---
Author Organization [facility] Address [address] [place] [address] Care Team Providers Care Rigging Up Worker Name Role Phone Lizbeth Velasquez Unavailable [phone] REASON FOR VISIT ULTRA - CK OVARIES TAW Encounters Encounter Location Date Provider Diagnosis [facility] [address] [place] [address] 08/23/2024 Lizbeth Velasquez Plan Of Treatment Next Appt Details Provider Name:Lizbeth vasquez, 08/07/2025 11:00:00 AM, [address], [address], [place], [address], Progress Notes * MORA GIACOMOCHRISTENDOB: [birth year] (74 yo F)Acc No.[id number]:08/23/2024 PROGRESS NOTES Patient: KIRT POOLE Appointment Provider: Jordan Velasquez M.D. :1950 A ge:73 Y S ex:Female Date:08/23/2024 Address: [address] [facility] Subjective: * Chief Complaints: * 1 . ULTRA - CK OVARIES TAW. * Medical History: Objective: * Vitals: Assessment: Plan: * Treatment: * Images: Billing Information: * Visit Code: * Procedure Codes: * Electronic signature of Aida Velasquez MD on 01/07/2025 at 10:33 AM EDT Sign off status: Pending * Appointment Provider: Jordan Velasquez M.D. Date: 0 08/23/2024 Generated for Irlanda bills/Eden/Karen on: 0 01/07/2025 10:33 AM EDT
--- NOTE | 2025-01-07 09:57 | MHC.PC.OV ---
Vital Signs 01/07/25 09:58 Height 5 ft 5 in Weight 244 lb BMI 40.6 BP 136/80 Blood Pressure Location Lt brachial Position Sitting Respiration 18 Pulse 90 Pulse Source Pulse Oximeter Temp 97.9 F Temp Source Oral Pulse Oximetry (%) 96 Oxygen Delivery Method Room Air Intake Visit Reasons: 4m follow up Intake Note: Pt is here today for 4 months follow up visit on DM and labs. Allergies metformin Allergy (Severe, Verified 01/07/25 09:58) diarrhea, empagliflozin (From Jardiance) Adverse Reaction (Intermediate, Verified 01/07/25 09:58) yeast infection glipizide Adverse Reaction (Intermediate, Verified 01/07/25 09:58) body aches sitagliptin (From ControlusuvTwo Tap) Adverse Reaction (Intermediate, Verified 01/07/25 09:58) Diarrhea Medication List - Last Reconciled 01/07/25 by Dania Wright MD albuterol sulfate 90 mcg/actuation 2 puffs inhalation Q6H PRN amlodipine 2.5 mg PO DAILY atorvastatin 20 mg PO QPM blood sugar diagnostic (iBid2SaveTouch Ultra Test strips) test blood sugar once a day blood-glucose meter ([employer] Ultra2 Meter) As directed cetirizine (Zyrtec) 10 mg PO BID 90 days fluticasone propionate 50 mcg/actuation 1 spray intranasal Q12H levothyroxine 112 mcg PO DAILY oxymetazoline 0.05% (Afrin (oxymetazoline)) 2 sprays intranasal Q12H PRN 5 days valsartan 320 mg PO DAILY Tobacco use date assessed: 01/07/25 Fall risk assessment: No Falls in past year Last assessed Fall Risk: 01/07/25 Dental Screening Dental Screen Date: 05/03/24 HPI 4m follow up HPI Details Patient presents for follow-up of Type 2 diabetes hypertension hypothyroidism. Patient underwent hysteroscopy with endometrial polyp removal a month ago. Otezla and Trulicity were held for the surgery and patient did not restarted medications. [facility] Medical History (Updated 01/07/25 @ 20:14 by Dania Wright MD) Dyspnea Postmenopausal Atrophic vaginitis Annual physical exam Psoriasis Limb pain Eosinophilia Pulmonary nodules Asthma Hypothyroid DM type 2 (diabetes mellitus, type 2) HTN (hypertension) LVH (left ventricular hypertrophy) Hyperlipidemia Obesity Surgical History (Updated 01/07/25 @ 20:14 by Dania Wright MD) History of hysteroscopy Hx of cervical polypectomy History of surgery History of thyroidectomy (2017) Hx of colonoscopy History of back surgery Family History Father Carotid stenosis Mother Hypertension Social History Housing: House Alcohol intake: never Patient Tobacco Use Status: Former Tobacco user Years Smoked: 40 years ago e-Cigarette/Vaping Use: Never Used service: No Current occupational status: retired Cognitive needs: No Hearing needs: No Vision needs: Yes Questionnaire PHQ-9 Over the last 2 weeks, how often have you been bothered by any of the following problems? 1. Little interest or pleasure in doing things: not at all 2. Feeling down, depressed, or hopeless: not at all 3. Trouble falling or staying asleep, or sleeping too much: not at all 4. Feeling tired or having little energy: not at all 5. Poor appetite or overeating: not at all 6. Feeling bad about yourself - or that you are a failure or have let yourself or your family down: not at all 7. Trouble concentrating on things, such as reading the newspaper or watching television: not at all 8. Moving or speaking so slowly that other people could have noticed. Or the opposite - being so fidgety or restless that you have been moving around a lot more than usual: not at all 9. Thoughts that you would be better off or of hurting yourself in some way: not at all Total score: 0 Depression Screening Interpretation: Negative Depression Screening Done: Yes Source: Developed by Drs. Yoni Pina, Kirti Bernal, Michael Medina and colleagues, with an educational selvin from [employer]. Thrive Questionnaire Date Thrive assessed: 04/27/24 I am a: Patient What is your living situation today?: I have a steady place to live Within the past 12 months, did the food you bought not last and you didn't have the money to get more?: Never true Within the past 12 months, did you worry whether your food would run out before you got money to buy more?: Never true Do you have trouble paying for medicines?: No Do you have trouble getting transportation to medical appointments?: No Do you have trouble paying your heating and electricity bill?: No Do you have trouble taking care of your child, family member or friend?: No Do you have trouble with day-to-day activities such as bathing, preparing meals, shopping, managing finances, etc.?: No Are you currently unemployed and looking for a job?: No Please select the resources that you would like help with: None Currently or been in a relationship where the following occur: No concerns reported THRIVE Score: 0 JORDANA-7 AMB Questionnaire JORDANA-7 Date JORDANA - 7 assessed: 05/03/24 Feeling nervous, anxious, or on edge: 0 = Not at all Not being able to stop or control worryin = Not at all Worrying too much about different things: 0 = Not at all Trouble relaxin = Not at all Being so restless that it is hard to sit still: 0 = Not at all Becoming easily annoyed or irritable: 0 = Not at all Feeling afraid as if something awful might happen: 0 = Not at all Total JORDANA-7 score (0-4 normal; 5-9 mild; 10-14 moderate; 15-21 severe): 0 Source: Developed by Drs. Yoni Pina, Kirti Bernal, Michael Medina and colleagues, with an educational selvin from [employer]. Review of Systems Const All systems reviewed & are unremarkable except as noted in HPI and below Eyes Reports no additional complaints ENT Reports no additional complaints Card Reports no additional complaints Resp Reports no additional complaints GI Reports no additional complaints Reports no additional complaints Physical exam (Primary Care) Vital Signs: Last Vital Signs Temp 97.9 F 01/07/25 09:58 Pulse 90 01/07/25 09:58 Resp 18 01/07/25 09:58 BP 136/80 01/07/25 09:58 Pulse Ox 96 01/07/25 09:58 Oxygen Delivery Method Room Air 01/07/25 09:58 BMI result Body Mass Index 40.6 Tobacco/Smoking Status: Tobacco use Status Tobacco use date assessed 01/07/25 01/07/25 10:06 Patient Tobacco Use Status Former Tobacco user 01/07/25 10:06 e-Cigarette/Vaping Use Never Used 01/07/25 10:06 PHQ-9: PHQ-9 Score PHQ-9: Total score 0 01/07/25 10:33 Depression Screening Interpretation: Negative Thrive Assessment: Date of Thrive Assessment Date Thrive assessed 04/27/24 01/07/25 10:06 Currently or been in a relationship where the following occur: No concerns reported Const General: no acute distress HENMT Head: Yes normal to inspection Throat: Yes posterior oropharynx normal Resp Effort & Inspection: normal respiratory effort Auscultation: clear to auscultation bilaterally Cardio Rhythm: regular rhythm Heart sounds: S1 normal heart sound present and S2 normal heart sound present GI Inspection: Yes normal to inspection Palpation (GI): Soft to palpation Percussion: Yes normal to percussion Auscultation: normal bowel sounds Coding Level of Care Code Est Pt Level 4 (61013) Diagnoses HTN (hypertension) I10 Hyperlipidemia E78.5 DM type 2 (diabetes mellitus, type 2) E11.9 Psoriatic arthritis L40.50 Assessment & Plan Assessment & Plan (1) HTN (hypertension): Code(s): I10 - Essential (primary) hypertension Category: Medical Plan: Change losartan to valsartan because of suboptimally controlled hypertension, continue amlodipine (2) Hyperlipidemia: Code(s): E78.5 - Hyperlipidemia, unspecified Category: Medical Plan: Continue statin (3) DM type 2 (diabetes mellitus, type 2): Comment: Intolerant to Jardiance, Januvia, Metformin (diarrhea), Glipizide Code(s): E11.9 - Type 2 diabetes mellitus without complications Category: Medical Plan: A1c is 6.7 and patient does not want to restart Trulicity, she will continue ADA diet and monitoring fasting blood glucose daily follow-up in 3 months with a fasting labs before (4) Psoriatic arthritis: Comment: dx 10/2021 Methotrexate/Leflunomide contraindicated due to elevated enzymes and liver disease Otezla 2021 effective. Decrease to once a day due to diarrhea Code(s): L40.50 - Arthropathic psoriasis, unspecified Category: Medical Plan: Follow-up with rheumatology Orders: Orders Hemoglobin A1c 3 Months E11.9 - Type 2 diabetes mellitus without complications, E78.5 - Hyperlipidemia, unspecified, I10 - Essential (primary) hypertension Complete Blood Count Auto Diff 3 Months E11.9 - Type 2 diabetes mellitus without complications, E78.5 - Hyperlipidemia, unspecified, I10 - Essential (primary) hypertension Microalbumin, Random (w Creat) 3 Months E11.9 - Type 2 diabetes mellitus without complications, E78.5 - Hyperlipidemia, unspecified, I10 - Essential (primary) hypertension Comprehensive [place]. Panel Fast 3 Months E11.9 - Type 2 diabetes mellitus without complications, E78.5 - Hyperlipidemia, unspecified, I10 - Essential (primary) hypertension Lipid Panel 3 Months E11.9 - Type 2 diabetes mellitus without complications, E78.5 - Hyperlipidemia, unspecified, I10 - Essential (primary) hypertension Medications: New valsartan 320 mg PO DAILY 90 tabs 0RF Refilled blood sugar diagnostic (iBid2SaveTouch Ultra Test strips) test blood sugar once a day 100 ea 3RF E11.9 - Type 2 diabetes mellitus without complications Discontinued losartan Discontinued Reason: Doctor's Order 100 mg PO DAILY 90 tabs 3RF
[2025-01-07 09:58] VITALS: BP 136/80; PULSE 90; RESP 18; TEMP 36.6; O2SAT 96; BMI 40.6
--- OUTSIDE RECORDS SUMMARY | 2025-01-07 10:34 | XMS_ITS | Patient Health Record ---
Author Organization [facility] Address [address] [place] [address] Care Team Providers Care Manager Web Name Role Phone Lizbeth Velasquez Unavailable [phone] Allergies No Known Allergies Results Component Value Reference Range Notes [id number] IGP No Culture 30 Plus Reviewed date:08/05/2024 12:18:27 PM Interpretation: Performing Lab:[facility] [place], [address], [address], [place], Phone - [phone], Director - [facility] Notes/Report: Clinical Information:Vaginal/Cervical, LMP: Men o [id number] Dates / Results....01/13/23 NIL, Neg HPV Other..............Post Menopausal No. of containers..01 ThinPrep Vial DIAGNOSIS: NEGATIVE FOR INTRAEPITHELIAL LESION OR MALIGNANCY. CELLULAR CHANGES ASSOCIATED WITH ATROPHY ARE PRESENT. THIS SPECIMEN WAS RESCREENED PART OF OUR GOGGLES ASSEMBLER PROGRAM. Specimen adequacy: Satisfactory for evaluation. Endocervical component may not be distinguished in cases of atrophy. Clinician provided ICD10: Z0 1.419 Performed by: Nahomi hameed, Storekeeper Steward (ASCP) QC reviewed by: Urbano padilla, Storekeeper Steward (ASCP) . . Note: The Pap smear [...] Reviewed date:08/05/2024 12:17:59 PM Interpretation: Performing Lab:[facility] [place], [address], [address], [place], Phone - [phone], Director - [facility] Notes/Report: Clinical Information:Vaginal/Cervical, LMP: Men o [id number] Dates / Results....01/13/23 NIL, Neg HPV Other..............Post [...] Risk Notes Problem Mucous polyp of cervix (85971246) Polyp of cervix uteri (N84.1) Active confirmed Problem Essential hypertension (45761515) Essential (primary) hypertension (I10) Active confirmed Problem Morbid obesity (disorder) (588244116) Morbid (severe) obesity due to excess calories (E66.01) Active confirmed Problem Osteoarthritis (652853089) Unspecified osteoarthritis, unspecified site (M19.90) Active confirmed Problem Polyp of corpus uteri (19255813) Polyp of corpus uteri (N84.0) Active confirmed Problem History of dysplasia of cervix (169579261) Personal history of cervical dysplasia (Z87.410) Active confirmed Problem Imaging result abnormal (324235224) Abnormal findings on diagnostic imaging of other specified body structures (R93.89) Active confirmed Vital Signs Temperature 97.5 degrees Fahrenheit 07/31/2024 Blood pressure diastolic 78 mm Hg 07/31/2024 Height 65 in 07/31/2024 Blood pressure systolic 142 mm Hg 07/31/2024 Weight 243 lbs 07/31/2024 BMI 40.43 kg/m2 07/31/2024 Encounters Encounter Location Date Provider Diagnosis [facility] [place] [address] [facility] [address] [address] 08/23/2024 Lizbeth Velasquez [place] [address] [facility] [address] [address] 07/31/2024 Lizbeth Velasquez Encounter for gynecological examination (general) (routine) without abnormal findings Z01.419 ; Encounter for screening mammogram for malignant neoplasm of breast Z12.31 ; Personal history of cervical dysplasia Z87.410 ; Acute candidiasis of vulva and vagina B37.31 and Morbid (severe) obesity due to excess calories E66.01 [place] [address] [facility] [address] [address] 09/27/2024 Lizbeth Velasquez Abnormal findings on diagnostic imaging of other specified body structures R93.89 ; Polyp of corpus uteri N84.0 and Polyp of cervix uteri N84.1 [place] [address] [facility] [address] [address] 09/27/2024 Lizbeth Velasquez [facility] [address] [place] [address] 08/28/2024 Lizbeth Velasquez [facility] [address] [place] [address] 08/28/2024 Lizbeth Velasquez Assessments Encounter Date Diagnosis [...] Provider Name:Lizbeth vasquez, 08/07/2025 11:00:00 AM, [address], [address], [place], [address], Insurance Providers Payer Name Payer Address Payer Phone Subscriber Number Group Number Insured Name Patient Relationship to Insured Coverage Start Date Coverage End Date MEDICARE [address] [place], [place] [id number] [phone] [id number] KIRT VELAZCO Self - patient is the insured 7 [employer] [address] [place] [address] [id number] KIRT VELAZCO Self - patient is the [...]
--- OUTSIDE RECORDS SUMMARY | 2025-01-07 10:34 | XMS_ITS | Clinical Summary ---
Author Organization [facility] Address [address] [place] [address] Care Team Providers Care Ems Instructor Name Role Phone VangieRachelle DO Primary Care [...] age to complete this topic Care Teams Ems Instructor Relationship Specialty Start Date End Date Rachelle Vences DO PCP - General Family Medicine 07/14/17
--- OUTSIDE RECORDS SUMMARY | 2025-01-07 10:34 | XMS_ITS | Patient Health Record ---
Author Organization [facility] Address [address] [facility] [place] [address] Care Team Providers Care Lithographic Press Feeder Name Role Phone Dania Wright MD Primary Care Provider Unavaila ble Black, Sharita Unavailable [phone] Allergies Allergen (clinical drug ingredient) Drug/Non Drug [...] day Active Ciclopirox 0.77 % 1 application Payroll Coordinator ally Twice a day; Duration: 30 [...] Problem Acquired hammer toe of right foot (051257904978117 5) Other hammer toe(s) (acquired), right foot (M20.41) Active confirmed Problem Acquired hammer toe of left foot (003365240180043 3) Other hammer toe(s) (acquired), left foot (M20.42) Active confirmed Problem Plantar wart (52384413) Plantar wart (B07.0) Active confirmed Problem Type II diabetes mellitus without complication (399352873) Type 2 diabetes mellitus without complication, unspecified whether termite exterminator insulin use (E11.9) Active confirmed Vital Signs Blood pressure diastolic 76 mm Hg 09/30/2024 Height 5 ft 5 in in 09/30/2024 Blood pressure systolic 120 mm Hg 09/30/2024 Weight 240 lbs lbs 09/30/2024 BMI 39.93 kg/m2 09/30/2024 Procedures Procedure Date Ordered Date Performed Result Body Sit e 88378-Vesd Destruction, 1-14 09/30/2024 N/A Encounters Encounter Location Date Provider Diagnosis [facility] [place] [address] [place] [address] 09/30/2024 Sharita Black Pain in right toe(s) M79.674 ; Onychomycosis B35.1 ; Pain in left toe(s) M79.675 ; Right foot pain M79.671 ; Plantar wart B07.0 ; Other hammer toe(s) (acquired), right foot M20.41 ; Other hammer toe(s) (acquired), left foot M20.42 ; Xerosis of skin L85.3 and Type 2 diabetes mellitus without complication, unspecified whether termite exterminator insulin use E11.9 Assessments Encounter Date [...] 2 diabetes mellitus without complication, unspecified whether assisted insulin use (ICD-10 - E11.9) Plan Of Treatment Pending Test Test Name Order Date [id number]-Flff Destruction, 1-14 09/30/2024 Next Appt Details Provider Name:Sharita Sweeney , 04/21/2025 11:15:00 AM, [address] [place], [address], Insurance Providers Payer Name Payer Address Payer Phone Subscriber Number Group Number Insured Name Patient Relationship to Insured Coverage Start Date Coverage End Date Medicare National Govt Svcs Inc [address] [facility] [place] [address] [id number] Randa Sanabria Self - patient is the insured 7 [employer] [facility] [address] [place] [address] [id number] Randa Sanabria Self - patient is the insured Medical (General) History Medical History History ICD Code Arthritis covid-19 type II diabetes Psoriasis/eczema thyroid Measles Mumps Chicken pox Surgical History Surgery Date(Month/Year) back surgery Thyroid 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
--- OUTSIDE RECORDS SUMMARY | 2025-01-07 10:34 | XMS_ITS | Patient Health Record ---
Author Organization [facility] Address [address] [place] [address] Care Team Providers Care Quenching Car Operator Name Role Phone Rachelle Vences DO Primary Care Provider Yoni Mari Unavailable [phone] Reason For Referral No Information Medications Medication SIG (Take, Route, Frequency, Duration) Notes Start Date End Date Status MoviPrep 100 GM as directed Orally o nce for 1 dose 05/06/2011 Active Atenolol-Chlorthalidone 100/10mg Active Multi Vitamin/Minerals 04/10/20242024 Active Problems Problem Type SNOMED Code ICD Code Onset Dates Problem Status W/U Status Risk Notes Problem Diverticulosis of colon (finding) (396965761) Diverticulosis of colon (without mention of hemorrhage) (562.10) Active confirmed Problem Irritable bowel syndrome (62170489) Irritable bowel syndrome (564.1) Active confirmed Problem Screening for malignant neoplasm of colon (648190023) Special screening for malignant neoplasms, colon (V76.51) Active confirmed Plan Of Treatment Future Test Test Name Order Date COLONOSCOPY 04/27/2011 Insurance Providers Payer Name Payer Address Payer Phone Subscriber Number Group Number Insured Name Patient Relationship to Insured Coverage Start Date Coverage End Date [facility] [employer] TH INDEMNITY [address] [place] [address] [id number] KIRT VELAZCO Self - patient is the insured Medical (General) History Medical History History ICD Code hypertension irritable bowel syndrome diverticulosis Denies CO,DM,CVA,Lung disease,renal dise ase Surgical History Surgery Date(Month/Year) back surgery 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
== END 2025-01-07 10:49 | disposition home or self-care (01) ==
LOC: HO.HMCC 09:42
PROVIDERS: PCP Internal Medicine; Visit Provider Internal Medicine
DX: I10 Essential (primary) hypertension (principal); E78.5 Hyperlipidemia, unspecified; E11.9 Type 2 diabetes mellitus without complications; L40.50 Arthropathic psoriasis, unspecified

== ENCOUNTER → 2025-01-07 09:41 | Outpatient (BNVA) | payer MEDICARE, OTHER, SELFPAY | PROVIDERS: PCP Internal Medicine; Visit Provider Internal Medicine | DX: I10 Essential (primary) hypertension (principal); E78.5 Hyperlipidemia, unspecified; E11.9 Type 2 diabetes mellitus without complications; L40.50 Arthropathic psoriasis, unspecified | CPT/HCPCS: 99212 ==

== ENCOUNTER 2025-02-03 14:47 | Outpatient (REF) | payer MEDICARE, OTHER, SELFPAY ==
--- OUTSIDE RECORDS SUMMARY | 2024-08-23 07:00 | XMS_ITS ---
Author Organization Total [facility] Address [address] [place] [address] Care Team Providers Care Broiler Supervisor Name Role Phone Lizbeth Velasquez Unavailable [phone] REASON FOR VISIT ULTRA - CK OVARIES TAW Encounters Encounter Location Date Provider Diagnosis [facility] [place] [address] 08/23/2024 Lizbeth Velasquez Plan Of Treatment Next Appt Details Provider Name:Lizbeth vasquez, 08/07/2025 11:00:00 AM, [address], [address], [place], [address], Progress Notes * MORA GIACOMOCHRISTENDOB: [birth year] (74 yo F)Acc No.[id number]:08/23/2024 PROGRESS NOTES Patient: KIRT POOLE Appointment Provider: Jordan Velasquez M.D. :1950 A ge:73 Y S ex:Female Date:08/23/2024 Address: [address] [facility] Subjective: * Chief Complaints: * 1 . ULTRA - CK OVARIES TAW. * Medical History: Objective: * Vitals: Assessment: Plan: * Treatment: * Images: Billing Information: * Visit Code: * Procedure Codes: * Electronic signature of Aida Velasquez MD on 02/03/2025 at 06:14 PM EDT Sign off status: Pending * Appointment Provider: Jordan Velasquez M.D. Date: 0 08/23/2024 Generated for Irlanda bills/Eden/Karen on: 1 06:14 PM EDT
[2025-02-03 15:08] LABS: MANUAL DIFF FLAG NO
[2025-02-03 15:22] LABS: Hematocrit 39.3 % (37.0-47.0); Hemoglobin 12.9 g/dl (12.0-16.0); Imm Gran Abs Auto 0.03 X10*3/uL (0.00-0.03); Imm Gran Pct Auto 0.4 % (0.0-0.4); Lymphocytes Absolute Auto 2.5 X10*3/uL (1.2-4.9); Mean Corpuscular HGB Conc 32.8 g/dl (31.0-35.0); Mean Corpuscular Hemoglobin 29.0 pg (27.0-33.0); Mean Corpuscular Volume 88.3 fL (80.0-98.0); NRBC Abs Auto 0.000 X10*3/uL (0.0-0.012); NRBC Pct Auto 0.0 /100WBC (0.0-0.2); Platelet Count 398 X10*3/uL (160-400); Red Blood Count 4.45 X10*6/uL (4.20-5.50); White Blood Count 8.2 X10*3/uL (4.8-10.8)
[2025-02-03 15:58] LABS: Alanine Aminotransferase 50 U/L (0-31); Albumin Level 4.3 g/dL (3.5-5.0); Alkaline Phosphatase 75 U/L (39-117); Anion Gap 12 (12-20); Aspartate Amino Transferase 41 U/L (5-31); Blood Urea Nitrogen 11 mg/dL (9-16); Calcium 9.6 mg/dL (8.4-10.2); Carbon Dioxide 26 mmol/L (22-29); Chloride 106 mmol/L (96-108); Estimated Glomerular Filt Rate > 60; Potassium 4.3 mmol/L (3.3-5.1); Sodium 140 mmol/L (135-145); Total Protein 7.1 g/dL (6.5-8.0)
--- OUTSIDE RECORDS SUMMARY | 2025-02-03 18:15 | XMS_ITS | Patient Health Record ---
Author Organization [facility] Address [address] [facility] [place] [address] Care Team Providers Care Career Manager Name Role Phone Dania Wright MD Primary Care Provider Unavaila ble Black, Sharita Unavailable [phone] Allergies Allergen (clinical drug ingredient) Drug/Non Drug [...] day Active Ciclopirox 0.77 % 1 application Cad Manager ally Twice a day; Duration: 30 days [...] Problem Acquired hammer toe of right foot (912902547427241 5) Other hammer toe(s) (acquired), right foot (M20.41) Active confirmed Problem Acquired hammer toe of left foot (034076919986997 3) Other hammer toe(s) (acquired), left foot (M20.42) Active confirmed Problem Plantar wart (83510938) Plantar wart (B07.0) Active confirmed Problem Type II diabetes mellitus without complication (404009314) Type 2 diabetes mellitus without complication, unspecified whether exterminator termite insulin use (E11.9) Active confirmed Vital Signs Blood pressure diastolic 76 mm Hg 09/30/2024 Height 5 ft 5 in in 09/30/2024 Blood pressure systolic 120 mm Hg 09/30/2024 Weight 240 lbs lbs 09/30/2024 BMI 39.93 kg/m2 09/30/2024 Procedures Procedure Date Ordered Date Performed Result Body Sit e 71366-Obhn Destruction, 1-14 09/30/2024 N/A Encounters Encounter Location Date Provider Diagnosis [facility] [place] [address] [place] [address] 09/30/2024 Sharita Black Pain in right toe(s) M79.674 ; Onychomycosis B35.1 ; Pain in left toe(s) M79.675 ; Right foot pain M79.671 ; Plantar wart B07.0 ; Other hammer toe(s) (acquired), right foot M20.41 ; Other hammer toe(s) (acquired), left foot M20.42 ; Xerosis of skin L85.3 and Type 2 diabetes mellitus without complication, unspecified whether exterminator termite insulin use E11.9 Assessments Encounter Date Diagnosis [...] 2 diabetes mellitus without complication, unspecified whether exterminator termite insulin use (ICD-10 - E11.9) Plan Of Treatment Pending Test Test Name Order Date [id number]-Hwnc Destruction, 1-14 09/30/2024 Next Appt Details Provider Name:Sharita Sweeney , 04/21/2025 11:15:00 AM, [address] [place], [address], Insurance Providers Payer Name Payer Address Payer Phone Subscriber Number Group Number Insured Name Patient Relationship to Insured Coverage Start Date Coverage End Date Medicare National Govt Svcs Inc [address] [place] [address] [id number] Randa Sanabria Self - patient is the insured 7 [employer] [facility] [address] [place] [address] [id number] Randa Sanabria Self - patient is the insured Medical (General) History Medical History History ICD Code Arthritis covid-19 type II diabetes Psoriasis/eczema thyroid Measles Mumps Chicken pox Surgical History Surgery Date(Month/Year) back surgery Thyroid 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
--- OUTSIDE RECORDS SUMMARY | 2025-02-03 18:15 | XMS_ITS | Patient Health Record ---
Author Organization [facility] Address [address] [place] [address] Care Team Providers Care Systems Qa Analyst Name Role Phone Rachelle Vences DO Primary Care Provider Yoni Mari Unavailable [phone] Reason For Referral No Information Medications Medication SIG (Take, Route, Frequency, Duration) Notes Start Date End Date Status MoviPrep 100 GM as directed Orally o nce; Duration: 1 dose 05/06/2011 Active Atenolol-Chlorthalidone 100/10mg Active Multi Vitamin/Minerals 04/10/20242024 Active Problems Problem Type SNOMED Code ICD Code Onset Dates Problem Status W/U Status Risk Notes Problem Diverticulosis of colon (finding) (807593652) Diverticulosis of colon (without mention of hemorrhage) (562.10) Active confirmed Problem Irritable bowel syndrome (66217281) Irritable bowel syndrome (564.1) Active confirmed Problem Screening for malignant neoplasm of colon (277531796) Special screening for malignant neoplasms, colon (V76.51) Active confirmed Plan Of Treatment Future Test Test Name Order Date COLONOSCOPY 04/27/2011 Insurance Providers Payer Name Payer Address Payer Phone Subscriber Number Group Number Insured Name Patient Relationship to Insured Coverage Start Date Coverage End Date [employer] INDEMNITY [address] [place] [address] [id number] KIRT VELAZCO Self - patient is the insured Medical (General) History Medical History History ICD Code hypertension irritable bowel syndrome diverticulosis Denies [place],DM,CVA,Lung disease,renal dise ase Surgical History Surgery Date(Month/Year) back surgery 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
--- OUTSIDE RECORDS SUMMARY | 2025-02-03 18:15 | XMS_ITS | Patient Health Record ---
Author Organization [facility] Address [address] [facility] [address] [facility] [address] [place] [address] Care Team Providers Care Instructor Correspondence School Name Role Phone Lizbeth Velasquez Unavailable [phone] Allergies No Known Allergies Results Component Value Reference Range Notes [id number] IGP No Culture 30 Plus Reviewed date:08/05/2024 12:18:27 PM Interpretation: Performing Lab:[facility] [place], [address], [address], [place], Phone - [phone], Director - [facility] Notes/Report: Clinical Information:Vaginal/Cervical, LMP: Men o [id number] Dates / Results....01/13/23 NIL, Neg HPV Other..............Post Menopausal No. of containers..01 ThinPrep Vial DIAGNOSIS: NEGATIVE FOR INTRAEPITHELIAL LESION OR MALIGNANCY. CELLULAR CHANGES ASSOCIATED WITH ATROPHY ARE PRESENT. THIS SPECIMEN WAS RESCREENED PART OF OUR TRANSPORTATION MANAGER PROGRAM. Specimen adequacy: Satisfactory for evaluation. Endocervical component may not be distinguished in cases of atrophy. Clinician provided ICD10: Z0 1.419 Performed by: Nahomi hameed, Packaging Materials Inspector (ASCP) QC reviewed by: Urbano padilla, Packaging Materials Inspector (ASCP) . . Note: The Pap smear [...] Reviewed date:08/05/2024 12:17:59 PM Interpretation: Performing Lab:[facility] [place], [address], [address], [place], Phone - [phone], Director - [facility] Notes/Report: Clinical Information:Vaginal/Cervical, LMP: Men o [id number] Dates / Results....01/13/23 NIL, Neg HPV Other..............Post [...] Risk Notes Problem Mucous polyp of cervix (37424990) Polyp of cervix uteri (N84.1) Active confirmed Problem Essential hypertension (26045453) Essential (primary) hypertension (I10) Active confirmed Problem Morbid obesity (disorder) (689808874) Morbid (severe) obesity due to excess calories (E66.01) Active confirmed Problem Osteoarthritis (130289763) Unspecified osteoarthritis, unspecified site (M19.90) Active confirmed Problem Polyp of corpus uteri (00131433) Polyp of corpus uteri (N84.0) Active confirmed Problem History of dysplasia of cervix (855839022) Personal history of cervical dysplasia (Z87.410) Active confirmed Problem Imaging result abnormal (517242718) Abnormal findings on diagnostic imaging of other specified body structures (R93.89) Active confirmed Vital Signs Temperature 97.5 degrees Fahrenheit 07/31/2024 Blood pressure diastolic 78 mm Hg 07/31/2024 Height 65 in 07/31/2024 Blood pressure systolic 142 mm Hg 07/31/2024 Weight 243 lbs 07/31/2024 BMI 40.43 kg/m2 07/31/2024 Encounters Encounter Location Date [facility] [place] [address] [facility] [address] [address] 08/23/2024 Lizbeth Velasquez [place] [address] [facility] [address] [address] 07/31/2024 Lizbeth Velasquez Encounter for gynecological examination (general) (routine) without abnormal findings Z01.419 ; Encounter for screening mammogram for malignant neoplasm of breast Z12.31 ; Personal history of cervical dysplasia Z87.410 ; Acute candidiasis of vulva and vagina B37.31 and Morbid (severe) obesity due to excess calories E66.01 [place] [address] [facility] [address] [address] 09/27/2024 Lizbeth Velasquez Abnormal findings on diagnostic imaging of other specified body structures R93.89 ; Polyp of corpus uteri N84.0 and Polyp of cervix uteri N84.1 [place] [address] [facility] [address] [address] 09/27/2024 Lizbeth Velasquez [facility] [address] [facility] [address] [place] [address] 08/28/2024 Lizbeth Velasquez [place] [address] [place] [address] 08/28/2024 Lizbeth Velasquez Assessments Encounter Date Diagnosis [...] Provider Name:Lizbeth vasquez, 08/07/2025 11:00:00 AM, [address], [address], [place], [address], Insurance Providers Payer Name Payer Address Payer Phone Subscriber Number Group Number Insured Name Patient Relationship to Insured Coverage Start Date Coverage End Date MEDICARE [address] [place], [place] [id number] KIRT VELAZCO Self - patient is the insured 7 [employer] [address] [place] [address] [id number] KIRT VELAZCO Self - patient is the [...]
--- OUTSIDE RECORDS SUMMARY | 2025-02-03 18:15 | XMS_ITS | Clinical Summary ---
Author Organization [facility] Address [address] [place] [address] Care Team Providers Care Edge Grinder Name Role Phone VangieRachelle DO Primary Care [...] age to complete this topic Care Teams Edge Grinder Relationship Specialty Start Date End Date Rachelle Vences DO PCP - General Family Medicine 07/14/17
== END 2025-02-03 14:48 | disposition home or self-care (01) ==
LOC: HO.LAB 14:47
PROVIDERS: PCP Internal Medicine; Visit Provider Student in an Organized Health Care Education/Training Program
DX: L40.50 Arthropathic psoriasis, unspecified (principal)
CPT/HCPCS: 36415; 80053; 85025; 85652; 86140

== ENCOUNTER 2025-02-13 12:35 | Outpatient (AMB) | payer MEDICARE, OTHER, SELFPAY ==
--- NOTE | 2025-02-13 12:54 | MHC.OFFVIS ---
Vital Signs 02/13/25 13:01 Height 5 ft 5 in Weight 244 lb 11.41 oz BMI 40.7 BP 152/98 H Blood Pressure Location Lt brachial Position Sitting Pulse 68 Pulse Source Pulse Oximeter Pulse Oximetry (%) 97 Oxygen Delivery Method Room Air Intake Visit Reasons: PsA Intake Note: Patient presents for PsA follow up. Allergies metformin Allergy (Severe, Verified 02/13/25 13:00) diarrhea, empagliflozin (From Jardiance) Adverse Reaction (Intermediate, Verified 02/13/25 13:00) yeast infection glipizide Adverse Reaction (Intermediate, Verified 02/13/25 13:00) body aches sitagliptin (From Januvia) Adverse Reaction (Intermediate, Verified 02/13/25 13:00) Diarrhea Medication List - Last Reconciled 02/13/25 by Carolina Barnard MD albuterol sulfate 90 mcg/actuation 2 puffs inhalation Q6H PRN amlodipine 2.5 mg PO DAILY atorvastatin 20 mg PO QPM blood sugar diagnostic ([employer] Ultra Test strips) test blood sugar once a day blood-glucose meter ([employer] Ultra2 Meter) As directed cetirizine (Zyrtec) 10 mg PO BID 90 days COVID-19 antigen test As directed fluticasone propionate 50 mcg/actuation 1 spray intranasal Q12H levothyroxine 112 mcg PO DAILY Mounjaro (tirzepatide) 2.5 mg (0.5 mL) subcut QWEEK NS oxymetazoline 0.05% (Afrin (oxymetazoline)) 2 sprays intranasal Q12H PRN 5 days valsartan 320 mg PO DAILY HPI Comments Details: Patient is a 74 y.o. female with asthma, HTN, HLD, DM, Hypothyroidism, PsO c/b PsA here today for follow up Interval History: Patient last seen 10/17/24 with me - On Otezla 30mg od - Doing well - Has some small PsO patches - Held Otezla due to diarrhea Today - Not on DMARDs - Stopped Otezla due to diarrhea - No return of joint pain - Several small PsO patches, has been using topical hydrocortisone for this OTC - Does not want to pursue further immunosuppression at this time out of concern for side effects Rheumatologic History: PsO/PsA dx 10/2021 Methotrexate/Leflunomide contraindicated due to elevated enzymes and liver disease Otezla 2021 effective Initial history: The patient presents for evaluation of joint pains. The symptoms started about 4 or 5 weeks ago. Areas of pain include the shoulders, wrists, hands, and knees. She notes some swelling in the hands. Most problematic seems to be the shoulders which have pain over the deltoids radiating distally. These are particularly bothersome with lifting the arm overhead or with lying on the shoulders at night. She was diagnosed with psoriasis this fall, a few weeks after receiving the COVID-19 vaccination. She was on some Otezla for while but that seemed to cause some GI upset and did not help her skin rash. She eventually stopped it and currently uses shows some a topical moisturizers on the skin. The skin for the most part has improved. She does not recall a prior history of inflammatory arthritis or psoriasis. She wonders if she could have psoriatic arthritis. Current Rheumatology Medication(s): Otezla 30mg bid (no longer taking) [facility], [facility] Medical History (Updated 02/13/25 @ 17:04 by Carolina Barnard MD) Osteopenia Dyspnea Postmenopausal Atrophic vaginitis Annual physical exam Psoriasis Limb pain Eosinophilia Pulmonary nodules Asthma Hypothyroid DM type 2 (diabetes mellitus, type 2) HTN (hypertension) LVH (left ventricular hypertrophy) Hyperlipidemia Obesity Surgical History History of hysteroscopy Hx of cervical polypectomy History of surgery History of thyroidectomy (2017) Hx of colonoscopy History of back surgery Family History Father Carotid stenosis Mother Hypertension Social History Housing: House Alcohol intake: never Patient Tobacco Use Status: Former Tobacco user Years Smoked: 40 years ago e-Cigarette/Vaping Use: Never Used service: No Current occupational status: retired Cognitive needs: No Hearing needs: No Vision needs: Yes Review of Systems Narrative Review of Systems Constitutional: Denies fever, chills, weight loss ENT: Denies vision changes, eye pain or eye redness, dental caries, dry mouth GI: Denies nausea, vomiting, diarrhea, abdominal pain, change in BM Pulm: Denies SOB, ARAYA, hemoptysis, wheezing Cards: Denies chest pain, palpitations Skin: Denies Raynaud's, rash, nail changes, photosensitivity, WORKFORCE STAFFING ADVISOR: Denies headaches, weakness, paresthesias, recurrent falls MSK: as per HPI All other systems reviewed and are unremarkable except noted above Physical Exam Exam Exam: Vital signs reviewed Physical Examination CONSTITUITIONAL Patient alert and cooperative. Well appearing and in no apparent painful distress MSK Hands Right Hand: Able to make a fist. No swelling or tenderness to palpation of the MCPs, PIPs or DIPs. Left Hand: Able to make a fist. No swelling or tenderness to palpation of the MCPs, PIPs or DIPs. Herbedens nodes noted bilaterally Wrists Right Wrist: Full ROM to flexion and extension. No swelling or TTP Left Wrist: Full ROM to flexion and extension. No swelling or TTP Elbows Right Elbow: Full ROM. No swelling or TTP. No TTP of the medial epicondyle. No TTP of the lateral epicondyle Left Elbow: Full ROM. No swelling or TTP. No TTP of the medial epicondyle. No TTP of the lateral epicondyle Shoulders Right shoulder: Full ROM. No swelling noted. No TTP of the AC joint. No TTP of the subacromial bursa. No TTP of the posterior shoulder Left shoulder: Full ROM. No swelling noted. No TTP of the AC joint. No TTP of the subacromial bursa. No TTP of the posterior shoulder Knees Right knee: Full ROM. No swelling noted. No TTP of the knee joint line. No TTP of pes anserine bursa Left knee: Full ROM. No swelling noted. No TTP of the knee joint line. No TTP of pes anserine bursa. Crepitations felt bilaterally Ankles Right ankle: Good ankle dorsiflexion and plantar flexion. No swelling. No TTP of the ankle joint Left ankle: Good ankle dorsiflexion and plantar flexion. No swelling. No TTP of the ankle joint Feet Right foot: Negative squeeze test Left foot: Negative squeeze test Tender points? No tenderness to palpation of the bilateral trapezius, supraspinatus, anterior costochondral junctions, bilateral suboccipital muscle insertions SKIN Scattered small PsO patches involving the legs, back and arms Vital Signs: Last Vital Signs Pulse 68 02/13/25 13:01 BP 152/98 H 02/13/25 13:01 Pulse Ox 97 02/13/25 13:01 Oxygen Delivery Method Room Air 02/13/25 13:01 BMI result Body Mass Index 40.7 Results Reviewed Results Reviewed: Laboratory Tests 01/01/25 02/03/25 11:10 15:06 WBC 8.2 RBC 4.45 Hgb 12.9 Hct 39.3 Plt Count 398 ESR 12 Sodium 140 Potassium 4.3 Chloride 106 Carbon Dioxide 26 BUN 11 Creatinine 0.84 AST 31 41 H ALT 32 H 50 H C-Reactive Protein 0.27 DEXA 06/2024 FINDINGS: The bone mineral density of the lumbar spine is 1.223 with a T-score of 0.4, and a Z-score of 0.9. This represents a BMD change of -0.4% compared to the prior exam. This is not statistically significant. The bone mineral density of the left total hip is 0.905 with a T-score of -0.8, and a Z-score of 0.0. This represents BMD change of 2.1% compared to the prior exam. This is not statistically significant. The bone mineral density of the left femoral neck is 0.856 with a T-score of -1.3, and a Z-score of -0.3. This represents BMD change of 7.8% compared to the prior exam. FRACTURE RISK: The FRAX index suggests a ten year probability of major osteoporotic fracture of 8.9%, and of hip fracture 1.2%. Assessment & Plan Assessment & Plan (1) Psoriatic arthritis: Comment: dx 10/2021 Methotrexate/Leflunomide contraindicated due to elevated enzymes and liver disease Otezla 2021 effective. Decrease to once a day due to diarrhea Code(s): L40.50 - Arthropathic psoriasis, unspecified Category: Medical Plan: #PsO/PsA Patient is a 74 y.o. female with PsO/PsA here today for follow up. Currently in remission Has a few PsO patches No worsening of joint symptoms Patient does not want to continue Otezla due to the diarrhea Discussed alternative treatment options such as Tremfya but patient would like to do topical treatments for now Plan - Topical betamethasone 1% bid - RTC 4 months - Labs before visit: CBC, CMP, ESR, CRP (2) Osteopenia: Comment: DEXA 06/2024: AP Spine 0.4, Left femur neck -1.3, Left femur total -0.8. FRAX 8.9/1.2 Code(s): M85.80 - Other specified disorders of bone density and structure, unspecified site Category: Medical Qualifiers: Osteopenia location: femoral neck Laterality: left Qualified Code(s): M85.852 - Other specified disorders of bone density and structure, left thigh Plan: #Osteopenia Patient with osteopenia. FRAX index not indicative of treatment at this time. Continue vitamin-D supplementation Plan - Continue vitamin D supplementation Plan I spent 30 minutes reviewing the record and labs, taking a history, examining the patient, discussing the treatment plan, ordering diagnostic work up and documenting in the medical record Medications: New betamethasone valerate 0.1% 1 appl topical BID 45 grams 2RF L40.9 - Psoriasis, unspecified Coding Level of Care Code Est Pt Level 4 (69086) Complex EM visit Add On G2211 Diagnoses Psoriatic arthritis L40.50 Osteopenia of neck of left femur M85.852 Osteopenia location: femoral neck Laterality: left
[2025-02-13 13:01] VITALS: BP 152/98; PULSE 68; O2SAT 97; BMI 40.7
--- OUTSIDE RECORDS SUMMARY | 2025-02-13 15:24 | XMS_ITS | Clinical Summary ---
Author Organization [facility] Address [address] [place] [address] Care Team Providers Care Machine Tech Name Role Phone VangieRachelle DO Primary Care [...] age to complete this topic Care Teams Machine Tech Relationship Specialty Start Date End Date Rachelle Vences DO PCP - General Family Medicine 07/14/17
== END 2025-02-13 13:46 | disposition home or self-care (01) ==
LOC: HO.RHES 12:36
PROVIDERS: PCP Internal Medicine; Visit Provider Student in an Organized Health Care Education/Training Program
DX: L40.50 Arthropathic psoriasis, unspecified (principal); M85.852 Other specified disorders of bone density and structure, left thigh
CPT/HCPCS: 99214; G2211

== ENCOUNTER → 2025-02-13 12:35 | Outpatient (BNVA) | payer MEDICARE, OTHER, SELFPAY | PROVIDERS: PCP Internal Medicine; Visit Provider Student in an Organized Health Care Education/Training Program | DX: L40.50 Arthropathic psoriasis, unspecified (principal); M85.852 Other specified disorders of bone density and structure, left thigh; E55.9 Vitamin D deficiency, unspecified | CPT/HCPCS: 99212 ==

== ENCOUNTER 2025-03-24 10:20 | Outpatient (REF) | payer MEDICARE, OTHER, SELFPAY ==
[2025-03-24 10:35] LABS: MANUAL DIFF FLAG NO
[2025-03-24 10:46] LABS: Hematocrit 40.7 % (37.0-47.0); Hemoglobin 13.6 g/dl (12.0-16.0); Imm Gran Abs Auto 0.02 X10*3/uL (0.00-0.03); Imm Gran Pct Auto 0.3 % (0.0-0.4); Lymphocytes Absolute Auto 2.3 X10*3/uL (1.2-4.9); Mean Corpuscular HGB Conc 33.4 g/dl (31.0-35.0); Mean Corpuscular Hemoglobin 29.2 pg (27.0-33.0); Mean Corpuscular Volume 87.5 fL (80.0-98.0); NRBC Abs Auto 0.000 X10*3/uL (0.0-0.012); NRBC Pct Auto 0.0 /100WBC (0.0-0.2); Platelet Count 366 X10*3/uL (160-400); Red Blood Count 4.65 X10*6/uL (4.20-5.50); White Blood Count 7.9 X10*3/uL (4.8-10.8)
[2025-03-24 11:09] LABS: Alanine Aminotransferase 49 U/L (0-31); Albumin Level 4.3 g/dL (3.5-5.0); Alkaline Phosphatase 84 U/L (39-117); Anion Gap 10 (12-20); Aspartate Amino Transferase 34 U/L (5-31); Blood Urea Nitrogen 11 mg/dL (9-16); Calcium 9.0 mg/dL (8.4-10.2); Carbon Dioxide 27 mmol/L (22-29); Chloride 107 mmol/L (96-108); Cholesterol 162 mg/dL (<200); Estimated Glomerular Filt Rate > 60; HDL Cholesterol 64 mg/dL (>40); Potassium 3.8 mmol/L (3.3-5.1); Sodium 140 mmol/L (135-145); Total Protein 7.2 g/dL (6.5-8.0); Triglycerides 109 mg/dL (<150)
[2025-03-24 11:47] LABS: Microalbum/Creatinine Ratio Ur 22.1 ug/mg cr (<30)
== END 2025-03-24 10:21 | disposition home or self-care (01) ==
LOC: HO.LAB 10:20
PROVIDERS: PCP Internal Medicine; Visit Provider Internal Medicine
DX: I10 Essential (primary) hypertension (principal); E78.5 Hyperlipidemia, unspecified; E11.9 Type 2 diabetes mellitus without complications
CPT/HCPCS: 36415; 80053; 80061; 82043; 82570; 83036; 85025

== ENCOUNTER 2025-03-31 14:30 | Outpatient (REF) | payer MEDICARE, OTHER, SELFPAY ==
--- OUTSIDE RECORDS SUMMARY | 2024-08-23 06:00 | XMS_ITS ---
Author Organization Total [employer] Address [address] [place] [address] Care Team Providers Care Deputy Sheriff/Investigator Name Role Phone Lizbeth Velasquez Unavailable [phone] REASON FOR VISIT ULTRA - CK OVARIES TAW Encounters Encounter Location Date Provider Diagnosis [facility] [employer] [place] [address] 08/23/2024 Lizbeth Velasquez Plan Of Treatment Next Appt Details Provider Name:Lizbeth vasquez, 08/07/2025 11:00:00 AM, [address], [address], [place], [address], Progress Notes * MORA GIACOMOCHRISTENDOB: [birth year] (74 yo F)Acc No.[id number]:08/23/2024 PROGRESS NOTES Patient: KIRT POOLE Appointment Provider: Jordan Velasquez M.D. :1950 A ge:73 Y S ex:Female Date:08/23/2024 Address: [address] [facility] Subjective: * Chief Complaints: * 1 . ULTRA - CK OVARIES TAW. * Medical History: Objective: * Vitals: Assessment: Plan: * Treatment: * Images: Billing Information: * Visit Code: * Procedure Codes: * Electronic signature of Aida Velasquez MD on 03/31/2025 at 05:54 PM EST Sign off status: Pending * Appointment Provider: Jordan Velasquez M.D. Date: 0 08/23/2024 Generated for Irlanda bills/Eden/Karen on: 1 06/01/2024 05:54 PM EST
[2025-03-31 14:57] LABS: MANUAL DIFF FLAG NO
[2025-03-31 17:20] LABS: Hematocrit 40.1 % (37.0-47.0); Hemoglobin 13.1 g/dl (12.0-16.0); Imm Gran Abs Auto 0.01 X10*3/uL (0.00-0.03); Imm Gran Pct Auto 0.1 % (0.0-0.4); Lymphocytes Absolute Auto 2.5 X10*3/uL (1.2-4.9); Mean Corpuscular HGB Conc 32.7 g/dl (31.0-35.0); Mean Corpuscular Hemoglobin 29.4 pg (27.0-33.0); Mean Corpuscular Volume 90.1 fL (80.0-98.0); NRBC Abs Auto 0.000 X10*3/uL (0.0-0.012); NRBC Pct Auto 0.0 /100WBC (0.0-0.2); Platelet Count 373 X10*3/uL (160-400); Red Blood Count 4.45 X10*6/uL (4.20-5.50); White Blood Count 8.2 X10*3/uL (4.8-10.8)
[2025-03-31 17:46] LABS: Alanine Aminotransferase 50 U/L (0-31); Albumin Level 4.3 g/dL (3.5-5.0); Alkaline Phosphatase 78 U/L (39-117); Anion Gap 14 (12-20); Aspartate Amino Transferase 36 U/L (5-31); Blood Urea Nitrogen 11 mg/dL (9-16); Calcium 9.7 mg/dL (8.4-10.2); Carbon Dioxide 25 mmol/L (22-29); Chloride 106 mmol/L (96-108); Estimated Glomerular Filt Rate > 60; Potassium 4.1 mmol/L (3.3-5.1); Sodium 141 mmol/L (135-145); Total Protein 7.0 g/dL (6.5-8.0)
--- OUTSIDE RECORDS SUMMARY | 2025-03-31 17:56 | XMS_ITS | Patient Health Record ---
Author Organization [facility] Address [address] [place] [address] Care Team Providers Care Warrant Clerk Name Role Phone Dania Wright MD Primary Care Provider Unavaila ble Black, Sharita Unavailable [phone] Allergies Allergen (clinical drug ingredient) Drug/Non Drug [...] day Active Ciclopirox 0.77 % 1 application Orthopaedic Surgeon ally Twice a day; Duration: 30 days [...] Problem Acquired hammer toe of right foot (831835087546832 5) Other hammer toe(s) (acquired), right foot (M20.41) Active confirmed Problem Acquired hammer toe of left foot (063131454605356 3) Other hammer toe(s) (acquired), left foot (M20.42) Active confirmed Problem Plantar wart (93869642) Plantar wart (B07.0) Active confirmed Problem Type II diabetes mellitus without complication (280854690) Type 2 diabetes mellitus without complication, unspecified whether long wall shear operator insulin use (E11.9) Active confirmed Vital Signs Blood pressure diastolic 76 mm Hg 09/30/2024 Height 5 ft 5 in in 09/30/2024 Blood pressure systolic 120 mm Hg 09/30/2024 Weight 240 lbs lbs 09/30/2024 BMI 39.93 kg/m2 09/30/2024 Procedures Procedure Date Ordered Date Performed Result Body Sit e 32658-Wipm Destruction, 1-14 09/30/2024 N/A Encounters Encounter Location Date Provider Diagnosis [facility] [address] [place] [address] 09/30/2024 Sharita Black Pain in right toe(s) M79.674 ; Onychomycosis B35.1 ; Pain in left toe(s) M79.675 ; Right foot pain M79.671 ; Plantar wart B07.0 ; Other hammer toe(s) (acquired), right foot M20.41 ; Other hammer toe(s) (acquired), left foot M20.42 ; Xerosis of skin L85.3 and Type 2 diabetes mellitus without complication, unspecified whether long wall shear operator insulin use E11.9 Assessments Encounter Date [...] 2 diabetes mellitus without complication, unspecified whether mcc insulin use (ICD-10 - E11.9) Plan Of Treatment Pending Test Test Name Order Date 81723-Eiud Destruction, 1-14 09/30/2024 Next Appt Details Provider Name:Sharita Sweeney , 04/21/2025 11:15:00 AM, [address] [place], [address], Insurance Providers Payer Name Payer Address Payer Phone Subscriber Number Group Number Insured Name Patient Relationship to Insured Coverage Start Date Coverage End Date Medicare National Govt Svcs Inc [address] [place] [address] [id number] Randa Sanabria Self - patient is the insured 7 [employer] [facility] [employer] [address] [place] [address] [id number] Randa Sanabria Self - patient is the insured Medical (General) History Medical History History ICD Code Arthritis covid-19 type II diabetes Psoriasis/eczema thyroid Measles Mumps Chicken pox Surgical History Surgery Date(Month/Year) back surgery Thyroid 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
--- OUTSIDE RECORDS SUMMARY | 2025-03-31 17:56 | XMS_ITS | Patient Health Record ---
Author Organization [facility] Address [address] [place] [address] Care Team Providers Care Bariatric Surgeon Name Role Phone Lizbeth Velasquez Unavailable [phone] Allergies No Known Allergies Results Component Value Reference Range Notes PDF Report Reviewed date:08/05/2024 12:17:59 PM Interpretation: Performing Lab:[facility], [address], [address], [place], Phone - [phone], Director - [facility] Notes/Report: Clinical Information:Vaginal/Cervical, LMP: Men o [id number] Dates / Results....01/13/23 NIL, Neg HPV Other..............Post Menopausal No. of containers..01 ThinPrep Vial [id number] IGP No Culture 30 Plus Reviewed date:08/05/2024 12:18:27 PM Interpretation: Performing Lab:[facility], [address], [address], [place], Phone - [phone], Director - [facility] Notes/Report: Clinical Information:Vaginal/Cervical, LMP: Men o [id number] Dates / Results....01/13/23 NIL, Neg HPV Other..............Post Menopausal No. of containers..01 ThinPrep Vial DIAGNOSIS: NEGATIVE FOR INTRAEPITHELIAL LESION OR MALIGNANCY. CELLULAR CHANGES ASSOCIATED WITH ATROPHY ARE PRESENT. THIS SPECIMEN WAS RESCREENED PART OF OUR ENDORSEMENT CLERK PROGRAM. Specimen adequacy: Satisfactory for evaluation. Endocervical component may not be distinguished in cases of atrophy. Clinician provided ICD10: Z0 1.419 Performed by: Nahomi hameed, Global Mobility Specialist (ASCP) QC reviewed by: Urbano padilla, Global Mobility Specialist (ASCP) . . Note: The Pap smear [...] Risk Notes Problem Mucous polyp of cervix (09339240) Polyp of cervix uteri (N84.1) Active confirmed Problem Essential hypertension (63301368) Essential (primary) hypertension (I10) Active confirmed Problem Morbid obesity (disorder) (224841194) Morbid (severe) obesity due to excess calories (E66.01) Active confirmed Problem Osteoarthritis (015981528) Unspecified osteoarthritis, unspecified site (M19.90) Active confirmed Problem Polyp of corpus uteri (36239195) Polyp of corpus uteri (N84.0) Active confirmed Problem History of dysplasia of cervix (424197011) Personal history of cervical dysplasia (Z87.410) Active confirmed Problem Imaging result abnormal (938958611) Abnormal findings on diagnostic imaging of other specified body structures (R93.89) Active confirmed Vital Signs Temperature 97.5 degrees Fahrenheit 07/31/2024 Blood pressure diastolic 78 mm Hg 07/31/2024 Height 65 in 07/31/2024 Blood pressure systolic 142 mm Hg 07/31/2024 Weight 243 lbs 07/31/2024 BMI 40.43 kg/m2 07/31/2024 Encounters Encounter Location Date Provider Diagnosis [place] [address] [address] [address] 08/23/2024 Lizebth Velasquez [place] [address] [place] [address] [address] 07/31/2024 Lizbeth Velasquez Encounter for gynecological examination (general) (routine) without abnormal findings Z01.419 ; Encounter for screening mammogram for malignant neoplasm of breast Z12.31 ; Personal history of cervical dysplasia Z87.410 ; Acute candidiasis of vulva and vagina B37.31 and Morbid (severe) obesity due to excess calories E66.01 [place] [address] [place] [address] [address] 09/27/2024 Lizbeth Velasquez Abnormal findings on diagnostic imaging of other specified body structures R93.89 ; Polyp of corpus uteri N84.0 and Polyp of cervix uteri N84.1 [place] [address] [place] [address] [address] 09/27/2024 Lizbeth Velasquez [facility] [address] [place] [address] 08/28/2024 Lizbeth Velasquez [place] [address] [place] [address] 08/28/2024 Lizbeth Velasquez Assessments Encounter Date Diagnosis [...] Provider Name:Lizbeth vasquez, 08/07/2025 11:00:00 AM, [address], [address], [place], [address], Insurance Providers Payer Name Payer Address Payer Phone Subscriber Number Group Number Insured Name Patient Relationship to Insured Coverage Start Date Coverage End Date MEDICARE [address] [place], [place] [id number] KIRT VELAZCO Self - patient is the insured 7 [employer] [address] [place] [address] [id number] KIRT VELAZCO Self - patient is the [...]
--- OUTSIDE RECORDS SUMMARY | 2025-03-31 17:56 | XMS_ITS | Clinical Summary ---
Author Organization [facility] Prior to 09/07/24 Address [address] [place] [address] Care Team Providers Care Food Truck Caterer Name Role Phone VangieRachelle DO Primary Care Provider [phone] Allergies No known active allergies Medications Medication [...] age to complete this topic Care Teams Food Truck Caterer Relationship Specialty Start Date End Date Rachelle Vences DO PCP - General Family Medicine 07/14/17
--- OUTSIDE RECORDS SUMMARY | 2025-03-31 17:56 | XMS_ITS | Patient Health Record ---
Author Organization [facility] Address [address] [place] [address] Care Team Providers Care Procurement Technician Name Role Phone Rachelle Vences DO Primary Care Provider Yoni Mari Unavailable [phone] Reason For Referral No Information Medications Medication SIG (Take, Route, Frequency, Duration) Notes Start Date End Date Status MoviPrep 100 GM Solution Reconstituted as directed Orally once; Duration: 1 dose 05/06/2011 Active Atenolol-Chlorthalidone 100/10mg Active Multi Vitamin/Minerals 04/10/19001900 Active Social History Social History Additional Details Category Social Info Options Details Miscellaneous: Marital status: 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, 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 Section Notes: She stopped smoking 25 years ago, and does not use any significant amounts of alcohol Problems Problem Type SNOMED Code ICD Code Onset Dates Problem Status W/U Status Risk Notes Problem Diverticulosis of colon (finding) (965488946) Diverticulosis of colon (without mention of hemorrhage) (562.10) Active confirmed Problem Irritable bowel syndrome (45861861) Irritable bowel syndrome (564.1) Active confirmed Problem Screening for malignant neoplasm of colon (150904796) Special screening for malignant neoplasms, colon (V76.51) Active confirmed Plan Of Treatment Future Test Test Name Order Date COLONOSCOPY 04/27/2011 Insurance Providers Payer Name Payer Address Payer Phone Subscriber Number Group Number Insured Name Patient Relationship to Insured Coverage Start Date Coverage End Date GI [employer] INDEMNITY [address] [place] [address] [phone] [id number] KIRT VELAZCO Self - patient is the insured Medical (General) History Medical History History ICD Code hypertension irritable bowel syndrome diverticulosis Denies CA,DM,CVA,Lung disease,renal dise ase Surgical History Surgery Date(Month/Year) back surgery 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
[2025-04-01 03:58] LABS: HBS Num1 0.00 mIU/mL (0-7.99); HBc Num1 0.05 S/CO (0.00-0.79); HBsAGNum1 0.34 S/CO (0.00-0.99); Hepatitis B Surface Antigen Negative (Negative); ~HepC Num1 0.15 S/CO (0.00-0.79); ~Hepatitis B Surface Antibody NONREACTIVE (Nonreactive); ~Hepatitis C Antibody Nonreactive (Nonreactive)
== END 2025-03-31 14:31 | disposition home or self-care (01) ==
LOC: HO.LAB 14:30
PROVIDERS: PCP Internal Medicine; Visit Provider Physician Assistant
DX: L40.0 Psoriasis vulgaris (principal); Z11.1 Encounter for screening for respiratory tuberculosis; Z79.899 Other long term (current) drug therapy
CPT/HCPCS: 36415; 80053; 85025; 86481; 86704; 86706; 86803; 87340

== ENCOUNTER 2025-04-01 14:26 | Outpatient (AMB) | payer MEDICARE, OTHER, SELFPAY ==
--- OUTSIDE RECORDS SUMMARY | 2024-08-23 06:00 | XMS_ITS ---
Author Organization [facility] Address [address] [place] [address] Care Team Providers Care Compress Engineer Name Role Phone Lizbeth Velasquez Unavailable [phone] REASON FOR VISIT ULTRA - CK OVARIES TAW Encounters Encounter Location Date Provider Diagnosis [facility] [place] [address] 08/23/2024 Lizbeth Velasquez Plan Of Treatment Next Appt Details Provider Name:Lizbeth vasquez, 08/07/2025 11:00:00 AM, [address], [address], [place], [address], Progress Notes * MORA GIACOMOCHRISTENDOB: [birth year] (74 yo F)Acc No.[id number]:08/23/2024 PROGRESS NOTES Patient: KIRT POOLE Appointment Provider: Jordan Velasquez M.D. :1950 A ge:73 Y S ex:Female Date:08/23/2024 Address: [address] [id number] Subjective: * Chief Complaints: * 1 . ULTRA - CK OVARIES TAW. * Medical History: Objective: * Vitals: Assessment: Plan: * Treatment: * Images: Billing Information: * Visit Code: * Procedure Codes: * Electronic signature of Aida Velasquez MD on 04/01/2025 at 03:43 PM EST Sign off status: Pending * Appointment Provider: Jordan Velasquez M.D. Date: 0 08/23/2024 Generated for Irlanda bills/Eden/Karen on: 1 06/02/2024 03:43 PM EST
[2025-04-01 14:30] VITALS: BP 120/76; PULSE 95; BMI 41.5
--- NOTE | 2025-04-01 14:30 | MHC.OFFVIS ---
Vital Signs 04/01/25 14:30 Height 5 ft 5 in Weight 249 lb 1.957 oz BMI 41.5 BP 120/76 Blood Pressure Location Lt brachial Position Sitting Pulse 95 Intake Visit Reasons: 1 yr follow up Intake Note: 1 year follow-up ekg feeling good Paint Spray Inspector Required: No Allergies metformin Allergy (Severe, Verified 02/13/25 13:00) diarrhea, empagliflozin (From Jardiance) Adverse Reaction (Intermediate, Verified 02/13/25 13:00) yeast infection glipizide Adverse Reaction (Intermediate, Verified 02/13/25 13:00) body aches sitagliptin (From Januvia) Adverse Reaction (Intermediate, Verified 02/13/25 13:00) Diarrhea Medication List - Last Reconciled 04/01/25 by Tom Romero MD albuterol sulfate 90 mcg/actuation 2 puffs inhalation Q6H PRN amlodipine 2.5 mg PO DAILY atorvastatin 20 mg PO QPM betamethasone valerate 0.1% 1 appl topical BID blood sugar diagnostic ([employer] Ultra Test strips) test blood sugar once a day blood-glucose meter ([employer] Ultra2 Meter) As directed cetirizine (Zyrtec) 10 mg PO BID 90 days COVID-19 antigen test As directed fluticasone propionate 50 mcg/actuation 1 spray intranasal Q12H levothyroxine 112 mcg PO DAILY Mounjaro (tirzepatide) 2.5 mg (0.5 mL) subcut QWEEK NS oxymetazoline 0.05% (Afrin (oxymetazoline)) 2 sprays intranasal Q12H PRN 5 days valsartan 320 mg PO DAILY HPI Comments Details: Alessandra comes for follow-up. She is currently experiencing another flare-up of her psoriasis. She is bothered by it. She has recently started on other immunomodulator. She denies any cardiac symptoms of worsening shortness of breath, orthopnea, PND. Denies any exertional chest pain. She denies any prolonged palpitation irregular heartbeat. She has unfortunately not been participate in regular physical activity but says with a day-to-day life she has been doing well. Her LDL is more or less stable at 77 mg/dL. She says a blood pressure is generally well controlled. [facility] Medical History Osteopenia Dyspnea Postmenopausal Atrophic vaginitis Annual physical exam Psoriasis Limb pain Eosinophilia Pulmonary nodules Asthma Hypothyroid DM type 2 (diabetes mellitus, type 2) HTN (hypertension) LVH (left ventricular hypertrophy) Hyperlipidemia Obesity Surgical History History of hysteroscopy Hx of cervical polypectomy History of surgery History of thyroidectomy (2017) Hx of colonoscopy History of back surgery Family History Father Carotid stenosis Mother Hypertension Social History Housing: House Alcohol intake: never Patient Tobacco Use Status: Former Tobacco user Years Smoked: 40 years ago e-Cigarette/Vaping Use: Never Used service: No Current occupational status: retired Cognitive needs: No Hearing needs: No Vision needs: Yes Review of Systems Const Denies chills, Denies fatigue, Denies fever(s), Denies frequent falls, Denies weakness, Denies weight gain and Denies weight loss ENT Denies dizziness Card Denies chest pain, Denies leg edema, Denies lightheadedness, Denies palpitations, Denies dyspnea, Denies dyspnea on exertion, Denies orthopnea and Denies other (loss of consciousness) Resp Denies cough, Denies dyspnea and Denies dyspnea on exertion GI Denies hematochezia and Denies change in stool character Musc Denies abnormal gait, Denies muscle weakness, Denies numbness, Denies radiating pain into limb and Denies tingling Neuro Denies abnormal gait, Denies dizziness, Denies frequent falls, Denies numbness, Denies tingling and Denies weakness Endo Denies fatigue and Denies palpitations Physical Exam Vital Signs: Last Vital Signs Pulse 95 04/01/25 14:30 BP 120/76 04/01/25 14:30 BMI result Body Mass Index 41.5 Const General: cooperative, comfortable, no acute distress, alert, awake and well groomed Nutritional Appearance: obese morbidly obese Orientation/consciousness: patient oriented x3 Limitations: no limitations HEENT Head: Yes normal to inspection, Yes normocephalic and Yes atraumatic Eyes General: appearance normal, both eyes and all related structures Neck Neck: Yes trachea midline, Yes supple and Yes no JVD Carotids: no bruits Chest Chest palpation & inspection: normal inspection of the chest Resp Effort & Inspection: normal respiratory effort Auscultation: clear to auscultation bilaterally Cardio Palpation: normal PMI Rate: regular rate Rhythm: abnormal rhythm with ectopic beats Heart sounds: S1 normal heart sound present and S2 normal heart sound present GI Inspection: Yes obesity Auscultation: normal bowel sounds Skin General skin exam: no rashes or lesions noted Neuro General: patient oriented x3 and no focal motor deficits Extrem General: Yes no clubbing, cyanosis or edema Psych Appearance: grossly normal Office Procedures EKG Details: EKGs shows normal sinus rhythm low-voltage QRS otherwise no significant ST-T wave changes with poor R-wave progression most consistent with lead placement and body habitus with left anterior fascicular block 75719-Sdzhugigtnntcfzqe, Complete Assessment & Plan Assessment & Plan (1) HTN (hypertension): Code(s): I10 - Essential (primary) hypertension Category: Medical Plan: Hypertension with hypertensive heart disease in the past without any overt signs of congestive heart failure. Overall blood pressure is well optimized on current medication. Importance of good blood pressure control was discussed. Continue the same. Target goal blood pressure less than 130/84. Advised to monitor blood pressure at home maintain a log. Low-salt diet was discussed. Signs and symptoms of heart failure were discussed. Encouraged to increase activity level and participate in aggressive weight loss program which should have with overall terminal makeup operator outcomes. (2) PAC (premature atrial contraction): Code(s): I49.1 - Atrial premature depolarization Category: Medical Plan: PACs without any prolonged palpitation suggestive of atrial fibrillation. At this point time no further interventions required. No therapy is recommended. Avoidance of stimulants was discussed. Stress mitigation strategies were discussed. (3) Hyperlipidemia: Code(s): E78.5 - Hyperlipidemia, unspecified Category: Medical Plan: Hyperlipidemia well optimized on current statin therapy. Advised to continue the same. Dietary changes as well as weight loss was discussed. She understands agrees. Advised to call me with any new symptoms. Follow up in the clinic in 1 year's time, sooner PRN. Thank you for allowing me to partake in her care Coding Level of Care Code Est Pt Level 4 (28412) Diagnoses HTN (hypertension) I10 PAC (premature atrial contraction) I49.1 Hyperlipidemia E78.5 CPT Codes EKG - CPT: 67167-Mugigznaevrvtqecr, Complete ([id number])
--- OUTSIDE RECORDS SUMMARY | 2025-04-01 15:44 | XMS_ITS | Patient Health Record ---
Author Organization [facility] Address [address] [place] [address] Care Team Providers Care Financial Aid Director Name Role Phone Dania Wright MD Primary Care Provider Unavaila ble Black, Sharita Unavailable [phone] Allergies Allergen (clinical drug ingredient) Drug/Non Drug [...] day Active Ciclopirox 0.77 % 1 application Zanjero ally Twice a day; Duration: 30 days [...] Problem Acquired hammer toe of right foot (298273709428846 5) Other hammer toe(s) (acquired), right foot (M20.41) Active confirmed Problem Acquired hammer toe of left foot (997758410503791 3) Other hammer toe(s) (acquired), left foot (M20.42) Active confirmed Problem Plantar wart (30709926) Plantar wart (B07.0) Active confirmed Problem Type II diabetes mellitus without complication (379613591) Type 2 diabetes mellitus without complication, unspecified whether director of contracts insulin use (E11.9) Active confirmed Vital Signs Blood pressure diastolic 76 mm Hg 09/30/2024 Height 5 ft 5 in in 09/30/2024 Blood pressure systolic 120 mm Hg 09/30/2024 Weight 240 lbs lbs 09/30/2024 BMI 39.93 kg/m2 09/30/2024 Procedures Procedure Date Ordered Date Performed Result Body Sit e 16166-Xjev Destruction, 1-14 09/30/2024 N/A Encounters Encounter Location Date Provider Diagnosis [facility] [address] [place] [address] 09/30/2024 Sharita Black Pain in right toe(s) M79.674 ; Onychomycosis B35.1 ; Pain in left toe(s) M79.675 ; Right foot pain M79.671 ; Plantar wart B07.0 ; Other hammer toe(s) (acquired), right foot M20.41 ; Other hammer toe(s) (acquired), left foot M20.42 ; Xerosis of skin L85.3 and Type 2 diabetes mellitus without complication, unspecified whether director of contracts insulin use E11.9 Assessments Encounter Date Diagnosis [...] 2 diabetes mellitus without complication, unspecified whether senior care insulin use (ICD-10 - E11.9) Plan Of Treatment Pending Test Test Name Order Date 13566-Vxix Destruction, 1-14 09/30/2024 Next Appt Details Provider Name:Sharita Sweeney , 04/21/2025 11:15:00 AM, [address] [place], [address], Insurance Providers Payer Name Payer Address Payer Phone Subscriber Number Group Number Insured Name Patient Relationship to Insured Coverage Start Date Coverage End Date Medicare National Govt Svcs Inc [address] [facility] [address] [id number] Randa Sanabria Self - patient is the insured 7 [employer] [facility] [address] [place] [address] [id number] Randa Sanabria Self - patient is the insured Medical (General) History Medical History History ICD Code Arthritis covid-19 type II diabetes Psoriasis/eczema thyroid Measles Mumps Chicken pox Surgical History Surgery Date(Month/Year) back surgery Thyroid 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
--- OUTSIDE RECORDS SUMMARY | 2025-04-01 15:44 | XMS_ITS | Clinical Summary ---
Author Organization [facility] Prior to 09/07/24 Address [address] [place] [address] Care Team Providers Care Sheet Music Salesperson Name Role Phone VangieRachelle DO Primary Care Provider [phone] Allergies No known active allergies Medications Medication [...] age to complete this topic Care Teams Sheet Music Salesperson Relationship Specialty Start Date End Date Rachelle Vences DO PCP - General Family Medicine 07/14/17
--- OUTSIDE RECORDS SUMMARY | 2025-04-01 15:44 | XMS_ITS | Patient Health Record ---
Author Organization [facility] Address [address] [place] [address] Care Team Providers Care Property Valuer Name Role Phone Rachelle Vences DO Primary Care Provider Yoni Mari Unavailable [phone] Reason For Referral No Information Medications Medication SIG (Take, Route, Frequency, Duration) Notes Start Date End Date Status MoviPrep 100 GM Solution Reconstituted as directed Orally once; Duration: 1 dose 05/06/2011 Active Atenolol-Chlorthalidone 100/10mg Active Multi Vitamin/Minerals 04/10/19001900 Active Social History Social History Additional Details Category Social Info Options Details Miscellaneous: Marital status: 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, 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 Section Notes: She stopped smoking 25 years ago, and does not use any significant amounts of alcohol Problems Problem Type SNOMED Code ICD Code Onset Dates Problem Status W/U Status Risk Notes Problem Diverticulosis of colon (finding) (820180629) Diverticulosis of colon (without mention of hemorrhage) (562.10) Active confirmed Problem Irritable bowel syndrome (45224719) Irritable bowel syndrome (564.1) Active confirmed Problem Screening for malignant neoplasm of colon (043113099) Special screening for malignant neoplasms, colon (V76.51) Active confirmed Plan Of Treatment Future Test Test Name Order Date COLONOSCOPY 04/27/2011 Insurance Providers Payer Name Payer Address Payer Phone Subscriber Number Group Number Insured Name Patient Relationship to Insured Coverage Start Date Coverage End Date GI [employer] INDEMNITY [address] [place] [address] [phone] [id number] KIRT VELAZCO Self - patient is the insured Medical (General) History Medical History History ICD Code hypertension irritable bowel syndrome diverticulosis Denies [place],DM,CVA,Lung disease,renal dise ase Surgical History Surgery Date(Month/Year) back surgery 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
--- OUTSIDE RECORDS SUMMARY | 2025-04-01 15:44 | XMS_ITS | Patient Health Record ---
Author Organization Total [employer] [facility] Address [address] [place] [address] Care Team Providers Care Energy Systems Laboratory Director Name Role Phone Lizbeth Velasquez Unavailable [phone] Allergies No Known Allergies Results Component Value Reference Range Notes [id number] IGP No Culture 30 Plus Reviewed date:08/05/2024 12:18:27 PM Interpretation: Performing Lab:[facility] [place], [address], [address], [place], Phone - [phone], Director - [facility] Notes/Report: Clinical Information:Vaginal/Cervical, LMP: Men o [id number] Dates / Results....01/13/23 NIL, Neg HPV Other..............Post Menopausal No. of containers..01 ThinPrep Vial DIAGNOSIS: NEGATIVE FOR INTRAEPITHELIAL LESION OR MALIGNANCY. CELLULAR CHANGES ASSOCIATED WITH ATROPHY ARE PRESENT. THIS SPECIMEN WAS RESCREENED PART OF OUR WOOD SHOP TEACHER PROGRAM. Specimen adequacy: Satisfactory for evaluation. Endocervical component may not be distinguished in cases of atrophy. Clinician provided ICD10: Z0 1.419 Performed by: Nahomi hameed, Talent Acquisition Lead (ASCP) QC reviewed by: Urbano padilla, Talent Acquisition Lead (ASCP) . . Note: The Pap smear [...] Reviewed date:08/05/2024 12:17:59 PM Interpretation: Performing Lab:[facility] [place], [address], [address], [place], Phone - [phone], Director - [facility] Notes/Report: Clinical Information:Vaginal/Cervical, LMP: Men o [id number] Dates / Results....01/13/23 NIL, Neg HPV Other..............Post [...] Risk Notes Problem Mucous polyp of cervix (13061587) Polyp of cervix uteri (N84.1) Active confirmed Problem Essential hypertension (72544825) Essential (primary) hypertension (I10) Active confirmed Problem Morbid obesity (disorder) (570622051) Morbid (severe) obesity due to excess calories (E66.01) Active confirmed Problem Osteoarthritis (631216019) Unspecified osteoarthritis, unspecified site (M19.90) Active confirmed Problem Polyp of corpus uteri (27908113) Polyp of corpus uteri (N84.0) Active confirmed Problem History of dysplasia of cervix (338982672) Personal history of cervical dysplasia (Z87.410) Active confirmed Problem Imaging result abnormal (639612016) Abnormal findings on diagnostic imaging of other specified body structures (R93.89) Active confirmed Vital Signs Temperature 97.5 degrees Fahrenheit 07/31/2024 Blood pressure diastolic 78 mm Hg 07/31/2024 Height 65 in 07/31/2024 Blood pressure systolic 142 mm Hg 07/31/2024 Weight 243 lbs 07/31/2024 BMI 40.43 kg/m2 07/31/2024 Encounters Encounter Location Date Provider Diagnosis [place] [facility] [address] [address] 08/23/2024 Lizbeth Velasquez [place] [address] [address] 07/31/2024 Lizbeth Velasquez Encounter for gynecological examination (general) (routine) without abnormal findings Z01.419 ; Encounter for screening mammogram for malignant neoplasm of breast Z12.31 ; Personal history of cervical dysplasia Z87.410 ; Acute candidiasis of vulva and vagina B37.31 and Morbid (severe) obesity due to excess calories E66.01 [place] [address] [address] 09/27/2024 Lizbeth Velasquez Abnormal findings on diagnostic imaging of other specified body structures R93.89 ; Polyp of corpus uteri N84.0 and Polyp of cervix uteri N84.1 [place] [address] [address] 09/27/2024 Lizbeth Velasquez Total [facility] [address] [place] [address] 08/28/2024 Lizbeth Velasquez Total [address] [place] [address] 08/28/2024 Lizbeth Velasquez Assessments Encounter Date Diagnosis [...] Provider Name:Lizbeth vasquez, 08/07/2025 11:00:00 AM, [address], [address], [place], [address], Insurance Providers Payer Name Payer Address Payer Phone Subscriber Number Group Number Insured Name Patient Relationship to Insured Coverage Start Date Coverage End Date MEDICARE [address] [place], [place] [id number] KIRT VELAZCO Self - patient is the insured 7 [employer] [address] [place] [address] [id number] KIRT VELAZCO Self - patient is the [...]
== END 2025-04-01 15:08 | disposition home or self-care (01) ==
LOC: HO.HCS 14:27
PROVIDERS: PCP Internal Medicine; Visit Provider Internal Medicine Cardiovascular Disease
DX: I10 Essential (primary) hypertension (principal); I49.1 Atrial premature depolarization; E78.5 Hyperlipidemia, unspecified
CPT/HCPCS: 93010; 99214

== ENCOUNTER → 2025-04-01 14:26 | Outpatient (BNVA) | payer MEDICARE, OTHER, SELFPAY | PROVIDERS: PCP Internal Medicine; Visit Provider Internal Medicine Cardiovascular Disease | DX: I10 Essential (primary) hypertension (principal); I49.1 Atrial premature depolarization; E78.5 Hyperlipidemia, unspecified | CPT/HCPCS: 93005; 99212 ==

== ENCOUNTER 2025-04-07 11:45 | Outpatient (AMB) | payer MEDICARE, OTHER, SELFPAY ==
--- OUTSIDE RECORDS SUMMARY | 2024-08-23 06:00 | XMS_ITS ---
Author Organization Total [facility] Address [address] [place] [address] Care Team Providers Care Orthopedic Dentist Name Role Phone Lizbeth Velasquez Unavailable [phone] REASON FOR VISIT ULTRA - CK OVARIES TAW Encounters Encounter Location Date Provider Diagnosis [facility] [place] [address] 08/23/2024 Lizbeth Velasquez Plan Of Treatment Next Appt Details Provider Name:Lizbeth vasquez, 08/07/2025 11:00:00 AM, [address], [address], [place], [address], Progress Notes * MORA GIACOMOCHRISTENDOB: [birth year] (74 yo F)Acc No.[id number]:08/23/2024 PROGRESS NOTES Patient: KIRT POOLE Appointment Provider: Jordan Velasquez M.D. :1950 A ge:73 Y S ex:Female Date:08/23/2024 Address: [address] [id number] Subjective: * Chief Complaints: * 1 . ULTRA - CK OVARIES TAW. * Medical History: Objective: * Vitals: Assessment: Plan: * Treatment: * Images: Billing Information: * Visit Code: * Procedure Codes: * Electronic signature of Aida Velasquez MD on 04/07/2025 at 01:50 PM EST Sign off status: Pending * Appointment Provider: Jordan Velasquez M.D. Date: 0 08/23/2024 Generated for Irlanda bills/Eden/Karen on: 1 01:50 PM EST
--- NOTE | 2025-04-07 11:50 | MHC.PC.OV ---
Vital Signs 04/07/25 11:51 Height 5 ft 5 in Weight 249 lb BMI 41.4 BP 132/74 Blood Pressure Location Lt brachial Position Sitting Respiration 17 Pulse 68 Pulse Source Pulse Oximeter Pulse Oximetry (%) 97 Oxygen Delivery Method Room Air Intake Visit Reasons: 3 mo follow up Intake Note: Pt is here today for 3 months follow up visit. Pt states that she would like to have blood work done today for her thyroid. Allergies metformin Allergy (Severe, Verified 04/07/25 11:53) diarrhea, empagliflozin (From Jardiance) Adverse Reaction (Intermediate, Verified 04/07/25 11:53) yeast infection glipizide Adverse Reaction (Intermediate, Verified 04/07/25 11:53) body aches sitagliptin (From Erydel) Adverse Reaction (Intermediate, Verified 04/07/25 11:53) Diarrhea Medication List - Last Reconciled 04/07/25 by Dania Wright MD albuterol sulfate 90 mcg/actuation 2 puffs inhalation Q6H PRN amlodipine 2.5 mg PO DAILY atorvastatin 20 mg PO QPM betamethasone valerate 0.1% 1 appl topical BID blood sugar diagnostic (PiktochartTouch Ultra Test strips) test blood sugar once a day blood-glucose meter (PiktochartTouch Ultra2 Meter) As directed cetirizine (Zyrtec) 10 mg PO BID 90 days COVID-19 antigen test As directed fluticasone propionate 50 mcg/actuation 1 spray intranasal Q12H guselkumab (Tremfya) IV levothyroxine 112 mcg PO DAILY Mounjaro (tirzepatide) 2.5 mg (0.5 mL) subcut QWEEK NS oxymetazoline 0.05% (Afrin (oxymetazoline)) 2 sprays intranasal Q12H PRN 5 days valsartan 320 mg PO DAILY Tobacco use date assessed: 01/07/25 Dental Screening Dental Screen Date: 05/03/24 HPI 3 mo follow up HPI Details Patient presents for the follow-up of hypertension hyperlipidemia type 2 diabetes. Patient's son started working in [place] and she is planning to visit him in August [facility] Medical History Osteopenia Dyspnea Postmenopausal Atrophic vaginitis Annual physical exam Psoriasis Limb pain Eosinophilia Pulmonary nodules Asthma Hypothyroid DM type 2 (diabetes mellitus, type 2) HTN (hypertension) LVH (left ventricular hypertrophy) Hyperlipidemia Obesity Surgical History History of hysteroscopy Hx of cervical polypectomy History of surgery History of thyroidectomy (2017) Hx of colonoscopy History of back surgery Family History Father Carotid stenosis Mother Hypertension Social History Housing: House Alcohol intake: never Patient Tobacco Use Status: Former Tobacco user Years Smoked: 40 years ago e-Cigarette/Vaping Use: Never Used service: No Current occupational status: retired Cognitive needs: No Hearing needs: No Vision needs: Yes Questionnaire PHQ-9 Over the last 2 weeks, how often have you been bothered by any of the following problems? 1. Little interest or pleasure in doing things: not at all 2. Feeling down, depressed, or hopeless: not at all 3. Trouble falling or staying asleep, or sleeping too much: not at all 4. Feeling tired or having little energy: not at all 5. Poor appetite or overeating: not at all 6. Feeling bad about yourself - or that you are a failure or have let yourself or your family down: not at all 7. Trouble concentrating on things, such as reading the newspaper or watching television: not at all 8. Moving or speaking so slowly that other people could have noticed. Or the opposite - being so fidgety or restless that you have been moving around a lot more than usual: not at all 9. Thoughts that you would be better off or of hurting yourself in some way: not at all Total score: 0 Depression Screening Interpretation: Negative Depression Screening Done: Yes 07121 - PHQ-9 Billing: Yes Source: Developed by Drs. Yoni Pina, Kirti Bernal, Michael Medina and colleagues, with an educational selvin from [employer]. Thrive Questionnaire Date Thrive assessed: 04/27/24 I am a: Patient What is your living situation today?: I have a steady place to live Within the past 12 months, did the food you bought not last and you didn't have the money to get more?: Never true Within the past 12 months, did you worry whether your food would run out before you got money to buy more?: Never true Do you have trouble paying for medicines?: No Do you have trouble getting transportation to medical appointments?: No Do you have trouble paying your heating and electricity bill?: No Do you have trouble taking care of your child, family member or friend?: No Do you have trouble with day-to-day activities such as bathing, preparing meals, shopping, managing finances, etc.?: No Are you currently unemployed and looking for a job?: No Are you interested in more education?: No Currently or been in a relationship where the following occur: No concerns reported THRIVE Score: 0 JORDANA-7 AMB Questionnaire JORDANA-7 Date JORDANA - 7 assessed: 05/03/24 Source: Developed by Drs. Yoni Pina, Kirti Bernal, Michael Medina and colleagues, with an educational selvin from [employer]. Review of Systems Const All systems reviewed & are unremarkable except as noted in HPI and below Eyes Reports no additional complaints ENT Reports no additional complaints Card Reports no additional complaints Resp Reports no additional complaints GI Reports no additional complaints Reports no additional complaints Physical exam (Primary Care) Vital Signs: Last Vital Signs Pulse 68 04/07/25 11:51 Resp 17 04/07/25 11:51 BP 132/74 04/07/25 11:51 Pulse Ox 97 04/07/25 11:51 Oxygen Delivery Method Room Air 04/07/25 11:51 BMI result Body Mass Index 41.4 Tobacco/Smoking Status: Tobacco use Status Tobacco use date assessed 01/07/25 04/07/25 11:56 Patient Tobacco Use Status Former Tobacco user 04/07/25 11:56 e-Cigarette/Vaping Use Never Used 04/07/25 11:56 PHQ-9: PHQ-9 Score PHQ-9: Total score 0 04/07/25 11:56 Depression Screening Interpretation: Negative Thrive Assessment: Date of Thrive Assessment Date Thrive assessed 04/27/24 04/07/25 11:56 Currently or been in a relationship where the following occur: No concerns reported Const General: no acute distress Resp Effort & Inspection: normal respiratory effort Auscultation: clear to auscultation bilaterally Cardio Rhythm: regular rhythm Heart sounds: S1 normal heart sound present and S2 normal heart sound present GI Inspection: Yes normal to inspection Palpation (GI): Soft to palpation Percussion: Yes normal to percussion Coding Level of Care Code Est Pt Level 4 (62049) Diagnoses HTN (hypertension) I10 DM type 2 (diabetes mellitus, type 2) E11.9 Hyperlipidemia E78.5 Hypothyroid E03.9 Additional Codes PHQ-9 - 46330 - PHQ-9 Billing: Yes ([id number]) Assessment & Plan Assessment & Plan (1) HTN (hypertension): Code(s): I10 - Essential (primary) hypertension Category: Medical Plan: Continue current medications (2) DM type 2 (diabetes mellitus, type 2): Comment: Intolerant to Jardiance, Januvia, Metformin (diarrhea), Glipizide Code(s): E11.9 - Type 2 diabetes mellitus without complications Category: Medical Plan: A1c is 6.7, ADA diet increase exercise weight loss discussed with the patient. Increase Mounjaro to 5 mg weekly follow-up in 3 months (3) Hyperlipidemia: Code(s): E78.5 - Hyperlipidemia, unspecified Category: Medical Plan: Continue atorvastatin (4) Hypothyroid: Code(s): E03.9 - Hypothyroidism, unspecified Category: Medical Plan: Continue levothyroxine Orders: Orders Hemoglobin A1c 3 Months E11.9 - Type 2 diabetes mellitus without complications, I10 - Essential (primary) hypertension Complete Blood Count Auto Diff 3 Months E11.9 - Type 2 diabetes mellitus without complications, I10 - Essential (primary) hypertension Lipid Panel 3 Months E11.9 - Type 2 diabetes mellitus without complications, I10 - Essential (primary) hypertension TSH reflex Free T4 3 Months E11.9 - Type 2 diabetes mellitus without complications, I10 - Essential (primary) hypertension Comprehensive [place]. Panel Fast 3 Months E11.9 - Type 2 diabetes mellitus without complications, I10 - Essential (primary) hypertension Medications: New Mounjaro (tirzepatide) 5 mg (0.5 mL) subcut QWEEK 2 mL 3RF NS Discontinued Mounjaro (tirzepatide) Discontinued Reason: Doctor's Order 2.5 mg (0.5 mL) subcut QWEEK 6 mL 1RF NS
[2025-04-07 11:51] VITALS: BP 132/74; PULSE 68; RESP 17; O2SAT 97; BMI 41.4
--- OUTSIDE RECORDS SUMMARY | 2025-04-07 13:50 | XMS_ITS | Patient Health Record ---
Author Organization [facility] Address [address] [place] [address] Care Team Providers Care Photograph Printer Name Role Phone Rachelle Vences DO Primary Care Provider Yoni Mari Unavailable [phone] Reason For Referral No Information Medications Medication SIG (Take, Route, Frequency, Duration) Notes Start Date End Date Status MoviPrep 100 GM Solution Reconstituted as directed Orally once; Duration: 1 dose 05/06/2011 Active Atenolol-Chlorthalidone 100/10mg Active Multi Vitamin/Minerals 04/10/19001900 Active Social History Social History Additional Details Category Social Info Options Details Miscellaneous: Marital status: 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, 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 Section Notes: She stopped smoking 25 years ago, and does not use any significant amounts of alcohol Problems Problem Type SNOMED Code ICD Code Onset Dates Problem Status W/U Status Risk Notes Problem Diverticulosis of colon (finding) (786357078) Diverticulosis of colon (without mention of hemorrhage) (562.10) Active confirmed Problem Irritable bowel syndrome (14474201) Irritable bowel syndrome (564.1) Active confirmed Problem Screening for malignant neoplasm of colon (928717298) Special screening for malignant neoplasms, colon (V76.51) Active confirmed Plan Of Treatment Future Test Test Name Order Date COLONOSCOPY 04/27/2011 Insurance Providers Payer Name Payer Address Payer Phone Subscriber Number Group Number Insured Name Patient Relationship to Insured Coverage Start Date Coverage End Date [employer] [address] [place] [address] [phone] [id number] KIRT VELAZCO Self - patient is the insured Medical (General) History Medical History History ICD Code hypertension irritable bowel syndrome diverticulosis Denies [place],DM,CVA,Lung disease,renal dise ase Surgical History Surgery Date(Month/Year) back surgery 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
--- OUTSIDE RECORDS SUMMARY | 2025-04-07 13:50 | XMS_ITS | Patient Health Record ---
Author Organization Total [facility] [facility] Address [address] [place] [address] Care Team Providers Care Property Underwriter Name Role Phone Lizbeth Velasquez Unavailable [phone] Allergies No Known Allergies Results Component Value Reference Range Notes [id number] IGP No Culture 30 Plus Reviewed date:08/05/2024 12:18:27 PM Interpretation: Performing Lab:[facility] [place], [address], [address], [place], Phone - [phone], Director - [facility] Notes/Report: Clinical Information:Vaginal/Cervical, LMP: Men o [id number] Dates / Results....01/13/23 NIL, Neg HPV Other..............Post Menopausal No. of containers..01 ThinPrep Vial DIAGNOSIS: NEGATIVE FOR INTRAEPITHELIAL LESION OR MALIGNANCY. CELLULAR CHANGES ASSOCIATED WITH ATROPHY ARE PRESENT. THIS SPECIMEN WAS RESCREENED PART OF OUR RESIDENT CARE SPEC PROGRAM. Specimen adequacy: Satisfactory for evaluation. Endocervical component may not be distinguished in cases of atrophy. Clinician provided ICD10: Z0 1.419 Performed by: Nahomi hameed, Md Psychiatry (ASCP) QC reviewed by: Urbano padilla, Md Psychiatry (ASCP) . . Note: The Pap smear [...] Reviewed date:08/05/2024 12:17:59 PM Interpretation: Performing Lab:[facility] [place], [address], [address], [place], Phone - [phone], Director - [facility] Notes/Report: Clinical Information:Vaginal/Cervical, LMP: Men o [id number] Dates / Results....01/13/23 NIL, Neg HPV Other..............Post [...] Risk Notes Problem Mucous polyp of cervix (02217335) Polyp of cervix uteri (N84.1) Active confirmed Problem Essential hypertension (16410266) Essential (primary) hypertension (I10) Active confirmed Problem Morbid obesity (disorder) (614294119) Morbid (severe) obesity due to excess calories (E66.01) Active confirmed Problem Osteoarthritis (018464990) Unspecified osteoarthritis, unspecified site (M19.90) Active confirmed Problem Polyp of corpus uteri (45686501) Polyp of corpus uteri (N84.0) Active confirmed Problem History of dysplasia of cervix (198644112) Personal history of cervical dysplasia (Z87.410) Active confirmed Problem Imaging result abnormal (517847643) Abnormal findings on diagnostic imaging of other specified body structures (R93.89) Active confirmed Vital Signs Temperature 97.5 degrees Fahrenheit 07/31/2024 Blood pressure diastolic 78 mm Hg 07/31/2024 Height 65 in 07/31/2024 Blood pressure systolic 142 mm Hg 07/31/2024 Weight 243 lbs 07/31/2024 BMI 40.43 kg/m2 07/31/2024 Encounters Encounter Location Date Provider Diagnosis [place] [facility] [address] [facility] [address] [address] 08/23/2024 Lizbeth Velasquez [place] [address] [facility] [address] [address] 07/31/2024 Lizbeth Velasquez Encounter for gynecological examination (general) (routine) without abnormal findings Z01.419 ; Encounter for screening mammogram for malignant neoplasm of breast Z12.31 ; Personal history of cervical dysplasia Z87.410 ; Acute candidiasis of vulva and vagina B37.31 and Morbid (severe) obesity due to excess calories E66.01 [place] [address] [facility] [address] [address] 09/27/2024 Lizbeth Velasquez Abnormal findings on diagnostic imaging of other specified body structures R93.89 ; Polyp of corpus uteri N84.0 and Polyp of cervix uteri N84.1 [place] [address] [facility] [address] [address] 09/27/2024 Lizbeth Velasquez [facility] [address] [place] [address] 08/28/2024 Lizbeth Velasquez [place] [address] [place] [address] 08/28/2024 Lizbeth Velasquez Assessments Encounter Date Diagnosis [...] Provider Name:Lizbeth vasquez, 08/07/2025 11:00:00 AM, [address], [address], [place], [address], Insurance Providers Payer Name Payer Address Payer Phone Subscriber Number Group Number Insured Name Patient Relationship to Insured Coverage Start Date Coverage End Date MEDICARE [address] [place], [place] [id number] [phone] [id number] KIRT VELAZCO Self - patient is the insured 7 [employer] [address] [place] [address] [id number] KIRT VELAZCO Self - patient is the [...]
--- OUTSIDE RECORDS SUMMARY | 2025-04-07 13:50 | XMS_ITS | Clinical Summary ---
Author Organization [facility] Prior to 09/07/24 Address [address] [place] [address] Care Team Providers Care Physical Security Manager Name Role Phone VangieRachelle DO Primary Care Provider [phone] Allergies No known active allergies Medications Medication [...] age to complete this topic Care Teams Physical Security Manager Relationship Specialty Start Date End Date Rachelle Vences DO PCP - General Family Medicine 07/14/17
--- OUTSIDE RECORDS SUMMARY | 2025-04-07 13:51 | XMS_ITS | Patient Health Record ---
Author Organization [facility] Address [address] [place] [address] Care Team Providers Care Screw Machine Tool Setter Name Role Phone Dania Wright MD Primary Care Provider Unavaila ble Black, Sharita Unavailable [phone] Allergies Allergen (clinical drug ingredient) Drug/Non Drug [...] day Active Ciclopirox 0.77 % 1 application Hat Stock Laminating Machine Operator ally Twice a day; Duration: 30 days [...] Problem Acquired hammer toe of right foot (938543807737701 5) Other hammer toe(s) (acquired), right foot (M20.41) Active confirmed Problem Acquired hammer toe of left foot (765422399920452 3) Other hammer toe(s) (acquired), left foot (M20.42) Active confirmed Problem Plantar wart (05785578) Plantar wart (B07.0) Active confirmed Problem Type II diabetes mellitus without complication (394949306) Type 2 diabetes mellitus without complication, unspecified whether terminal superintendent insulin use (E11.9) Active confirmed Vital Signs Blood pressure diastolic 76 mm Hg 09/30/2024 Height 5 ft 5 in in 09/30/2024 Blood pressure systolic 120 mm Hg 09/30/2024 Weight 240 lbs lbs 09/30/2024 BMI 39.93 kg/m2 09/30/2024 Procedures Procedure Date Ordered Date Performed Result Body Sit e 39168-Psjx Destruction, 1-14 09/30/2024 N/A Encounters Encounter Location Date Provider Diagnosis [facility] [address] [place] [address] 09/30/2024 Sharita Black Pain in right toe(s) M79.674 ; Onychomycosis B35.1 ; Pain in left toe(s) M79.675 ; Right foot pain M79.671 ; Plantar wart B07.0 ; Other hammer toe(s) (acquired), right foot M20.41 ; Other hammer toe(s) (acquired), left foot M20.42 ; Xerosis of skin L85.3 and Type 2 diabetes mellitus without complication, unspecified whether terminal superintendent insulin use E11.9 Assessments Encounter Date Diagnosis [...] 2 diabetes mellitus without complication, unspecified whether fpc insulin use (ICD-10 - E11.9) Plan Of Treatment Pending Test Test Name Order Date 27203-Bypb Destruction, 1-14 09/30/2024 Next Appt Details Provider Name:Sharita Sweeney , 04/21/2025 11:15:00 AM, [address] [place], [address], Insurance Providers Payer Name Payer Address Payer Phone Subscriber Number Group Number Insured Name Patient Relationship to Insured Coverage Start Date Coverage End Date Medicare National [employer]t [employer] [address] [place] [address] [id number] Randa Sanabria Self - patient is the insured 7 [employer] 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
== END 2025-04-07 12:51 | disposition home or self-care (01) ==
LOC: HO.HMCC 11:46
PROVIDERS: PCP Internal Medicine; Visit Provider Internal Medicine
DX: I10 Essential (primary) hypertension (principal); E11.9 Type 2 diabetes mellitus without complications; E78.5 Hyperlipidemia, unspecified; E03.9 Hypothyroidism, unspecified

== ENCOUNTER → 2025-04-07 11:45 | Outpatient (BNVA) | payer MEDICARE, OTHER, SELFPAY | PROVIDERS: PCP Internal Medicine; Visit Provider Internal Medicine | DX: I10 Essential (primary) hypertension (principal); E11.9 Type 2 diabetes mellitus without complications; E78.5 Hyperlipidemia, unspecified; E03.9 Hypothyroidism, unspecified; Z13.31 Encounter for screening for depression; Z79.85 Long-term (current) use of injectable non-insulin antidiabetic drugs | CPT/HCPCS: 96127; 99212 ==